=== PATIENT | male | born 1960 | race Two or more races ===

== ENCOUNTER → 2021-09-21 15:41 | Outpatient (BNVA) | payer OTHER, SELFPAY | PROVIDERS: PCP Internal Medicine Geriatric Medicine; Visit Provider Nurse Practitioner Family | DX: G20 Parkinson's disease (principal); R27.0 Ataxia, unspecified; R20.2 Paresthesia of skin; M54.2 Cervicalgia | CPT/HCPCS: 99212 ==

== ENCOUNTER 2021-10-22 07:23 | Outpatient (REF) | payer OTHER, SELFPAY ==
--- NOTE | ~2021-10-22 | MR_ITS ---
MR CERVICAL SPINE WITHOUT CONTRAST CLINICAL INFORMATION: Paresthesia of the skin. COMPARISON: None available. TECHNIQUE: MRI of the cervical spine was obtained using routine sequences without contrast. FINDINGS: Mild retrosubluxation of C3 on C4. Vertebral body heights are maintained. Multilevel endplate osteophytes. Craniocervical junction is normal. Disc volumes are preserved. Modic type I endplate signal changes at C4-C5. Bone marrow edema within the right C4-C5 facets, most likely degenerative/inflammatory. No acute fractures. Cervical arterial flow voids are maintained. No significant extraspinal soft tissue findings. C2-C3: Shallow central disc protrusion mildly narrows the central canal. No foraminal stenosis. C3-C4: Retrosubluxation and a shallow central disc protrusion results in severe central canal stenosis and compression of the cord. Significant intramedullary signal changes within the cord at this level. Advanced uncovertebral joint hypertrophy and hypertrophic facet arthropathy result in severe bilateral foraminal stenosis. C4-C5: A broad-based disc protrusion and ligamentum flavum thickening result in severe central canal stenosis and compression of the cord. Significant intramedullary signal changes within the cord at this level. Advanced uncovertebral joint hypertrophy and hypertrophic facet arthropathy result in severe bilateral foraminal stenosis. C5-C6: A disc protrusion and ligamentum flavum thickening result in severe central canal stenosis and compression of the cord. Intramedullary T2 signal changes within the cord at this level. Advanced uncovertebral joint hypertrophy and hypertrophic facet arthropathy result in severe bilateral foraminal stenosis. C6-C7: Shallow left paracentral disc protrusion mildly narrows the central canal. Advanced uncovertebral joint hypertrophy and hypertrophic facet arthropathy result in severe bilateral foraminal stenosis. C7-T1: Disc contour is normal. No central canal stenosis and no foraminal stenosis. MR/MR cervical spine wo con IMPRESSION: - Disc herniations and ligamentum flavum thickening result in severe central canal stenosis and significant compression of the cervical spinal cord at the C3-C4, C4-C5, and C5-C6 levels. 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 Neurosurgical consultation advised. - Advanced spondylitic changes also result in severe bilateral foraminal stenosis at C3-C4, C4-C5, C5-C6, and C6-C7. The patient was instructed to go to the emergency department immediately following this examination and the referring clinician has been paged with these results at 8:09 AM on 12/22/2021.
== END 2021-10-22 07:24 | disposition home or self-care (01) ==
LOC: HO.MRI 07:23
PROVIDERS: Visit Provider Nurse Practitioner Family
DX: R20.2 Paresthesia of skin (principal); G20 Parkinson's disease; R27.0 Ataxia, unspecified; M54.2 Cervicalgia
CPT/HCPCS: 72141

== ENCOUNTER 2021-10-22 08:17 | Emergency (ER) | payer OTHER, SELFPAY ==
[2021-10-22 08:21] VITALS: BP 145/78; PULSE 84; RESP 16; TEMP 36.9; O2SAT 98; BMI 25.7
--- NOTE | 2021-10-22 08:38 | ED.GENADULT ---
HPI - General Adult General Chief complaint: Recheck/Abnormal Lab/Rx Stated complaint: Pain Time Seen by Provider: 10/22/21 08:21 Source: patient and family Mode of arrival: ambulatory History of Present Illness HPI narrative: Is a 61-year-old male who typically gets his care at [facility] and has a history of Parkinson's, diabetes and states that he has been having increasing frequent falls as well as what has been determined an ?ataxic gait? and patient states that he has become progressively more numb in both his lower and upper extremities to the point that if he is not specifically looking at a cup or silverware then he will drop it. Patient states that his symptoms have been progressing for the past 6 months and he is been currently worked up for this at [facility]. He was sent here this morning for an MRI of the cervical spine and according to the MRI read he was sent up here because there is severe central canal stenosis and significant compression cervical spinal cord at C3 through C6. Related Data Home Medications Medication Instructions Recorded Confirmed carbidopa 25 mg-levodopa 100 mg 1 tab PO BID 05/28/21 09/21/21 tablet carbidopa ER 48.75 mg-levodopa 195 2 cap PO QID 05/28/21 09/21/21 mg capsule,extended release (Rytary) celecoxib 100 mg capsule 100 mg PO BID 05/28/21 09/21/21 clonazepam 0.5 mg tablet (Klonopin) 0.5 mg PO BID 05/28/21 09/21/21 dulaglutide 1.5 mg/0.5 mL 1.5 mg subcut QWEEK 05/28/21 09/21/21 subcutaneous pen injector (Trulicity) fenofibrate micronized 134 mg 134 mg PO DAILY 05/28/21 09/21/21 capsule pimavanserin 34 mg capsule 34 mg PO DAILY 05/28/21 09/21/21 (Nuplazid) pravastatin 20 mg tablet 20 mg PO DAILY 05/28/21 09/21/21 quetiapine 25 mg tablet 25 mg PO BEDTIME 05/28/21 09/21/21 ropinirole 0.25 mg tablet 0.25 mg PO BID 05/28/21 09/21/21 sertraline 100 mg tablet 100 mg PO DAILY 05/28/21 sertraline 25 mg tablet 25 mg PO DAILY 05/28/21 09/21/21 trazodone 100 mg tablet 100 mg PO DAILY 05/28/21 09/21/21 zolpidem 10 mg tablet (Ambien) 10 mg PO BEDTIME PRN 05/28/21 09/21/21 Previous Rx's Medication Instructions Recorded amitriptyline 25 mg tablet 50 mg PO BEDTIME 30 days #60 tabs 09/21/21 magnesium oxide 400 mg (241.3 mg 400 mg PO BEDTIME 30 days #30 tabs 09/28/21 magnesium) tablet Allergies Allergy/AdvReac Type Severity Reaction Status Date / Time No Known Allergies Allergy Verified 09/21/21 15:45 Review of Systems Review of Systems: Pertinent positives and negatives as stated in HPI 10 point review of systems is otherwise negative. PMFSH Past Medical History Source: nursing notes reviewed Family History Family History Mother Hyperlipidemia Cancer Thyroid disease High cholesterol Social History Social History Patient Tobacco Use Status: Never used Tobacco Advance Directives: No Advance Directives Information Provided: Yes Physical Exam ED Vital Signs: Vital Signs - 24 hr 10/22/21 08:21 10/22/21 09:41 Temperature 98.4 F Pulse Rate 84 76 Respiratory Rate 16 16 Blood Pressure 145/78 H 142/82 H Pulse Oximetry 98 96 Oxygen Delivery Method Room Air Room Air BMI result Body Mass Index 25.7 VITAL SIGNS: Reviewed. GENERAL: Well developed, well nourished, in no acute distress. HEAD: Normocephalic/atraumatic EYES: PERRLA, EOMI EARS: Ext canals without abnormality OROPHARYNX: no oral lesions noted, posterior pharynx clear LUNGS: Normal breath sounds. No adventitious sounds or accessory muscle use. SpO2<98> CARDIOVASCULAR: Regular rate and rhythm without noted murmurs ABDOMEN: Soft, non-tender, non-distended with bowel sounds. MUSCULOSKELETAL: No tenderness, deformities, or effusions noted on gross inspection. EXTREMITIES: No cyanosis, clubbing or edema. SKIN: Inspection of the skin reveals no rashes NEUROLOGIC: Alert and oriented x 4. Strength grossly intact x 4, but significant sensation decreased on gross inspection of all 4 extremities, heel to jorgensen is within normal limits, no truncal ataxia noted, no pronator drift, no facial asymmetry. Course Course Course Narrative: 61-year-old male with history and clinical presentation concerning for possible neurologic etiology either myelopathy or possible ALS. The noted numbness within all 4 extremities is profound but patient is otherwise hemodynamically stable. Review of all investigations is otherwise negative, to include inflammatory markers. In the disc as well as records obtained from [facility] are being provided to [facility]. Patient understands the gravity of the situation is agreeable to his transfer. Reevaluation(s) Reevaluation #1: [facility] is closed for stable transfers and as this has been an ongoing decline in sensation. [facility] has already stated that they do not currently have neurosurgery coverage. Will attempt to transfer to [facility]. Time: 09:59 Reevaluation #2: [facility] declined transfer due to capacity, we will reach out to [facility]. Time: 10:06 Reevaluation #3: [facility] is accepting transfer to the ED under Dr. Carmona. Time: 10:35 Medical Decision Making Lab Data Result diagrams: 10/22/21 09:05 10/22/21 09:05 Labs: Lab Results 10/22/21 10/22/21 10/22/21 Range/Units 09:05 09:05 09:05 WBC 7.4 (4.8-10.8) X10*3/uL RBC 4.86 (4.60-5.80) X10*6/uL Hgb 14.2 (14.0-18.0) g/dl Hct 43.5 (42.0-52.0) % MCV 89.5 (80.0-98.0) fL MCH 29.2 (27.0-33.0) pg MCHC 32.6 (31.0-36.0) g/dl RDW 13.7 (11.0-16.0) % Plt Count 145 L (160-400) X10*3/uL MPV 10.8 (9.4-12.4) fL Immature Gran % (Auto) 0.5 H (0.0-0.4) % Neut % (Auto) 64.4 (45-73) % Lymph % (Auto) 22.5 (20-40) % [place] % (Auto) 7.0 (2-11) % Eos % (Auto) 5.3 H (0-4) % Baso % (Auto) 0.3 (0-2) % Lymph # (Auto) 1.7 (1.2-4.9) X10*3/uL [place] # (Auto) 0.5 (0.1-1.2) X10*3/uL Eos # (Auto) 0.4 (0.0-0.4) X10*3/uL Baso # (Auto) 0.0 (0.0-0.2) X10*3/uL Abs Immat Gran (auto) 0.04 H (0.00-0.03) X10*3/uL Absolute Neuts (auto) 4.8 (2.0-8.3) x10*3/uL Absolute Nucleated RBC 0.000 (0.0-0.012) X10*3/uL Nucleated RBC % (auto) 0.0 (0.0-0.2) /100WBC ESR 6 (0-15) MM/HR PT 12.5 (9.9-13.0) SEC INR 1.1 (0.9-1.1) Sodium (135-145) mmol/L Potassium (3.3-5.1) mmol/L Chloride (96-108) mmol/L Carbon Dioxide (22-29) mmol/L Anion Gap (12-20) BUN (9-16) mg/dL Creatinine (0.5-1.4) mg/dL Estim Creat Clear Calc Estimated GFR Random Glucose (60-115) mg/dL Calcium (8.4-10.2) mg/dL Total Bilirubin (0.0-1.0) mg/dL AST (5-37) U/L ALT (0-40) U/L Alkaline Phosphatase (39-117) U/L C-Reactive Protein (< or = 0.50) mg/dL Total Protein (6.5-8.0) g/dL Albumin (3.5-5.0) g/dL COVID-19 (DEAN) (Negative) COVID-19 Clin Com 10/22/21 10/22/21 Range/Units 09:05 09:31 WBC (4.8-10.8) X10*3/uL RBC (4.60-5.80) X10*6/uL Hgb (14.0-18.0) g/dl Hct (42.0-52.0) % MCV (80.0-98.0) fL MCH (27.0-33.0) pg MCHC (31.0-36.0) g/dl RDW (11.0-16.0) % Plt Count (160-400) X10*3/uL MPV (9.4-12.4) fL Immature Gran % (Auto) (0.0-0.4) % Neut % (Auto) (45-73) % Lymph % (Auto) (20-40) % [place] % (Auto) (2-11) % Eos % (Auto) (0-4) % Baso % (Auto) (0-2) % Lymph # (Auto) (1.2-4.9) X10*3/uL [place] # (Auto) (0.1-1.2) X10*3/uL Eos # (Auto) (0.0-0.4) X10*3/uL Baso # (Auto) (0.0-0.2) X10*3/uL Abs Immat Gran (auto) (0.00-0.03) X10*3/uL Absolute Neuts (auto) (2.0-8.3) x10*3/uL Absolute Nucleated RBC (0.0-0.012) X10*3/uL Nucleated RBC % (auto) (0.0-0.2) /100WBC ESR (0-15) MM/HR PT (9.9-13.0) SEC INR (0.9-1.1) Sodium 141 (135-145) mmol/L Potassium 3.8 (3.3-5.1) mmol/L Chloride 105 (96-108) mmol/L Carbon Dioxide 29 (22-29) mmol/L Anion Gap 11 L (12-20) BUN 20 H (9-16) mg/dL Creatinine 0.86 (0.5-1.4) mg/dL Estim Creat Clear Calc 79.4 Estimated GFR > 60 Random Glucose 113 (60-115) mg/dL Calcium 9.4 (8.4-10.2) mg/dL Total Bilirubin 0.5 (0.0-1.0) mg/dL AST 17 (5-37) U/L ALT 16 (0-40) U/L Alkaline Phosphatase 72 (39-117) U/L C-Reactive Protein 0.19 (< or = 0.50) mg/dL Total Protein 7.5 (6.5-8.0) g/dL Albumin 4.5 (3.5-5.0) g/dL COVID-19 (DEAN) Negative (Negative) COVID-19 Clin Com See Note Discharge Plan Discharge Clinical Impression: Ataxia, Diabetes, Parkinson's disease [facility] Details: COmpressive Myelopathy for neurosurg Consult Prescriptions: No Action magnesium oxide 400 mg (241.3 mg magnesium) tablet 400 mg PO BEDTIME 30 Days Qty: 30 6RF amitriptyline 25 mg tablet 50 mg PO BEDTIME 30 Days Qty: 60 1RF celecoxib 100 mg capsule 100 mg PO BID sertraline 100 mg tablet 100 mg PO DAILY trazodone 100 mg tablet 100 mg PO DAILY Trulicity 1.5 mg/0.5 mL pen injector 1.5 mg subcut QWEEK carbidopa-levodopa 25-100 mg tablet 1 tab PO BID quetiapine 25 mg tablet 25 mg PO BEDTIME ropinirole 0.25 mg tablet 0.25 mg PO BID Rytary 48.75-195 mg capsule, extended release 2 cap PO QID Nuplazid 34 mg capsule 34 mg PO DAILY sertraline 25 mg tablet 25 mg PO DAILY pravastatin 20 mg tablet 20 mg PO DAILY zolpidem [Ambien] 10 mg tablet 10 mg PO BEDTIME PRN clonazepam [Klonopin] 0.5 mg tablet 0.5 mg PO BID fenofibrate micronized 134 mg capsule 134 mg PO DAILY
[2021-10-22 09:11] LABS: MANUAL DIFF FLAG NO
[2021-10-22 09:16] LABS: Basophils Percent Auto 0.3 % (0-2); Eosinophils Absolute Auto 0.4 X10*3/uL (0.0-0.4); Eosinophils Percent Auto 5.3 % (0-4); Hematocrit 43.5 % (42.0-52.0); Hemoglobin 14.2 g/dl (14.0-18.0); Imm Gran Abs Auto 0.04 X10*3/uL (0.00-0.03); Imm Gran Pct Auto 0.5 % (0.0-0.4); Lymphocytes Absolute Auto 1.7 X10*3/uL (1.2-4.9); Lymphocytes Percent Auto 22.5 % (20-40); Mean Corpuscular HGB Conc 32.6 g/dl (31.0-36.0); Mean Corpuscular Hemoglobin 29.2 pg (27.0-33.0); Mean Corpuscular Volume 89.5 fL (80.0-98.0); Mean Platelet Volume 10.8 fL (9.4-12.4); Monocytes Absolute Auto 0.5 X10*3/uL (0.1-1.2); Neutrophils Absolute Auto 4.8 x10*3/uL (2.0-8.3); Neutrophils Percent Auto 64.4 % (45-73); Platelet Count 145 X10*3/uL (160-400); Red Blood Count 4.86 X10*6/uL (4.60-5.80); Red Cell Distribution Width 13.7 % (11.0-16.0); White Blood Count 7.4 X10*3/uL (4.8-10.8)
[2021-10-22 09:25] LABS: INTERNATIONAL NORM RATIO 1.1 (0.9-1.1); Prothrombin Time 12.5 SEC (9.9-13.0)
[2021-10-22 09:31] LABS: Alanine Aminotransferase 16 U/L (0-40); Albumin Level 4.5 g/dL (3.5-5.0); Alkaline Phosphatase 72 U/L (39-117); Anion Gap 11 (12-20); Aspartate Amino Transferase 17 U/L (5-37); Bilirubin Total 0.5 mg/dL (0.0-1.0); Blood Urea Nitrogen 20 mg/dL (9-16); C Reactive Protein 0.19 mg/dL (< or = 0.50); Calcium 9.4 mg/dL (8.4-10.2); Carbon Dioxide 29 mmol/L (22-29); Chloride 105 mmol/L (96-108); Creatinine Clr Calc Pharmacy 79.4; Estimated Glomerular Filt Rate > 60; Glucose Random 113 mg/dL (60-115); Potassium 3.8 mmol/L (3.3-5.1); Sodium 141 mmol/L (135-145); Total Protein 7.5 g/dL (6.5-8.0)
[2021-10-22 09:41] VITALS: BP 142/82; PULSE 76; RESP 16; O2SAT 96
[2021-10-22 09:50] LABS: IDNOW Serial# 16C4AD1C
[2021-10-22 09:51] LABS: Erythrocyte Sedimentation Rate 6 MM/HR (0-15)
[2021-10-22 09:51] LABS: COVID-19 Test Negative (Negative)
--- NOTE | 2021-10-22 09:51 | PC.NURSE ---
@ 0921 DR JIMENEZ REQUESTS CALL OUT TO [facility] FOR THIS PT DINAH ANSWERS, TAKES PT INFO AND ASKS TO SPEAK WITH DR BARBARA JIMENEZ TAKES OVER CALL RIGHT AWAY. @ 0932 CALL RECEIVED FROM [facility] [place] LINE ASKING TO SPEAK WITH DR BARBARA JIMENEZ TAKES OVER CALL RIGHT AWAY DR JIMENEZ THEN TELLS THIS US THAT [facility] DOES NOT HAVE A NEUROSURGEON 21 DEALER AND WE WILL NEED TO CALL [facility] [place] LINE
--- NOTE | 2021-10-22 10:56 | PC.NURSE ---
@ 1003AM DR JIMENEZ STATES THIS PT NOT ACCEPTED @ [facility] FOR TX, D/T HIGH CAPACITY THEY HAVE LIMITED SERVICES THEY CAN ACCEPT FOR TX REQUESTS CALL OUT TO [facility] CALLED FOR POSSIBLE TX, [place] ANSWERS AND ASKS TO SPEAK WITH DR BARBARA JIMENEZ TAKES OVER CALL RIGHT AWAY NOT ACCEPTING THIS TRANSFER PER DR JIMENEZ @ 1018AM DR JIMENEZ REQUESTS CALL OUT TO [facility] TX LINE EVE ANSWERS AND ASKS TO SPEAK WITH DR BARBARA JIMENEZ TAKES OVER CALL RIGHT AWAY @ 1038AM DEIDRE FROM [facility] CONTACTED FOR BLS TRANSFER TO [facility] ER @ DR JIMENEZ REQUEST
--- NOTE | 2021-10-22 11:11 | PC.NURSE ---
CARE ASSUMED BY ALEX RILEY PT REMAINS AWAKE, ALERT AND ORIENTED. NO ACUTE DISTRESS NOTED. FAMILY AT BEDSIDE. NO CHANGE IN NEURO STATUS SINCE ARRIVAL. REPORT CALLED TO EMERGENCY DEPARTMENT [phone] DONNA RILEY
[2021-10-22 11:57] VITALS: BP 152/77; PULSE 71; RESP 16; O2SAT 96
--- NOTE | 2021-10-22 12:18 | PC.NURSE ---
PT REPORTING TO PROVIDER THAT HE DOES NOT WISH TO BE TRANSFERRED. RISKS OF TRANSPORT REFUSAL DISCUSSED WITH PATIENT BY DR JIMENEZ. [facility] ED NURSING NOTIFIED THAT PATIENT WOULD NOT BE TRANSFERRED.
--- NOTE | 2021-10-22 12:23 | PC.NURSE ---
Pt signed refusal of treatment. Verbalized understanding of risks.
== END 2021-10-22 12:42 | disposition left against medical advice (07) ==
PROVIDERS: Emergency Provider Student in an Organized Health Care Education/Training Program; PCP Internal Medicine Geriatric Medicine
DX: M48.02 Spinal stenosis, cervical region (principal); G99.2 Myelopathy in diseases classified elsewhere; R26.0 Ataxic gait; E11.9 Type 2 diabetes mellitus without complications; G20 Parkinson's disease; R53.1 Weakness; Z20.822 Contact with and (suspected) exposure to COVID-19
CPT/HCPCS: 36415; 80053; 85025; 85610; 85652; 86140; 87635; 99284; 99285

== ENCOUNTER → 2022-10-11 14:48 | Outpatient (BNVA) | payer OTHER, SELFPAY | PROVIDERS: PCP Internal Medicine Geriatric Medicine; Visit Provider Nurse Practitioner Family | DX: E11.69 Type 2 diabetes mellitus with other specified complication (principal); N52.1 Erectile dysfunction due to diseases classified elsewhere | CPT/HCPCS: 99202 ==

== ENCOUNTER 2023-01-11 12:22 | Outpatient (REF) | payer OTHER, SELFPAY ==
[2023-01-11 15:30] LABS: PSA,Total (Free>4and<10) 0.87 ng/mL (0.00-4.00)
== END 2023-01-11 12:23 | disposition home or self-care (01) ==
LOC: HO.LAB 12:22
PROVIDERS: PCP Internal Medicine Geriatric Medicine; Visit Provider Nurse Practitioner Family
DX: Z12.5 Encounter for screening for malignant neoplasm of prostate (principal); E11.69 Type 2 diabetes mellitus with other specified complication; N52.1 Erectile dysfunction due to diseases classified elsewhere
CPT/HCPCS: 36415; 84153

== ENCOUNTER 2023-01-12 08:17 | Outpatient (AMB) | payer OTHER, SELFPAY ==
--- NOTE | 2023-01-12 08:32 | MHC.OFFVIS ---
Intake Intake Visit Reasons: 3m follow up Intake Note: Patient is present for follow up visit erectile dysfunction/labs (PSA 0.87) Urology Medications: tadalafil (needs refills) Blood Thinner: none Manager Beauty Required: No Accompanied by: Self / Same As Patient Allergies No Known Allergies Allergy (Verified 01/12/23 09:01) Medication List - Last Reconciled 01/12/23 by KENAN Noriega aspirin 81 mg PO DAILY clonazepam 1 mg PO DAILY PRN dulaglutide (Trulicity) 1.5 mg subcut QWEEK food supplemt, lactose-reduced 237 oz orally daily; VANILLA 30 days magnesium oxide 400 mg PO BEDTIME 30 days pravastatin 20 mg PO DAILY tadalafil (Cialis) 5 mg PO DAILY 90 days tadalafil (Cialis) 20 mg PO DAILY PRN zolpidem (Ambien) 10 mg PO BEDTIME PRN HPI HPI Comments History of Present Illness Details Valentín is a pleasant 62-year-old male patient of Dr. Malcolm. He presents to the office today for a follow up. Of note, patient was seen approximately 3 months as a new patient for erectile dysfunction at which time a PSA was ordered and the patient was started in low dose cialis as well as PRN on demand dosing. In discussion with the patient today he reports significant improvement in erectile dysfunction on 5 mg of Cialis daily as well as PRN dosing as prescribed. Recent PSA results reviewed with the patient today 12/29--0.9. He otherwise denies any urinary issues or concerns. He denies urinary urgency, urinary frequency, incontinence, nocturia, hematuria, dysuria, foul smelling urine, changes to urinary stream, flank pain, fever, and or chills. He is happy with his current voiding parameters. In office urinalysis results reviewed with the patient today. Stressed at length importance of healthy eating habits, exercise/brisk walking, and adequate sleep to assist with symptoms of ED as well as for overall health and well-being. Patient otherwise offers no issues or concerns at this time. [facility] Medical History Diabetes Family History Mother Hyperlipidemia Cancer Thyroid disease High cholesterol Social History Patient Tobacco Use Status: Never used Tobacco Review of Systems Const Reports no additional complaints Eyes Reports no additional complaints ENT Reports no additional complaints Card Reports no additional complaints Resp Reports no additional complaints GI Reports no additional complaints Reports as per HPI Musc Reports as per HPI Neuro Reports as per HPI Psych Reports no additional complaints Endo Reports as per HPI Physical Exam Const General: cooperative, healthy appearing, comfortable, no acute distress, well developed, alert and awake Orientation/consciousness: patient oriented x3 Limitations: no limitations HEENT Head: Yes normal to inspection, Yes normocephalic and Yes atraumatic Ears: hearing grossly normal bilaterally Eyes General: appearance normal, both eyes and all related structures Neck Neck: Yes normal visual inspection and Yes trachea midline Chest Chest palpation & inspection: normal inspection of the chest Resp Effort & Inspection: normal respiratory effort and able to speak in complete sentences Cardio Rate: regular rate GI Inspection: Yes normal to inspection General: Yes no CVA tenderness Back/Spine/Pelvis Back: no CVA tenderness Skin General skin exam: no rashes or lesions noted Neuro General: patient oriented x3 Extrem General: Yes normal to inspection Psych Appearance: grossly normal and well kempt Mental Status: mental status grossly normal Speech and movement: Normal speech and movement present and Clear speech present Affect: normal affect Attitude: cooperative Thought process: Normal thought process present Thought content: Normal thought content present Insight: Good insight present (Psych) Judgement: Good judgement present (Psych) Results AMB Urinalysis, Automated UA Leukoctes 0 Rakesh/uL Last Edit by [employer] on 01/12/23 08:44 UA Nitrite Last Edit by Gretchen Avery on 01/12/23 08:44 UA Urobilinogen 0.2 mg/dL Last Edit by Revolightsdoris Avery on 01/12/23 08:44 UA Protein 0 mg/dL Last Edit by Revolights[employer]is Avery on 01/12/23 08:44 UA pH 6.0 Last Edit by [employer] Avery on 01/12/23 08:44 UA Blood 10 Wil/uL Last Edit by [employer] Avery on 01/12/23 08:44 UA Specific [place] 1.025 Last Edit by Revolightsdoris Avery on 01/12/23 08:44 UA Ketone Negative Last Edit by Gretchen Avery on 01/12/23 08:44 UA Bilirubin 0 mg/dL Last Edit by Gretchen Avery on 01/12/23 08:44 UA Glucose 0 mg/dL Last Edit by Gretchen Avery on 01/12/23 08:44 Results Reviewed Results Reviewed: Laboratory Last Values Urine pH (Auto) 6.0 01/12/23 08:34 Specific [place] (Auto) 1.025 01/12/23 08:34 Urine Protein (Auto) 0 mg/dL 01/12/23 08:34 Glucose (UA)(Auto) 0 mg/dL 01/12/23 08:34 Urine Ketones (Auto) Negative 01/12/23 08:34 Urine Blood (Auto) 10 Wil/uL 01/12/23 08:34 Urine Bilirubin (Auto) 0 mg/dL 01/12/23 08:34 Urine Urobilinogen (Auto) 0.2 mg/dL 01/12/23 08:34 Leukocyte Esterase (Auto) 0 Rakesh/uL 01/12/23 08:34 Assessment & Plan Assessment & Plan (1) Erectile dysfunction associated with type 2 diabetes mellitus: Code(s): E11.69 - Type 2 diabetes mellitus with other specified complication; N52.1 - Erectile dysfunction due to diseases classified elsewhere Plan In office urinalysis results reviewed with the patient today; as noted above. Continue 5 mg of Cialis daily; refill provided Refill provided on p.r.n. Cialis Patient otherwise denies any urinary issues or concerns at this time. Recent PSA results reviewed with the patient today; as noted above. Patient denies any bothersome urinary issues or concerns at this time. He reports be happy with current voiding parameters. PSA in 1 year. Follow-up in 1 year with imaging to be completed prior; or sooner with any issues, concerns, and or questions. Orders: Orders Prostate Specific Antigen 364 Days N40.1 - Benign prostatic hyperplasia with lower urinary tract symptoms Urine Cytology Today E11.69 - Type 2 diabetes mellitus with other specified complication, N52.1 - Erectile dysfunction due to diseases classified elsewhere AMB Urinalysis Automated Today Z13.9 - Encounter for screening, unspecified Medications: Changed From tadalafil (Cialis) 5 mg PO DAILY 90 days 90 tabs 0RF To tadalafil (Cialis) [id number] [facility] [id number] Member [id number] 5 mg PO DAILY 90 days 90 tabs 4RF Refilled tadalafil (Cialis) administer approximately 30-60 min before sexual activity; do not use more than 1 dose per 24hrs BIN N Group [facility] [id number] 20 mg PO DAILY PRN 20 tabs 3RF sexual activity Coding Level of Care Code Est Pt Level 3 (19202) Diagnoses Erectile dysfunction associated with type 2 diabetes mellitus E11.69; N52.1
== END 2023-01-12 08:57 | disposition home or self-care (01) ==
PROVIDERS: PCP Internal Medicine Geriatric Medicine; Visit Provider Nurse Practitioner Family
DX: E11.69 Type 2 diabetes mellitus with other specified complication (principal); N52.1 Erectile dysfunction due to diseases classified elsewhere; Z13.9 Encounter for screening, unspecified
CPT/HCPCS: 99213

== ENCOUNTER 2023-01-12 08:17 | Outpatient (REF) | payer OTHER, SELFPAY ==
[2023-01-12 17:03] LABS: Urine Cytology See Pathology rpt
== END 2023-01-12 08:18 | disposition home or self-care (01) ==
LOC: HO.LNP 08:17
PROVIDERS: PCP Internal Medicine Geriatric Medicine; Visit Provider Nurse Practitioner Family
DX: E11.69 Type 2 diabetes mellitus with other specified complication (principal); N52.1 Erectile dysfunction due to diseases classified elsewhere
CPT/HCPCS: 81003; 88112; 99212

== ENCOUNTER 2023-03-14 06:50 | Day surgery (SDC) | payer OTHER, SELFPAY ==
[2023-03-11 07:48] VITALS: BMI 26.1
--- NOTE | 2023-03-11 09:58 | P.CONAN_ITS ---
HPI - Anesthesia Eval Consult details Narrative: 62yo M for Colonoscopy Anesthesia Pre-Procedure Meds Is the patient on any of the following meds?: Dulaglutide (Trulicity) If Yes to any meds - educate patient: Pt education - increased risk of aspiration and Pt education - possibility of cancelled proc at provider's discretion PMFSH Active Problems Active Problems: All Active Problems (Updated 03/11/23 @ 07:42 by Tamar Potts RN) Erectile dysfunction associated with type 2 diabetes mellitus (Acute) Cervical disc herniation (Acute) Cervicalgia (Acute) Paresthesias (Acute) Parkinson's disease (Acute) Ataxia (Acute) Diabetes (Acute) Past Medical History Medical History Anxiety Diabetes Family History Family History Mother Hyperlipidemia Cancer Thyroid disease High cholesterol Surgical History Surgical History H/O colonoscopy Social History Social History Patient Tobacco Use Status: Current everyday Tobacco user Cigarettes Per Day: 1 Substance Use Frequency: Occasionally Have you been hit, kicked, punched, or otherwise hurt by someone within the past year? If so, by whom?: No Are you DNR?: No Advance Directives: No Advance Directives Information Provided: Yes Recently lost weight without trying: No Eating poorly because of decreased appetite: No Nutrition Risks: No Nutritional Risk Poor oral hygiene: No Meds Allergies Allergy/AdvReac Type Severity Reaction Status Date / Time No Known Allergies Allergy Verified 01/12/23 09:01 Home Medications Medication Instructions Recorded Confirmed Last Taken Type dulaglutide 1.5 mg/0.5 mL 1.5 mg subcut QWEEK 05/28/21 09/21/21 Unknown History subcutaneous pen injector (Trulicity) pravastatin 20 mg tablet 20 mg PO DAILY 05/28/21 09/21/21 Unknown History zolpidem 10 mg tablet (Ambien) 12.5 mg PO BEDTIME PRN Insomnia 05/28/21 03/11/23 Unknown History clonazepam 1 mg tablet 1 mg PO DAILY PRN Anxiety 10/11/22 03/11/23 Unknown His tory aspirin 81 mg tablet,delayed 81 mg PO DAILY 01/12/23 03/11/23 Unknown History release carbidopa 25 mg-levodopa 100 mg 2 tab PO 5XD 03/11/23 03/11/23 Unknown History tablet duloxetine 60 mg capsule,delayed 60 mg PO BID 03/11/23 03/11/23 Unknown History release gabapentin 600 mg tablet 600 mg PO TID 03/11/23 Unknown History Exam Exam Date and Time: March 11, 2023 0958 Height,Weight and Vital Signs: Height 5 ft 5 in Weight 71.214 kg Assessment and Plan Assessment Anesthesia Assessment: Chart Reviewed
--- NOTE | 2023-03-14 07:51 | HO.ANESPROP2 ---
[facility] Active Problems Active Problems: All Active Problems (Updated 03/11/23 @ 07:42 by Tamar Potts RN) Erectile dysfunction associated with type 2 diabetes mellitus (Acute) Cervical disc herniation (Acute) Cervicalgia (Acute) Paresthesias (Acute) Parkinson's disease (Acute) Ataxia (Acute) Diabetes (Acute) Past Medical History Medical History Anxiety Diabetes Functional capacity: independent ambulation Family History Family History Mother Hyperlipidemia Cancer Thyroid disease High cholesterol Family history of problems with anesthesia: No Surgical History Surgical History H/O colonoscopy History of Problems with Anesthesia: No Social History Social History Patient Tobacco Use Status: Never used Tobacco Advance Directives: No Advance Directives Information Provided: Yes Meds Allergies Allergy/AdvReac Type Severity Reaction Status Date / Time No Known Allergies Allergy Verified 01/12/23 09:01 Home Medications Medication Instructions Recorded Confirmed Last Taken Type dulaglutide 1.5 mg/0.5 mL 1.5 mg subcut QWEEK 05/28/21 09/21/21 Unknown History subcutaneous pen injector (Trulicity) pravastatin 20 mg tablet 20 mg PO DAILY 05/28/21 09/21/21 Unknown History zolpidem 10 mg tablet (Ambien) 12.5 mg PO BEDTIME PRN Insomnia 05/28/21 03/11/23 Unknown History clonazepam 1 mg tablet 1 mg PO DAILY PRN Anxiety 10/11/22 03/11/23 Unknown History aspirin 81 mg tablet,delayed 81 mg PO DAILY 01/12/23 03/11/23 Unknown History release carbidopa 25 mg-levodopa 100 mg 2 tab PO 5XD 03/11/23 03/11/23 Unknown History tablet duloxetine 60 mg capsule,delayed 60 mg PO BID 03/11/23 03/11/23 Unknown History release gabapentin 600 mg tablet 600 mg PO TID 03/11/23 Unknown History Exam Exam Date and Time: March 14, 2023 075 Height,Weight and Vital Signs: Height 5 ft 5 in Weight 71.214 kg Airway Mallampati Class: II TM Dist: >3cm Neck ROM: Full Heart: RRR Lungs: CTA Assessment and Plan Assessment Anesthesia Assessment: Anesthesia Plan Discussed Final Anesthetic Review Family History of Problems with Anesthesia: No History of Problems with Anesthesia: No NPO: Yes ASA Class: II Final Preanesthetic Review: Meds/Allgs Chart Reviewed, Consent Obtained/Reviewed and Anes Risks/Benef Reviewed Patient Risk: Low Anesthetic Plan Anesthetic Plan: MAC: Disposition: Standard PACU
[2023-03-14 08:07] LABS: Glucose, Whole Blood 117 mg/dL (60-115)
[2023-03-14 08:16] VITALS: BP 124/62; PULSE 67; RESP 18; TEMP 36.6; O2SAT 95
[2023-03-14] MEDS: Lactated Ringers 1,000 ML 100 ML IVCONT (08:39)
--- NOTE | 2023-03-14 09:59 | PM.OP ---
Brief Operative Note Date of Service: 03/14/23 Pre-op diagnosis: Screening Post-op diagnosis: other (Colon polyps) Procedure: Colonoscopy to the cecum with hot snare polypectomy x 2 Surgeon: Bean Smith MD Anesthesia: MAC Was an [employer] used for this Procedure?: No Estimated blood loss (mL): 0 Pathology: other (A. Cecal polyps x 2) Condition: stable Disposition: PACU
[2023-03-14 10:00] VITALS: BP 104/66; PULSE 78; RESP 16; TEMP 36.3; O2SAT 98
[2023-03-14 10:15] VITALS: BP 100/76; PULSE 76; RESP 18; TEMP 36.1; O2SAT 99
--- NOTE | 2023-03-14 10:39 | HO.POSTANES ---
Post Anesthesia Evaluation Post Anesthesia Evaluation Date of Service: 03/14/23 Vital Signs: Vital Signs Temp Pulse Resp BP Pulse Ox O2 Del Method 03/14/23 10:15 97.0 F 76 18 100/76 99 Room Air 03/14/23 10:00 97.3 F 78 16 104/66 98 Room Air 03/14/23 08:16 97.9 F 67 18 124/62 95 Room Air Anesthesia: Monitored Mental Status: Awake Pain Control: Satisfactory Nausea/Vomiting: None Hydration: Adequate Anesthesia-Related Issues: No Anes. Related Issues
--- NOTE | 2023-03-18 10:25 | OP_ITS ---
DATE OF SERVICE: 03/14/2023 SURGEON: Bean Smith MD INDICATIONS: The patient presents for evaluation of colorectal cancer screening. Full consent has been obtained from him for this, including risks of bleeding and perforation. PREOPERATIVE DIAGNOSIS: Colorectal cancer screening. POSTOPERATIVE DIAGNOSIS: Colorectal cancer screening, colon polyps, diverticulosis, internal hemorrhoids. PROCEDURE PERFORMED: Colonoscopy to the cecum with hot snare polypectomy x2. ESTIMATED BLOOD LOSS: COMPLICATIONS: ANESTHESIA: Monitored anesthesia care. ASSISTANTS: SPECIMENS: DESCRIPTION OF PROCEDURE: The patient was placed in the left lateral decubitus position. The digital rectal exam revealed no abnormalities. The Olympus video pediatric colonoscope was entered into the rectum and advanced to the cecum with the assistance of abdominal wall pressure. Once in the cecum, I did identify cecal pouch. The appendiceal orifice was visualized and appeared normal. The ileocecal valve appeared normal. In the cecum were 2 flat, but raised approximately 5 or 6 mm polyps, which were removed by hot snare polypectomy and recovered by suction. The polypectomy site appeared clean, without any sign of residual polyp nor bleeding. The scope was then slowly withdrawn assessing all mucosal surfaces carefully. For the most part, preparation was good throughout the colon, although did require some irrigation and suctioning. I did not visualize any other polyps, colitis, nor angiodysplasia. There was a mild amount of sigmoid diverticulosis. In the rectum, scope was retroflexed visualizing internal hemorrhoids, but no other pathology. The rectal mucosa appeared normal. The scope was straightened and withdrawn from the patient. He tolerated the procedure well and was returned to recovery area in stable condition. IMPRESSION: 1. Colon polyps. 2. Diverticulosis. 3. Internal hemorrhoids. PLAN: The results of the pathology will be checked. He was advised not to use any aspirin or NSAIDs for 1 week. I would recommend a repeat colonoscopy in 5 years. He will see me otherwise on a p.r.n. basis. MD KEL Templeton/DEREJE / [phone]
== END 2023-03-14 10:37 | disposition home or self-care (01) ==
PROVIDERS: PCP Internal Medicine Geriatric Medicine; Visit Provider Internal Medicine
PROC: 0DJD8ZZ Inspection of Lower Intestinal Tract, Via Natural or Artificial Opening Endoscopic (ICD-10-PCS; CPT 45378; principal; 2023-03-14 08:40)
DX: Z12.11 Encounter for screening for malignant neoplasm of colon (principal); Z80.0 Family history of malignant neoplasm of digestive organs; D12.0 Benign neoplasm of cecum; K57.30 Diverticulosis of large intestine without perforation or abscess without bleeding; K64.8 Other hemorrhoids; G20.A1 Parkinson's disease without dyskinesia, without mention of fluctuations; F41.9 Anxiety disorder, unspecified; N52.1 Erectile dysfunction due to diseases classified elsewhere; E11.9 Type 2 diabetes mellitus without complications; Z79.85 Long-term (current) use of injectable non-insulin antidiabetic drugs; Z79.82 Long term (current) use of aspirin; Z79.899 Other long term (current) drug therapy
CPT/HCPCS: 45385; 82947; 88305; J2371

== ENCOUNTER 2023-04-08 09:44 | Outpatient (AMB) | payer OTHER, SELFPAY ==
--- NOTE | 2023-04-08 10:04 | A.OFFVIS_ITS ---
Intake Vital Signs 04/08/23 10:06 Height 5 ft 5 in Weight 159 lb 8 oz BMI 26.5 BP 130/70 Blood Pressure Location Lt brachial Pulse 66 Pulse Source Pulse Oximeter Pulse Oximetry (%) 98 Intake Visit Reasons: follow up/ Confirmed Intake Note: Pt presents today for Parkinsons fup Allergies No Known Allergies Allergy (Verified 04/08/23 10:14) Medication List - Last Reconciled 04/08/23 by ANDREW García aspirin 81 mg PO DAILY carbidopa-levodopa 25-100 mg 2 tabs PO 5XD clonazepam 1 mg PO DAILY PRN dulaglutide (Trulicity) 1.5 mg subcut QWEEK duloxetine 60 mg PO BID food supplemt, lactose-reduced 237 oz orally daily; VANILLA 30 days gabapentin 600 mg PO TID magnesium oxide 400 mg PO BEDTIME 30 days pravastatin 20 mg PO DAILY ropinirole 0.25 mg PO BID 30 days tadalafil (Cialis) 5 mg PO DAILY 90 days tadalafil (Cialis) 20 mg PO DAILY PRN tramadol 50 mg PO Q4H PRN 7 days MDD 3 tabs zolpidem (Ambien) 12.5 mg PO BEDTIME PRN HPI HPI Comments History of Present Illness Details 62-yr-old male presents for f/u visit- l ast visit approx 1.5 yrs ago. At the last visit, pt was advised to undergo c-spine MRI, which showed severe cervical cord compression. Pt was referred to Dr Miller, and he underwent cervical repair. He states he is doing much better, less tremor, walking straighter- no longer ataxic. He can have neck pain- pain in the bone, squeezing pain. He is hoping I can help him manage this better. His states his has lost sensation in both of his hands since the procedure- can make it diffiuclt to do some ADLs. Pt's current PD medication regimen: CD-LD 25-100mg 2 tabs 5 x's day, Reqip 0.25mg 1 tab bid. Feels a bit more nausous w/ his meds. His family helps him take his pills. ADL's: Needs assist w/ ADLs, but needs help with buttons, zippers- again as he cannot feel in his hands. Swallowing: Sometimes can choke if he eats/drinks too quickly- does not happen if takes his time Drooling: Prone to drooling Orthostatic lightheadedness: Denies GI/: some urinary incontinence. Freezing: occasionally one side does not work Stiffness: some stiffness Tremor: he states he is not shaking as much since the surgery Falls: Recent fall- states his RLE did not move Hallucinations: can have hallucinations Memory: memory is better, but may still lose things Sleep: not sleeping well even w/ ambien prescribed by psychiatry- states he needs his quetiapine back. Mood: states he is talking too much- cannot stop himself- even people are just walking away from him. Exercise: His son has started bringing him to [employer]. 10/2021, MR/MR cervical spine wo con IMPRESSION: - Disc herniations and ligamentum flavum thickening result in severe central canal stenosis and significant compression of the cervical spinal cord at the C3-C4, C4-C5, and C5-C6 levels. 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 Neurosurgical consultation advised. - Advanced spondylitic changes also resu lt in severe bilateral foraminal stenosis at C3-C4, C4-C5, C5-C6, and C6-C7. PFSH Medical History Anxiety Diabetes Surgical History H/O colonoscopy Family History Mother Hyperlipidemia Cancer Thyroid disease High cholesterol Social History Patient Tobacco Use Status: Current everyday Tobacco user Cigarettes Per Day: 1 Review of Systems Const All systems reviewed & are unremarkable except as noted in HPI and below Physical Exam Vital Signs: Last Vital Signs Pulse 66 04/08/23 10:06 BP 130/70 04/08/23 10:06 Pulse Ox 98 04/08/23 10:06 BMI result Body Mass Index 26.5 Const General: cooperative and no acute distress Resp Effort & Inspection: normal respiratory effort and able to speak in complete sentences Neuro Other: Genral: A&O x's 3 Expression: Intact Voice: Ok Tremor: Mild potural tremor Tone: BUE tone Dyskinesia: None FFM: Intact Foot taps: Intact Gait: Good stride, slightly narrow base, no ataxia, steady gait. Psych: Pleasant affect Motor exam (neuro): 5/5 motor strength present throughout Deep tendon reflexes (DTR's): Right triceps reflex intensity grade: 2+, Left triceps reflex intensity grade: 2+, Rt Biceps (C5, C6): 2+, Left biceps reflex intensity grade: 2+, Right brachioradialis reflex intensity grade: 2+, Left brachioradialis reflex intensity grade: 2+, Right patellar reflex intensity grade: 2+ and Left patellar reflex intensity grade: 2+ Assessment & Plan Assessment & Plan (1) Parkinson's disease: Code(s): G20 - Parkinson's disease (2) Cervicalgia: Code(s): M54.2 - Cervicalgia (3) Cervical disc herniation: Code(s): M50.20 - Other cervical disc displacement, unspecified cervical region (4) Tremor: Code(s): R25.1 - Tremor, unspecified (5) Hypoesthesia of skin: Code(s): R20.1 - Hypoesthesia of skin Plan For PD: As many of pt's PD s/s have improved s/p c-spine repair, I would like to revisist his PD dx- thus pt advised to undergo DaTscan to assess for dopaminergic metabolism dysfunction. Wean off of Ropinirole- in hopes this alleviates the excessive talking behavior. Continue Sinemet 25-100mg 2 tabs po 5 x's per day. Consider resuming Quetiapine- for sleep, compulsive bahaviors. For chronic neck pain s/p c-spine repair: I will send a short supply of Tramadol. Continue Gabapentin 600mg tid for now. Will request pain management consult- to eval for adjunctive tx modalities. Previous trials- Amitriptyline- unclear why pt stopped- ? d/t lapse in pt's f/u here. follow-up in 3-4 months or sooner prn. Orders: Orders DaTscan 04/08/23 G20 - Parkinson's disease, K11.7 - Disturbances of salivary secretion, R25.1 - Tremor, unspecified, W19.XXXA - Unspecified fall, initial encounter Referrals Pain Management Referral G20 - Parkinson's disease, M50.20 - Other cervical disc displacement, unspecified cervical region, M54.2 - Cervicalgia Medications: New tramadol 50 mg PO Q4H 7 days PRN 21 tabs 0RF pain MDD 3 tabs Coding Level of Care Code Est Pt Level 4 (90191) Diagnoses Parkinson's disease G20 Cervicalgia M54.2 Cervical disc herniation M50.20 Tremor R25.1 Hypoesthesia of skin R20.1
[2023-04-08 10:06] VITALS: BP 130/70; PULSE 66; O2SAT 98; BMI 26.5
== END 2023-04-08 10:52 | disposition home or self-care (01) ==
PROVIDERS: PCP Internal Medicine Geriatric Medicine; Visit Provider Nurse Practitioner Family
DX: G20.A1 Parkinson's disease without dyskinesia, without mention of fluctuations (principal); M50.20 Other cervical disc displacement, unspecified cervical region; R20.1 Hypoesthesia of skin
CPT/HCPCS: 99214

== ENCOUNTER → 2023-04-08 09:44 | Outpatient (BNVA) | payer OTHER, SELFPAY | PROVIDERS: PCP Internal Medicine Geriatric Medicine; Visit Provider Nurse Practitioner Family | DX: G20.A1 Parkinson's disease without dyskinesia, without mention of fluctuations (principal); M50.20 Other cervical disc displacement, unspecified cervical region; R20.1 Hypoesthesia of skin | CPT/HCPCS: 99212 ==

== ENCOUNTER → 2023-07-22 09:16 | Outpatient (BNVA) | payer OTHER, SELFPAY | PROVIDERS: PCP Internal Medicine Geriatric Medicine; Visit Provider Nurse Practitioner Family | DX: G20.A1 Parkinson's disease without dyskinesia, without mention of fluctuations (principal); M54.2 Cervicalgia; R20.1 Hypoesthesia of skin; Z79.899 Other long term (current) drug therapy | CPT/HCPCS: 99212 ==

== ENCOUNTER 2023-07-22 09:20 | Outpatient (AMB) | payer OTHER, SELFPAY ==
--- NOTE | 2023-07-22 09:29 | MHC.OFFVIS ---
Intake Vital Signs 07/22/23 09:30 Height 5 ft 5 in Weight 261 lb BMI 43.4 BP 130/72 Blood Pressure Location Rt brachial Position Sitting Pulse 77 Pulse Source Pulse Oximeter Pulse Oximetry (%) 97 Oxygen Delivery Method Room Air Intake Visit Reasons: 3M follow up-Corina to conf Intake Note: Patient presents for 3 month follow up. everything good no issues or concerns Allergies No Known Allergies Allergy (Verified 07/22/23 09:32) Medication List - Last Reconciled 07/24/23 by ANDREW García aspirin 81 mg PO DAILY bupropion HCl (Wellbutrin XL) 300 mg PO QAM carbidopa-levodopa 25-100 mg 2 tabs PO 5XD 30 days clonazepam 1 mg PO DAILY dulaglutide (Trulicity) 1.5 mg subcut QWEEK duloxetine 60 mg PO BID food supplemt, lactose-reduced 237 oz orally daily; VANILLA 30 days gabapentin 600 mg PO TID magnesium oxide 400 mg PO BEDTIME 30 days pravastatin 20 mg PO DAILY quetiapine 50 mg PO BEDTIME rivastigmine (Exelon Patch) 9.5 mg transdermal DAILY tadalafil (Cialis) 5 mg PO DAILY 90 days tadalafil (Cialis) 20 mg PO DAILY PRN tramadol 50 mg PO Q4H PRN 14 days MDD 3 tabs zolpidem (Ambien) 12.5 mg PO BEDTIME PRN HPI HPI Comments History of Present Illness Details 63-yr-old male presents for f/u visit. He just had an excision/drng of infected/ingrown right 1st toenail- pt states he did not realize that it was that bad as he could not feel it. Pt continues to have neck pain and loss of richard hand sensation s/p surgical repair of severe cervical cord compression by Dr Miller. Describes his neck pain- pain in the bone, squeezing pain. Describes sensation loss in both of his hands since the procedure- can make it difficult to do some ADLs. - pain in the bone, squeezing pain. The Tramadol helps but not for a long time- using sparingly. He did not hear from pain management. Pt's current PD medication regimen: CD-LD 25-100mg 2 tabs 5 x's day. He did stop the Requip 0.25mg 1 tab bid- however it did not stop the tendency to talk too much . Nausea is a bit better- his gives him something that helps. His family helps him manage his medications. ADL's: Needs assist w/ ADLs, but needs help with buttons, zippers- again as he cannot feel in his hands. Swallowing: No choking on solids- does not happen if takes his time. Can choke on fluids- even when he drinks slow. But he thinks he forgets to swallow. Drooling: Prone to drooling Orthostatic lightheadedness: some days, but standing up slowly helps. GI/: rare urinary incontinence. Freezing: occasionally one side does not work Stiffness: some stiffness, his feet feel heavy in the morning- taking a few steps lossens them up. Tremor: he states he is not shaking as much since the surgery Falls: Has had 2 falls- he thinks this was d/t the recent right 1st toe infection. Hallucinations: can have hallucinations- not reduced since stopping requip. Memory: memory is good, but may forget where he put things. Sleep: Can be sleepy, but difficulty sleeping- though ambien and quetiapine 25 or 50mg helps some- prescribed by psychiatry. Mood: states he is still talking a lot. Exercise: His son has started bringing him to [employer]- once in a while. 10/2021, MR/MR cervical spine wo con IMPRESSION: - Disc herniations and ligamentum flavum thickening result in severecentral canal stenosis and significant compression of the cervical spinal cord at the C3-C4, C4-C5, and C5-C6 levels. 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 Neurosurgical consultation advised. - Advanced spondylitic changes also result in severe bilateralforaminal stenosis at C3-C4, C4-C5, C5-C6, and C6-C7. [facility] Medical History (Updated 07/24/23 @ 22:27 by ANDREW García) Parkinson's disease Anxiety Diabetes Surgical History H/O colonoscopy Family History Mother Hyperlipidemia Cancer Thyroid disease High cholesterol Social History Patient Tobacco Use Status: Current everyday Tobacco user Cigarettes Per Day: 1 Review of Systems Const All systems reviewed & are unremarkable except as noted in HPI and below Physical Exam Vital Signs: Last Vital Signs Pulse 77 07/22/23 09:30 BP 130/72 07/22/23 09:30 Pulse Ox 97 07/22/23 09:30 Oxygen Delivery Method Room Air 07/22/23 09:30 BMI result Body Mass Index 43.4 Const General: cooperative and no acute distress Resp Effort & Inspection: normal respiratory effort and able to speak in complete sentences Neuro Other: General: A&O x's 3 Expression: Intact Voice: Ok Tremor: Mild postural tremor Tone: BUE tone Dyskinesia: None BUE MONIQUE: slow, less fluidity on left FFM: Mildly decreased on left Foot taps: Mildly decreased on left Gait: Good stride, slightly narrow base, no ataxia, steady gait- when he places his hands in his coat. When arms at his side, no arm swing, steps shorter with lower floor clearance. Psych: Pleasant affect Assessment & Plan Assessment & Plan (1) Parkinson's disease without dyskinesia: Code(s): G20.A1 - Parkinson's disease without dyskinesia, without mention of fluctuations (2) Cervicalgia: Code(s): M54.2 - Cervicalgia (3) Hypoesthesia of skin: Code(s): R20.1 - Hypoesthesia of skin Plan For PD: As many of pt's PD s/s have improved s/p c-spine repair, pt advised to undergo DaTscan to assess for dopaminergic metabolism dysfunction. Stop Ropinirole- although stopping it did not alleviate his excessive talking behavior. Continue Sinemet 25-100mg 2 tabs po 5 x's per day. Continue Quetiapine 50 mg qhs- ordered by psychiatry.. ? For chronic neck pain s/p c-spine repair: Continue prn Tramadol 50mg- sparingly. Continue Gabapentin 600mg tid for now. Will again request pain management consult- to eval for adjunctive tx modalities. Previous trials- Amitriptyline- unclear why pt stopped- ? d/t lapse in pt's f/u here. For hypothesia in setting of DM: Pt advised to do daily skin/foot checks and wear well fitting shoes. ? follow-up in 4 months or sooner prn. Medications: Changed From carbidopa-levodopa 25-100 mg 2 tabs PO 5XD To carbidopa-levodopa 25-100 mg 2 tabs PO 5XD 30 days 300 tabs 6RF Discontinued ropinirole Discontinued Reason: Doctor's Order 0.25 mg PO BID 30 days 60 tabs 3RF Coding Level of Care Code Est Pt Level 4 (32812) Diagnoses Parkinson's disease without dyskinesia G20.A1 Cervicalgia M54.2 Hypoesthesia of skin R20.1
[2023-07-22 09:30] VITALS: BP 130/72; PULSE 77; O2SAT 97; BMI 43.4
== END 2023-07-22 10:37 | disposition home or self-care (01) ==
PROVIDERS: PCP Internal Medicine Geriatric Medicine; Visit Provider Nurse Practitioner Family
DX: G20.A1 Parkinson's disease without dyskinesia, without mention of fluctuations (principal); M54.2 Cervicalgia; R20.1 Hypoesthesia of skin
CPT/HCPCS: 99214

== ENCOUNTER 2023-07-28 09:04 | Outpatient (AMB) | payer OTHER, SELFPAY ==
[2023-07-28 09:19] VITALS: BP 135/58; PULSE 76; RESP 16; O2SAT 97; BMI 27.0
--- NOTE | 2023-07-28 09:19 | MHC.OFFVIS ---
Intake Vital Signs 07/28/23 09:19 Height 5 ft 5 in Weight 162 lb 8 oz BMI 27.0 BP 135/58 L Blood Pressure Location Lt brachial Position Sitting Respiration 16 Pulse 76 Pulse Source Pulse Oximeter Pulse Oximetry (%) 97 Oxygen Delivery Method Room Air Intake Visit Reasons: CERVICALGIA Allergies No Known Allergies Allergy (Verified 07/28/23 09:19) HPI HPI Comments History of Present Illness Details Valentín is a very pleasant 63-year-old male who presents to the office today for evaluation management of his chronic back pain. Today patient is complaining of pain from the thoracic and lumbar spine. He reports this pain started about 14 years ago when he was living in [place]. 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 In [place] he attempted physical therapy, chiropractor, acupuncture and injections. He was also on a chronic opioid program in [place]. All this was occurred over 10 years ago. He reports being diagnosed approximately 10 years ago with Parkinson's and states that since then his pain has worsened. Two years ago he underwent laminectomy of the cervical spine, he reports neuropathy bilaterally in the upper extremities since the surgery with decreased sensation of the hands. He reports his pain today is 8/10, constant and worse in the mornings. Pain is midline thoracic and lumbar vertebrae. Tender to palpation and worse with movement. Denies shooting pains down either leg. He ambulates with a cane at baseline due to his Parkinson's. Patient is currently taking duloxetine, gabapentin and tramadol which he reports short-term relief overall does not find that this is helping his pain. He completed physical therapy a couple months ago, he was doing 2 times weekly in home and reports this did not help. Has continued to try to do home exercises that they gave to him but reports it is too painful. He denies any recent imaging of his back. He has not tried any muscle relaxers. Patient denies red flag symptoms including new loss of bowel, bladder or saddle anesthesia In terms of muscle damage condition is described as aching, hot, burning, squeezing, shocking. Pain is negatively impacting patient's enjoyment of life, general activity, mood, recreational activities, sleep and walking [facility] Medical History (Updated 07/28/23 @ 12:43 by Cora Solano, RECORDINGS LIBRARIAN, SENIOR MEDICAL DIRECTOR) Parkinson's disease Anxiety Diabetes Surgical History H/O colonoscopy Family History Mother Hyperlipidemia Cancer Thyroid disease High cholesterol Social History Patient Tobacco Use Status: Current everyday Tobacco user Cigarettes Per Day: 1 Review of Systems Const All systems reviewed & are unremarkable except as noted in HPI and below Physical Exam Vital Signs: Last Vital Signs Pulse 76 07/28/23 09:19 Resp 16 07/28/23 09:19 BP 135/58 L 07/28/23 09:19 Pulse Ox 97 07/28/23 09:19 Oxygen Delivery Method Room Air 07/28/23 09:19 BMI result Body Mass Index 27.0 General: awake, alert, oriented. Answers questions appropriately. Fully engaged in examination. Skin: warm, dry, intact HEENT: Normocephalic. Hearing intact. Cardiac: External chest normal in appearance. Respiratory: No cough, audible wheezing or stridor. Abdomen: without gross distension. MS: No obvious swelling or deformities. Able to transition from sit to stand unassisted. Tenderness to thoracic/lumbar paraspinal muscles and midline vertebrae Bilateral lower extremity strength 4/5 DTR intact, negative clonus SLR negative bilaterally Nontender over PSIS Decreased lumbar range of motion, pain with flexion and extension Facet loading positive bilaterally Neurological: Oriented to person, place, time and situation. Thought process intact. Ambulates with the use of a cane otherwise. Steady gait. Psychiatric: Appropriate mood and affect. Good judgment and insight. Assessment & Plan Assessment & Plan (1) Cervicalgia: Code(s): M54.2 - Cervicalgia (2) Lumbar spondylosis: Code(s): M47.816 - Spondylosis without myelopathy or radiculopathy, lumbar region (3) Thoracic spondylosis: Code(s): M47.814 - Spondylosis without myelopathy or radiculopathy, thoracic region (4) Post laminectomy syndrome: Code(s): M96.1 - Postlaminectomy syndrome, not elsewhere classified (5) Myofascial low back pain: Code(s): M54.50 - Low back pain, unspecified Plan Andry is a very pleasant 63-year-old male who presented to the office today for evaluation management of his chronic back pain. X-rays cervical, lumbar, thoracic ordered for further evaluation Patient has exhausted conservative therapy including PT, NSAIDs, gabapentin and prescription opioid medications. He has attempted home exercise program after completing physical therapy but reports that it is too painful. Discussed in depth patient's diagnosis and options for treatment including diagnostic interventional testing, steroid injections, peripheral nerve stimulation with Sprint, RFA and more permanent neuromodulation. We will try baclofen 5 mg p.o. 3 times daily for spasticity Patient requesting ?strong medication? as this is what he was taking in [place] at pain management. Patient advised our chronic opioid program is currently not accepting new patients. Explained that we can offer interventional management. Given his diagnosis of Parkinson's he would not be a candidate for spinal cord stimulation to treat his post-laminectomy syndrome. Though per his last Neurology note they are awaiting completion of testing to confirm diagnosis of Parkinson's. Patient was advised to get this completed as soon as possible. All questions and concerns have been answered and patient agrees with the plan. Follow up in 3 weeks, sooner if needed. Orders: Orders XR lumbar spine 4V min Today M47.816 - Spondylosis without myelopathy or radiculopathy, lumbar region XR cervical spine w flex/ext Today M54.2 - Cervicalgia XR thoracic spine 3V Today M47.814 - Spondylosis without myelopathy or radiculopathy, thoracic region Medications: New baclofen 5 mg PO TID 30 days 90 tabs 0RF Coding Level of Care Code New Pt Level 4 (77106) Diagnoses Cervicalgia M54.2 Lumbar spondylosis M47.816 Thoracic spondylosis M47.814 Post laminectomy syndrome M96.1 Myofascial low back pain M54.50
== END 2023-07-28 09:37 | disposition home or self-care (01) ==
PROVIDERS: PCP Internal Medicine Geriatric Medicine; Referring Provider Nurse Practitioner Family; Visit Provider Registered Nurse Emergency
DX: M54.2 Cervicalgia (principal); M47.816 Spondylosis without myelopathy or radiculopathy, lumbar region; M47.814 Spondylosis without myelopathy or radiculopathy, thoracic region; M96.1 Postlaminectomy syndrome, not elsewhere classified; M54.50 Low back pain, unspecified
CPT/HCPCS: 99204

== ENCOUNTER → 2023-07-28 09:04 | Outpatient (BNVA) | payer OTHER, SELFPAY | PROVIDERS: PCP Internal Medicine Geriatric Medicine; Referring Provider Nurse Practitioner Family; Visit Provider Registered Nurse Emergency | DX: M54.2 Cervicalgia (principal); M47.816 Spondylosis without myelopathy or radiculopathy, lumbar region; M47.814 Spondylosis without myelopathy or radiculopathy, thoracic region; M96.1 Postlaminectomy syndrome, not elsewhere classified; G20.A1 Parkinson's disease without dyskinesia, without mention of fluctuations | CPT/HCPCS: 99202 ==

== ENCOUNTER 2024-01-10 09:39 | Outpatient (REF) | payer OTHER, SELFPAY ==
[2024-01-10 11:11] LABS: Prostate Specific Antigen 0.54 ng/mL (<0.05-4.0)
== END 2024-01-10 09:40 | disposition home or self-care (01) ==
LOC: HO.LAB 09:39
PROVIDERS: PCP Internal Medicine Geriatric Medicine; Visit Provider Nurse Practitioner Family
DX: N40.1 Benign prostatic hyperplasia with lower urinary tract symptoms (principal); Z12.5 Encounter for screening for malignant neoplasm of prostate
CPT/HCPCS: 36415; 84153

== ENCOUNTER 2024-01-13 08:27 | Outpatient (AMB) | payer OTHER, SELFPAY ==
--- NOTE | 2024-01-13 08:32 | MHC.OFFVIS ---
Intake Visit Reasons: 1y/PSA Intake Note: Patient is present for follow up visit erectile dysfunction/labs PSA: 0.54 Urology Medications: tadalafil Blood Thinner: none Wine Pasteurizer Required: No Accompanied by: Self / Same As Patient Allergies No Known Allergies Allergy (Verified 01/13/24 10:09) Medication List - Last Reconciled 01/13/24 by PETRONA NoriegaP-BC aspirin 81 mg PO DAILY baclofen 5 mg PO TID 30 days bupropion HCl XL (Wellbutrin XL) 300 mg PO QAM carbidopa-levodopa 25-100 mg 2 tabs PO 5XD 30 days clonazepam 1 mg PO DAILY dulaglutide (Trulicity) 1.5 mg subcut QWEEK duloxetine 60 mg PO BID food supplemt, lactose-reduced 237 oz orally daily; VANILLA 30 days gabapentin 600 mg PO TID magnesium oxide 400 mg PO BEDTIME 30 days pravastatin 20 mg PO DAILY quetiapine 50 mg PO BEDTIME rivastigmine (Exelon Patch) 9.5 mg transdermal DAILY tadalafil (Cialis) 5 mg PO DAILY 90 days tadalafil (Cialis) 20 mg PO DAILY PRN tramadol 50 mg PO Q4H PRN 14 days MDD 3 tabs zolpidem (Ambien) 12.5 mg PO BEDTIME PRN HPI Comments Details: Valentín is a pleasant 63-year-old male patient of Dr. Malcolm. He has a past medical history of Parkinson's, anxiety, and diabetes. He presents to the office today for a follow up of his erectile dysfunction. In discussion with the patient today reports to be doing and feeling well. He reports since his last office visit here he has had no bothersome urinary issues or concerns. He reports noting increase in libido with daily tadalafil. He discusses at length feeling how helpful this has been. Recent PSA results reviewed with the patient today. PSAs are as follows PSA: 12/29 0.9, 12/30 0.5 He otherwise denies any urinary issues or concerns. He denies urinary urgency, urinary frequency, incontinence, nocturia, hematuria, dysuria, foul smelling urine, changes to urinary stream, flank pain, fever, and or chills. He is happy with his current voiding parameters. In office urinalysis results reviewed with the patient today. Stressed at length importance of healthy eating habits, exercise/brisk walking, and adequate sleep to assist with symptoms of ED as well as for overall health and well-being. Patient otherwise offers no issues or concerns at this time. [facility] Medical History Parkinson's disease Anxiety Diabetes Surgical History H/O colonoscopy Family History Mother Hyperlipidemia Cancer Thyroid disease High cholesterol Social History Patient Tobacco Use Status: Current everyday Tobacco user Cigarettes Per Day: 1 Review of Systems Const Reports no additional complaints Eyes Reports no additional complaints ENT Reports no additional complaints Card Reports no additional complaints Resp Reports no additional complaints GI Reports no additional complaints Reports as per HPI Musc Reports as per HPI Neuro Reports as per HPI Psych Reports no additional complaints Endo Reports as per HPI Physical Exam Const General: cooperative, healthy appearing, comfortable, no acute distress, well developed, alert and awake Orientation/consciousness: patient oriented x3 Limitations: no limitations HEENT Head: Yes normal to inspection, Yes normocephalic and Yes atraumatic Ears: hearing grossly normal bilaterally Eyes General: appearance normal, both eyes and all related structures Neck Neck: Yes normal visual inspection and Yes trachea midline Chest Chest palpation & inspection: normal inspection of the chest Resp Effort & Inspection: normal respiratory effort and able to speak in complete sentences Cardio Rate: regular rate GI Inspection: Yes normal to inspection General: Yes no CVA tenderness Back/Spine/Pelvis Back: no CVA tenderness Skin General skin exam: no rashes or lesions noted Neuro General: patient oriented x3 Extrem General: Yes normal to inspection Psych Appearance: grossly normal and well kempt Mental Status: mental status grossly normal Speech and movement: Normal speech and movement present and Clear speech present Affect: normal affect Attitude: cooperative Thought process: Normal thought process present Thought content: Normal thought content present Insight: Good insight present (Psych) Judgement: Good judgement present (Psych) Results AMB Urinalysis, Automated UA Leukoctes 0 Rakesh/uL Last Edit by Gretchen Avery on 01/13/24 08:44 UA Nitrite Last Edit by Gretchen Avery on 01/13/24 08:44 UA Urobilinogen 0.2 mg/dL Last Edit by Gretchen Avery on 01/13/24 08:44 UA Protein 15 mg/dL Last Edit by Gretchen Avery on 01/13/24 08:44 UA pH 6.0 Last Edit by Gretchen Avery on 01/13/24 08:44 UA Blood 0 Wil/uL Last Edit by Gretchen Avery on 01/13/24 08:44 UA Specific Ferdinand 1.015 Last Edit by Gretchen Avery on 01/13/24 08:44 UA Ketone Last Edit by Gretchen Avery on 01/13/24 08:44 UA Bilirubin 0 mg/dL Last Edit by Gretchen Avery on 01/13/24 08:44 UA Glucose 0 mg/dL Last Edit by Gretchen Avery on 01/13/24 08:44 Results Reviewed Results Reviewed: Laboratory Last Values Urine pH (Auto) 6.0 01/13/24 08:37 Specific Ferdinand (Auto) 1.015 01/13/24 08:37 Urine Protein (Auto) 15 mg/dL 01/13/24 08:37 Glucose (UA)(Auto) 0 mg/dL 01/13/24 08:37 Urine Blood (Auto) 0 Wil/uL 01/13/24 08:37 Urine Bilirubin (Auto) 0 mg/dL 01/13/24 08:37 Urine Urobilinogen (Auto) 0.2 mg/dL 01/13/24 08:37 Leukocyte Esterase (Auto) 0 Rakesh/uL 01/13/24 08:37 Assessment & Plan Assessment & Plan (1) Erectile dysfunction associated with type 2 diabetes mellitus: Code(s): E11.69 - Type 2 diabetes mellitus with other specified complication; N52.1 - Erectile dysfunction due to diseases classified elsewhere Category: Medical Plan In office urinalysis results reviewed with the patient today; as noted above. Continue 5 mg of Cialis daily; refill provided Refill provided on p.r.n. Cialis Patient otherwise denies any urinary issues or concerns at this time. Recent PSA results reviewed with the patient today; as noted above. Patient denies any bothersome urinary issues or concerns at this time. He reports be happy with current voiding parameters. PSA in 1 year. Follow-up in 1 year with imaging to be completed prior; or sooner with any issues, concerns, and or questions. Orders: Orders Prostate Specific Antigen 1 Year N40.0 - Benign prostatic hyperplasia without lower urinary tract symptoms AMB Urinalysis Automated Today Z13.9 - Encounter for screening, unspecified Medications: Refilled tadalafil (Cialis) [id number] [facility] [id number] Member [id number] 5 mg PO DAILY 90 days 90 tabs 4RF tadalafil (Cialis) administer approximately 30-60 min before sexual activity; do not use more than 1 dose per 24hrs [facility] Group [facility] [address] [id number] 20 mg PO DAILY PRN 20 tabs 3RF sexual activity Patient Instructions: The patient had an opportunity to ask questions regarding the treatment plan. All questions were answered. Physical exam, labs, and imaging were discussed and reviewed in detail. As well as risks, benefits, and discussion of treatment choices. No major barriers to understanding were identified. The patient expressed understanding and agreement with the above treatment plan. The patient was made aware they should contact our office by phone for worsening of their current condition, the appearance of new symptoms, or with any questions or concerns. Compliance is encouraged with any medications and follow up testing that is ordered. It is a privilege to be allowed the opportunity to participate in? your urological care.? Again, if you have any questions or concerns If you have any questions or concerns please do not hesitate to contact me. The office is [phone]. This note is constructed using voice recognition software. While every effort has been made to ensure accuracy envelope cutter errors may have been included. Yours sincerely, KENAN Noriega Coding Level of Care Code Est Pt Level 3 (21851) Complex EM visit Add On G2211 Diagnoses Erectile dysfunction associated with type 2 diabetes mellitus E11.69; N52.1
== END 2024-01-13 09:08 | disposition home or self-care (01) ==
PROVIDERS: PCP Internal Medicine Geriatric Medicine; Visit Provider Nurse Practitioner Family
DX: E11.69 Type 2 diabetes mellitus with other specified complication (principal); N52.1 Erectile dysfunction due to diseases classified elsewhere; Z13.9 Encounter for screening, unspecified
CPT/HCPCS: 99213; G2211

== ENCOUNTER → 2024-01-13 08:27 | Outpatient (BNVA) | payer OTHER, SELFPAY | PROVIDERS: PCP Internal Medicine Geriatric Medicine; Visit Provider Nurse Practitioner Family | DX: E11.69 Type 2 diabetes mellitus with other specified complication (principal); N52.1 Erectile dysfunction due to diseases classified elsewhere; N40.0 Benign prostatic hyperplasia without lower urinary tract symptoms | CPT/HCPCS: 81003; 99212 ==

== ENCOUNTER 2024-02-14 09:42 | Outpatient (REF) | payer OTHER, SELFPAY ==
[2024-02-14 11:36] LABS: MANUAL DIFF FLAG NO
[2024-02-14 11:47] LABS: Basophils Percent Auto 0.2 % (0-2); Eosinophils Absolute Auto 0.3 X10*3/uL (0.0-0.4); Eosinophils Percent Auto 4.8 % (0-4); Hematocrit 42.4 % (42.0-52.0); Hemoglobin 13.9 g/dl (14.0-18.0); Imm Gran Abs Auto 0.03 X10*3/uL (0.00-0.03); Imm Gran Pct Auto 0.5 % (0.0-0.4); Lymphocytes Absolute Auto 1.2 X10*3/uL (1.2-4.9); Lymphocytes Percent Auto 21.3 % (20-40); Mean Corpuscular HGB Conc 32.8 g/dl (31.0-36.0); Mean Corpuscular Volume 94.6 fL (80.0-98.0); Mean Platelet Volume 11.6 fL (9.4-12.4); Monocytes Absolute Auto 0.6 X10*3/uL (0.1-1.2); Neutrophils Absolute Auto 3.6 x10*3/uL (2.0-8.3); Neutrophils Percent Auto 62.2 % (45-73); Platelet Count 118 X10*3/uL (160-400); Red Blood Count 4.48 X10*6/uL (4.60-5.80); Red Cell Distribution Width 13.4 % (11.0-16.0); White Blood Count 5.8 X10*3/uL (4.8-10.8)
[2024-02-14 12:16] LABS: Creatinine Urine 35.56 mg/dL; Microalbum/Creatinine Ratio Ur 16.8 ug/mg cr (<30)
[2024-02-14 12:16] LABS: Alanine Aminotransferase 14 U/L (0-40); Albumin Level 4.5 g/dL (3.5-5.0); Alkaline Phosphatase 64 U/L (39-117); Anion Gap 11 (12-20); Aspartate Amino Transferase 17 U/L (5-37); Bilirubin Total 0.3 mg/dL (0.0-1.0); Blood Urea Nitrogen 12 mg/dL (9-16); Calcium 9.2 mg/dL (8.4-10.2); Carbon Dioxide 30 mmol/L (22-29); Chloride 105 mmol/L (96-108); Cholesterol 93 mg/dL (<200); Estimated Glomerular Filt Rate > 60; Glucose Random 124 mg/dL (60-115); HDL Cholesterol 28 mg/dL (>40); LDL Cholesterol Calculated 41 mg/dL (<100); Potassium 3.7 mmol/L (3.3-5.1); Sodium 142 mmol/L (135-145); Total Protein 7.6 g/dL (6.5-8.0); Triglycerides 122 mg/dL (<150)
== END 2024-02-14 09:43 | disposition home or self-care (01) ==
LOC: HO.HHCL 09:42
PROVIDERS: Visit Provider Internal Medicine Geriatric Medicine
DX: E11.40 Type 2 diabetes mellitus with diabetic neuropathy, unspecified (principal); M54.2 Cervicalgia; G89.29 Other chronic pain; Z98.890 Other specified postprocedural states
CPT/HCPCS: 36415; 80053; 80061; 82043; 82570; 85025

== ENCOUNTER 2024-03-01 08:44 | Outpatient (REF) | payer OTHER, SELFPAY ==
[2024-03-01 11:06] LABS: MANUAL DIFF FLAG NO
[2024-03-01 11:12] LABS: Basophils Percent Auto 0.3 % (0-2); Eosinophils Absolute Auto 0.3 X10*3/uL (0.0-0.4); Eosinophils Percent Auto 4.5 % (0-4); Hematocrit 37.5 % (42.0-52.0); Hemoglobin 12.4 g/dl (14.0-18.0); Imm Gran Abs Auto 0.03 X10*3/uL (0.00-0.03); Imm Gran Pct Auto 0.5 % (0.0-0.4); Lymphocytes Absolute Auto 1.7 X10*3/uL (1.2-4.9); Lymphocytes Percent Auto 26.6 % (20-40); Mean Corpuscular HGB Conc 33.1 g/dl (31.0-36.0); Mean Corpuscular Hemoglobin 31.1 pg (27.0-33.0); Mean Platelet Volume 11.9 fL (9.4-12.4); Monocytes Absolute Auto 0.7 X10*3/uL (0.1-1.2); Neutrophils Absolute Auto 3.8 x10*3/uL (2.0-8.3); Neutrophils Percent Auto 58.1 % (45-73); Platelet Count 143 X10*3/uL (160-400); Red Blood Count 3.99 X10*6/uL (4.60-5.80); Red Cell Distribution Width 13.4 % (11.0-16.0); White Blood Count 6.5 X10*3/uL (4.8-10.8)
== END 2024-03-01 08:45 | disposition home or self-care (01) ==
LOC: HO.HHCL 08:44
PROVIDERS: Visit Provider Internal Medicine Geriatric Medicine
DX: D69.6 Thrombocytopenia, unspecified (principal)
CPT/HCPCS: 36415; 85025

== ENCOUNTER → 2024-04-02 08:12 | Outpatient (BNV) | payer OTHER, SELFPAY | PROVIDERS: PCP Internal Medicine Geriatric Medicine; Referring Provider Internal Medicine Geriatric Medicine; Visit Provider Internal Medicine | DX: D69.6 Thrombocytopenia, unspecified (principal) | CPT/HCPCS: 99204; G2211 ==

== ENCOUNTER 2024-04-11 12:37 | Outpatient (AMB) | payer OTHER, SELFPAY ==
--- NOTE | 2024-04-11 13:06 | A.OFFVIS_ITS ---
Vital Signs 04/11/24 13:07 Height 5 ft 5 in Weight 156 lb BMI 26.0 BP 120/62 Blood Pressure Location Lt brachial Position Sitting Pulse 64 Pulse Source Pulse Oximeter Pulse Oximetry (%) 96 Oxygen Delivery Method Room Air Intake Visit Reasons: Follow up Stripper Apprentice Required: No Accompanied by: Self / Same As Patient Allergies No Known Allergies Allergy (Verified 04/11/24 13:08) Medication List - Last Reconciled 04/11/24 by ANDREW García aspirin 81 mg PO DAILY baclofen 5 mg PO TID 30 days bupropion HCl XL (Wellbutrin XL) 300 mg PO QAM carbidopa-levodopa 25-100 mg 2 tabs PO 5XD 30 days clonazepam 1 mg PO DAILY dulaglutide (Trulicity) 1.5 mg subcut QWEEK duloxetine 60 mg PO BID food supplemt, lactose-reduced 237 oz orally daily; VANILLA 30 days gabapentin 600 mg PO TID magnesium oxide 400 mg PO BEDTIME 30 days pravastatin 20 mg PO DAILY quetiapine 50 mg PO BEDTIME rivastigmine (Exelon Patch) 9.5 mg transdermal DAILY tadalafil (Cialis) 5 mg PO DAILY 90 days tadalafil (Cialis) 20 mg PO DAILY PRN tramadol 50 mg PO Q4H PRN 14 days MDD 3 tabs zolpidem (Ambien) 12.5 mg PO BEDTIME PRN HPI Comments Details: 63-yr-old male presents for f/u visit of Parkinson's. Pt had a recent heme/onc consult for chronic thrombocytopenia and mild anemia, of which the anemia has self-resolved and the thrombocytopenia has improved. He has f/u to discuss lab work-up in 2 months. Last colonoscopy was about 1 yr ago- per pt was WNL and 2 polyps were removed. His 64-yr-old brother recently from an abdominal cancer- was dx'd w/ abd mass 3 months after dx'ing the abd mass. His mother had colon cancer. He does note that he does not eat much. He does feel cold all the time. He continues to have tingling in his hands. Pt continues to have squeezing neck pain and loss of richard hand sensation s/p surgical repair of severe cervical cord compression by Dr Miller. The Tramadol helps but not for a long time- using sparingly. Pt's current PD medication regimen: CD-LD 25-100mg 2 tabs 5 x's day. He did stop the Requip 0.25mg 1 tab bid- however it did not stop the tendency to talk too much . Nausea is a bit better- his gives him something that helps. His family helps him manage his medications. ADL's: Needs assist w/ ADLs, but needs help with buttons, zippers- again as he cannot feel in his hands. Swallowing: No choking on solids- does not happen because he eats slwoly, but this does limit how much he can eat. Can choke on fluids- even when he drinks slow. But he thinks he forgets to swallow. Drooling: Prone to drooling Orthostatic lightheadedness: some days, but standing up slowly helps. May use Tylenol for this. GI/: rare urinary incontinence. Freezing: occasionally one side does not work Stiffness: some stiffness, his feet feel heavy/stiffness/cramps in the morning- taking a few steps loosens them up. Tremor: he does notice the tremor again Falls: Has had 2-3 falls- sometimes just looses his balance or he is stuck. Hallucinations: can have hallucinations, sees a mosquito or a person passing by- not reduced since stopping requip. Memory: memory is good, but may forget where he put things and has more difficulty recalling later on like he used to be able to. Sleep: Sleeps one day better than the other, never more than 4 hrs- though ambien and quetiapine 25 or 50mg helps some- prescribed by psychiatry. Mood: Feels less interested in watching TV or doing his usual activities. He notes he feels lonely. He is liviing w/ his estranged , and states that they have not gotten along for many yrs after he disclosed some things he had done when he much younger prior to meeting his . He states this has also affected his relationship with his children. He hopes to move out but they own their home and he is not sure if he can afford to move out. He denies thoughts of self- harm. He is open to seeinga therapist but only if it someone who is not likely to know him/his family. Exercise: His son is encouraging him to walk back and forth in his home. Efrem etimes may be in bed 8-10 hrs straight, feels that he does not have the physical or emotional strength to get out of bed. [facility] Medical History Parkinson's disease Anxiety Diabetes Surgical History H/O colonoscopy Family History Mother Hyperlipidemia Cancer Thyroid disease High cholesterol Social History Household Members: Spouse Patient Tobacco Use Status: Current everyday Tobacco user service: No Current occupational status: retired Physical Exam Vital Signs: Last Vital Signs Pulse 64 04/11/24 13:07 BP 120/62 04/11/24 13:07 Pulse Ox 96 04/11/24 13:07 Oxygen Delivery Method Room Air 04/11/24 13:07 BMI result Body Mass Index 26.0 Const General: cooperative and no acute distress Resp Effort & Inspection: normal respiratory effort and able to speak in complete sentences Neuro Other: General: A&O x's 3 Expression: Intact Voice: Ok Tremor: Mild postural tremor Tone: BUE tone Dyskinesia: None FFM: Mildly decreased on left Foot taps: Mildly decreased on left Gait: No arm swing, steps shorter with lower floor clearance, steady gait Psych: Pleasant affect w/ intermittent sadness/anxiety. Assessment & Plan Assessment & Plan (1) Parkinson's disease without dyskinesia: Code(s): G20.A1 - Parkinson's disease without dyskinesia, without mention of fluctuations Category: Medical (2) Cervicalgia: Code(s): M54.2 - Cervicalgia Category: Medical (3) Hypoesthesia of skin: Code(s): R20.1 - Hypoesthesia of skin Category: Medical Plan For PD: Reviewed DaTscan- negative. Pt has stopped Ropinirole- would not resume d/t episodes of excessive talking behavior and h/o compulsive behaviors. Continue Sinemet 25-100mg 2 tabs po 5 x's per day. Continue Quetiapine, Bupropion, Cloazepam per psychiatry. F/u w/ psychiatry, Yan Magaña DESIGN VERIFICATION ENGINEER- per pt psychotherapy is not offered at [facility]. Start psychotherapy- pt requests therapist who is not known to himse lf/family/amish. ? For chronic neck pain s/p c-spine repair: Continue prn Tramadol 50mg- sparingly. Continue Gabapentin 600mg tid for now. F/u w/ pain management as planned. Previous trials- Amitriptyline- unclear why pt stopped- ? d/t lapse in pt's f/u here. Pt to follow-up in 6 months or sooner prn. Orders: Referrals Psychology Referral F32.A - Depression, unspecified, G20.A1 - Parkinson's disease without dyskinesia, without mention of fluctuations Coding Level of Care Code Est Pt Level 4 (20695) Complex EM visit Add On G2211 Diagnoses Parkinson's disease without dyskinesia G20.A1 Cervicalgia M54.2 Hypoesthesia of skin R20.1
[2024-04-11 13:07] VITALS: BP 120/62; PULSE 64; O2SAT 96; BMI 26.0
--- OUTSIDE RECORDS SUMMARY | 2024-04-17 18:47 | XMS_ITS | Patient Health Record ---
Author Organization [facility] Address [address] [place] [id number] Care Team Providers Care Cell Assembly Pinner Name Role Phone Name Lew CAMPBELL Primary Care Provider Bean Restrepo Unavailable [phone] ALLERGIES No Known Allergies REASON FOR REFERRAL No Information MEDICATIONS Medication SIG (Take, Route, Frequency, Duration) Notes Start Date End Date Status Aspirin Adult Low Strength 81 MG 1 tablet Orally Once a day for 30 day(s) Active rOPINIRole HCl 0.25 MG Oral for 90 Active MiraLax (colon prep) 17 GM/SCOOP 1 238Gm bottle mixed with Gatorade or Crystal Light Orally begin at 5:00 p.m. the day before the procedure for 1 day 12/16/2022 Active Dulcolax (colon prep) 5 MG take at 3:00 p.m and 7:00p.m. Orally two tablets twice a day for one day for 1 day 12/16/2022 Active Zolpidem Tartrate ER 12.5 MG Oral for 30 Active Gabapentin 600 MG Oral for 30 Active Carbidopa-Levodopa 25-100 MG TAKE 2 TABLETS BY MOUTH FIVE TIMES DAILY Oral for 30 Active clonazePAM 1 MG TAKE 1 TABLET BY CUBA TH EVERY DAY NEEDED Oral for 30 Active DULoxetine HCl 60 MG TAKE 1 CAPSULE BY M OUTH TWICE DAILY Oral for 30 Active SOCIAL HISTORY Tobacco Use: Social History Observation Description Date Details (start date - stop date) Never Smoker NA - NA Sex Assigned At : Social History Observation Description Sex Assigned At Unknown Tobacco Use/Smoking Question Answer Notes Patient is a nonsmoker Alcohol Screen Question Answer Notes Did you have a drink containing alcohol in the p ast year? No Points 0 Interpretation Negative PROBLEMS Problem Type ICD Code Onset Dates Problem Status W/U Status Risk SNOMED Code Notes Problem Colon cancer screening (Z12.11) Active confirmed 969647298 Problem Long-term use of aspirin therapy (Z79.82) Active confirmed 922056850 Problem Diverticulosis of large intestine without perforation or abscess without bleeding (K57.30) Active confirmed Diverticul ar disease of colon (622019219) PLAN OF TREATMENT Pending Test Test Name Order Date Pathology 03/14/2023 Future Test Test Name Order Date COLONOSCOPY 12/16/2022 Insurance Providers Payer Name Payer Address Payer Phone Subscriber Number Group Number Insured Name Patient Relationship to Insured Coverage Start Date Coverage End Date [facility] [address] Attn Claims KAYE [place] [id number] KASEY REGALADO Self - patient is the insured MEDICAL (GENERAL) HISTORY Medical History History ICD Code Denies [place],DM,CVA,Lung disease,renal dise ase Parkinson's disease.....marleny calderóngardenia reports that he is now told that he does not have that as of the 12/2022 OV Mary Reports a negative colonoscopy at [facility] at approx. age 51 Surgical History Surgery Date(Month/Year)
--- OUTSIDE RECORDS SUMMARY | 2024-04-17 18:47 | XMS_ITS ---
Author Organization [facility] Address [address] [place] [phone] Care Team Providers Care Private Client Advisor Name Role Phone Name Lew CAMPBELL Primary Care Provider Bean Restrepo [phone] ALLERGIES No Known Allergies REASON FOR VISIT Patient presents today for a COLON SCREENING MEDICATIONS Medication SIG (Take, Route, Frequency, Duration) Notes Start Date End Date Status Zolpidem Tartrate ER 12.5 MG Oral for 30 Active Gabapentin 600 MG Oral for 30 Active Carbidopa-Levodopa 25-100 MG TAKE 2 TABLETS BY MOUTH FIVE TIMES DAILY Oral for 30 Active clonazePAM 1 MG TAKE 1 TABLET BY CUBA TH EVERY DAY NEEDED Oral for 30 Active DULoxetine HCl 60 MG TAKE 1 CAPSULE BY M OUTH TWICE DAILY Oral for 30 Active Aspirin Adult Low Strength 81 MG 1 tablet Orally Once a day for 30 day(s) Active rOPINIRole HCl 0.25 MG Oral for 90 Active SOCIAL HISTORY Tobacco Use: Social History [...] Problem Colon cancer screening (Z12.11) Active confirmed 866210763 Problem Long-term use of aspirin therapy (Z79.82) Active confirmed 351268729 VITAL SIGNS BMI 26.12 kg/m2 12/16/2022 Blood pressure systolic 000 mm Hg 12/17/19 23 Blood pressure diastolic 00 mm Hg 023 Height 65 in 12/16/2022 Temperature 98.0 degrees Fahrenheit 12/17/19 23 Weight 157 lbs 12/16/2022 Encounters Encounter Location Date Provider Diagnosis [facility] [address] [place] [address] 12/16/2022 Bean Smith Colon cancer screening Z12.11 and Long-term use of aspirin therapy Z79.82 ASSESSMENTS Encounter Date Diagnosis Assessment Notes Treatment Notes Treatment Clinical Notes 12/16/2022 Colon cancer screening (ICD-10 - Z12.11) Do not take any aspirin for one week before the colonoscopy 12/16/2022 Long-term use of aspirin therapy (ICD-10 - Z79.82) PLAN OF TREATMENT Treatment Notes Assessment Notes Colon cancer screening Do not take any a spirin for one week before the colonoscopy Future Test Test Name Order Date COLONOSCOPY 12/16/2022 Next Appt Details Follow Up: prn, Reason: Progress Notes * Examination Category Sub-Category Detail Notes General Examination GENERAL APPEARANCE: pleasant , well nourished, well developed, in no acute distress HEAD: EYES: sclera non-icteric EARS: NOSE: THROAT: NECK/THYROID: no cervical lymphade nopathy, neck supple HEART: S1, S2 normal CHEST: LUNGS: clear to auscultatio n bilaterally ABDOMEN: normal bowel sounds, no guarding or rigidity, no guarding or rigidity, no masses palpable, soft, nontender, nondistended NEUROLOGIC: alert and oriented SKIN: nonjaundiced, no spi lindsay angiomata EXTREMITIES: no edema PERIPHERAL PULSES: BACK: BREASTS: MUSCULOSKELETAL: MALE GENITOURINARY: LYMPH NODES: RECTAL EXAM: FEMALE GENITOURINARY: ORAL CAVITY: mucosa moist
--- OUTSIDE RECORDS SUMMARY | 2024-04-17 18:47 | XMS_ITS | Data Portability ---
Author Organization [facility] Address [address] [place] [phone] Care Team Providers Care Drafter Tool Design Name Role Phone [facility] Referring Provider [phone] [facility] Referring Provider Assessment Encounter Date Assessment Date Assessment LastModified by Organization Details LastModified Time 09/07/2021 09/07/2021 I have reviewed and agree with the assessment and plan as documented by the wine cellar stock clerk. I provided real-time medical direction for this encounter and was immediately available to provide additional phone-based assistance as needed. Patient unable to ambulate due to weakness and BROWN in context of parkinson's. Transferred to ED via EMS. pallfather Not available 09/07/2021 21:23:18 Plan of Treatment Reminders Order Date Submit Date Provider Last Modified By Organization Details Last Modified Time Details Appointments None record ed. Lab None record ed. Referral None record ed. Procedures None record ed. Surgeries None record ed. Imaging None record ed. Medication Orders None record ed. Patient TargetsNo targets recorded. Patient InstructionsNo instructions recorded. Reason for Referral None Reported. Medical Equipment None Reported. Medications Name Sig Start Date Stop Date Status Note LastModified by Organization Details LastModified Time quetiapine 25 mg tablet TAKE 1 TABLET BY MOUTH AT BEDTIME active Not Available Not Available No t Available gabapentin 600 mg tablet TAKE 1 TABLET BY MOUTH THREE TIMES DAILY active Not Available Not Available Not Available tizanidine 2 mg tablet TAKE 1 TABLET BY MOUTH EVERY 8 HOURS NEEDED. NOT TO EXCEED 3 DOSES IN 24 HOURS active Not Available Not Available No t Available sulfamethoxa zole 400 mg-trimethop rim 80 mg tablet TAKE 1 TABLET BY MOUTH TWICE DAILY active Not Available Not Available No t Available sertraline 100 mg tablet TAKE 2 TABLETS BY MOUTH EVERY MORNING active Not Available Not Available No t Available clonazepam 1 mg tablet TAKE 1 TABLET BY MOUTH TWICE DAILY NEEDED active Not Available Not Available No t Available acetaminophe n 300 mg-codeine 30 mg tablet TAKE 1 TABLET BY MOUTH EVERY 6 HRS NEEDED FOR PAIN. active Not Available Not Available No t Available aspirin 81 mg tablet,delay ed release TAKE 1 TABLET BY MOUTH EVERY DAY active Not Available Not Available No t Available triamcinolon e acetonide 0.1 % topical cream APPLY THIN LAYER TOPICALLY TO THE AFFECTED AREA EVERY DAY active Not Available Not Available No t Available ketorolac 30 mg/mL (1 mL) injection solution INJECT 1 ML (30MG) INTRAMUSCUL GILBERTO ONCE active Not Available Not Available No t Available amoxicillin 500 mg tablet TAKE 1 TABLET BY MOUTH FOUR TIMES DAILY UNTIL ALL TAKEN active Not Available Not Available No t Available oxycodone-ac etaminophen 5 mg-325 mg tablet active Not Available Not Available Not Available hydromorphon e 2 mg tablet TAKE 1 TABLET BY MOUTH EVERY 4 TO 6 HOURS NEEDED FOR PAIN active Not Available Not Available No t Available amitriptylin e 25 mg tablet TAKE 2 TABLETS BY MOUTH AT BEDTIME active Not Available Not Available No t Available magnesium oxide 400 mg (241.3 mg magnesium) tablet TAKE 1 TABLET BY MOUTH AT BEDTIME active Not Available Not Available No t Available methocarbamo l 750 mg tablet TAKE 1 TABLET BY MOUTH EVERY 6 HOURS NEEDED FOR MUSCLE SPASM active Not Available Not Available No t Available trazodone 100 mg tablet TAKE 1 TABLET BY MOUTH AT BEDTIME active Not Available Not Available No t Available ropinirole 0.25 mg tablet TAKE 1 TABLET BY MOUTH TWICE DAILY active Not Available Not Available No t Available baclofen 10 mg tablet TAKE 1 TABLET BY MOUTH TWICE DAILY active Not Available Not Available No t Available mirtazapine 30 mg tablet TAKE 1 TABLET BY MOUTH AT BEDTIME active Not Available Not Available No t Available pravastatin 20 mg tablet active Not Available Not Available Not Available mirtazapine 15 mg tablet TAKE 1 TABLET BY MOUTH AT BEDTIME active Not Available Not Available No t Available ibuprofen 600 mg tablet TAKE 1 TABLET BY MOUTH EVERY 6 HOURS NEEDED FOR MODERATE PAIN ON A SCALE OF 4-6 active Not Available Not Available No t Available zolpidem 10 mg tablet TAKE 1 TABLET BY MOUTH AT BEDTIME NEEDED active Not Available Not Available No t Available celecoxib 100 mg capsule TAKE 1 CAPSULE BY MOUTH EVERY DAY active Not Available Not Available No t Available carbidopa 25 mg-levodopa 100 mg tablet TAKE 2 TABLETS BY MOUTH FIVE TIMES DAILY DIRECTED active Not Available Not Available Not Available oxycodone 5 mg tablet TAKE 1 TO 2 TABLETS BY MOUTH EVERY 6 TO 8 HOURS NEEDED FOR SEVERE PAIN active Not Available Not Available Not Available duloxetine 60 mg capsule,giovanni yed release TAKE 1 CAPSULE BY MOUTH EVERY MORNING active Not Available Not Available No t Available ramelteon 8 mg tablet TAKE 1 TABLET BY MOUTH AT BEDTIME active Not Available Not Available No t Available cholecalcife rol (vitamin D3) 25 mcg (1,000 unit) tablet TAKE 1 TABLET BY MOUTH EVERY DAY active Not Available Not Available No t Available rivastigmine 9.5 mg/24 hour transdermal patch APPLY 1 PATCH TOPICALLY TO THE SKIN EVERY MORNING active Not Available Not Available No t Available rivastigmine 4.6 mg/24 hour transdermal patch APPLY 1 PATCH TOPICALLY TO THE SKIN EVERY MORNING active Not Available Not Available No t Available Trulicity 1.5 mg/0.5 mL subcutaneous pen injector active Not Available Not Available Not Available Rexulti 2 mg tablet TAKE 1 TABLET BY MOUTH EVERY NIGHT AT BEDTIME active Not Available Not Available No t Available Vitals Date Recorded Heart rate Oxygen saturation Oxygen saturation in Arterial blood by Pulse oximetry Respiratory rate Systolic blood pressure Diastolic blood pressure Provider Name and Address Organization Details Last Updated DateTime 2 86 /min 99 % 99 % 20 /min 156 mm[Hg] 85 mm[Hg] Not Available [facility] - production 2 21:21:21 Social History None recorded. Functional Status None recorded. Mental Status None recorded. Family History Nothing Reported. Medical History No medical history recorded. Past Encounters Encounter ID Performer Location Encounter Start Date Encounter Closed Date Diagnosis/Indication Diagnosis SNOMED-CT Code Diagnosis ICD10 Code [id number] Gallo Mccall MD [facility] [address] [place] [phone] 09/07/2021 21:21:18 01/08/2022 15:04:21 Unable to walk [id number] R26.2 Health Concerns Section Related Observation LastModified by Organization Detai ls LastModified Time None Recorded Concern Status LastModified by Organization Details LastModified Time None Recorded Advance Directives Directive None Recorded Payers Encounter Date Sequence Insurance Name Policy Number Policy Gutierrez Covered Member ID Gutierrez Member ID Guarantor Name 09/07/2021 1 [facility] - DOS PRIOR TO 2022 - DUAL ELIGIBLE (MEDICARE REPLACEMENT/ADV ANTAGE - HMO) Valentín Bernardo [id number] Valentín Bernardo Notes Date Note Type Note Provider Name and Address Organization Details Recorded Time 09/07/2021 text/html HPI: Patient called with initial complaints of numbness of fingertips bilateral hands. Then reports that he has had increasing shortness of breath over the last two weeks. No cough or noted congestion no peripheral edema. Shortness of breath limiting activities. Also reports noted falls over the last month. Has diagnosis of Parkinson's and reports he is med compliant. unable to report blood Sugars at time of call. .................. .................. .................. .................. .................. .................. .................. ............... 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 Denies Chills HEENT: Denies visual changes Resp: no cough, Wheeze, Hemoptysis, SOB or BROWN Cardio: Denies Chest pain or palpitations GI: Denies N/V/D or current loss of appetite Genitourinary: Appropriate frequency without pain or odor Musculoskeletal: Pt denies pain or swelling Neuro: Alert to baseline Psych: Denies anxiety or depression Skin: Denies rashes or wounds Endocrine: No new unexpected weight loss/gain Focused Physical Assessment Findings Pt reports numbness/tingles/c old sensation in both hands x3 days getting worse Pt also unable to walk more than 2 steps. FAST-ED Score 0 General: Well developed and well nourished in no acute distress HEENT: Unremarkable Neck: Unremarkable Lungs: Clear to auscultation without egophony Heart: Regular rate and rhythm Abdomen: Soft, Non-distended and non-tender Extremities: No Cyanosis, rash, lesions or edema Neuro: At baseline Psych: Good Affect/Mood/ Attention Skin Intact without rash Contacted Dr. Mccall. Pt transported to [facility] via [facility] due to new onset of neuro issues. .................. .................. .................. .................. .................. .................. .................. ............... Disposition: Fulfilled Gallo Mccall MD [address] [place] [address],[address], [place], [phone], [facility] - [facility]ANE[facility] 09/07/2021 21:23:51
--- OUTSIDE RECORDS SUMMARY | 2024-04-17 18:47 | XMS_ITS ---
Author Organization [facility] Address [address] [facility] [address] [place] [phone] Care Team Providers Care Receptionist/Telephone Operator Name Role Phone Name Lew CAMPBELL Primary Care Provider Bean Restrepo [phone] REASON FOR VISIT bowel prep MEDICATIONS Medication SIG (Take, Route, Frequency, Duration) Notes Start Date End Date Status MiraLax (colon prep) 17 GM/SCOOP 1 238Gm bottle mixed with Gatorade or Crystal Light Orally begin at 5:00 p.m. the day before the procedure for 1 day 12/16/2022 Active Dulcolax (colon prep) 5 MG take at 3:00 p.m and 7:00p.m. Orally two tablets twice a day for one day for 1 day 12/16/2022 Active Encounters Encounter Location Date Provider Diagnosis [facility] [address] [phone] 12/16/2022 Bean Smith PLAN OF TREATMENT Medication Medication Name Sig Start Date Stop Date Notes MiraLax (colon prep) 17 GM/SCOOP 1 238Gm bottle mixed with Gatorade or Crystal Light Orally begin at 5:00 p.m. the day before the procedure for 1 day 12/16/2022 Dulcolax (colon prep) 5 MG take at 3:00 p.m and 7:00p.m. Orally two tablets twice a day for one day for 1 day 12/16/2022
--- OUTSIDE RECORDS SUMMARY | 2024-04-17 18:47 | XMS_ITS ---
Author Organization [facility] Address [address] [place] [address] Care Team Providers Care Historical Society Director Name Role Phone Name Lew CAMPBELL Primary Care Provider Bean Restrepo Unavailable [phone] REASON FOR VISIT screening PROBLEMS Problem Type ICD Code Onset Dates Problem Status W/U Status Risk SNOMED Code Notes Problem Diverticulosis of large intestine without perforation or abscess without bleeding (K57.30) Active confirmed Diverticul ar disease of colon ([id number]) Encounters Encounter Location Date Provider Diagnosis [facility] Outpatient [address] [place] [id number] 03/14/2023 Bean Smith Encounter for scre ening colonoscopy Z12.11 ; Colon polyps K63.5 ; Diverticulosis of large intestine without perforation or abscess without bleeding K57.30 and Other hemorrhoids K64.8 ASSESSMENTS Encounter Date Diagnosis Assessment Notes Treatment Notes Treatment Clinical Notes 03/14/2023 Encounter for screening colonoscopy (ICD-10 - Z12.11) 03/14/2023 Colon polyps (ICD-10 - K63.5) 03/14/2023 Diverticulosis of large intestine without perforation or abscess without bleeding (ICD-10 - K57.30) 03/14/2023 Other hemorrhoids (ICD-10 - K64.8) PLAN OF TREATMENT No Information
== END 2024-04-11 14:50 | disposition home or self-care (01) ==
PROVIDERS: PCP Internal Medicine Geriatric Medicine; Visit Provider Nurse Practitioner Family
DX: G20.A1 Parkinson's disease without dyskinesia, without mention of fluctuations (principal); M54.2 Cervicalgia; R20.1 Hypoesthesia of skin
CPT/HCPCS: 99214; G2211

== ENCOUNTER → 2024-04-11 12:37 | Outpatient (BNVA) | payer OTHER, SELFPAY | PROVIDERS: PCP Internal Medicine Geriatric Medicine; Visit Provider Nurse Practitioner Family | DX: G20.A1 Parkinson's disease without dyskinesia, without mention of fluctuations (principal); M54.2 Cervicalgia; R20.1 Hypoesthesia of skin | CPT/HCPCS: 99212 ==

== ENCOUNTER 2024-07-31 14:19 | Outpatient (AMB) | payer OTHER, SELFPAY ==
[2024-07-31 14:40] VITALS: BP 130/60; PULSE 64; O2SAT 98; BMI 26.3
--- NOTE | 2024-07-31 14:40 | A.OFFVIS_ITS ---
Vital Signs 07/31/24 14:40 Height 5 ft 5 in Weight 158 lb BMI 26.3 BP 130/60 Blood Pressure Location Rt brachial Position Sitting Pulse 64 Pulse Source Pulse Oximeter Pulse Oximetry (%) 98 Oxygen Delivery Method Room Air Intake Visit Reasons: 3-6 mo follow up Intake Note: Patient presents follow up Parkinson's Area Safety Manager Required: No Allergies No Known Allergies Allergy (Verified 07/31/24 14:41) Medication List - Last Reconciled 07/31/24 by ANDREW García aspirin 81 mg PO DAILY baclofen 5 mg PO TID 30 days bupropion HCl XL (Wellbutrin XL) 300 mg PO QAM carbidopa-levodopa 25-100 mg 2 tabs PO 5XD 30 days clonazepam 1 mg PO DAILY dulaglutide (Trulicity) 1.5 mg subcut QWEEK duloxetine 60 mg PO BID food supplemt, lactose-reduced 237 oz orally daily; VANILLA 30 days gabapentin 600 mg PO TID magnesium oxide 400 mg PO BEDTIME 30 days pravastatin 20 mg PO DAILY quetiapine 50 mg PO BEDTIME rivastigmine (Exelon Patch) 9.5 mg transdermal DAILY tadalafil (Cialis) 5 mg PO DAILY 90 days tadalafil (Cialis) 20 mg PO DAILY PRN tramadol 50 mg PO Q4H PRN 14 days MDD 3 tabs zolpidem (Ambien) 12.5 mg PO BEDTIME PRN HPI Comments Details: Foowh-nlgni-bm-old male presents for f/u visit of Parkinson's. Patient is accompanied by his son. Pt's current PD medication regimen: Patient reports he has stopped carbidopa levodopa. In previously stopped the ropinirole He reports he is having bad headaches in bilateral temporal hard sharp pain, a/w eye pain, photophobia, phonophobia, cognitive difficulties. Uses Tylenol prn- which does not help. He states the headache started a few months ago, would come and go, but over time, it has become constant. Denies preceding infection or accident/injury. He states his BP has been running higher- yesterday SBP was 155. Pt continues to have squeezing neck pain and loss of richard hand sensation s/p surgical repair of severe cervical cord compression by Dr Miller. The Tramadol helps but not for a long time- using sparingly. ADL's: Needs assist w/ ADLs, but needs help with buttons, zippers- again as he cannot feel in his hands. Swallowing: No choking on solids- does not happen because he eats slowly, but this does limit how much he can eat. Can choke on fluids- even when he drinks slow. Now has difficulty w/ swallowing pills as well. Drooling: Prone to drooling Orthostatic lightheadedness: some days, but standing up slowly helps. May use Tylenol for this. GI/: rare urinary incontinence. Freezing: occasionally one side does not work Stiffness: some stiffness, his feet feel heavy/stiffness/cramps in the morning- taking a few steps loosens them up. Tremor: sometimes in his hands or legs or head Falls: Has had 2 falls- both times, he got up, fell, and came to on the ground - felt cold and sweaty. He did not check his blood sugars at that the time. Hallucinations: can have hallucinations, sees a mosquito or a person passing by- not reduced since stopping requip. Memory: memory is good, but may forget where he put things and has more difficulty recalling later on like he used to be able to. Sleep: Sleeps one day better than the other, ambien (per psychiatry) and quetiapine 50mg helps some. Mood: stable. Exercise: Trying to walk more. Family is trying to encourage him to stay out of bed- as he can be prone to stay in bed. [facility] Medical History Parkinson's disease Anxiety Diabetes Surgical History H/O colonoscopy Family History Mother Hyperlipidemia Cancer Thyroid disease High cholesterol Social History Household Members: Spouse Patient Tobacco Use Status: Current everyday Tobacco user service: No Current occupational status: retired Physical Exam Vital Signs: Last Vital Signs Pulse 64 07/31/24 14:40 BP 130/60 07/31/24 14:40 Pulse Ox 98 07/31/24 14:40 Oxygen Delivery Method Room Air 07/31/24 14:40 BMI result Body Mass Index 26.3 Const General: cooperative and no acute distress Resp Effort & Inspection: normal respiratory effort and able to speak in complete sentences Neuro Other: General: A&O x's 3 Expression: Intact Voice: Ok Tremor: Mild postural tremor Tone: BUE tone Dyskinesia: None FFM: Mildly decreased on left Foot taps: Mildly decreased on left Gait: No arm swing, steps shorter with lower floor clearance, steady gait Psych: Pleasant affect w/ intermittent sadness/anxiety. Assessment & Plan Assessment & Plan (1) New onset headache: Code(s): R51.9 - Headache, unspecified Category: Medical (2) Eye pain: Code(s): H57.10 - Ocular pain, unspecified eye Category: Medical (3) Photophobia: Code(s): H53.149 - Visual discomfort, unspecified Category: Medical (4) Parkinson's disease without dyskinesia: Code(s): G20.A1 - Parkinson's disease without dyskinesia, without mention of fluctuations Category: Medical (5) Cervicalgia: Code(s): M54.2 - Cervicalgia Category: Medical (6) Migraine without aura: Code(s): G43.009 - Migraine without aura, not intractable, without status migrainosus Category: Medical Plan For worsening headache: Check labs for common etiologies Brain MRI with and without contrast. For acute migraine type headache: Trial Rimegepant ODT (Nurtec ODT) 75mg, 1 tab at onset of headache.. Max of 1 tabs (75mg) per 24 hours. May adjunct with OTC Tylenol 650mg q 4 hours, Ibuprof en 600mg q 6 hours, or Naproxen 440mg q 12 hrs prn. Do not take w/ Butalbital (Fioricet or Fiorinal). Potential adverse effects, include but are not limited to fatigue, nausea, dry mouth, constipation. Acute migraine treatment contraindications: All triptans and DHE due to uncontrolled hypertension. Migraine prevention treatment: Start riboflavin 400 mg daily in the morning Start magnesium oxide 400 mg daily at bedtime Continue Gabapentin 600 mg t.i.d. For PD: Previous DaTscan- negative. Pt has stopped Ropinirole and Sinemet 25-100mg. We will monitor Continue Quetiapine, Bupropion, Cloazepam per psychiatry. F/u w/ psychiatry, [place] DIRECTOR OF CAREER SERVICES- per pt psychotherapy is not offered at [facility]. Start psychotherapy- pt requests therapist who is not known to himself/family/rastafarian. ? For chronic neck pain s/p c-spine repair: Continue prn Tramadol 50mg- sparingly. Continue Gabapentin 600mg tid for now. F/u w/ pain management as planned. Previous trials- Amitriptyline- unclear why pt stopped- ? d/t lapse in pt's f/u here. Pt to follow-up in 6 months or sooner prn. Orders: Orders Methylmalonic Acid 07/31/24 R51.9 - Headache, unspecified, H57.10 - Ocular pain, unspecified eye, H53.149 - Visual discomfort, unspecified Lyme IgG/IgM w/reflex to WB 07/31/24 R51. - Headache, unspecified, H57.10 - Ocular pain, unspecified eye, H53.149 - Visual discomfort, unspecified Erythrocyte Sedimentation Rate 07/31/24 R51.9 - Headache, unspecified, H57.10 - Ocular pain, unspecified eye, H53.149 - Visual discomfort, unspecified HIV Ab/Ag 07/31/24 R51.9 - Headache, unspecified, H57.10 - Ocular pain, unspecified eye, H53.149 - Visual discomfort, unspecified Vitamin D 25-OH (D2 and D3) 07/31/24 R51.9 - Headache, unspecified, H57.10 - Ocular pain, unspecified eye, H53.149 - Visual discomfort, unspecified MR head/brain wo/w con 07/31/24 R51.9 - Headache, unspecified, H57.10 - Ocular pain, unspecified eye, H53.149 - Visual discomfort, unspecified Homocysteine 07/31/24 R51.9 - Headache, unspecified, H57.10 - Ocular pain, unspecified eye, H53.149 - Visual discomfort, unspecified Complete Blood Count Auto Diff 07/31/24 R51.9 - Headache, unspecified, H57.10 - Ocular pain, unspecified eye, H53.149 - Visual discomfort, unspecified Comprehensive Met. Panel 07/31/24 R51.9 - Headache, unspecified, H57.10 - Ocular pain, unspecified eye, H53.149 - Visual discomfort, unspecified TSH reflex Free T4 07/31/24 R51.9 - Headache, unspecified, H57.10 - Ocular pain, unspecified eye, H53.149 - Visual discomfort, unspecified EVELYN Reflex Titer and Pattern 07/31/24 R51.9 - Headache, unspecified, H57.10 - Ocular pain, unspecified eye, H53.149 - Visual discomfort, unspecified Rheumatoid Factor 07/31/24 R51.9 - Headache, unspecified, H57.10 - Ocular pain, unspecified eye, H53.149 - Visual discomfort, unspecified CRP High Sensitivity 07/31/24 R51.9 - Headache, unspecified, H57.10 - Ocular pain, unspecified eye, H53.149 - Visual discomfort, unspecified Medications: New rimegepant (Nurtec ODT) 75 mg PO ONCE PRN 16 tabs 3RF migraine headache 30 days MDD 1 tab riboflavin (vitamin B2) 400 mg PO DAILY 30 tabs 6RF 30 days Changed From quetiapine 50 mg PO BEDTIME To quetiapine 50 mg PO BEDTIME 30 tabs 6RF 30 days Refilled magnesium oxide 400 mg PO BEDTIME 30 tabs 6RF 30 days Discontinued carbidopa-levodopa 25-100 mg Discontinued Reason: Doctor's Order 2 tabs PO 5XD 30 days 300 tabs 6RF Coding Level of Care Code Est Pt Level 4 (24454) Diagnoses New onset headache R51.9 Eye pain H57.10 Photophobia H53.149 Parkinson's disease without dyskinesia G20.A1 Cervicalgia M54.2 Migraine without aura G43.009
== END 2024-07-31 15:29 | disposition home or self-care (01) ==
LOC: HO.HSMS 14:20
PROVIDERS: PCP Internal Medicine Geriatric Medicine; Visit Provider Nurse Practitioner Family
DX: R51.9 Headache, unspecified (principal); H57.10 Ocular pain, unspecified eye; H53.149 Visual discomfort, unspecified; G20.A1 Parkinson's disease without dyskinesia, without mention of fluctuations; M54.2 Cervicalgia; G43.009 Migraine without aura, not intractable, without status migrainosus
CPT/HCPCS: 99214

== ENCOUNTER 2024-07-31 14:19 | Outpatient (REF) | payer OTHER, SELFPAY | END 2024-07-31 14:20 | disposition home or self-care (01) | LOC: HO.HKASLDS 14:19 | PROVIDERS: PCP Internal Medicine Geriatric Medicine; Visit Provider Nurse Practitioner Family | DX: G20.A1 Parkinson's disease without dyskinesia, without mention of fluctuations (principal); G43.009 Migraine without aura, not intractable, without status migrainosus; H57.10 Ocular pain, unspecified eye; H53.149 Visual discomfort, unspecified; M54.2 Cervicalgia | CPT/HCPCS: 99212 ==

== ENCOUNTER 2024-08-09 09:14 | Outpatient (REF) | payer OTHER, SELFPAY ==
--- OUTSIDE RECORDS SUMMARY | 2024-08-09 09:34 | XMS_ITS | Encounter Summary ---
Author Organization [employer] [facility] Address [address] [place] [address] 7t [place] [address] Care Team Providers Care Charge Gang Weigher Name Role Phone Name, Lew CAMPBELL Primary Care Provider [phone] Reason for Visit * Reason Comments Med Refill Encounter Details Date Type Department Care Team (Late st Contact Info) Description 09/19/2022 Refill [facility]INE [address] [place] [address] [phone] NameLew MD [address] [place] [address] [phone] History of myocardial infarction Social History Tobacco Use Types Packs/Day Years Used Date Smoking Tobacco: Never Smokeless Tobacco: Never Alcohol Use Standard Drinks/Week Comments Never 0 (1 standard drink = 0.6 oz pur e alcohol) Depression Answer Date Recorded Patient Health Questionnaire-9 Score 18 04/19/2022 Depression Answer Date Recorded Patient Health Questionnaire-2 Score 6 04/19/2022 Sex and Gender Information Value Date Recorded Sex Assigned at Male 03/08/2022 10:29 AM EDT Legal Sex Male 10:29 AM EDT Gender Identity Male 03/08/2022 10:29 AM EDT Sexual Orientation Straight 03/08/2022 10 :29 AM EDT documented as of this encounter Plan of Treatment Upcoming Encounters Date Type Department Care Team (Late st Contact Info) Description 10/04/2024 9:00 AM EDT Office Visit [facility] [address] [place] [address] Lew Malcolm MD [address] [place] [address] [phone] documented as of this encounter Visit Diagnoses Diagnosis History of myocardial infarction documented in this encounter Additional Health Concerns Assessment Noted Time PHQ-9 Depression Total Score: 18 022 10:02 AM EST documented as of this encounter Care Teams Charge Gang Weigher Relationship Specialty Start Date End Date Name, MD Lew [address] [place] [address] PCP - General Family Medicine 07/14/15 documented as of this encounter
--- OUTSIDE RECORDS SUMMARY | 2024-08-09 09:34 | XMS_ITS | Encounter Summary ---
Author Organization [facility] Address [address] [place] [address] Care Team Providers Care Dope Dry House Operator Name Role Phone Name, Lew CAMPBELL Primary Care Provider Unavailabl e Community, Pcp Primary Care Provider Unavailabl e Name, Lew CAMPBELL Primary Care Provider Unavailabl e Name, Lew CAMPBELL Primary Care Provider Unavailabl e Jocelyn Miller MD Unavailable [phone] Name, Lew CAMPBELL Primary Care Provider Unavailabl e Anibal Veliz PA-C Unavailable [phone] Jelly aBin PA-C Unavailable [phone] Reason for Visit * Reason Onset Date Comments Orders Call 07/03/2013 [facility] are Encounter Details Date Type Department Care Team Description 07/03/2013 Telephone Adult Medicine [address] [address] NameLew MD Orders Call ([facility]) Social History Tobacco Use Types Packs/Day Years Used Date Smoking Tobacco: Former Smokeless Tobacco: Never Comments:quit 2001 Alcohol Use Standard Drinks/Week Comments No 0 (1 standard drink = 0.6 oz pur e alcohol) Sex Assigned at Date Recorded Not on file Job Start Date Occupation Industry Not on file Not on file Not on file documented as of this encounter Miscellaneous Notes * Telephone Encounter - Sarika Leo - 07/03/2013 4:23 PM EST Please sign orders for penitentiary and home health aide. Fax back to [phone]. documented in this encounter Plan of Treatment Not on file documented as of this encounter Visit Diagnoses Not on filedocumented in this encounter Care Teams Dope Dry House Operator Relationship Specialty Start Date End Date Name, MD Lew PCP - General 04/10/09 06/10/15 Li, Pcp PCP - General Internal Medicine 06/11/15 09/16/15 Lew Malcolm MD PCP - General Internal Medicine 09/17/15 09/28/18 Lew Malcolm MD PCP - General Internal Medicine 09/29/18 10/26/21 Lew Malcolm MD PCP - General Internal Medicine 10/27/21 Jocelyn Miller MD [address] [address] Neurosurgery 10/27/21 Anibal Veliz PA-C [address] [address] Specialist Neurosurgery 11/19/21 Jelly Bain PA-C [address] [address] Specialist Neurosurgery 11/19/21 documented as of this encounter
--- OUTSIDE RECORDS SUMMARY | 2024-08-09 09:34 | XMS_ITS | Encounter Summary ---
Author Organization [facility] Address [address] [place] [address] Care Team Providers Care Helicopter Utility Aircrewman Name Role Phone Name, Lew CAMPBELL Primary Care Provider Unavailabl e Community, Pcp Primary Care Provider Unavailabl e Name, Lew CAMPBELL Primary Care Provider Unavailabl e Name, Lew CAMPBELL Primary Care Provider Unavailabl e Jocelyn Miller MD Unavailable [phone] Name, Lew CAMPBELL Primary Care Provider Unavailabl e Anibal VelizC Unavailable [phone] Jlely Bain PA-C Unavailable [phone] Encounter Details Date Type Department Care Team Description 01/27/2015 Cod Clerk Report Medical Records [address] [place] [address] Marcelina Wilhelm MD Social History Tobacco Use Types Packs/Day Years Used Date Smoking Tobacco: Former Smokeless Tobacco: Never Comments:quit 2001 Alcohol Use Standard Drinks/Week Comments No 0 (1 standard drink = 0.6 oz pur e alcohol) Sex Assigned at Date Recorded Not on file Job Start Date Occupation Industry Not on file Not on file Not on file documented as of this encounter Plan of Treatment Not on file documented as of this encounter Visit Diagnoses Not on filedocumented in this encounter Care Teams Helicopter Utility Aircrewman Relationship Specialty Start Date End Date Lew Malcolm MD PCP - General 04/10/09 06/10/15 Community, Pcp PCP - General Internal Medicine 06/11/15 09/16/15 Lew Malcolm MD PCP - General Internal Medicine 09/17/15 09/28/18 Lew Malcolm MD PCP - General Internal Medicine 09/29/18 10/26/21 Lew Malcolm MD PCP - General Internal Medicine 10/27/21 Jocelyn Miller MD [address] [phone] Neurosurgery 10/27/21 Anibal Veliz PA-C [address] [address] Specialist Neurosurgery 11/19/21 Jelly Bain PA-C [address] [address] Specialist Neurosurgery 11/19/21 documented as of this encounter
--- OUTSIDE RECORDS SUMMARY | 2024-08-09 09:34 | XMS_ITS | Encounter Summary ---
Author Organization [facility] Address [address] [place] [address] Care Team Providers Care Senior Graduate Advisor Name Role Phone Name, Lew CAMPBELL Primary Care Provider Unavailabl e Mindi Lamas MD Primary Care Provider [phone] [facility], Pcp Primary Care Provider Unavailabl e Name, Lew CAMPBELL Primary Care Provider Unavailabl e Name, Lew CAMPBELL Primary Care Provider Unavailabl e Jocelyn Miller MD Unavailable [phone] Name, Lew CAMPBELL Primary Care Provider Unavailabl e Anibal Veliz PA-C Unavailable [phone] Jelly Bain-C Unavailable [phone] Encounter Details Date Type Department Care Team Description 02/04/2004 Telephone Adult Medicine [address] [phone] Mindi Lamsa MD [address] [place] [address] [phone] Social History Tobacco Use Types Packs/Day Years Used Date Smoking Tobacco: Never Assessed Sex Assigned at Date Recorded Not on file Job Start Date Occupation Industry Not on file Not on file Not on file documented as of this encounter Miscellaneous Notes * Telephone Encounter - 02/04/2004 1:43 PM EDTCALL RECEIVED. Contact: documented in this encounter Plan of Treatment Not on file documented as of this encounter Visit Diagnoses Not on filedocumented in this encounter Care Teams Senior Graduate Advisor Relationship Specialty Start Date End Date Name, MD Lew PCP - General 04/10/09 06/10/15 Mindi Lamas MD [address] [place] [address] PCP - General 03/08/1999 04/09/09 [facility], Pcp [address] [place] [address] PCP - General Internal Medicine 06/11/15 09/16/15 Lew Malcolm MD [address] [place] [address] PCP - General Internal Medicine 09/17/15 09/28/18 Lew Malcolm MD [address] [place] [address] PCP - General Internal Medicine 09/29/18 10/26/21 Lew Malcolm MD [address] [place] [address] PCP - General Internal Medicine 10/27/21 Jocelyn Miller MD [address] [address] Neurosurgery 10/27/21 Anibla Veliz PA-C [address] [address] Specialist Neurosurgery 11/19/21 Jelly Bain PA-C [address] [address] Specialist Neurosurgery 11/19/21 documented as of this encounter
--- OUTSIDE RECORDS SUMMARY | 2024-08-09 09:34 | XMS_ITS | Encounter Summary ---
Author Organization [facility] Address [address] [place] [address] Care Team Providers Care Radiological Technician Name Role Phone Name, Lew CAMPBELL Primary Care Provider Unavailabl e Community, Pcp Primary Care Provider Unavailabl e Name, Lew CAMPBELL Primary Care Provider Unavailabl e Name, Lew CAMPBELL Primary Care Provider Unavailabl e Jocelyn Miller MD Unavailable [phone] Name, Lew CAMPBELL Primary Care Provider Unavailabl e Anibal Veliz PA-C Unavailable [phone] Jelly Bain PA-C Unavailable [phone] Encounter Details Date Type Department Care Team Description 06/13/2014 [employer] Gathering Camera Person Report Medical Records [address] [place] [address] Marcelina Wilhelm MD Social History Tobacco Use [...] on filedocumented in this encounter Care Teams Radiological Technician Relationship Specialty Start Date End Date Lew Malcolm MD PCP - General 04/10/09 06/10/15 Community, Pcp PCP - General Internal Medicine 06/11/15 09/16/15 Lew Malcolm MD PCP - General Internal Medicine 09/17/15 09/28/18 Lew Malcolm MD PCP - General Internal Medicine 09/29/18 10/26/21 Lew Malcolm MD PCP - General Internal Medicine 10/27/21 Jocelyn Miller MD [address] [phone] Neurosurgery 10/27/21 Anibal Veliz PA-C [address] [address] Specialist Neurosurgery 11/19/21 Jelly Bain PA-C [address] [address] Specialist Neurosurgery 11/19/21 documented as of this encounter
--- OUTSIDE RECORDS SUMMARY | 2024-08-09 09:34 | XMS_ITS | Encounter Summary ---
Author Organization [facility] Address [address] [place] [address] Care Team Providers Care Auto Service Mechanic Name Role Phone Name, Lew CAMPBELL Primary Care Provider Unavailabl e Community, Pcp Primary Care Provider Unavailabl e Name, Lew CAMPBELL Primary Care Provider Unavailabl e Name, Lew CAMPBELL Primary Care Provider Unavailabl e Jocelyn Miller MD Unavailable [phone] Name, Lew CAMPBELL Primary Care Provider Unavailabl e Anibal Veliz PA-C Unavailable [phone] Jelly Bain PA-C Unavailable [phone] Reason for Visit * Reason Onset Date Comments Faxed Order 09/19/2013 [facility] are Encounter Details Date Type Department Care Team Description 09/19/2013 Telephone Adult Medicine [address] [address] Name, MD Lew Faxed Order ([facility]) Social History Tobacco Use Types Packs/Day Years [...] encounter Miscellaneous Notes * Telephone Encounter - Dania Malone - 09/27/2013 11:19 AM EDT Review and sign fax back to [phone] * Telephone Encounter - Radha Opal - 09/19/2013 1:11 PM EDT [facility] faxed plan of care to be reviewd and signed by Dr Name. Wynn fax back to [phone] ATTN: Delia Murry documented in this encounter Plan of Treatment Not on file documented as of this encounter Visit Diagnoses Not on filedocumented in this encounter Care Teams Auto Service Mechanic Relationship Specialty Start Date End Date Name, MD Lew PCP - General 04/10/09 06/10/15 Community, Pcp PCP - General Internal Medicine 06/11/15 09/16/15 NameLew MD PCP - General Internal Medicine 09/17/15 09/28/18 NameLew MD PCP - General Internal Medicine 09/29/18 10/26/21 Name, MD Lew PCP - General Internal Medicine 10/27/21 Jocelyn Miller MD [address] [address] Neurosurgery 10/27/21 Anibal Veliz PA-C [address] [address] Specialist Neurosurgery 11/19/21 Jelly Bain PA-C [address] [address] Specialist Neurosurgery 11/19/21 documented as of this encounter
--- OUTSIDE RECORDS SUMMARY | 2024-08-09 09:34 | XMS_ITS | Encounter Summary ---
Author Organization [facility] Address [address] [place] [address] Care Team Providers Care Vp Corporate Development Name Role Phone Jocelyn Miller MD Unavailable [phone] Name, Lew CAMPBELL Primary Care Provider UnavailAnibal Palmer PA-C Unavailable [phone] Jelly Bain PA-C Unavailable [phone] Encounter Details Date Type Department Care Team Description 04/11/2023 [facility] Medical [facility] Neurosurgery [place] 175 [facility] [address] [place] [phone] Jocelyn Miller MD [address] [phone] Social History Tobacco Use Types Packs/Day Years [...] on filedocumented in this encounter Care Teams Vp Corporate Development Relationship Specialty Start Date End Date Name, MD Lew [address] [address] PCP - General Internal Medicine 10/27/21 Jocelyn Milelr MD [address] [phone] Neurosurgery 10/27/21 Anibal Veliz PA-C 175 [facility] [address] [place] [address] [phone] Specialist Neurosurgery 11/19/21 Jelly Bain PA-C 175 [facility] [address] [place] [address] Specialist Neurosurgery 11/19/21 documented as of this encounter
--- OUTSIDE RECORDS SUMMARY | 2024-08-09 09:34 | XMS_ITS | Encounter Summary ---
Author Organization [facility] Address [address] [place] [address] Care Team Providers Care Media Strategist Name Role Phone Jocelyn Miller MD Unavailable [phone] Name, Lew CAMPBELL Primary Care Provider UnavailAnibal Palmer PA-C Unavailable [phone] Jelly Bain PA-C Unavailable [phone] Encounter Details Date Type Department Care Team Description 10/29/2021 Release of Information Medical Records [address] [place] [address] Abstract, Provider Social History Tobacco Use Types Packs/Day Years [...] on filedocumented in this encounter Care Teams Media Strategist Relationship Specialty Start Date End Date Gold, MD Lew [address] [address] PCP - General Internal Medicine 10/27/21 Jocelyn Miller MD [address] [phone] Neurosurgery 10/27/21 Anibal Veliz PA-C [address] [address] Specialist Neurosurgery 11/19/21 Jelly Bain PA-C [address] [address] Specialist Neurosurgery 11/19/21 documented as of this encounter
--- OUTSIDE RECORDS SUMMARY | 2024-08-09 09:34 | XMS_ITS | Encounter Summary ---
Author Organization [employer] [facility] Address [address] [place] [address] 7t [place] [address] Care Team Providers Care Service Observer Chief Name Role Phone Name, Lew CAMPBELL Primary Care Provider [phone] Reason for Visit * Reason Comments Med Refill Encounter Details Date Type Department Care Team (Late st Contact Info) Description 01/05/2023 Refill [facility] MEDICINE [address] [place] [address] [phone] NameLew MD [address] [place] [address] [phone] Social History Tobacco Use Types Packs/Day Years [...] Description 10/04/2024 9:00 AM EDT Office Visit [facility] MEDICINE [address] [place] [address] [phone] Lew Malcolm MD [address] [place] [address] [phone] documented as of this encounter Visit Diagnoses Not on filedocumented in this encounter Additional Health Concerns Assessment Noted Time PHQ-9 Depression Total Score: 18 022 10:02 AM EST documented as of this encounter Care Teams Service Observer Chief Relationship Specialty Start Date End Date Name, MD Lew [address] [place] [address] PCP - General Family Medicine 07/14/15 documented as of this encounter
--- OUTSIDE RECORDS SUMMARY | 2024-08-09 09:34 | XMS_ITS | Encounter Summary ---
Author Organization [facility] [employer] Address [address] [place] [address] 7 [place] [address] Care Team Providers Care Sample Color Maker Name Role Phone Name, Lew CAMPBELL Primary Care Provider [phone] Encounter Details Date Type Department Care Team (Late st Contact Info) Description 10/08/2022 [facility] [address] [place], [place] [phone] NameLew MD [address] [place] [address] [phone] Social History Tobacco Use Types Packs/Day Years [...] Description 10/04/2024 9:00 AM EDT Office Visit [facility] MEDICINE [address] [place] [address] [phone] NameLew MD [address] [place], [place] [phone] documented as of this encounter Visit Diagnoses Not on filedocumented in this encounter Additional Health Concerns Assessment Noted Time PHQ-9 Depression Total Score: 18 022 10:02 AM EST documented as of this encounter Care Teams Sample Color Maker Relationship Specialty Start Date End Date Name, MD Lew [address] [place] [address] PCP - General Family Medicine 07/14/15 documented as of this encounter
--- OUTSIDE RECORDS SUMMARY | 2024-08-09 09:34 | XMS_ITS | Encounter Summary ---
Author Organization [facility] Address [address] [place] [address] Care Team Providers Care Consumer Loan Specialist Name Role Phone Name, Lew CAMPBELL Primary Care Provider Unavailabl e Community, Pcp Primary Care Provider Unavailabl e Name, Lew CAMPBELL Primary Care Provider Unavailabl e Name, Lew CAMPBELL Primary Care Provider Unavailabl e Jocelyn Miller MD Unavailable [phone] Name, Lew CAMPBELL Primary Care Provider Unavailabl e Anibal Veliz PA-C Unavailable [phone] Jelly Bain PA-C Unavailable [phone] Reason for Visit * Reason Onset Date Comments Testicle Pain 06/13/2013 Encounter Details Date Type Department Care Team Description 06/13/2013 Telephone Adult [address] [address] Name, MD Lew Testicle Pain Social History Tobacco Use Types Packs/Day Years [...] encounter Miscellaneous Notes * Telephone Encounter - Jeannie Ramirez R.N. - 06/13/2013 11:37 AM EST Pt has had pain in his testicle for 3 days, he is not concerned with this, he states a bigger problem is his very bad headache which he has had for 5 days Pt has a severe headache, he also has blurred vision and numbness in his right arm, this is gettingworse, he wants to be seen right now for this Pt also C/O testicle pain , denies any abd pain, has had really bad diarrhea no swelling in testicle and denies any dysuria or discharge, Pt advised to go to the ed, states he went one week ago and they told him to see his doctor. Explained to pt that with headache, numbness and blurred vision he needs to be seen in the ed now, he willconsider this * Telephone Encounter - Arianna Noel - 06/13/2013 10:42 AM EST Symptoms patient is presenting: TESTICLE PAIN How long has patient had these symptoms?: X3 DAYS PCP: Lew Name Pay[place] Plan[place] Product Type: MEDICARE [id number] documented in this encounter Plan of Treatment Not on file documented as of this encounter Visit Diagnoses Not on filedocumented in this encounter Care Teams Consumer Loan Specialist Relationship Specialty Start Date End Date Name, MD Lew PCP - General 04/10/09 06/10/15 Replaced By [facility] PCP - General Internal Medicine 06/11/15 09/16/15 Lew Malcolm MD PCP - General Internal Medicine 09/17/15 09/28/18 Lew Malcolm MD PCP - General Internal Medicine 09/29/18 10/26/21 Lew Malcolm MD PCP - General Internal Medicine 10/27/21 Jocelyn Miller MD [address] [address] Neurosurgery 10/27/21 Anibal Veliz PA-C [address] [address] Specialist Neurosurgery 11/19/21 Jelly Bain PA-C [address] [address] Specialist Neurosurgery 11/19/21 documented as of this encounter
--- OUTSIDE RECORDS SUMMARY | 2024-08-09 09:34 | XMS_ITS | Encounter Summary ---
Author Organization [facility] Address [address] [place] [address] Care Team Providers Care A Operator Name Role Phone Name, Lew CAMPBELL Primary Care Provider Unavailabl e Community, Pcp Primary Care Provider Unavailabl e Name, Lew CAMPBELL Primary Care Provider Unavailabl e Name, Lew CAMPBELL Primary Care Provider Unavailabl e Jocelyn Miller MD Unavailable [phone] Name, Lew CAMPBELL Primary Care Provider Unavailabl e Anibal Veliz PA-C Unavailable [phone] Jelly Bain PA-C Unavailable [phone] Reason for Visit * Reason Onset Date Comments Faxed Order 07/19/2014 Encounter Details Date Type Department Care Team Description 07/19/2014 [facility] [address] [address] NameLew MD Faxed Order Social History Tobacco Use Types Packs/Day Years [...] encounter Miscellaneous Notes * Telephone Encounter - Nestor Kingston - 07/19/2014 12:11 PM EDT Plan of care for dr cummins to sign and date documented in this encounter Plan of Treatment Not on file documented as of this encounter Visit Diagnoses Not on filedocumented in this encounter Care Teams A Operator Relationship Specialty Start Date End Date Name, MD Lew PCP - General 04/10/09 06/10/15 [facility], Pcp PCP - General Internal Medicine 06/11/15 09/16/15 Lew Cummins MD PCP - General Internal Medicine 09/17/15 09/28/18 Gold, MD Lew PCP - General Internal Medicine 09/29/18 10/26/21 Gold, MD Lew PCP - General Internal Medicine 10/27/21 Jocelyn Miller MD [address] [address] Neurosurgery 10/27/21 Anibal Veliz PA-C [address] [address] Specialist Neurosurgery 11/19/21 Jelly Bain PA-C [address] [address] Specialist Neurosurgery 11/19/21 documented as of this encounter
--- OUTSIDE RECORDS SUMMARY | 2024-08-09 09:34 | XMS_ITS | Encounter Summary ---
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 Pipe Plant Supervisor Report Medical Records [address] [place] [address] Abstract, Provider Social History Tobacco Use Types [...] on filedocumented in this encounter Care Teams Mine Engineering Superintendent Relationship Specialty Start Date End Date Lew Malcolm MD PCP - General Internal Medicine 09/17/15 09/28/18 Lew Malcolm MD PCP - General Internal Medicine 09/29/18 10/26/21 Lew Malcolm MD PCP - General Internal Medicine 10/27/21 Jocelyn Miller MD 175 [facility] [address] [place] [address] Neurosurgery 10/27/21 Anibal Veliz PA-C 175 [facility] [address] [place] [address] Specialist Neurosurgery 11/19/21 Jelly Bain PA-C [address] [address] Specialist Neurosurgery 11/19/21 documented as of this encounter
--- OUTSIDE RECORDS SUMMARY | 2024-08-09 09:34 | XMS_ITS | Encounter Summary ---
Author Organization [facility] Address [address] [place] [address] Care Team Providers Care Monument Installer Name Role Phone Name, Lew CAMPBELL Primary Care Provider Unavailabl e Community, Pcp Primary Care Provider Unavailabl e Name, Lew CAMPBELL Primary Care Provider Unavailabl e Name, Lew CAMPBELL Primary Care Provider Unavailabl e Jocelyn Miller MD Unavailable [phone] Name, Lew CAMPBELL Primary Care Provider Unavailabl e Anibal Veliz PA-C Unavailable [phone] Jelly Bain PA-C Unavailable [phone] Reason for Visit * Reason Onset Date Comments Faxed Order 08/23/2014 Encounter Details Date Type Department Care Team Description 08/23/2014 [place] [facility] [address] [address] Name, MD Lew Faxed Order Social History Tobacco Use Types [...] encounter Miscellaneous Notes * Telephone Encounter - Marta Alejandro - 08/23/2014 4:59 PM EDT Faxed orders from [facility] documented in this encounter Plan of Treatment Not on file documented as of this encounter Visit Diagnoses Not on filedocumented in this encounter Care Teams Monument Installer Relationship Specialty Start Date End Date Name, MD Lew PCP - General 04/10/09 06/10/15 [facility], Pcp PCP - General Internal Medicine 06/11/15 09/16/15 Gold, MD Lew PCP - General Internal Medicine 09/17/15 09/28/18 Name, MD Lew PCP - General Internal Medicine 09/29/18 10/26/21 Name, MD Lew PCP - General Internal Medicine 10/27/21 Jocelyn Miller MD [address] [address] Neurosurgery 10/27/21 Anibal Veliz PA-C [address] [address] Specialist Neurosurgery 11/19/21 Jelly Bain PA-C [address] [address] Specialist Neurosurgery 11/19/21 documented as of this encounter
--- OUTSIDE RECORDS SUMMARY | 2024-08-09 09:34 | XMS_ITS | Encounter Summary ---
Author Organization [facility] Address [address] [place] [address] Care Team Providers Care Interpreter Translator Name Role Phone Name, Lew CAMPBELL Primary Care Provider Unavailabl e Community, Pcp Primary Care Provider Unavailabl e Name, Lew CAMPBELL Primary Care Provider Unavailabl e Name, Lew CAMPBELL Primary Care Provider Unavailabl e Jocelyn Miller MD Unavailable [phone] Name, Lew CAMPBELL Primary Care Provider Unavailabl e Anibal Veliz PA-C Unavailable [phone] Jelly Bain PA-C Unavailable [phone] Encounter Details Date Type Department Care Team Description 07/12/2014 Tactical Debriefer Report Medical Records [address] [place] [id number] [place], [place] [address] [facility] Social History Tobacco Use Types Packs/Day Years [...] on filedocumented in this encounter Care Teams Interpreter Translator Relationship Specialty Start Date End Date Lew Malcolm MD PCP - General 04/10/09 06/10/15 Community, Pcp PCP - General Internal Medicine 06/11/15 09/16/15 Lew Malcolm MD PCP - General Internal Medicine 09/17/15 09/28/18 Lew Malcolm MD PCP - General Internal Medicine 09/29/18 10/26/21 Lew Malcolm MD PCP - General Internal Medicine 10/27/21 Jocelyn Miller MD [address] [address] Neurosurgery 10/27/21 Anibal Veliz PA-C [address] [address] Specialist Neurosurgery 11/19/21 Jelly Bain PA-C [address] [address] Specialist Neurosurgery 11/19/21 documented as of this encounter
--- OUTSIDE RECORDS SUMMARY | 2024-08-09 09:34 | XMS_ITS | Clinical Summary ---
Author Organization [facility] Address [address] [place] [address] Care Team Providers Care Sheriffs Name Role Phone Name, Lew CAMPBELL Primary Care Provider [phone] Surgical History Surgery Date Site/Laterality Comments CHOLECYSTECTOMY 2002 PROCEDURE: LAPAROSCOPY, CHOLECYSTECTOMY; COMMENT: Sukumar ESOPHAGOGASTRODUODENOSCOPY 2002 PROCEDURE: UT EGD TRANSORAL BIOPSY SINGLE/MULTIPLE; COMMENT: duodenal ulcers; CLOtest negative, no H. 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 Miller Family History Medical History Relation Name Comments Blindness Brother 1 Heart attack Brother 1 1st OR at age 4 2 Diabetes Brother 2 with foot amput ation Other: alcoholic Father Cataracts Mother Blindness Other Glaucoma Neg Hx Macular degeneration Neg Hx Strabismus Neg Hx Relation Name Status Comments Brother 1 Brother 2 Brother 3 Alive DM and severe P VD Father not known Mother Alive diverticulitis Other Social History Tobacco Use Types Packs/Day Years Used Date Smoking Tobacco: Former Smokeless Tobacco: Never Alcohol Use Standard Drinks/Week Comments No 0 (1 standard drink = 0.6 oz pur e alcohol) Sex and Gender Information Value Date Recorded Sex Assigned at Not on file Legal Sex Male 5:36 AM EST Gender Identity Not on file Sexual Orientation Not on file Obstetrics History Last Filed Vital Signs Vital Sign Reading Time Taken Comments Blood Pressure - - Pulse - - Temperature - - Respiratory Rate - - Oxygen Saturation - - Inhaled Oxygen Concentration - - Weight 73.9 kg (163 lb) 11/20/2021 1:03 PM EDT Height 165.1 cm (5' 5 ) 11/20/2021 1:03 PM EDT Body Mass Index 27.12 11/20/2021 1:03 PM EDT Plan of Treatment Health Maintenance Due Date Last Done Comments Diabetes: Annual GFR (Glomerular Filtration Rate) 1961 Diabetes: Annual Foot Exam 1971 Diabetes: Annual Retina Eye Exam 1971 Hepatitis A Vaccines (1 of 2 - Risk 2-dose series) 1980 Pneumococcal Vaccine: 50+ Years (2 of 2 - PCV) 2011 07/17/2008 DTaP,Tdap,and Td Vaccines (2 - Td or Tdap) 06/17/2018 06/17/2008 Zoster Vaccines (2 of 2) 07/07/2018 05/12/2018 Hepatitis B Vaccines (1 of 3 - Risk 3-dose series) 2021 RSV Immunization Adult Patients (1 - Risk 60-74 years 1-dose series) 2021 Cholesterol Screening (Lipid Panel) 04/18/2022 Colorectal Cancer Screening: Colonoscopy 04/18/2022 Depression Screening 04/18/2022 Diabetes: Annual Urine Albumin-Creatinine Ratio (uACR) 04/18/2022 Diabetes: Blood Sugar Control Test (HGBA1C) 04/18/2022 HIV Screening 04/18/2022 Hepatitis C Screening 04/18/2022 Social Influencers of Health Screening 04/18/2022 COVID-19 Vaccine ( season) 2024 05/28/2021, 08/13/2020, 07/16/2020 Influenza Vaccine (#1) 2024 2, 02/26/2020, 01/31/2019, Additional history exists Pneumococcal Vaccine: Pediatrics (0 to 5 Years) and At-Risk Patients (6 to 64 Years) Aged Out 07/17/2008 No longer eligible based on patient's age to complete this topic HIB Vaccines Aged Out No longer eligi ble based on patient's age to complete this topic HPV Vaccines Aged Out No longer eligi ble based on patient's age to complete this topic IPV Vaccines Aged Out No longer eligi ble based on patient's age to complete this topic MMR Vaccines Aged Out No longer eligi ble based on patient's age to complete this topic Meningococcal ACWY Vaccine Aged Out N o longer eligible based on patient's age to complete this topic Meningococcal B Vacine Aged Out No lo nger eligible based on patient's age to complete this topic RSV Immunization Patients Under 20 months Aged Out No longer eligible based on patient's age to complete this topic Varicella Vaccines Aged Out No longer eligible based on patient's age to complete this topic Advance Directives Documents on File Type Date Recorded Patient Swatch Clerk Expl anation Health Care Decision (hx) 09/14/2021 AD SARGENT DIRECTIVE Health Care Decision (hx) 09/14/2021 AD SARGENT DIRECTIVE Health Care Decision (hx) 09/14/2021 AD SARGENT DIRECTIVE Care Teams Sheriffs Relationship Specialty Start Date End Date Name, MD Lew [address], [place] PCP - General Internal Medicine 04/10/09
--- OUTSIDE RECORDS SUMMARY | 2024-08-09 09:34 | XMS_ITS | Encounter Summary ---
Author Organization [facility] Address [address] [place] [address] Care Team Providers Care Research Leader Name Role Phone Name, Lew CAMPBELL Primary Care Provider Unavailabl e Mindi Lamas MD Primary Care Provider [phone] [facility], Pcp Primary Care Provider Unavailabl e Name, Lew CAMPBELL Primary Care Provider Unavailabl e Name, Lew CAMPBELL Primary Care Provider Unavailabl e Jocelyn Miller MD Unavailable [phone] Name, Lew CAMPBELL Primary Care Provider Unavailabl e Anibal Veliz PA-C Unavailable [phone] Jelly Bain PA-C Unavailable [phone] Reason for Visit * Reason Comments [facility]ed [facility] [place] [facility] A ldara 5% Cream Encounter Details Date Type Department Care Team Description 08/14/2003 Telephone Adult [address] [id number] Mindi Lamas MD [address] [place] [address] [id number] F[facility]ed [facility]ill [facility] [place] [facility] Aldara 5% Cream) Social History Tobacco Use Types Packs/Day Years Used Date Smoking Tobacco: Never Assessed Sex Assigned at Date Recorded Not on file Job Start Date Occupation Industry Not on file Not on file Not on file documented as of this encounter Miscellaneous Notes * Telephone Encounter - 08/14/2003 8:59 AM EDTCALL RECEIVED. Contact: Documenting Fax rec'd- [facility] [place] Aldara 5% Cream documented in this encounter Plan of Treatment Not on file documented as of this encounter Visit Diagnoses Not on filedocumented in this encounter Care Teams Research Leader Relationship Specialty Start Date End Date Lew Malcolm MD PCP - General 04/10/09 06/10/15 Mindi Lamas MD [address] [place] [address] PCP - General 03/08/1999 04/09/09 [facility], Pcp [address] [place] [address] PCP - General Internal Medicine 06/11/15 09/16/15 Lew Malcolm MD [address] [place] [address] PCP - General Internal Medicine 09/17/15 09/28/18 Lew Malcolm MD [address] [place] [address] PCP - General Internal Medicine 09/29/18 10/26/21 Lew Malcolm MD [address] [place] [address] PCP - General Internal Medicine 10/27/21 Jocelyn Miller MD [address] [address] Neurosurgery 10/27/21 Anibal Veliz PA-C [address] [address] Specialist Neurosurgery 11/19/21 Jelly Bain PA-C [address] [address] Specialist Neurosurgery 11/19/21 documented as of this encounter
--- OUTSIDE RECORDS SUMMARY | 2024-08-09 09:34 | XMS_ITS | Encounter Summary ---
Author Organization [facility] Address [address] [place] [address] Care Team Providers Care Hopper Feeder Name Role Phone Name, Lew CAMPBELL Primary Care Provider Unavailabl e Community, Pcp Primary Care Provider Unavailabl e Name, Lew CAMPBELL Primary Care Provider Unavailabl e Name, Lew CAMPBELL Primary Care Provider Unavailabl e Jocelyn Mliler MD Unavailable [phone] Name, Lew CAMPBELL Primary Care Provider Unavailabl e Anibal Veliz PA-C Unavailable [phone] Jelly Bain PA-C Unavailable [phone] Reason for Visit * Reason Onset Date Comments Faxed Order 08/01/2014 [facility] Encounter Details Date Type Department Care Team Description 08/01/2014 Telephone Adult Medicine [address] [address] Name, MD Lew Faxed Order ([facility] ) Social History Tobacco Use Types Packs/Day Years [...] encounter Miscellaneous Notes * Telephone Encounter - Kelly Lala - 08/01/2014 4:54 PM EDT Received a discharge summary for this patient from [facility] , please sign and date and fax to [phone] documented in this encounter Plan of Treatment Not on file documented as of this encounter Visit Diagnoses Not on filedocumented in this encounter Care Teams Hopper Feeder Relationship Specialty Start Date End Date Name, MD Lew PCP - General 04/10/09 06/10/15 Community, Pcp PCP - General Internal Medicine 06/11/15 09/16/15 Name, MD Lew PCP - General Internal Medicine 09/17/15 09/28/18 Name, MD Lew PCP - General Internal Medicine 09/29/18 10/26/21 Name, MD Lew PCP - General Internal Medicine 10/27/21 Jocelyn Miller MD [address] [address] Neurosurgery 10/27/21 Anibal Veliz PA-C [address] [address] Specialist Neurosurgery 11/19/21 Jelly Bain PA-C [address] [address] Specialist Neurosurgery 11/19/21 documented as of this encounter
--- OUTSIDE RECORDS SUMMARY | 2024-08-09 09:34 | XMS_ITS | Encounter Summary ---
Author Organization [facility] Address [address] [place] [address] Care Team Providers Care Parcel Wrapper Name Role Phone Name, Lew CAMPBELL Primary Care Provider Unavailabl e Community, Pcp Primary Care Provider Unavailabl e Name, Lew CAMPBELL Primary Care Provider Unavailabl e Name, Lew CAMPBELL Primary Care Provider Unavailabl e Jocelyn Miller MD Unavailable [phone] Name, Lew CAMPBELL Primary Care Provider Unavailabl e Anibal Veliz PA-C Unavailable [phone] Jelly Bain PA-C Unavailable [phone] Encounter Details Date Type Department Care Team Description 05/26/2011 Box Maker Wood Report Medical Records [address] [place] [address] Kaveh Caldwell MD Social History Tobacco Use Types Packs/Day Years Used Date Smoking Tobacco: Former Comments:quit 2001 Alcohol Use Standard Drinks/Week Comments [...] on filedocumented in this encounter Care Teams Parcel Wrapper Relationship Specialty Start Date End Date Lew Malcolm MD PCP - General 04/10/09 06/10/15 Community, Pcp PCP - General Internal Medicine 06/11/15 09/16/15 Lew Malcolm MD PCP - General Internal Medicine 09/17/15 09/28/18 Lew Malcolm MD PCP - General Internal Medicine 09/29/18 10/26/21 Lew Malcolm MD PCP - General Internal Medicine 10/27/21 Jocelyn Miller MD [address] [address] Neurosurgery 10/27/21 Anibal Veliz PA-C [address] [address] Specialist Neurosurgery 11/19/21 Jelly Bain PA-C [address] [address] Specialist Neurosurgery 11/19/21 documented as of this encounter
--- OUTSIDE RECORDS SUMMARY | 2024-08-09 09:34 | XMS_ITS | Encounter Summary ---
Author Organization [facility] Address [address] [place] [address] Care Team Providers Care Tandem Mill Sticker Name Role Phone Name, Lew CAMPBELL Primary Care Provider Unavailabl e Community, Pcp Primary Care Provider Unavailabl e Name, Lew CAMPBELL Primary Care Provider Unavailabl e Name, Lew CAMPBELL Primary Care Provider Unavailabl e Jocelyn Miller MD Unavailable [phone] Name, Lew CAMPBELL Primary Care Provider Unavailabl e Anibal Veliz PA-C Unavailable [phone] Jelly Bain PA-C Unavailable [phone] Reason for Visit * Reason Onset Date Comments DME Request 05/31/2011 Encounter Details Date Type Department Care Team Description 05/31/2011 Telephone Adult [address] [address] Name, MD Lew DME Request Social History Tobacco Use Types Packs/Day Years Used Date Smoking Tobacco: Former Comments:quit 2001 Alcohol Use Standard Drinks/Week Comments No 0 (1 standard drink = 0.6 oz pur e alcohol) Sex Assigned at Date Recorded Not on file Job Start Date Occupation Industry Not on file Not on file Not on file documented as of this encounter Miscellaneous Notes * Telephone Encounter - Rosemary Graves - 06/16/2011 12:01 PM EST Michelle is calling from [employer] billing office and would like to know the status of the DME request submitted on 05/31/2011. She also states if the patient comes in for a medication refill can be denied, because the form has not been returned. Please fax dme request to [phone]. Thank You * Telephone Encounter - Marta Mccloud - 06/08/2011 9:31 AM EST DUPLICATE form sent for name to fill out dme. Please see pod. * Telephone Encounter - Lexi Perry M.A. - 05/31/2011 2:46 PM EST Form on dr kvng desk * Telephone Encounter - Kelsea Gonzalez - 05/31/2011 11:09 AM EST Diabetic Order form recvd and placed in [facility] documented in this encounter Plan of Treatment Not on file documented as of this encounter Visit Diagnoses Not on filedocumented in this encounter Care Teams Tandem Mill Sticker Relationship Specialty Start Date End Date Gold, MD Lew PCP - General 04/10/09 06/10/15 [facility], Pcp PCP - General Internal Medicine 06/11/15 09/16/15 Lew Malcolm MD PCP - General Internal Medicine 09/17/15 09/28/18 Lew Malcolm MD PCP - General Internal Medicine 09/29/18 10/26/21 Lew Malcolm MD PCP - General Internal Medicine 10/27/21 Jocelyn Miller MD [address] [address] Neurosurgery 10/27/21 Anibal Veliz PA-C [address] [address] Specialist Neurosurgery 11/19/21 Jelly Bain PA-C [address] [address] Specialist Neurosurgery 11/19/21 documented as of this encounter
--- OUTSIDE RECORDS SUMMARY | 2024-08-09 09:34 | XMS_ITS | Encounter Summary ---
Author Organization [facility] Address [address] [place] [address] Care Team Providers Care Full Decator Operator Name Role Phone Name, Lew CAMPBELL Primary Care Provider Unavailabl e Community, Pcp Primary Care Provider Unavailabl e Name, Lew CAMPBELL Primary Care Provider Unavailabl e Name, Lew CAMPBELL Primary Care Provider Unavailabl e Jocelyn Miller MD Unavailable [phone] Name, Lew CAMPBELL Primary Care Provider Unavailabl e Anibal Veliz PA-C Unavailable [phone] Jelly Bain PA-C Unavailable [phone] Encounter Details Date Type Department Care Team Description 09/17/2013 Telephone Eye Services-[address] [address] Stevie Murillo, DB Social History Tobacco Use Types Packs/Day Years [...] encounter Miscellaneous Notes * Telephone Encounter - Stevie Murillo OD - 09/17/2013 12:06 PM EDT Please call Dr. Munoz and make sure the pt went the appt on 09/19/13 and document documented in this encounter Plan of Treatment Not on file documented as of this encounter Visit Diagnoses Not on filedocumented in this encounter Care Teams Full Decator Operator Relationship Specialty Start Date End Date Name, MD Lew PCP - General 04/10/09 06/10/15 [facility], Pcp PCP - General Internal Medicine 06/11/15 09/16/15 Lew Malcolm MD PCP - General Internal Medicine 09/17/15 09/28/18 Gold, MD Lew PCP - General Internal Medicine 09/29/18 10/26/21 Name, MD Lew PCP - General Internal Medicine 10/27/21 Jocelyn Miller MD [address] [address] Neurosurgery 10/27/21 Anibal Veliz PA-C [address] [address] Specialist Neurosurgery 11/19/21 Jelly Bain PA-C [address] [address] Specialist Neurosurgery 11/19/21 documented as of this encounter
--- OUTSIDE RECORDS SUMMARY | 2024-08-09 09:34 | XMS_ITS | Encounter Summary ---
Author Organization [facility] Address [address] [place] [address] Care Team Providers Care Leather Cleaner Name Role Phone Name, Lew CAMPBELL Primary Care Provider Unavailabl e Community, Pcp Primary Care Provider Unavailabl e Name, Lew CAMPBELL Primary Care Provider Unavailabl e Name, Lew CAMPBELL Primary Care Provider Unavailabl e Jocelyn Miller MD Unavailable [phone] Name, Lew CAMPBELL Primary Care Provider Unavailabl e Anibal Veliz PA-C Unavailable [phone] Jelly Bain PA-C Unavailable [phone] Encounter Details Date Type Department Care Team Description 12/21/2011 Business Doc Medical Records [address] [place] [address] Abstract, Provider Social History Tobacco Use Types [...] on filedocumented in this encounter Care Teams Leather Cleaner Relationship Specialty Start Date End Date Lew Malcolm MD PCP - General 04/10/09 06/10/15 [facility], Pcp PCP - General Internal Medicine 06/11/15 09/16/15 Lew Malcolm MD PCP - General Internal Medicine 09/17/15 09/28/18 Lew Malcolm MD PCP - General Internal Medicine 09/29/18 10/26/21 Lew Malcolm MD PCP - General Internal Medicine 10/27/21 Jocelyn Miller MD [address] [id number] Neurosurgery 10/27/21 Anibal Veliz PA-C [address] [address] Specialist Neurosurgery 11/19/21 Jelly Bain PA-C [address] [phone] Specialist Neurosurgery 11/19/21 documented as of this encounter
--- OUTSIDE RECORDS SUMMARY | 2024-08-09 09:34 | XMS_ITS | Encounter Summary ---
[facility] Organization [facility] Address [address] [place] [address] Care Team Providers Care Storage Garage Attendant Name Role Phone Name, Lew CAMPBELL Primary Care Provider Unavailabl e Community, Pcp Primary Care Provider Unavailabl e Name, Lew CAMPBELL Primary Care Provider Unavailabl e Name, Lew CAMPBELL Primary Care Provider Unavailabl e Jocelyn Miller MD Unavailable [phone] Name, Lew CAMPBELL Primary Care Provider Unavailabl e Anibal Veliz PA-C Unavailable [phone] Jelly Bain PA-C Unavailable [phone] Encounter Details Date Type Department Care Team Description 05/01/2014 Home Health Certification Medical Records [address] [place] [id number] [place] [address], [facility] Social History Tobacco Use Types Packs/Day Years [...] on filedocumented in this encounter Care Teams Storage Garage Attendant Relationship Specialty Start Date End Date Lew Malcolm MD PCP - General 04/10/09 06/10/15 Community, Pcp PCP - General Internal Medicine 06/11/15 09/16/15 Lew Malcolm MD PCP - General Internal Medicine 09/17/15 09/28/18 Lew Malcolm MD PCP - General Internal Medicine 09/29/18 10/26/21 Lew Malcolm MD PCP - General Internal Medicine 10/27/21 Jocelyn Miller MD [address] [id number] Neurosurgery 10/27/21 Anibal Veliz PA-C [address] [phone] Specialist Neurosurgery 11/19/21 Jelly Bain PA-C [address] [address] Specialist Neurosurgery 11/19/21 documented as of this encounter
--- OUTSIDE RECORDS SUMMARY | 2024-08-09 09:34 | XMS_ITS | Encounter Summary ---
Author Organization [facility] Address [address] [place] [address] Care Team Providers Care Operations Label Clerk Name Role Phone Name, Lew CAMPBELL Primary Care Provider Unavailabl e Community, Pcp Primary Care Provider Unavailabl e Name, Lew CAMPBELL Primary Care Provider Unavailabl e Name, Lew CAMPBELL Primary Care Provider Unavailabl e Jocelyn Miller MD Unavailable [phone] Name, Lew CAMPBELL Primary Care Provider Unavailabl e Anibal Veliz PA-C Unavailable [phone] Jelly Bain PA-C Unavailable [phone] Encounter Details Date Type Department Care Team Description 09/15/2011 Telephone Adult Medicine [address] [address] Name, MD Lew Social History Tobacco Use Types Packs/Day Years [...] encounter Miscellaneous Notes * Telephone Encounter - Sabina Decker M.A. - 09/15/2011 4:51 PM EDT Spoke to patient to informed him Dr Malcolm referred him to have a cpap titration sleep study. Patientinformed me they already called him to schedule the appt. documented in this encounter Plan of Treatment Not on file documented as of this encounter Visit Diagnoses Not on filedocumented in this encounter Care Teams Operations Label Clerk Relationship Specialty Start Date End Date Name, MD Lew PCP - General 04/10/09 06/10/15 [facility], Pcp PCP - General Internal Medicine 06/11/15 09/16/15 Gold, MD Lew PCP - General Internal Medicine 09/17/15 09/28/18 Gold, MD Lew PCP - General Internal Medicine 09/29/18 10/26/21 Name, MD Lew PCP - General Internal Medicine 10/27/21 Jocelyn Miller MD [address] [address] Neurosurgery 10/27/21 Anibal Veliz PA-C [address] [address] Specialist Neurosurgery 11/19/21 Jelly Bain PA-C [address] [address] Specialist Neurosurgery 11/19/21 documented as of this encounter
--- OUTSIDE RECORDS SUMMARY | 2024-08-09 09:34 | XMS_ITS | Encounter Summary ---
Author Organization [facility] Address [address] [place] [address] Care Team Providers Care Pulverizer Feeder Name Role Phone Name, Lew CAMPBELL Primary Care Provider Unavailabl e Community, Pcp Primary Care Provider Unavailabl e Name, Lew CAMPBELL Primary Care Provider Unavailabl e Name, Lew CAMPBELL Primary Care Provider Unavailabl e Jocelyn Miller MD Unavailable [phone] Name, Lew CAMPBELL Primary Care Provider Unavailabl e Anibal Veliz PA-C Unavailable [phone] Jelly Bain PA-C Unavailable [phone] Encounter Details Date Type Department Care Team Description 08/31/2012 Release of Information Medical Records [address] [place] [id number] Abstract, Provider Social History Tobacco Use Types [...] on filedocumented in this encounter Care Teams Pulverizer Feeder Relationship Specialty Start Date End Date Lew Malcolm MD PCP - General 04/10/09 06/10/15 Community, Pcp PCP - General Internal Medicine 06/11/15 09/16/15 Lew Malcolm MD PCP - General Internal Medicine 09/17/15 09/28/18 Lew Malcolm MD PCP - General Internal Medicine 09/29/18 10/26/21 Lew Malcolm MD PCP - General Internal Medicine 10/27/21 Jocelyn Miller MD [address] [id number] Neurosurgery 10/27/21 Anibal Veliz PA-C [address] [address] Specialist Neurosurgery 11/19/21 Jelly Bain PA-C [address] [address] Specialist Neurosurgery 11/19/21 documented as of this encounter
--- OUTSIDE RECORDS SUMMARY | 2024-08-09 09:34 | XMS_ITS | Encounter Summary ---
Author Organization [facility] Address [address] [facility] 7t [place] [address] Care Team Providers Care Rental Representative Name Role Phone Name, Lew CAMPBELL Primary Care Provider [phone] Encounter Details Date Type Department Care Team (Latest Contact Info) Description 03/26/2019 Abstract [facility] CONVERSIONS Dental, Provider, DDS Social History Tobacco Use Types Packs/Day Years Used Date Smoking Tobacco: Never Assessed Sex and Gender Information Value Date Recorded Sex Assigned at Male 03/08/2022 10:29 AM EDT Legal Sex Male 10:29 AM EDT Gender Identity Male 03/08/2022 10:29 AM EDT Sexual Orientation Straight 03/08/2022 10 :29 AM EDT documented as of this encounter Plan of Treatment Upcoming Encounters Date Type Department Care Team (Late st Contact Info) Description 10/04/2024 9:00 AM EDT Office Visit [facility] MEDICINE [address] [place] [address] NameLew MD [address] [place] [address] documented as of this encounter Visit Diagnoses Not on filedocumented in this encounter Care Teams Rental Representative Relationship Specialty Start Date End Date Name, MD Lew [address] [place] [address] PCP - General Family Medicine 07/14/15 documented as of this encounter
--- OUTSIDE RECORDS SUMMARY | 2024-08-09 09:34 | XMS_ITS | Encounter Summary ---
Author Organization [facility] Address [address] [place] [address] Care Team Providers Care Professional Housing Consultant Name Role Phone Name, Lew CAMPBELL Primary Care Provider Unavailabl e Community, Pcp Primary Care Provider Unavailabl e Name, Lew CAMPBELL Primary Care Provider Unavailabl e Name, Lew CAMPBELL Primary Care Provider Unavailabl e Jocelyn Miller MD Unavailable [phone] Name, Lew CAMPBELL Primary Care Provider Unavailabl e Anibal Veliz PA-C Unavailable [phone] Jelly Bain PA-C Unavailable [phone] Encounter Details Date Type Department Care Team Description 03/26/2014 Business Doc Medical Records [address] [place] [address] Abstract, Provider Social History Tobacco Use Types [...] on filedocumented in this encounter Care Teams Professional Housing Consultant Relationship Specialty Start Date End Date Lew Malcolm MD PCP - General 04/10/09 06/10/15 Community, Pcp PCP - General Internal Medicine 06/11/15 09/16/15 Lew Malcolm MD PCP - General Internal Medicine 09/17/15 09/28/18 Lew Malcolm MD PCP - General Internal Medicine 09/29/18 10/26/21 Lew Malcolm MD PCP - General Internal Medicine 10/27/21 Jocelyn Miller MD [address] [id number] Neurosurgery 10/27/21 Anibal Veliz PA-C [address] [address] Specialist Neurosurgery 11/19/21 Jelly Bain PA-C [address] [id number] Specialist Neurosurgery 11/19/21 documented as of this encounter
--- OUTSIDE RECORDS SUMMARY | 2024-08-09 09:34 | XMS_ITS | Encounter Summary ---
Author Organization [facility] Address [address] [place] [address] Care Team Providers Care Compound Coating Machine Offbearer Name Role Phone Name, Lew CAMPBELL Primary Care Provider Unavailabl e Community, Pcp Primary Care Provider Unavailabl e Name, Lew CAMPBELL Primary Care Provider Unavailabl e Name, Lew CAMPBELL Primary Care Provider Unavailabl e Jocelyn Miller MD Unavailable [phone] Name, Lew CAMPBELL Primary Care Provider Unavailabl e Anibal Veliz PABettyC Unavailable [phone] Jelly Bain PA-C Unavailable [phone] Reason for Visit * Reason Onset Date Comments Faxed Order 03/05/2014 [employer], MD [place] Encounter Details Date Type Department Care Team Description 03/05/2014 Telephone Adult Medicine [address] [address] Name, MD Lew Faxed Order ([facility]) Social History Tobacco Use Types Packs/Day Years [...] encounter Miscellaneous Notes * Telephone Encounter - Pia Soni - 03/05/2014 11:33 AM EDT Face to Face for signature documented in this encounter Plan of Treatment Not on file documented as of this encounter Visit Diagnoses Not on filedocumented in this encounter Care Teams Compound Coating Machine Offbearer Relationship Specialty Start Date End Date Name, MD Lew PCP - General 04/10/09 06/10/15 [facility], Pcp PCP - General Internal Medicine 06/11/15 09/16/15 Lew Malcolm MD PCP - General Internal Medicine 09/17/15 09/28/18 Lew Malcolm MD PCP - General Internal Medicine 09/29/18 10/26/21 Gold, MD Lew PCP - General Internal Medicine 10/27/21 Jocelyn Miller MD [address] [address] Neurosurgery 10/27/21 Anibal Veliz PA-C [address] [address] Specialist Neurosurgery 11/19/21 Jelly Bain PA-C [address] [place] [address] [address] Specialist Neurosurgery 11/19/21 documented as of this encounter
--- OUTSIDE RECORDS SUMMARY | 2024-08-09 09:34 | XMS_ITS | Encounter Summary ---
Author Organization [facility] Address [address] [place] [address] Care Team Providers Care Sciences Dean Name Role Phone Name, Lew CAMPBELL Primary Care Provider Unavailabl e Community, Pcp Primary Care Provider Unavailabl e Name, Lew CAMPBELL Primary Care Provider Unavailabl e Name, Lew CAMPBELL Primary Care Provider Unavailabl e Jocelyn Miller MD Unavailable [phone] Name, Lew CAMPBELL Primary Care Provider Unavailabl e Anibal Veliz PA-C Unavailable [phone] Jelly Bain PA-C Unavailable [phone] Encounter Details Date Type Department Care Team Description 12/10/2013 Home Health Certification Medical Records [address] [place] [id number] [place] [address], [facility] Social History Tobacco Use Types Packs/Day [...] on filedocumented in this encounter Care Teams Sciences Dean Relationship Specialty Start Date End Date Lew Malcolm MD PCP - General 04/10/09 06/10/15 Community, Pcp PCP - General Internal Medicine 06/11/15 09/16/15 Lew Malcolm MD PCP - General Internal Medicine 09/17/15 09/28/18 Lew Malcolm MD PCP - General Internal Medicine 09/29/18 10/26/21 Lew Malcolm MD PCP - General Internal Medicine 10/27/21 Jocelyn Miller MD [address] [id number] Neurosurgery 10/27/21 Anibal Veliz PA-C [address] [id number] Specialist Neurosurgery 11/19/21 Jelly Bain PA-C [address] [address] Specialist Neurosurgery 11/19/21 documented as of this encounter
--- OUTSIDE RECORDS SUMMARY | 2024-08-09 09:34 | XMS_ITS | Encounter Summary ---
Author Organization [facility] Address [address] [place] [address] Care Team Providers Care Department Operations Manager Name Role Phone Name, Lew CAMPBELL Primary Care Provider Unavailabl e Community, Pcp Primary Care Provider Unavailabl e Name, Lew CAMPBELL Primary Care Provider Unavailabl e Name, Lew CAMPBELL Primary Care Provider Unavailabl e Jocelyn Miller MD Unavailable [phone] Name, Lew CAMPBELL Primary Care Provider Unavailabl e Anibal VelizC Unavailable [phone] Jelly Bain PA-C Unavailable [phone] Reason for Visit * Reason Onset Date Comments Faxed Order 11/19/2013 Encounter Details Date Type Department Care Team Description 11/19/2013 [place] [facility] [address] [address] Name, MD Lew Faxed Order Social History [...] * Telephone Encounter - Dania Malone - 11/26/2013 3:53 PM EDT Sing and fax [phone] * Telephone Encounter - Lexi Perry M.A. - 11/26/2013 1:50 PM EDT Not a pod message Wouldn't know where original orders are * Telephone Encounter - Sarika Leo - 11/26/2013 1:48 PM EDT Mila from [facility] is looking for the order and needs this to be fax [facility], . She will be faxing a new order. * Telephone Encounter - Dania Malone - 11/19/2013 2:39 PM EDT Sign face to face * Telephone Encounter - Dania Malone - 11/19/2013 2:30 PM EDT Please review and sign- [phone] documented in this encounter Plan of Treatment Not on file documented as of this encounter Visit Diagnoses Not on filedocumented in this encounter Care Teams Department Operations Manager Relationship Specialty Start Date End Date Name, MD Lew PCP - General 04/10/09 06/10/15 [facility], Pcp PCP - General Internal Medicine 06/11/15 09/16/15 Lew Malcolm MD PCP - General Internal Medicine 09/17/15 09/28/18 Lew Malcolm MD PCP - General Internal Medicine 09/29/18 10/26/21 NameLew MD PCP - General Internal Medicine 10/27/21 Jocelyn Miller MD 175 [facility] [address] [place] [address] Neurosurgery 10/27/21 Anibal Veliz PA-C 175 [facility] [address] [place] [address] Specialist Neurosurgery 11/19/21 Jelly Bain PA-C [address] [place] [address] Specialist Neurosurgery 11/19/21 documented as of this encounter
--- OUTSIDE RECORDS SUMMARY | 2024-08-09 09:34 | XMS_ITS | Encounter Summary ---
Author Organization [facility] Address [address] [place] [address] Care Team Providers Care Product Craftsman Name Role Phone Name, Lew CAMPBELL Primary Care Provider Unavailabl e Community, Pcp Primary Care Provider Unavailabl e Name, Lew CAMPBELL Primary Care Provider Unavailabl e Name, Lew CAMPBELL Primary Care Provider Unavailabl e Jocelyn Miller MD Unavailable [phone] Name, Lew CAMPBELL Primary Care Provider Unavailabl e Anibal Veliz PA-C Unavailable [phone] Jelly Bain PA-C Unavailable [phone] Encounter Details Date Type Department Care Team Description 03/28/2014 Hedge Trimmer Report Medical Records [address] [place] [address] Marcelina Wilhelm MD Social History Tobacco Use [...] on filedocumented in this encounter Care Teams Product Craftsman Relationship Specialty Start Date End Date Lew Malcolm MD PCP - General 04/10/09 06/10/15 Community, Pcp PCP - General Internal Medicine 06/11/15 09/16/15 Lew Malcolm MD PCP - General Internal Medicine 09/17/15 09/28/18 Lew Malcolm MD PCP - General Internal Medicine 09/29/18 10/26/21 Lew Malcolm MD PCP - General Internal Medicine 10/27/21 Jocelyn Miller MD [address] [id number] Neurosurgery 10/27/21 Anibal Veliz PA-C [address] [address] Specialist Neurosurgery 11/19/21 Jelly aBin PA-C [address] [address] Specialist Neurosurgery 11/19/21 documented as of this encounter
--- OUTSIDE RECORDS SUMMARY | 2024-08-09 09:35 | XMS_ITS | Patient Health Record ---
Author Organization [facility] Address [address] [place] [address] Care Team Providers Care Executive Administrative Asst Name Role Phone Name Lew CAMPBELL Primary Care Provider Bean Restrepo Unavailable [phone] Allergies No Known Allergies Reason For Referral No Information Medications Medication SIG (Take, Route, Frequency, Duration) Notes [...] OUTH TWICE DAILY Oral for 30 Active Social History Tobacco Use: Social History Observation Description Date Details (start date - stop date) Never Smoker NA - NA Tobacco Use/Smoking Question Answer Notes Patient is a nonsmoker Alcohol Screen Question Answer Notes Did you have a drink containing alcohol in the p ast year? No Points 0 Interpretation Negative Section Notes: Nonsmoker; no sig alcohol Problems Problem Type SNOMED Code ICD Code Onset Dates Problem Status W/U Status Risk Notes Problem 314606658 Colon cancer screening (Z12.11) Active confirmed Problem Diverticular disease of colon (600913302) Diverticulosis of large intestine without perforation or abscess without bleeding (K57.30) Active confirmed Problem 660934815 Long-term use of aspirin therapy (Z79.82) Active confirmed Plan Of Treatment Pending Test Test Name Order Date Pathology 03/14/2023 Future Test Test Name Order Date COLONOSCOPY 12/16/2022 Insurance Providers Payer Name Payer Address Payer Phone Subscriber Number Group Number Insured Name Patient Relationship to Insured Coverage Start Date Coverage End Date [facility] [address] Attn Claims KAYE [place] [id number] KASEY REGALADO Self - patient is the insured Medical (General) History Medical History History ICD Code Denies [place],DM,CVA,Lung disease,renal dise ase Parkinson's disease.....marleny hidalgo reports that he is now told that he does not have that as of the 12/2022 OV Mary Reports a negative colonoscopy at [facility] at approx. age 51 Surgical History Surgery Date(Month/Year)
--- OUTSIDE RECORDS SUMMARY | 2024-08-09 09:35 | XMS_ITS | Encounter Summary ---
Author Organization [employer] Address [address] [facility] 7t [place] [address] Care Team Providers Care Hemodialysis Technician Name Role Phone Name, Lew CAMPBELL Primary Care Provider [phone] Reason for Visit * Reason Onset Date Comments Appointment Request 08/06/2024 Encounter Details Date Type Department Care Team ([facility] st Contact Info) Description 08/06/2024 Telephone [facility] MEDICINE [address] [place], [place] [id number] Name, MD Lew [address] [place] [address] Appointment Request Social History Tobacco Use Types Packs/Day Years Used Date Smoking Tobacco: Never Smokeless Tobacco: Never Alcohol Use Standard Drinks/Week Comments Never 0 (1 standard drink = 0.6 oz pur e alcohol) Depression Answer Date Recorded Patient Health Questionnaire-9 Score 3 08/19/2023 Patient Health Questionnaire-9 Score 3 08/19/2023 Last PHQ-9: Questionnaire Data Not on file 0 08/19/2023 Housing Stability Answer Date Recorded What is your housing situation today? I have judit barton 08/19/[address] you li ve. Do you have problems with any of the following? None of the above 08/19/2023 Food Insecurity Answer Date Recorded Within the past 12 months, y ou worried that your food would run out before you got money to buy more: Never True 08/19/2023 Within the past 12 months,th e food you bought just didn't last and you didn't have enough money to get more: Never True 04/2024 Transportation Answer Date Recorded In the past 12 months, has l ack of transportation kept you from medical appts, meetings, work or from getting things needed for daily living? No 08/19/2023 Utilities Answer Date Recorded In the past 12 months, has t he electric, gas, oil or water company threatened to shut off services in your home? No 08/19/2023 Depression Answer Date Recorded Patient Health Questionnaire-2 Score 3 08/19/2023 Sex and Gender Information Value Date Recorded Sex Assigned at Male 03/08/2022 10:29 AM EDT Legal Sex Male 10:29 AM EDT Gender Identity Male 03/08/2022 10:29 AM EDT Sexual Orientation Straight 03/08/2022 10 :29 AM EDT documented as of this encounter Miscellaneous Notes * Telephone Encounter - Coleman Garcia - 08/06/2024 1:57 PM EDT Tc from pt returning call regarding getting a new appt. Contact pt at [phone] * Telephone Encounter - Jaleesa Murry - 08/06/2024 12:58 PM EDT Called pt could not lvm , I was trying to call to let them know they have a appt for 08/20/24 but wehave to cancel the appt due to Luna being out , we can rs there appt if pt wants they can call us back. documented in this encounter Plan of Treatment Upcoming Encounters Date Type Department Care Team (Late st Contact Info) Description 10/04/2024 9:00 AM EDT Office Visit [facility] MEDICINE [address] [place] [address] Name, MD Lew [address] [place] [address] documented as of this encounter Visit Diagnoses Not on filedocumented in this encounter Additional Health Concerns Assessment Noted Time PHQ-9 Depression Total Score: 3 08/19/19 24 10:02 AM EDT documented as of this encounter Care Teams Hemodialysis Technician Relationship Specialty Start Date End Date Name, MD Lew [address] [place] [address] PCP - General Family Medicine 07/14/15 documented as of this encounter
--- OUTSIDE RECORDS SUMMARY | 2024-08-09 09:35 | XMS_ITS | Clinical Summary ---
Author Organization [employer] Address [address] [facility] [address] [place] [address] Care Team Providers Care Bead Wire Insulator Name Role Phone Name, Lew CAMPBELL Primary Care Provider [phone] Allergies No known active allergies Medications Brexpiprazole (Rexulti) 2 MG tablet take 1 tablet by oral route daily at bedtime Active celecoxib (CeleBREX) 100 MG capsule Take 1 capsule by mouth at bed time. Active clonazePAM (KlonoPIN) 1 MG tablet Take 1 tablet by mouth in the morning and 1 tablet in the evening. Active magnesium oxide (Mag-Ox) 400 MG tablet Take 1 tablet by mouth at bedtime. Active mirtazapine (Remeron) 30 MG tablet Take 1 tablet by mouth at bed time. Active QUEtiapine (SEROquel) 25 MG tablet take 1 tablet by oral route daily at bedtime Active ramelteon (Rozerem) 8 MG tablet Take 1 tablet by mouth at bed time. Active rivastigmine (Exelon) 9.5 MG/24HR Place 1 patch on the skin at bed time. Active amitriptyline (Elavil) 25 MG tabletIndicat ions:Type 2 diabetes, controlled, with neuropathy (CMS/HCC) TAKE 1 TABLET BY MOUTH EVERYDAY AT BEDTIME 90 tablet 1 05/28/19 23 Active zolpidem (Ambien) 10 MG tabletIndicat ions:Depressi ve disorder Take 1 tablet (10 mg) by mouth if needed at bedtime for sleep. 30 tablet 05/31/19 23 Active DULoxetine (Cymbalta) [address] capsuleIndica tions:Depress bebe disorder TAKE 1 CAPSULE BY MOUTH IN THE MORNING. DO NOT CRUSH OR CHEW. 90 capsule 1 06/29/19 23 Active carbidopa-lev odopa (Sinemet) 25-100 MG tabletIndicat ions:Parkinso n's disease (CMS/HCC) TAKE 2 TABLETS BY MOUTH EVERY 4 (FOUR) HOURS. 1080 tablet 1 08/06/19 23 Active sildenafil (Viagra) 50 MG tablet Take 1 tablet (50 mg) by mouth if needed each day for erectile dysfunction. 10 tablet 09/01/19 23 Active naloxone (Narcan) 4 mg/0.1 mL nasal sprayIndicati ons:Chronic neck pain with history of cervical spinal surgery Administer 1 spray (4 mg) into affected nostril(s) if needed for opioid reversal. May repeat every 2-3 minutes if needed, alternating nostrils, until medical assistance becomes available. 2 each 3 01/24/20 24 025 Active pravastatin (Pravachol) 20 MG tabletIndicat ions:Type 2 diabetes, controlled, with neuropathy (CMS/HCC) TAKE 1 TABLET BY MOUTH EVERY DAY AT BEDTIME 90 tablet 1 02/09/20 24 Active gabapentin (Neurontin) 600 MG tablet TAKE 1 TABLET BY MOUTH THREE TIMES DAILY 90 tablet 3 03/08/20 24 Active cholecalcifer ol (Vitamin D3) 25 MCG (1000 UT) tablet TAKE 1 TABLET BY MOUTH EVERY DAY 90 tablet 1 03/08/20 24 Active aspirin (Aspirin Low Dose) 81 MG EC tabletIndicat ions:History of myocardial infarction TAKE 1 TABLET BY MOUTH EVERY DAY 90 tablet 1 03/08/20 24 Active Trulicity 1.5 MG/0.5ML solution auto-injector Indications:T ype 2 diabetes, controlled, with neuropathy (CMS/HCC) ADMINISTER 1.5 MG UNDER THE SKIN 1 TIME EVERY WEEK 2 mL 2 05/10/19 25 Active mometasone (Elocon) 0.1 % ointmentIndic ations:Atopic dermatitis in adult Apply topically Once per day. 45 g 2 07/28/19 25 026 Active traMADol (Ultram) 50 MG tabletIndicat ions:Chronic neck pain with history of cervical spinal surgery TAKE 1 TABLET BY MOUTH IF NEEDED EVERY MORNING, AT NOON AND AT BEDTIME FOR SEVERE PAIN 84 tablet 08/09/19 25 Active mometasone (Elocon) 0.1 % ointment Apply topically Once per day. 45 g 2 02/13/20 24 025 Discontinued(Re order (will not trigger notification to Pharmacy)) traMADol (Ultram) 50 MG tabletIndicat ions:Chronic neck pain with history of cervical spinal surgery Take 1 tablet (50 mg) by mouth if needed in the morning, at noon, and at bedtime for severe pain for up to 28 days. 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 He feels he sees some improvement in his walking, has not seen much change in his hand function, minimal improvement. The patient states he still has postop incisional pain in the posterior neck. He has been taking Dilaudid 2 mg twice daily, does not feel its helping. He states he has been on Dilaudid in the past and his body no longer responds to it . He would like to try oxycodone instead. He denies any wound drainage, fever, sweats chills, poor appetite, bowel bladder issues. Mr. Bernardo is doing well postop, I explained it may take another week or 2 to see continued improvements with his incisional pain. I did give him a small prescription for oxycodone #15 tabs to try instead of Dilaudid. He states he is aware not to take both medications. He has a follow-up appointment with Dr. Miller in 6 weeks. All postop questions answered. He will call with any concerns or questions prior to that time. His son will continue to monitor his incision, if there is any increasing redness, increasing pain, wound drainage, fevers they will call the office. Disorder of autonomic nervous system 07/21/2018 Urinary incontinence 05/31/2017 History of myocardial infarction 09/17/2016 Hypotension 07/05/2016 Recurrent major depression in partial remission 02/23/2016 Type 2 diabetes mellitus without complication Diabetes mellitus type 2, uncontrolled 5 Parkinsonism 05/24/2014 Anxiety 05/24/2014 Type 2 diabetes mellitus, co ntrolled, with ophthalmic manifestations 07/19/2013 Overview (01/03/2023): NS on eye exam 09/12/12. Abnormal brain MRI 04/30/2013 Overview (01/03/2023): White matter disease, MS versus microvascular ischemia Erectile dysfunction 09/18/2012 DM (diabetes mellitus) with peripheral vascular complication 09/18/2012 Duodenal ulcer disease 02/03/2012 Overview (01/03/2023): EGD 2002, no h. Pylori. 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 [place] [address] Lew Malcolm MD Chronic neck pain with history of cervical spinal surgery 08/06/2024 Telephone [facility] [address] Lew Malcolm MD Appointment Request 07/27/2024 10:00 AM EDT Office Visit [facility] [address] Jody Griffin MD Atopic dermatitis in adult (Primary Dx) 07/27/2024 Travel 07/26/2024 Travel 07/04/2024 9:45 AM EST Office Visit [facility] [address] Lwe Malcolm MD Type 2 diabetes, controlled, with neuropathy (CMS/HCC) (Primary Dx); Chronic neck pain with history of cervical spinal surgery 06/27/2024 Travel 05/30/2024 Telephone [facility] [address] Lew Malcolm MD Durable Medical Equipment 05/23/2024 9:30 AM EST Clinical Support [facility] [address] Luna Frey, rollout manager neck pain with history of cervical spinal surgery (Primary Dx) 05/23/[address] [facility] [place] [address] Luna Frey, rollout manager neck pain with history of cervical spinal surgery 05/23/2024 Travel 05/23/2024 Telephone [facility] [address] Luna Frey, RN Recommend [employer] Tier 2 from Last 3 Months Immunizations Name Administration Dates Next Due Influenza injectable quadriv alent IIV4 with preservative 02/15/2018,02/17/2017,02/23/2016 Influenza injectable quadriv alent preservative free 04/20/2023,03/10/2022,05/28/2021,02/25,01/31/2019 Influenza, IIV3, injectable 05/28/2021,1 ,01/31/2019,02/15,02/17/2017,02/23/2016,04/15/2015 ,02/06/2014,02/01/2012,04/27/2011,01/2009 Influenza, Unspecified 02/06/2014,02/01/2012, Influenza, seasonal, injecta ble, preservative free 02/13/2024 Influenza, trivalent, adjuvanted 04/15/2015,01/2009 Moderna Covid-19 Vaccine 12+ 05/28/2021,08/14/19 21,07/16/2020 Moderna Covid-19 Vaccine 6+ Bivalent 07/14/2022 Novel aicboayhd-[id number], preservative-free 06/20/2009 PPD Test 02/05/2004 Pneumococcal Conjugate PCV 20 01/03/2023 Pneumococcal Polysaccharide PPSV23 07/17/2008 TD (adult), 2 Lf tetanus tox oid, preservative free, adsorbed 03/10/2022 Tdap 06/17/2008 Zoster, Recombinant 05/12/2018 Social History Tobacco Use Types Packs/Day Years Used Date Smoking Tobacco: Never Smokeless Tobacco: Never Tobacco Cessation:Counseling Given: Not Answered Alcohol Use Standard Drinks/Week Comments Never 0 [...] Orientation Straight 03/08/2022 10 :29 AM EDT Last Filed Vital Signs Vital Sign Reading Time Taken Comments Blood Pressure 136/67 07/27/2024 9:49 AM EDT Pulse 78 07/27/2024 9:49 AM EDT Temperature 37.1 ??C (98.7 ??F) 07/27/2024 9:49 AM ED T Respiratory Rate 16 07/27/2024 9:49 AM EDT Oxygen Saturation 98% 07/04/2024 9:55 AM EST Inhaled Oxygen Concentration - - Weight 73.4 kg (161 lb 14.4 oz) 07/27/2024 9:49 AM EDT Height 165.1 cm (5' 5 ) 07/27/2024 9:49 AM EDT Body Mass Index 26.94 07/27/2024 9:49 AM EDT Plan of Treatment Upcoming Encounters Date Type Department Care Team (Late st Contact Info) Description 10/04/2024 9:00 AM EDT Office Visit [facility] [address] [place] [address] Name, MD Lew [address] [place] [address] Health Maintenance Due Date Last Done Comments CT Colonography 1960 FIT DNA/Cologuard 1960 FIT 1960 FOBT 1960 Sigmoidoscopy 1960 Hepatitis C Screening 1979 Hepatitis A Vaccines (1 of 2 - Risk 2-dose series) 1980 Zoster Vaccines (2 of 2) 07/07/2018 05/12/2018 Hepatitis B Vaccines (1 of 3 - Risk 3-dose series) 2021 RSV Patients and Patients Aged 60 years or older (1 - Risk 60-74 years 1-dose series) 2021 COVID-19 Vaccine ( season) 2024 07/14/2022, 05/28/2021, 08/13/2020, Additional history exists Depression Screening 08/18/2024 08/19/2023, 08/19/19 Diabetes: Foot Exam 08/18/2024 08/19/2023, 08/19/2023, 08/19/2023, Additional history exists SDOH Screening 08/18/2024 08/19/2023 Eye Exam 11/02/2024 11/02/2022 Alcohol/Substance Use Screening 11/08/2024 11/09/2023 Diabetes: Hemoglobin A1C 01/01/2025 025, 02/13/2024, 08/19/2023, Additional history exists Diabetes: Urine Protein Screening 02/13/2025 02/14/2024, 07/14/2022 Lipid Panel 02/13/2025 02/14/2024, 03/0 12/2022, 02/26/2020 Tobacco Screening 07/04/2025 07/04/2024 Colonoscopy 03/28/2028 03/28/2023, 02/03/2012 Colorectal Cancer Screening 03/28/2028 DTaP/Tdap/Td Vaccines (3 - Td or Tdap) 03/10/2032 03/10/2022, 06/17/2008 HIV Screening Completed 10/21/2020 Pneumococcal Vaccine: 50+ Years Completed 01/03/2023, 07/17/2008 Influenza Vaccine Completed 02/13/2024, , 03/10/2022, Additional history exists HIB Vaccines Aged Out No longer eligi ble based on patient's age to complete this topic HPV Vaccines Aged Out No longer eligi ble based on patient's age to complete this topic IPV Vaccines Aged Out No longer eligi ble based on patient's age to complete this topic Meningococcal Vaccine Aged Out No jace génesis eligible based on patient's age to complete this topic RSV under 20 months Aged Out No longe r eligible based on patient's age to complete this topic Rotavirus Vaccines Aged Out No longer eligible based on patient's age to complete this topic Procedures Procedure Name Priority Date/Time Associated Diagnosis Comments POCT GLYCATED HEMOGLOBIN, TOTAL Routine 07/04/2024 9:59 AM EST Type 2 diabetes, controlled, with neuropathy (CMS/HCC) POCT GLUCOSE Routine 07/04/2024 9:56 AM EST Type 2 diabetes, controlled, with neuropathy (CMS/HCC) POCT ZEHRA-14 URINE DRUG SCREEN Routine 05/23/2024 9:21 AM EST Chronic neck pain with history of cervical spinal surgery ALBUMIN, RANDOM URINE W/CREATININE Routine 02/14/2024 9:45 AM EDT Type 2 diabetes, controlled, with neuropathy (CMS/HCC) Chronic neck pain History of cervical spinal surgery LIPID PANEL, STANDARD Routine 02/14/2024 9:43 AM EDT Type 2 diabetes, controlled, with neuropathy (CMS/HCC) Chronic neck pain History of cervical spinal surgery HM COLONOSCOPY Routine 03/28/2023 HIV 1/2 ANTIGEN/ANTIBODY, FOURTH GENERATION W/RFL Routine 10/21/2020 9:30 AM EDT from Last 3 Months or Most Recently Relevant to Health Maintenance Results * (ABNORMAL) POCT HGB A1C (07/04/2024 9:59 AM EST) Hemoglobin A1C 6.1(A) 4.0 - 6.0 % QC Media Lot # [id number] Lot# Expiration Date [id number] Blood 07/04/2024 9:59 AM EST us Lew Malcolm MD POINT OF CARE TEST ENTER/EDIT OR DERABLES Final Result * POCT Glucose (07/04/2024 9:56 AM EST) Glucose Blood, POC 128 60 - 200 mg/dL QC Media Lot # [id number] Lot# Expiration Date Blood Capillary blood specimen / Unknown 07/04/2024 9:56 AM EST us Lew Malcolm MD POINT OF CARE TEST ENTER/EDIT OR DERABLES Final Result * POCT ZEHRA-14 Urine Drug Screen (05/23/2024 9:21 AM EST) THC Positive Urine Urine specimen obtained by clean catch procedure / Unknown 05/23/2024 9:21 AM EST Luna Tran RN - 05/23/2024 9:21 AM EST UTOX cup Lot#[id number] Exp. 01/31/26 Internal Pass Control us Lew Malcolm MD POINT OF CARE TEST ENTER/EDIT OR DERABLES Final Result * Albumin, Random Urine W/Creatinine (02/14/2024 9:45 AM EDT) Creatinine, Urine 35.56 mg/dL [facility] Microalbumin Urine 6.0 mg/L [facility] Microalbum Creatinine Ratio Ur 16.8 <30 ug/mg cr [facility] Comment:Albumin/Creatinine R atio Reference Ranges: Normal: < 30 ug/mg creatinine Microalbuminuria: 30 - 300 ug/mg creatinineClinical Albuminuria: > 300 ug/mg creatinine Urine (Urine, Random) 02/14/2024 9:45 AM EDT 02/14/2024 11:23 AM EDT us Lew Malcolm MD LAB URINE ORDERABLES Final Resul t [facility] [address] [place] [address] [phone] * (ABNORMAL) Lipid Panel, Standard (02/14/2024 9:43 AM EDT) Triglycerides 122 <150 mg/dL [facility] Comment:Desirable Triglyceri de: less than 150 mg/dLBorderline High Triglyceride 150-199 mg/dLHigh Triglyceride: 200-499 mg/dLVery High Triglyceride: greater than or equal to 5OO mg/dL Cholesterol 93 <200 mg/dL [facility] Comment:Desirable Cholestero l: less than 200 mg/dLBorderline High Cholesterol: 200-239 mg/dLHigh Cholesterol: greater than 239 mg/dL LDL Cholesterol Calculated 41 <100 mg/dL [facility] Comment:Desirable LDL: less than 100 mg/dLNear Optimal/Above Optimal LDL: 110- 129 mg/dLBorderline High LDL: 130-159 mg/dLHigh LDL: 160-189 mg/dLVery High LDL: greater than or equal to 190 mg/dL HDL Cholesterol 28(L) >40 mg/dL [facility] Comment:Desirable HDL: great er than 40 mg/dL Note: This HDL assay may give artificially low results in patients with liver disease. Blood Venous blood specimen / Unknown 02/14/2024 9:43 AM EDT 02/14/2024 11:26 AM EDT us Lew Malcolm MD LAB BLOOD ORDERABLES Final Resul t Performing Organization Address [facility] Co de Phone Number [facility] [address] [place] [address] [phone] * Hm Colonoscopy (03/28/2023) Colonoscopy Normal Normal Comment:repeat in 5 years Result Maykel Malcolm MD HEALTH MAINTENANCE Final Result * HIV 1/2 ANTIGEN/ANTIBODY,FOURTH GENERATION W/RFL (10/21/2020 9:30 AM EDT) HIV-1/2 ANTIGEN AND ANTIBODIES, 4TH GENERATION W/ REFLEX NON-REACT BEBE NON-REACT BEBE [facility] Comment: HIV-1 antigen and HIV-1/HIV-2 antibodies were not detected. There is no laboratory evidence of HIV infection. ?? PLEASE NOTE: This information has been disclosed to you from records whose confidentiality may be protected by state law. ??If your state requires such protection, then the state law prohibits you from making any further disclosure of the information without the specific written consent of the person to whom it pertains, or as otherwise permitted by law. A general authorization for the release of medical or other information is NOT sufficient for this purpose. ? For additional information please refer to http://education.InnoCentive/faq/REO640 (This link is being provided for informational/ educational purposes only.) ? The performance of this assay has not been clinically validated in patients less than 2 years old. ?? 10/21/2020 9:30 AM EDT us Lew Malcolm MD LAB BLOOD ORDERABLES Final Resul t [facility] [address] from Last 3 Months or Most Recently Relevant to Health Maintenance Insurance [facility] Care Teams Bead Wire Insulator Relationship Specialty Start Date End Date Name, MD Lew [address] [place] [address] PCP - General Family Medicine 07/14/15
--- OUTSIDE RECORDS SUMMARY | 2024-08-09 09:35 | XMS_ITS ---
Author Organization [facility] Address [address] [place] [id number] Care Team Providers Care Bus Cleaner Name Role Phone Name Lew CAMPBELL Primary Care Provider Bean Restrepo [phone] REASON FOR VISIT screening Problems Problem Type SNOMED Code ICD Code Onset Dates Problem Status W/U Status Risk Notes Problem Diverticular disease of colon (159871701) Diverticulosis of large intestine without perforation or abscess without bleeding (K57.30) Active confirmed Encounters Encounter Location Date Provider Diagnosis [facility] [address] [place] [phone] 03/14/2023 Bean Smith Encounter for scre ening colonoscopy Z12.11 ; Colon polyps K63.5 ; Diverticulosis of large intestine without perforation or abscess without bleeding K57.30 and Other hemorrhoids K64.8 Assessments Encounter Date Diagnosis (ICD Code) Assessment Notes Treatment Notes Treatment Clinical Notes Section Notes 03/14/2023 Encounter for screening colonoscopy (ICD-10 - Z12.11) 03/14/2023 Colon polyps (ICD-10 - K63.5) 03/14/2023 Diverticulosis of large intestine without perforation or abscess without bleeding (ICD-10 - K57.30) 03/14/2023 Other hemorrhoids (ICD-10 - K64.8) Plan Of Treatment No Information Progress Notes * LALA REGALADOODOB:1960 (64 yo M)Acc No.[id number]:03/14/2023 COLON WITH MAC Patient:?KASEY REGALADO Provider:?Bean Smith MD :1960???Age:62 Y???Sex:Male Michael e:03/14/2023 Address:[address] [place] [address] Pcp:Lew Malcolm MD Subjective: * Chief Complaints: * ???1. Screening. * Medical History:? Objective: * Vitals:? Assessment: * Assessment: 1.?Encounter for screening c olonoscopy - Z12.11 (Primary)???2.?Colon polyps - K63.5???3.?Diverticulosis of large intestine without perforation or abscess without bleeding - K57.30???4.?Other hemorrhoids - K64.8??? Plan: * Treatment: * Procedure Codes:?49157 LESIO N REMOVAL COLONOSCOPY, Modifiers: 33 * * The named appointment provid er may or may not be the originator of this progress note, and it is not deemed complete until electronically signed by the appointment provider. Sign off status: Pending * Provider:?Bean Smith MD Date:? 023 Generated for Kandis celeste/Devan/eTransmitting on:?08/09/2024 09:34 AM EDT
--- OUTSIDE RECORDS SUMMARY | 2024-08-09 09:35 | XMS_ITS | Data Portability ---
Author Organization [facility] Address [address] [place] [id number] Care Team Providers Care Agricultural Consultant Name Role Phone [facility] Referring Provider [phone] [facility] Referring Provider Assessment Encounter Date Assessment Date Assessment LastModified by Organization Details LastModified Time 09/07/2021 09/07/2021 I have reviewed and agree with the assessment and plan as documented by the application systems architect. I provided real-time medical direction for this [...] Diagnosis/Indication Diagnosis SNOMED-CT Code Diagnosis ICD10 Code Diagnosis Note 1319 Gallo Mccall MD Main - [facility]ED [address] [place] [phone] 09/07/2021 21:21:18 01/08/2022 15:04:21 Unable to walk [id number] R26.2 Health Concerns Section Related Observation LastModified by Organization Detai ls LastModified Time None Recorded Concern Status LastModified by Organization Details LastModified Time None Recorded Advance Directives Directive None Recorded Payers Encounter Date Sequence Insurance Name Policy Number Policy Gutierrez Covered Member ID Gutierrez Member ID Guarantor Name 09/07/2021 1 [facility] - DOS PRIOR TO 2022 - DUAL ELIGIBLE (MEDICARE REPLACEMENT/ADV ANTAGE - HMO) Valentín Bernardo [id number] Valentín Bernardo Notes Date Note Type Note [...] .................. .................. .................. .................. .................. .................. ............... Malariologist Note: Chief Complaint diff ambulating Pertinent positive [...] rash Contacted Dr. Mccall. Pt transported to [facility] via [facility] due to new onset of neuro issues. .................. .................. .................. .................. .................. .................. .................. ............... Disposition: Fulfilled Gallo Mccall MD [address] [place] [address],[address], [place], [phone], PRICE LEPE 09/07/2021 21:23:51
--- OUTSIDE RECORDS SUMMARY | 2024-08-09 09:35 | XMS_ITS | Encounter Summary ---
Author Organization [employer] Address [address] [facility] [address] [place] [address] Care Team Providers Care Professor Of Rhetoric Name Role Phone Name, Lew CAMPBELL Primary Care Provider [phone] Reason for Visit * Reason Comments Med Refill Encounter Details Date Type Department Care Team ([facility] st Contact Info) Description 08/07/2024 Refill [facility] [address] [place] [address] Name, MD Lew [address] [place], [place] [phone] Chronic neck pain with history of cervical spinal surgery Social History Tobacco Use Types Packs/Day Years [...] encounter Miscellaneous Notes * Telephone Encounter - Lupe Grajeda RN - 08/08/2024 9:24 AM EDT Med refill request received for Tramadol 50 mg. Per review of [facility] 08/08/24, pt last filled a 28 day supply on 07/05/24. Refill pended to PCP for review. documented in this encounter Plan of Treatment Upcoming Encounters Date Type Department Care Team (Late st Contact Info) Description 10/04/2024 9:00 AM EDT Office Visit [facility] [address] [place] [phone] Name, MD Lew [address] [place] [address] documented as of this encounter Visit Diagnoses Diagnosis Chronic neck pain with history of cervical spinal surgery documented in this encounter Additional Health Concerns Assessment Noted Time PHQ-9 Depression Total Score: 3 08/19/19 24 10:02 AM EDT documented as of this encounter Care Teams Professor Of Rhetoric Relationship Specialty Start Date End Date NameLew MD [address] [place] [phone] PCP - General Family Medicine 07/14/15 documented as of this encounter
--- OUTSIDE RECORDS SUMMARY | 2024-08-09 09:35 | XMS_ITS | Encounter Summary ---
Author Organization [employer] Address [address] [facility] 7[address] [place] [address] Care Team Providers Care Performance Test Engineer Name Role Phone Name, Lew CAMPBELL Primary Care Provider [phone] Reason for Visit * Reason Onset Date Comments call back needed 03/01/2024 Encounter Details Date Type Department Care Team ([facility] st Contact Info) Description 03/01/2024 Telephone [facility] MEDICINE [address] [place] [address] Name, MD Lew [address] [place] [address] call back needed Social History Tobacco Use Types Packs/Day Years [...] encounter Miscellaneous Notes * Telephone Encounter - Mau Macedo - 03/01/2024 3:03 PM EDT TC from pt requesting a call back from a manager assessment regarding an incident that happen regarding HIPAA . documented in this encounter Plan of Treatment Upcoming Encounters Date Type Department Care Team (Late st Contact Info) Description 10/04/2024 9:00 AM EDT Office Visit [facility] MEDICINE [address] [place] [address] Name, MD Lew [address] [place] [address] documented as of this encounter Visit Diagnoses Not on filedocumented in this encounter Additional Health Concerns Assessment Noted Time PHQ-9 Depression Total Score: 3 08/19/19 24 10:02 AM EDT documented as of this encounter Care Teams Performance Test Engineer Relationship Specialty Start Date End Date Name, MD Lew [address] [place] [address] PCP - General Family Medicine 07/14/15 documented as of this encounter
[2024-08-09 09:48] LABS: MANUAL DIFF FLAG NO
[2024-08-09 10:54] LABS: Basophils Percent Auto 0.2 % (0-2); Eosinophils Absolute Auto 0.2 X10*3/uL (0.0-0.4); Eosinophils Percent Auto 3.8 % (0-4); Hematocrit 38.6 % (42.0-52.0); Hemoglobin 13.1 g/dl (14.0-18.0); Imm Gran Abs Auto 0.01 X10*3/uL (0.00-0.03); Imm Gran Pct Auto 0.2 % (0.0-0.4); Lymphocytes Absolute Auto 1.8 X10*3/uL (1.2-4.9); Mean Corpuscular HGB Conc 33.9 g/dl (31.0-36.0); Mean Corpuscular Hemoglobin 31.2 pg (27.0-33.0); Mean Corpuscular Volume 91.9 fL (80.0-98.0); Mean Platelet Volume 10.6 fL (9.4-12.4); Monocytes Absolute Auto 0.5 X10*3/uL (0.1-1.2); Monocytes Percent Auto 9.2 % (2-11); Neutrophils Absolute Auto 2.8 x10*3/uL (2.0-8.3); Neutrophils Percent Auto 52.6 % (45-73); Platelet Count 167 X10*3/uL (160-400); White Blood Count 5.3 X10*3/uL (4.8-10.8)
[2024-08-09 11:26] LABS: Rheumatoid Factor < 13.0 IU/mL (<15.0)
[2024-08-09 11:39] LABS: Erythrocyte Sedimentation Rate 14 MM/HR (0-15)
[2024-08-09 11:47] LABS: Alanine Aminotransferase 21 U/L (0-40); Albumin Level 4.6 g/dL (3.5-5.0); Alkaline Phosphatase 81 U/L (39-117); Anion Gap 11 (12-20); Aspartate Amino Transferase 23 U/L (5-37); Bilirubin Total 0.3 mg/dL (0.0-1.0); Blood Urea Nitrogen 12 mg/dL (9-16); Calcium 9.5 mg/dL (8.4-10.2); Carbon Dioxide 29 mmol/L (22-29); Chloride 104 mmol/L (96-108); Estimated Glomerular Filt Rate > 60; Glucose Random 92 mg/dL (60-115); Potassium 4.2 mmol/L (3.3-5.1); Sodium 140 mmol/L (135-145); Total Protein 7.8 g/dL (6.5-8.0)
[2024-08-09 11:48] LABS: HIV AB/AG Nonreactive (Nonreactive); HIV Num 1 0.06 S/CO (0.00-0.99)
[2024-08-09 11:51] LABS: TSH reflex Free T4 0.68 uIU/mL (0.32-4.0)
[2024-08-10 20:08] LABS: CRP High Sensitivity 1.7 mg/L
[2024-08-10 20:58] LABS: Homocysteine 14.8 umol/L (<11.4)
[2024-08-10 22:04] LABS: Lyme Abs Screen <0.90 index
[2024-08-13 10:09] LABS: Methylmalonic Acid 328 nmol/L (69-390)
[2024-08-14 15:18] LABS: Vitamin D 25-OH, D2 <4 ng/mL; Vitamin D 25-OH, D3 23 ng/mL; Vitamin D 25-OH, Total 23 ng/mL (30-100)
[2024-08-15 10:38] LABS: Anti Nuclear Antibody Screen NEGATIVE (NEGATIVE)
== END 2024-08-09 09:15 | disposition home or self-care (01) ==
LOC: HO.LAB 09:14
PROVIDERS: PCP Internal Medicine Geriatric Medicine; Visit Provider Nurse Practitioner Family
DX: R51.9 Headache, unspecified (principal); H57.10 Ocular pain, unspecified eye; H53.149 Visual discomfort, unspecified
CPT/HCPCS: 36415; 80053; 82306; 83090; 83921; 84443; 85025; 85652; 86038; 86141; 86431; 86617; 86618; 87389

== ENCOUNTER → 2024-08-17 09:08 | Outpatient (BNV) | payer OTHER, SELFPAY | PROVIDERS: PCP Internal Medicine Geriatric Medicine; Visit Provider Radiology Diagnostic Radiology | DX: R90.82 White matter disease, unspecified (principal) | CPT/HCPCS: 70553 ==

== ENCOUNTER 2024-08-17 09:28 | Outpatient (REF) | payer OTHER, SELFPAY ==
--- NOTE | ~2024-08-17 | MR_ITS ---
CLINICAL HISTORY: R51.9 - Headache, unspecified MR Brain with and without gadolinium Comparison: None Findings: There is no evidence of restricted diffusion. No intra-axial mass or hemorrhage. Nonspecific periventricular and subcortical white matter hyperintensities on T2 weighted sequences are noted. No midline shift. No hydrocephalus. Vascular flow voids are intact. The orbits are normal. The sinuses and mastoid air cells are clear. No focal bone lesion. IMPRESSION: No acute abnormalities. Nonspecific periventricular and subcortical pole white matter hyperintensities most consistent with microvascular ischemic changes. This document has been electronically signed by: Camden Hahn MD on 08/17/2024 11:18:11
--- OUTSIDE RECORDS SUMMARY | 2024-08-17 09:53 | XMS_ITS | Clinical Summary ---
Author Organization [employer] Address [address] [facility] [address] [place] [address] Care Team Providers Care Collection Support Specialist Name Role Phone Name, Lew CAMPBELL Primary Care Provider [phone] Allergies No known active allergies Medications Brexpiprazole [...] Congestive heart failure 01/03/2023 Encounter for current senior care use of antiplate let drug 01/03/2023 Type [...] Encounters Date Type Department Care Team Description 08/09/2024 Orders Only GENERIC EXTERNAL DATA DEPARTMENT Provider, Generic External Data 08/07/2024 Refill [facility] [place] [address] Lew Malcolm MD Chronic neck pain with history of cervical spinal surgery 08/06/2024 [address]phone [place] [address] Lew Malcolm MD Appointment Request 07/27/2024 10:00 AM EDT Office Visit [facility] [address] Jody Griffin MD Atopic dermatitis in adult (Primary Dx) 07/27/2024 Travel 07/26/2024 Travel 07/04/2024 9:45 AM EST Office Visit [facility] [address] Lew Malcolm MD Type 2 diabetes, controlled, with neuropathy (CMS/HCC) (Primary Dx); Chronic neck pain with history of cervical spinal surgery 06/27/2024 Travel 05/30/2024 Telephone [facility] [address] Lew Malcolm MD Durable Medical Equipment 05/23/2024 9:30 AM EST Clinical Support [facility] [address] Luna Frey, service or work dispatcher chief neck pain with history of cervical spinal surgery (Primary Dx) 05/23/2024 Refill [facility] [place] [address] Luna Frey, service or work dispatcher chief neck pain with history of cervical spinal surgery 05/23/2024 Travel 05/23/2024 Telephone [facility] [address] Luna Frey, RN Recommend [employer] ENGINEER Tier 2 from Last 3 Months Immunizations Name Administration Dates Next Due Influenza injectable quadriv alent IIV4 with preservative 02/15/2018,02/17/2017,02/23/2016 Influenza injectable quadriv alent preservative free 04/20/2023,03/10/2022,05/28/2021,02/25,01/31/2019 Influenza, IIV3, injectable 05/28/2021,1 ,01/31/2019,02/15,02/17/2017,02/23/2016,04/15/2015 ,02/06/2014,02/01/2012,04/27/2011,01/2009 Influenza, Unspecified 02/06/2014,02/01/2012, Influenza, seasonal, injecta ble, preservative free 02/13/2024 Influenza, trivalent, adjuvanted 04/15/2015,01/2009 Moderna Covid-19 Vaccine 12+ 05/28/2021,08/14/19 21,07/16/2020 Moderna Covid-19 Vaccine 6+ Bivalent 07/14/2022 Novel [id number], preservative-free 06/20/2009 PPD Test 02/05/2004 Pneumococcal Conjugate [...] Description 10/04/2024 9:00 AM EDT Office Visit [facility] MEDICINE [address] [place] [phone] Name, MD Lew [address] [place] [address] Health Maintenance Due Date Last Done Comments [...] - Td or Tdap) 03/10/2032 03/10/2022, 06/17/2008 Pneumococcal Vaccine: 50+ Years Completed 01/03/2023, 07/17/2008 Influenza Vaccine Completed 02/13/2024, , 03/10/2022, Additional history exists HIV Screening Completed 08/09/2024, 10/21/2020 HIB Vaccines Aged Out No longer eligi [...] Procedure Name Priority Date/Time Associated Diagnosis Comments EVELYN SCREEN, IFA, W/REFL TITER AND PATTERN Routine 08/09/2024 9:44 AM EDT VITAMIN D 25-OH (D2 AND D3) Routine 08/09/2024 9:44 AM EDT METHYLMALONIC ACID Routine 08/09/2024 9: 44 AM EDT LYME DISEASE AB W/REFL TO BLOT (IGG, IGM) Routine 08/09/2024 9:44 AM EDT HOMOCYSTEINE Routine 08/09/2024 9:44 AM EDT CRP, HIGH SENSITIVITY Routine 08/09/2024 9:44 AM EDT TSH W/REFLEX TO FT4 Routine 08/09/2024 9 :44 AM EDT HIV 1/2 ANTIGEN/ANTIBODY, FOURTH GENERATION W/RFL Routine 08/09/2024 9:44 AM EDT COMPREHENSIVE METABOLIC PANEL Routine 08/09/2024 9:44 AM EDT SED RATE BY MODIFIED WESTERGREN Routine 08/09/2024 9:44 AM EDT RHEUMATOID FACTOR Routine 08/09/2024 9:4 4 AM EDT CBC WITH AUTO DIFFERENTIAL Routine 08/09/2024 9:44 AM EDT POCT GLYCATED HEMOGLOBIN, TOTAL Routine 07/04/2024 9:59 [...] cervical spinal surgery HM COLONOSCOPY Routine 03/28/2023 from Last 3 Months or Most Recently Relevant to Health Maintenance Results * (ABNORMAL) VITAMIN D 25-OH (D2 AND D3) (08/09/2024 9:44 AM EDT) Vitamin D, 25-OH, D2 <4 ng/mL [facility] Comment:This test was develo ped and its analytical performancecharacteristics have been determined by [employer] [place], [place]. It hasnot been cleared or approved by the U.S. Food and DrugAdministration. This assay has been validated pursuantto the CLIA regulations and is used for clinicalpurposes.THIS TEST WAS PERFORMED AT:[facility] [place] [id number] LOPEZ MD,PHD Vitamin D, 25-OH, D3 23 ng/mL [facility] Comment:This test was develo ped and its analytical performancecharacteristics have been determined by [employer] [place], [place]. It hasnot been cleared or approved by the U.S. Food and DrugAdministration. This assay has been validated pursuantto the CLIA regulations and is used for clinicalpurposes. Vitamin D, 25-OH, Total 23(A) 30 - 100 ng/mL [facility] Comment:Vitamin D, 25-Hydrox y reports concentrations of twocommon forms, 25-OHD2 and 25-OHD3. 25-OHD3 indicatesboth endogenous production and supplementation.25-OHD2 is an indicator of exogenous sources such asdiet or supplementation. Therapy is based onmeasurement of Total 25-OHD, with levels <20 ng/mLindicative of Vitamin D deficiency, while levelsbetween 20 ng/mL and 30 ng/mL suggest insufficiency.Optimal levels are > or = 30 ng/mL.For additional information, please refer tohttp://education.Ligandal/faq/HOE292(This link is being provided for informational/educational purposes only.) 08/09/2024 9:44 AM EDT 08/09/2024 9:45 AM EDT us Generic External Data Provider LAB BLOOD ORDERAB LES Final Result [facility] [address] [place] [phone] * CRP, HIGH SENSITIVITY (08/09/2024 9:44 AM EDT) CRP, High Sensitivity 1.7 mg/L [facility] Comment: Reference RangeOptimal <1.0Melanie MCNEILL et al. Endocr Pract.2017;23(Suppl 2):1- 87.For ages >17 Years:hs-CRP mg/L ??Risk According to AHA/CDC Guidelines<1.0 ? Lower relative cardiovascular risk.1.0-3.0 ?Average relative cardiovascular risk.3.1-10.0 ? Higher relative cardiovascular risk. ? Consider retesting in 1 to 2 weeks to ? exclude a benign transient elevation ? in the baseline CRP value secondary ? to infection or inflammation.>10.0 ?Persistent elevation, upon retesting, ? may be associated with infection and ? inflammation.Candice TA, Cayetano GA, Kj RW, et al. Markersof inflammation and cardiovascular disease:application to clinical and public health practice:A statement for healthcare professionals from the[facility] for Disease Control and Prevention and theAmerican Heart Association. Circulation 2003; 107(3):499-511.THIS TEST WAS PERFORMED AT:[facility] [address] ?? [phone] ANDERSON MD 08/09/2024 9:44 AM EDT 08/09/2024 9:45 AM EDT Generic External Data Provider LAB BLOOD ORDERAB LES Final Result Performing Organization Address [facility] Co de Phone Number [facility] [address] [place] [phone] * TSH with Reflex to Free T4 (08/09/2024 9:44 AM EDT) TSH reflex Free T4 0.68 0.32 - 4.0 uIU/mL [facility] 08/09/2024 9:44 AM EDT 08/09/2024 9:45 AM EDT Generic External Data Provider LAB BLOOD ORDERAB LES Final Result Performing Organization Address [facility] de Phone Number [facility] [address] [place] [phone] * Lyme Disease Ab with Reflex to Blot (IgG, IgM) (08/09/2024 9:44 AM EDT) Lyme Antibody Screen <0.90 index [facility] Comment:Index Interpretation ----- < 0.90 Negative 0.90-1.09 Equivocal > 1.09 PositiveAs recommended by the Food and Drug Administration(FDA), all samples with positive or equivocalresults in a Borrelia burgdorferi antibody screenwill be tested using a blot method. Positive orequivocal screening test results should not beinterpreted as truly positive until verified as suchusing a supplemental assay (e.g., B. burgdorferi blot).The screening test and/or blot for B. burgdorferiantibodies may be falsely negative in early stagesof Lyme disease, including the period when erythemamigrans is apparent.THIS TEST WAS PERFORMED AT:[facility] [place] [phone] ANDERSON MD Lyme Blot TNP [facility] 08/09/2024 9:44 AM EDT 08/09/2024 9:45 AM EDT us Generic External Data Provider LAB BLOOD ORDERAB LES Final Result [facility] [address] [place] [phone] * (ABNORMAL) CBC auto differential (08/09/2024 9:44 AM EDT) [facility] White Blood Count 5.3 4.8 - 10.8 X10*3/uL [facility] Red Blood Count 4.20(L) 4.60 - 5.80 X10*6/uL [facility] Hemoglobin 13.1(L) 14.0 - 18.0 g/dl [facility] Hematocrit 38.6(L) 42.0 - 52.0 % [facility] Mean Corpuscular Volume 91.9 80.0 - 98.0 fL [facility] Mean Corpuscular Hemoglobin 31.2 27.0 - 33.0 pg [facility] Mean Corpuscular HGB Conc 33.9 31.0 - 36.0 g/dl [facility] Red Cell Distribution Width 13.0 11.0 - 16.0 % [facility] Platelet Count 167 160 - 400 X10*3/uL [facility] Mean Platelet Volume 10.6 9.4 - 12.4 fL [facility] Neutrophils Percent Auto 52.6 45 - 73 % [facility] Imm Gran Pct Auto 0.2 0.0 - 0.4 % [facility] Lymphocytes Percent Auto 34.0 20 - 40 % [facility] Monocytes Percent Auto 9.2 2 - 11 % [facility] Eosinophils Percent Auto 3.8 0 - 4 % [facility] Basophils Percent Auto 0.2 0 - 2 % [facility] NRBC Pct Auto 0.0 0.0 - 0.2 /100WBC [facility] Neutrophils Absolute Auto 2.8 2.0 - 8.3 x10*3/uL [facility] Imm Gran Abs Auto 0.01 0.00 - 0.03 X10*3/uL [facility] Lymphocytes Absolute Auto 1.8 1.2 - 4.9 X10*3/uL [facility] Monocytes Absolute Auto 0.5 0.1 - 1.2 X10*3/uL [facility] Eosinophils Absolute Auto 0.2 0.0 - 0.4 X10*3/uL [facility] Basophils Absolute Auto 0.0 0.0 - 0.2 X10*3/uL [facility] NRBC Abs Auto 0.000 0.0 - 0.012 X10*3/uL [facility] 08/09/2024 9:44 AM EDT 08/09/2024 9:45 AM EDT us Generic External Data Provider LAB BLOOD ORDERAB LES Final Result [facility] [address] [place] [phone] * Methylmalonic Acid (08/09/2024 9:44 AM EDT) Methylmalonic Acid 328 69 - 390 nmol/L [facility] Comment: Serum methylmalonic acid (MMA) levels are used todiagnose and monitor several rare inborn errors ofmetabolism, including methylmalonic aciduria. Theenzymatic conversion of MMA to succinic acid requiresvitamin B12 (adenosyl-cobalamin) as a cofactor. SerumMMA levels are also used for assessing functionalvitamin B12 deficiency. Vitamin B12 is essential forfetal neurodevelopment, particularly early inpregnancy. Undiagnosed maternal vitamin B12 deficiencymay be associated with adverse / outcomes,such as neural tube defects and intrauterine growthrestriction.[facility] utilized Multi-Modal Decomposition(MMD) analysis to establish first and second trimester-specific MMA reference intervals in , as givenbelow:MMA, First trimester (<13 wks gestation): 58-167 nmol/LMMA, Second trimester (13-23 wks gestation):63-241 nmol/LThis test was developed and its analytical performancecharacteristics have been determined by [employer]. It has not been cleared or approved by theFDA. This assay has been validated pursuant to the CLIAregulations and is used for clinical purposes.THIS TEST WAS PERFORMED AT:[facility] [place], [place] ??[phone] LOPEZ MD,PHD 08/09/2024 9:44 AM EDT 08/09/2024 9:45 AM EDT us Generic External Data Provider LAB BLOOD ORDERAB LES Final Result [facility] [address] [place] [phone] * HIV-1/2 Antigen and Antibodies, Fourth Generation, with Reflexes (08/09/2024 9:44 AM EDT) Pathologist [facility] HIV AB/AG Nonreactive Nonreactive [facility] Comment:HIV-1 p24 Ag and/or HIV-1/HIV-2 Ab not detected.A test result that is nonreactive does not exclude thepossibility of exposure to or infection with HIV-1 and/orHIV-2. Nonreactive results in this assay for individualswith prior exposure to HIV-1 and/or HIV-2 may be due toantigen and antibody levels that are below the limit ofdetection of this assay.The [employer] HIV Ag/Ab Combo assay result andsupplemental assay results should be interpreted inconjunction with the patient's clinical presentation,history and other laboratory results. If the results areinconsistent with clinical evidence, additional testing issuggested to confirm the result. 08/09/2024 9:44 AM EDT 08/09/2024 9:45 AM EDT Generic External Data Provider LAB BLOOD ORDERAB LES Final Result Performing Organization Address [facility] Co de Phone Number [facility] [address] [place] [phone] * Sed Rate by Modified Brysonergren (08/09/2024 9:44 AM EDT) Pathologist [facility] Erythrocyte Sedimentation Rate 14 0 - 15 MM/HR [facility] Comment:Patients with polycy themia and many hemoglobin abnormalitiesmay have depressed sed rates whereas patients with anemiamay have elevated sed rates. 08/09/2024 9:44 AM EDT 08/09/2024 9:45 AM EDT us Generic External Data Provider LAB BLOOD ORDERAB LES Final Result Performing Organization Address City/[facility]/ZIP Co de Phone Number [facility] [address] [place] [phone] * Rheumatoid Factor (08/09/2024 9:44 AM EDT) Pathologist [facility] Rheumatoid Factor <13.0 <15.0 IU/mL [facility] 08/09/2024 9:44 AM EDT 08/09/2024 9:45 AM EDT Generic External Data Provider LAB BLOOD ORDERAB LES Final Result Performing Organization Address City/[facility]/ZIP Co de Phone Number [facility] [address] [place] [phone] * EVELYN Screen,IFA, with Reflex to Titer and Pattern (08/09/2024 9:44 AM EDT) [facility] Anti Nuclear Antibody Screen NEGATIVE NEGATIVE [facility] Comment:EVELYN IFA is a first l ine screen for detecting thepresence of up to approximately 150 autoantibodies invarious autoimmune diseases. A negative EEVLYN IFA resultsuggests an EVELYN-associated autoimmune disease is notpresent at this time, but is not definitive. If thereis high clinical suspicion for Sjogren's syndrome,testing for anti-SS-A/Ro antibody should be considered.Anti-Arlet-1 antibody should be considered for clinicallysuspected inflammatory myopathies.AC-0: NegativeInternational Consensus on EVELYN Patterns(https://doi.org/10.1515/gpzg-8705-4313)For additional information, please refer tohttp://education.Ligandal/faq/QVQ424(This link is being provided for informational/educational purposes only.)THIS TEST WAS PERFORMED AT:[address] [place] [id number] ANDERSON MD EVELYN [facility]iter [facility] EV[facility]N Pattern [facility] EVELYN TITER 2 (REF LAB) [facility] EVELYN Pattern 2 [facility] EVELYN TITER 3 [facility] EVELYN PATTERN 3 [facility] 08/09/2024 9:44 AM EDT 08/09/2024 9:45 AM EDT us Generic External Data Provider LAB BLOOD ORDERAB LES Final Result Performing Organization Address [facility]/ZIP Co de Phone Number [facility] [address] [place] [phone] * (ABNORMAL) Homocysteine (08/09/2024 9:44 AM EDT) Pathologist [facility] Homocysteine 14.8(A) <11.4 umol/L [facility] Comment:Homocysteine is incr eased by functional deficiency offolate or vitamin B12. Testing for methylmalonic aciddifferentiates between these deficiencies. Other causesof increased homocysteine include renal failure, folateantagonists such as methotrexate and phenytoin, andexposure to nitrous oxide.Urvashi Farfan, et al., De[employer] Tele[employer] Nurse Educator Med. 1999;131(5):331-9.THIS TEST WAS PERFORMED AT:[address] [place] [phone] ANDERSON MD 08/09/2024 9:44 AM EDT 08/09/2024 9:45 AM EDT us Generic External Data Provider LAB BLOOD ORDERAB LES Final Result [facility] [address] [place] [phone] * (ABNORMAL) Comprehensive Metabolic Panel (08/09/2024 9:44 AM EDT) Sodium 140 135 - 145 mmol/L [facility] Potassium 4.2 3.3 - 5.1 mmol/L [facility] Chloride 104 96 - 108 mmol/L [facility] Carbon Dioxide 29 22 - 29 mmol/L [facility] Anion Gap 11(L) 12 - 20 [facility] Urea Nitrogen (BUN) 12 9 - 16 mg/dL [facility] Creatinine, Serum 0.73 0.5 - 1.4 mg/dL [facility] Estimated Glomerular Filt Rate >60 [facility] Comment:Chronic Kidney Disea se: Estimated GFR < 60 mL/min/1.71n5Fcsgbt Kidney Disease: Estimated GFR < 15 mL/min/1.73m2 Glucose 92 60 - 115 mg/dL [facility] Calcium 9.5 8.4 - 10.2 mg/dL [facility] Bilirubin, Total 0.3 0.0 - 1.0 mg/dL [facility] Aspartate Amino Transferase 23 5 - 37 U/L [facility] Alanine Aminotransferase 21 0 - 40 U/L [facility] Total Protein 7.8 6.5 - 8.0 g/dL [facility] Albumin Level 4.6 3.5 - 5.0 g/dL [facility] Alkaline Phosphatase 81 39 - 117 U/L [facility] 08/09/2024 9:44 AM EDT 08/09/2024 9:45 AM EDT Generic External Data Provider LAB BLOOD ORDERAB LES Final Result [facility] [address] [place] [phone] * (ABNORMAL) POCT HGB A1C (07/04/2024 9:59 AM EST) Hemoglobin A1C 6.1(A) 4.0 - 6.0 % QC Media Lot # [id number] Lot# Expiration Date 71,[id number] Blood 07/04/2024 9:59 AM EST Lew Malcolm MD POINT OF CARE TEST ENTER/EDIT OR DERABLES Final Result * POCT Glucose (07/04/2024 9:56 AM EST) Glucose Blood, POC 128 60 - 200 mg/dL QC Media Lot # [id number] Lot# Expiration Date 53,025 Blood Capillary blood specimen / Unknown 07/04/2024 9:56 AM EST us Lew Malcolm MD POINT OF CARE TEST ENTER/EDIT OR DERABLES Final Result * POCT [id number] Urine Drug Screen (05/23/2024 9:21 AM EST) THC Positive Urine Urine specimen obtained by clean catch procedure / Unknown 05/23/2024 9:21 AM EST Narrative Luna Frey RN - 05/23/2024 9:21 AM EST UTOX cup Lot#[id number] Exp. 01/31/26 Internal Pass Control us Lew Malcolm MD POINT OF CARE TEST ENTER/EDIT OR DERABLES Final Result * Albumin, Random Urine W/Creatinine (02/14/2024 9:45 AM EDT) Creatinine, Urine 35.56 mg/dL [facility] Microalbumin Urine 6.0 mg/L [facility] Microalbum Creatinine Ratio Ur 16.8 <30 ug/mg cr [facility] Comment:Albumin/Creatinine R atio Reference Ranges: Normal: < 30 ug/mg creatinine Microalbuminuria: 30 - 300 ug/mg creatinineClinical Albuminuria: > 300 ug/mg creatinine Urine (Urine, Random) 02/14/2024 9:45 AM EDT 02/14/2024 11:23 AM EDT us Lew Malcolm MD LAB URINE ORDERABLES Final Resul t [facility] [address] [place] [phone] * (ABNORMAL) Lipid Panel, Standard (02/14/2024 9:43 AM EDT) Triglycerides 122 <150 mg/dL [facility] Comment:Desirable Triglyceri de: less than 150 mg/dLBorderline High Triglyceride 150-199 mg/dLHigh Triglyceride: 200-499 mg/dLVery High Triglyceride: greater than or equal to 5OO mg/dL Cholesterol 93 <200 mg/dL [facility] Comment:Desirable Cholestero l: less than 200 mg/dLBorderline High Cholesterol: 200-239 mg/dLHigh Cholesterol: greater than 239 mg/dL LDL Cholesterol Calculated 41 <100 mg/dL [facility] Comment:Desirable LDL: less than 100 mg/dLNear Optimal/Above Optimal LDL: 110- 129 mg/dLBorderline High LDL: 130-159 mg/dLHigh LDL: 160-189 mg/dLVery High LDL: greater than or equal to 190 mg/dL HDL Cholesterol 28(L) >40 mg/dL [facility] Comment:Desirable HDL: great er than 40 mg/dL Note: This HDL assay may give artificially low results in patients with liver disease. Blood Venous blood specimen / Unknown 02/14/2024 9:43 AM EDT 02/14/2024 11:26 AM EDT Lew Malcolm MD LAB BLOOD ORDERABLES Final Resul t [facility] [address] [place] [phone] * Colonoscopy (03/28/2023) Colonoscopy Normal Normal Comment:repeat in 5 years Lew Malcolm MD HEALTH MAINTENANCE Final Result from Last 3 Months or Most Recently Relevant to Health Maintenance Insurance [facility] Care Teams Collection Support Specialist Relationship Specialty Start Date End Date Name, MD Lew [address] [place] [phone] PCP - General Family Medicine 07/14/15
--- OUTSIDE RECORDS SUMMARY | 2024-08-17 09:53 | XMS_ITS | Patient Health Record ---
Author Organization [facility] Address [address] [place] [address] Care Team Providers Care Review Appraiser Name Role Phone Name Lew CAMPBELL Primary Care Provider Bean Restrepo Unavailable [phone] Allergies No Known Allergies Reason For Referral [...] Problem Status W/U Status Risk Notes Problem [id number] Colon cancer screening (Z12.11) Active confirmed Problem Diverticular disease of colon (205895813) Diverticulosis of large intestine without perforation or abscess without bleeding (K57.30) Active confirmed Problem [id number] Long-term use of aspirin therapy (Z79.82) Active confirmed Plan Of Treatment Pending Test Test Name Order Date Pathology 03/14/2023 Future Test Test Name Order Date COLONOSCOPY 12/16/2022 Insurance Providers Payer Name Payer Address Payer Phone Subscriber Number Group Number Insured Name Patient Relationship to Insured Coverage Start Date Coverage End Date [facility] [address] Attn Claims KAYE Barton [id number] KASEY REGALADO Self - patient is the insured Medical (General) History Medical History History ICD Code Denies [place],DM,CVA,Lung disease,renal dise ase Parkinson's disease.....marleny hidalgo reports that he is now told that he does not have that as of the 12/2022 OV Mary Reports a negative colonoscopy at [facility] at approx. age 51 Surgical History Surgery Date(Month/Year)
--- OUTSIDE RECORDS SUMMARY | 2024-08-17 09:53 | XMS_ITS | Encounter Summary ---
Author Organization [employer] Address [address] [facility] 7t [place] [address] Care Team Providers Care Vest Front Presser Name Role Phone Name, Lew CAMPBELL Primary Care Provider [phone] Reason for Visit * Reason Onset Date Comments call back needed 03/01/2024 Encounter Details Date Type Department Care Team ([facility] st Contact Info) Description 03/01/2024 Telephone [facility] [address] [place] [address] Name, MD Lew [address] [place] [address] call back needed Social History Tobacco Use [...] pt requesting a call back from a railroad emergency services manager regarding an incident that happen regarding HIPAA . documented in this encounter Plan of Treatment Upcoming Encounters Date Type Department Care Team (Late st Contact Info) Description 10/04/2024 9:00 AM EDT Office Visit [facility] [address] [place] [address] Name, MD Lew [address] [place] [address] documented as of this encounter Visit Diagnoses Not on filedocumented in this encounter Additional Health Concerns Assessment Noted Time PHQ-9 Depression Total Score: 3 08/19/19 24 10:02 AM EDT documented as of this encounter Care Teams Vest Front Presser Relationship Specialty Start Date End Date Name, MD Lew [address] [place] [address] PCP - General Family Medicine 07/14/15 documented as of this encounter
--- OUTSIDE RECORDS SUMMARY | 2024-08-17 09:53 | XMS_ITS | Encounter Summary ---
Author Organization [email or web address] [facility] Address [address] [place] [address] 7t [place] [address] Care Team Providers Care X Ray Control Equipment Repairer Name Role Phone Name, Lew CAMPBELL Primary Care Provider [phone] Reason for Visit * Reason Comments Med Refill Encounter Details Date Type Department Care Team (Late Contact Info) Description 01/05/2023 Refill [facility] [address] [place] [address] [phone] NameLew MD [address] [place] [address] [phone] Social History Tobacco Use Types Packs/Day Years [...] Description 10/04/2024 9:00 AM EDT Office Visit [facility] [address] [place] [address] [phone] Lew Malcolm MD [address] [place] [address] [phone] documented as of this encounter Visit Diagnoses Not on filedocumented in this encounter Additional Health Concerns Assessment Noted Time PHQ-9 Depression Total Score: 18 022 10:02 AM EST documented as of this encounter Care Teams X Ray Control Equipment Repairer Relationship Specialty Start Date End Date Name, MD Lew [address] [place] [address] PCP - General Family Medicine 07/14/15 documented as of this encounter
--- OUTSIDE RECORDS SUMMARY | 2024-08-17 09:53 | XMS_ITS ---
Author Organization [facility] Address [address] [place] [phone] Care Team Providers Care Blood Splatter Analyst Name Role Phone Name Lew CAMPBELL Primary Care Provider Bean Restrepo [phone] REASON FOR VISIT screening Problems Problem Type SNOMED Code ICD Code Onset Dates Problem Status W/U Status Risk Notes Problem Diverticular disease of colon (394405999) Diverticulosis of large intestine without perforation or abscess without bleeding (K57.30) Active confirmed Encounters Encounter Location Date Provider Diagnosis [facility] [address] [place] [phone] 03/14/2023 Bean Smith Encounter for scre ening [...] Notes * LALA REGALADOODOB:1960 (64 yo M)Acc No.[id number]:03/14/2023 COLON WITH MAC Patient:?KASEY REGALADO Provider:?Bean Smith MD :1960???Age:62 Y???Sex:Male Michael e:03/14/2023 Address:[address] [place] [address] Pcp:Lew Malcolm MD Subjective: * Chief Complaints: * ???1. Screening. * Medical History:? Objective: * Vitals:? Assessment: * Assessment: 1.?Encounter for screening c olonoscopy - Z12.11 (Primary)???2.?Colon polyps - K63.5???3.?Diverticulosis of large intestine without perforation or abscess without bleeding - K57.30???4.?Other hemorrhoids - K64.8??? Plan: * Treatment: * Procedure Codes:?32822 LESIO N REMOVAL COLONOSCOPY, Modifiers: 33 * * The named appointment provid er may or may not be the originator of this progress note, and it is not deemed complete until electronically signed by the appointment provider. Sign off status: Pending * Provider:?Bean Smith MD Date:? 023 Generated for Kandis celeste/Devan/eTransmitting on:?08/17/2024 09:53 AM EDT
--- OUTSIDE RECORDS SUMMARY | 2024-08-17 09:53 | XMS_ITS | Encounter Summary ---
Author Organization [facility] [employer] [facility] Address [address] [facility] 7t [place] [address] Care Team Providers Care Bucket Hooker Name Role Phone Name, Lew CAMPBELL Primary Care Provider [phone] Encounter Details Date Type Department Care Team (Latest Contact Info) Description 03/26/2019 Abstract [facility] CONVERSIONS Dental, Provider, DDS Social History Tobacco [...] Description 10/04/2024 9:00 AM EDT Office Visit [facility] [address] [place] [address] NameLew MD [address] [place] [address] documented as of this encounter Visit Diagnoses Not on filedocumented in this encounter Care Teams Bucket Hooker Relationship Specialty Start Date End Date Name, MD Lew [address] [place] [address] PCP - General Family Medicine 07/14/15 documented as of this encounter
--- OUTSIDE RECORDS SUMMARY | 2024-08-17 09:54 | XMS_ITS | Encounter Summary ---
Author Organization [facility] [employer] Address [address] [place] [address] [address] [place] [address] Care Team Providers Care Quill Collector Name Role Phone Name, Lew CAMPBELL Primary Care Provider [phone] Encounter Details Date Type Department Care Team (Late st Contact Info) Description [facility] [address] [place], [place] [phone] NameLew MD [address] [place] [address] [phone] Social History Tobacco Use Types Packs/Day Years [...] Description 10/04/2024 9:00 AM EDT Office Visit [facility] MED[facility] [address] [place] [address] [phone] NameLew MD [address] [place], [place] [phone] documented as of this encounter Visit Diagnoses Not on filedocumented in this encounter Additional Health Concerns Assessment Noted Time PHQ-9 Depression Total Score: 18 022 10:02 AM EST documented as of this encounter Care Teams Quill Collector Relationship Specialty Start Date End Date Name, MD Lew [address] [place] [address] PCP - General Family Medicine 07/14/15 documented as of this encounter
--- OUTSIDE RECORDS SUMMARY | 2024-08-17 09:54 | XMS_ITS | Clinical Summary ---
Author Organization [facility] Address [address] [place] [address] Care Team Providers Care Tailor Fitter Name Role Phone Name, Lew CAMPBELL Primary Care Provider [phone] Surgical History Surgery Date Site/Laterality Comments CHOLECYSTECTOMY 2002 PROCEDURE: LAPAROSCOPY, CHOLECYSTECTOMY; COMMENT: Sukumar ESOPHAGOGASTRODUODENOSCOPY 2002 PROCEDURE: AR EGD TRANSORAL BIOPSY SINGLE/MULTIPLE; COMMENT: duodenal ulcers; CLOtest negative, no H. pylori COLONOSCOPY 02/03/2012 PROCEDURE: AR COLONOSCOPY FLX DX W/COLLJ SPEC WHEN PFRMD; [...] Brother 1 Heart attack Brother 1 1st [place] at age 4 2 Diabetes Brother 2 [...] season) 2024 05/28/2021, 08/13/2020, 07/16/2020 Influenza Vaccine (Season Ended) 2025 05/28/2021, 02/26/2020, 01/31/2019, Additional history exists Pneumococcal Vaccine: [...] age to complete this topic Meningococcal B Vaccine Aged Out No l onger eligible based on patient's age to complete this topic RSV Immunization Patients Under 20 months Aged Out No longer eligible based on patient's age to complete this topic Varicella Vaccines Aged Out No longer eligible based on patient's age to complete this topic Advance Directives Documents on File Type Date Recorded Patient Reflector Driller And Deburrer Expl anation Health Care Decision (hx) 09/14/2021 AD SARGENT DIRECTIVE Health Care Decision (hx) 09/14/2021 AD SARGENT DIRECTIVE Health Care Decision (hx) 09/14/2021 AD SARGENT DIRECTIVE Care Teams Tailor Fitter Relationship Specialty Start Date End Date Name, MD Lew [address] [place], [place] PCP - General Internal Medicine 04/10/09
--- OUTSIDE RECORDS SUMMARY | 2024-08-17 09:54 | XMS_ITS | Encounter Summary ---
Author Organization [employer] [facility] Address [address] [place] [address] [address] [place] [address] Care Team Providers Care Ultimate Hoops Referee Name Role Phone Name, Lew CAMPBELL Primary Care Provider [phone] Reason for Visit * Reason Comments Med Refill Encounter Details Date Type Department Care Team (Late st Contact Info) Description 09/19/2022 Refill [facility] MEDICINE [address] [place] [address] [phone] NameLew MD [address] [place] [address] [phone] History of myocardial infarction Social History Tobacco [...] Description 10/04/2024 9:00 AM EDT Office Visit [facility] MEDICINE [address] [place] [address] [phone] Lew Malcolm MD [address] [place] [address] [phone] documented as of this encounter Visit Diagnoses Diagnosis History of myocardial infarction documented in this encounter Additional Health Concerns Assessment Noted Time PHQ-9 Depression Total Score: 18 022 10:02 AM EST documented as of this encounter Care Teams Ultimate Hoops Referee Relationship Specialty Start Date End Date Name, MD Lew [address] [place] [address] PCP - General Family Medicine 07/14/15 documented as of this encounter
--- OUTSIDE RECORDS SUMMARY | 2024-08-17 09:54 | XMS_ITS | Data Portability ---
Author Organization [employer] Address [address] [place] [phone] Care Team Providers Care Melting Furnace Skimmer Name Role Phone [facility] Referring Provider [phone] [facility] Referring Provider Assessment Encounter Date Assessment Date Assessment LastModified by Organization Details LastModified Time 09/07/2021 09/07/2021 I have reviewed and agree with the assessment and plan as documented by the search engine optimization strategist. I provided real-time medical direction for this [...] 1319 Gallo Mccall MD Main - [facility] [address] [place] [phone] 09/07/2021 21:21:18 01/08/2022 15:04:21 Unable to walk [id number] R26.2 Health Concerns Section Related Observation LastModified by Organization Detai ls LastModified Time None Recorded Concern Status LastModified by Organization Details LastModified Time None Recorded Advance Directives Directive None Recorded Payers Encounter Date Sequence Insurance Name Policy Number Policy Gutierrez Covered Member ID Gutierrez Member ID Guarantor Name 09/07/2021 1 [facility] - DOS PRIOR TO 2022 - DUAL ELIGIBLE (MEDICARE REPLACEMENT/ADV ANTAGE - HMO) Valentín Bernardo [id number] Valentín Bernardo Notes Date Note Type Note [...] .................. .................. .................. .................. .................. .................. ............... Rougher Machine Operator Note: Chief Complaint diff ambulating Pertinent positive [...] Attention Skin Intact without rash Contacted Dr. cMcall. Pt transported to [facility] via [facility] due to new onset of neuro issues. .................. .................. .................. .................. .................. .................. .................. ............... Disposition: Fulfilled Gallo Mccall MD [address] [place] [address],[address], [place], [phone], PRICE LEPE 09/07/2021 21:23:51
[2024-08-17] MEDS: gadobutroL 7.5 ML VIAL IVPUSH (10:27)
== END 2024-08-17 09:29 | disposition home or self-care (01) ==
LOC: HO.MRI 09:28
PROVIDERS: PCP Internal Medicine Geriatric Medicine; Visit Provider Nurse Practitioner Family
DX: R51.9 Headache, unspecified (principal); H57.10 Ocular pain, unspecified eye; H53.149 Visual discomfort, unspecified
CPT/HCPCS: 70553; A9585

== ENCOUNTER 2025-02-06 09:52 | Outpatient (AMB) | payer OTHER, SELFPAY ==
--- OUTSIDE RECORDS SUMMARY | 2025-02-01 08:15 | XMS_ITS | Encounter Summary ---
Author Organization [facility] Address [address] [place] [address] Care Team Providers Care Manufacturing Lab Technician Name Role Phone Name, Lew CAMPBELL Primary Care Provider [phone] Reason for Visit * Reason Comments Consult * Consultation (Routine) - Closed Specialty Diagnoses / Procedures Referred By Cirilo park Referred To Contact Podiatry / Orthopaedic Surgery Diagnoses Type 2 diabetes mellitus with diabetic neuropathy, unspecified ([facility] V24, [facility] V28) Name, MD Lew [address] [place] [address] Phone: tel: fax: iT Van DPM [address] [phone] Phone: tel: fax: Referral ID Status Reason Start Date Expiration Date V isits Requested Visits Authorized [id number] Closed Specialty Services Required 11/22/2024 11/22/2025 1 1 Encounter Details Date Type Department Care Team ([facility] Contact Info) Description 02/01/2025 8:15 AM EDT Consult Orthopedic Surgery - [place] [address] [phone] Ti Van DPM [address] [phone] Ingrowing nail (Primary Dx); Type 2 diabetes mellitus with diabetic neuropathy, unspecified ([facility] V24, [facility] V28); Diabetic mononeuropathy simplex ([facility] V24, [facility] V28) Social History Tobacco Use Types Packs/Day Years Used Date Smoking Tobacco: Former Smokeless Tobacco: Never Alcohol Use Standard Drinks/Week Comments No 0 (1 standard drink = 0.6 oz pur e alcohol) Sex and Gender Information Value Date Recorded Sex Assigned at Not on file Legal Sex Male 5:36 AM EST Gender Identity Not on file Sexual Orientation Not on file documented as of this encounter Ordered Prescriptions Prescription Sig Dispense Quantity Refills Last Filled Start Date End Date silver sulfADIAZINE (Silvadene) 1 % cream Apply topically 1 (one) time each day. 50 g 02/01/2025 cephalexin (KEFLEX) 500 mg capsule Take 1 capsule (500 mg total) by mouth 3 (three) times a day for 10 days. 30 each 02/01/2025 5 documented in this encounter Progress Notes * Ti Van DPM - 02/01/2025 8:15 AM EDT Leave bandage and clean dry intact out tomorrow take off and shower For warm water soaks for 10 to 15 minutes Apply ointment and change bandage daily Follow-up in 2 weeks * Ti Van DPM - 02/01/2025 8:15 AM EDT Last PCP visit:Referring MD: Name, MD Lew IDENTIFIER: Az is a 64 y.o. year old male who presents for consultation. CC: Foot pain HPI: Az is a 64 y.o. year old male presents complaining of recurring embedded toenail right great toe notes that he had the nail removed previously by outside motion study technician states that the pain still present the nail is grown back he has his pain chronic achy gets recurring infections of his right great toe inner border reports a type II diabetic nurse occasional numbness and tingling to his feet ROS: GENERAL: Pt denies nausea, fever, vomiting, chills, or shortness of breath. Pt in NAD. CARDIOLOGY: pt denies chest pain, palpitations LUNGS: pt denies shortness of breath MUSCULOSKELETAL: See HPI, otherwise no joint pain or swelling, back pain, or muscle pain. SKIN: see HPI, otherwise no lesions, rash or itching NEURO: No persistent headache, weakness or numbness The remainder of the review of systems is noncontributory PAST MEDICAL HISTORY: There is no problem list on file for this patient. SOCIAL HISTORY: Social History Tobacco Use Smoking status: Former Smokeless tobacco: Never Substance Use Topics Alcohol use: No ACTIVE MEDICATIONS: Outpatient Medications Marked as Taking for the 02/01/25 encounter (Consult) with Ti Van DPM Medication Sig Dispense Refill amitriptyline (ELAVIL) 25 mg tablet Take 1 tablet (25 mg total) by mouth at bedtime. aspirin 81 mg tablet Take 81 mg by mouth. brexpiprazole (Rexulti) 2 mg tablet take 1 tablet by oral route daily at bedtime buPROPion XL (WELLBUTRIN XL) 300 mg 24 hr tablet Take 1 tablet (300 mg total) by mouth 1 (one) timeeach day in the morning. celecoxib (CeleBREX) 100 mg capsule Take 1 capsule (100 mg total) by mouth daily. cholecalciferol (VITAMIN D-3) 25 mcg (1,000 unit) tablet Take 1 tablet (1,000 Units total) by mouth1 (one) time each day. clonazePAM (KlonoPIN) 0.5 mg tablet Take 0.5 tablets (0.25 mg total) by mouth. diclofenac (Voltaren Arthritis Pain) 1 % topical gel Apply once a day to the affected skin DULoxetine (CYMBALTA) [address] capsule Take 1 capsule (60 mg total) by mouth 1 (one) time each day in the morning. empagliflozin (JARDIANCE) 10 mg tablet Take 1 tablet (10 mg total) by mouth. gabapentin (NEURONTIN) 100 mg capsule Take 3 capsules (300 mg total) by mouth. glimepiride (AMARYL) 2 mg tablet Take 1 tablet (2 mg total) by mouth. HYDROmorphone (DILAUDID) 2 mg tablet 1-2 tabs po Q6h prn severe pain magnesium oxide (MAG-OX) 400 mg (241.3 elemental magnesium) tablet Take 1 tablet (400 mg total) by mouth. at bedtime. metFORMIN (GLUCOPHAGE) 500 mg tablet Take 1 tablet (500 mg total) by mouth. methocarbamoL (ROBAXIN) 750 mg tablet Take 2 tablets (1,500 mg total) by mouth. mirtazapine (REMERON) 30 mg tablet Take 1 tablet (30 mg total) by mouth daily. pravastatin (PRAVACHOL) 20 mg tablet Take 1 tablet (20 mg total) by mouth. QUEtiapine (SEROquel) 25 mg tablet take 1 tablet by oral route daily at bedtime ramelteon (ROZEREM) 8 mg tablet Take 1 tablet (8 mg total) by mouth daily. riboflavin (VITAMIN B2) 400 mg tablet Take 1 tablet (400 mg total) by mouth 1 (one) time each day. rivastigmine (EXELON) 4.6 mg/24 hour APPLY 1 PATCH TOPICALLY TO THE SKIN EVERY MORNING Trulicity 1.5 mg/0.5 mL pen injector injection 0.5 mL (1.5 mg total) 1 (one) time per week. ALLERGIES: No Known Allergies PHYSICAL EXAM: Visit Vitals Smoking Status Former PODIATRIC EXAMINATION: GENERAL: Patient appears well nourished, with NAD. VASCULAR: Dorsalis pedis pulses are 2/4 bilaterally and Posterior tibial pulses are 2/4 bilaterally. Capillary filling time within normal limits the digits. No pallor on elevation or rubor on dependency. No varicosities. Denies rest pain or claudication pain. NEUROLOGICAL: Sharp/dull sensation intact, protective sensation intact 10/10 with Ipswitch touch test bilaterally, vibratory sensation intact to the tibial tuberosity. ORTHOPEDIC: Good muscle strength 5/5 of all flexors and extensors. Dorsi flexion of ankle ,10 degrees, plantar flexion WNL. No muscle atrophy. DERMATOLOGICAL:.Embedded toenail right great toe medial border localized irritation of skin. BIOMECHANICS: Ankle ROM WNL, STJ ROM wnl, MTJ ROM wnl, 1st MPJ ROM wnl. IMAGING: IMPRESSION: 1. Ingrowing nail 2. Type 2 diabetes mellitus with diabetic neuropathy, unspecified (CMS/HCC V24, CMS/HCC V28) PLAN: Pt was seen and examined, history reviewed. Discussed with patient regarding proper glucose control, exercise, and diet. Explained to patient proper shoe gear, and importance of daily foot checks. I reviewed neuropathy and why it occurs in diabetics. I educated the patient on proper blood sugar control and the importance of an HgBA1c of less than 7.0%. I reviewed the signs and symptoms of neuropathy with the patient Keflex prescribed Silvadene prescribed Post procedure instructions given Minor surgical procedure of nail removal with matrixectomy was discussed and reviewed versus nail removal discussed with patient risks of nail procedure including scar tissue formation reoccurrence loss of more nail deformity cosmetic changes that are undesirable after lengthy discussion of risks patient states she like to pursue surgical procedure performed below Procedure 94651: Matrixectomy toenail medial border - T5 : informed consent was obtained from the patient. Partial avulsion with incision and drainage was performed on the toe. Sterile prep was performed. After the site was prepared with Ethyl Chloride spray, 3 ml of 1% Lidocaine was injected without difficulty. A curved hemostat and nail splitter was used to resect the border in a proximal to distal fashion. The nail was split down to the base of the eponychium and the nail was removed. The nail was noted to be pushing into the skin along the border, causing too much pressure against the skin. Phenol applications x 3 were applied followed by alcohol. DSD applied with topical antibiotic ointment. The patient was instructed on signs and symptoms of infection and what to look for, and was told to call and come in immediately should any problems and/or questions arise. Ti Van DPM documented in this encounter Plan of Treatment Upcoming Encounters Date Type Department Care Team ([facility] Contact Info) Description 02/19/2025 11:00 AM EDT Office Visit Orthopedic Surgery - [place] [address] [phone] Ti Van DPM [address] [phone] documented as of this encounter Visit Diagnoses Diagnosis Ingrowing nail- Primary Type 2 diabetes mellitus with diabetic neuropathy, unspecified (CMS/HCC V24, [facility] V28) Diabetic mononeuropathy simplex (CMS/HCC V24, CMS/HCC V28) Type II or unspecified type diabetes mellitus with neurological manifestations, not stated as uncontrolled documented in this encounter Historical Medications * This list may reflect changes made after this encounter. rivastigmine (EXELON) 4.6 mg/24 hour APPLY 1 PATCH TOPICALLY TO THE SKIN EVERY MORNING 10/02/2021 riboflavin (VITAMIN B2) 400 mg tablet Take 1 tablet (400 mg total) by mouth 1 (one) time each day. 12/26/2024 ramelteon (ROZEREM) 8 mg tablet Take 1 tablet (8 mg total) by mouth daily. QUEtiapine (SEROquel) 25 mg tablet take 1 tablet by oral route daily at bedtime 10/19/2017 pravastatin (PRAVACHOL) 20 mg tablet Take 1 tablet (20 mg total) by mouth. 12/14/2016 mirtazapine (REMERON) 30 mg tablet Take 1 tablet (30 mg total) by mouth daily. 11/06/2021 methocarbamoL (ROBAXIN) 750 mg tablet Take 2 tablets (1,500 mg total) by mouth. 04/03/2018 metFORMIN (GLUCOPHAGE) 500 mg tablet Take 1 tablet (500 mg total) by mouth. 04/15/2015 magnesium oxide (MAG-OX) 400 mg (241.3 elemental magnesium) tablet Take 1 tablet (400 mg total) by mouth. at bedtime. HYDROmorphone (DILAUDID) 2 mg tablet 1-2 tabs po Q6h prn severe pain 11/18/2021 glimepiride (AMARYL) 2 mg tablet Take 1 tablet (2 mg total) by mouth. 12/14/2016 gabapentin (NEURONTIN) 100 mg capsule Take 3 capsules (300 mg total) by mouth. 12/14/2016 empagliflozin (JARDIANCE) 10 mg tablet Take 1 tablet (10 mg total) by mouth. 04/03/2018 DULoxetine (CYMBALTA) [address] capsule Take 1 capsule (60 mg total) by mouth 1 (one) time each day in the morning. 10/25/2021 Trulicity 1.5 mg/0.5 mL pen injector injection 0.5 mL (1.5 mg total) 1 (one) time per week. diclofenac (Voltaren Arthritis Pain) 1 % topical gel Apply once a day to the affected skin 05/24/2014 clonazePAM (KlonoPIN) 0.5 mg tablet Take 0.5 tablets (0.25 mg total) by mouth. 07/14/2017 cholecalciferol (VITAMIN D-3) 25 mcg (1,000 unit) tablet Take 1 tablet (1,000 Units total) by mouth 1 (one) time each day. 01/18/2025 celecoxib (CeleBREX) 100 mg capsule Take 1 capsule (100 mg total) by mouth daily. buPROPion XL (WELLBUTRIN XL) 300 mg 24 hr tablet Take 1 tablet (300 mg total) by mouth 1 (one) time each day in the morning. 12/23/2024 brexpiprazole (Rexulti) 2 mg tablet take 1 tablet by oral route daily at bedtime aspirin 81 mg tablet Take 81 mg by mouth. 04/13/2017 amitriptyline (ELAVIL) 25 mg tablet Take 1 tablet (25 mg total) by mouth at bedtime. 07/14/2017 added in this encounter Orders Outpatient Referral Count Last Ordered Date Fir st Ordered Date AMB REFERRAL TO PODIATRY 1 02/01/2025 documented in this encounter Care Teams Manufacturing Lab Technician Relationship Specialty Start Date End Date Name, MD Lew [address] [place] [id number] PCP - General Internal Medicine 11/22/24 documented as of this encounter
--- NOTE | 2025-02-06 10:18 | A.OFFVIS_ITS ---
Vital Signs 02/06/25 10:19 Height 5 ft 5 in Weight 160 lb BMI 26.6 BP 120/70 Blood Pressure Location Lt brachial Position Sitting Pulse 58 Pulse Source Pulse Oximeter Pulse Oximetry (%) 99 Oxygen Delivery Method Room Air Intake Visit Reasons: Follow up Intake Note: Patient presents follow up Parkinson's Rn Prior Authorization Required: No Accompanied by: Self / Same As Patient Allergies No Known Allergies Allergy (Verified 07/31/24 14:41) Medication List - Last Reconciled 02/06/25 by ANDREW García aspirin 81 mg PO DAILY baclofen 5 - 10 mg (1 - 2 x 5 mg) PO BEDTIME 30 days bupropion HCl XL (Wellbutrin XL) 300 mg PO QAM cholecalciferol (vitamin D3) 1,250 mcg PO QWEEK 12 days clonazepam 1 mg PO DAILY dulaglutide (Trulicity) 1.5 mg subcut QWEEK duloxetine 60 mg PO BID food supplemt, lactose-reduced 237 oz orally daily; VANILLA 30 days gabapentin 600 mg PO TID magnesium oxide 400 mg PO BEDTIME 30 days pravastatin 20 mg PO DAILY quetiapine 50 mg PO BEDTIME 30 days riboflavin (vitamin B2) 400 mg PO DAILY 30 days rimegepant (Nurtec ODT) 75 mg PO ONCE PRN 30 days MDD 1 tab rivastigmine (Exelon Patch) 9.5 mg transdermal DAILY tadalafil (Cialis) 5 mg PO DAILY 90 days tadalafil (Cialis) 20 mg PO DAILY PRN tramadol 50 mg PO Q4H PRN 14 days MDD 3 tabs zolpidem (Ambien) 12.5 mg PO BEDTIME PRN HPI Comments Details: 64-yr-old male presents for f/u visit of Parkinson's. Pt's current PD medication regimen: He previously stopped carbidopa levodopa, ropinirole, and baclofen. He reports he has been having a different sharp headache that moves from the neck up the back of the head a/w eye pain at times, photophobia, phonophobia, cognitive difficulties. He states he feels that he cannot move his neck/head. Resting with his head supported helps some, but he cannot stay in this position for too long. This headache started after his c-spine repair, initialy was a squeezing neck pain and loss of richard hand sensation s/p surgical repair of severe cervical cord compression by Dr Miller. He states that the Tramadol q 8 hours does not always help. This headache does not respond to the Nurtec, like his bi- fronatl/temporal headache does. He states he is not having his other bifrontal/temporal headache as often, and gain it responds to as-needed Nurtec. Baseline characteristics: bilateral temporal hard sharp pain, a/w eye pain, photophobia, phonophobia, cognitive difficulties. Uses Tylenol prn- which does not help. ADL's: Needs assist w/ ADLs, but needs help with buttons, zippers- again as he cannot feel in his hands. Swallowing: Can choke on water or food at times, even if eating/drinking slowly. Drooling: Prone to drooling Orthostatic lightheadedness: occasional, but standing up slowly helps. May use Tylenol for this. GI/: rare urinary incontinence. Freezing: occasionally one side does not work Stiffness: some stiffness, his feet feel heavy/stiffness/cramps in the morning- taking a few steps loosens them up. Tremor: sometimes in his hands or legs or head- more so if anxious Falls: Has fallen out of bed twice- he is unsure what caused this. He had another fall where he tripped on something on the floor. Hallucinations: can have hallucinations, sees a mosquito or a person passing by- not reduced since previously stopping requip. Memory: memory is good, but may forget where he put things and has more difficulty recalling later on like he used to be able to. or may lose his train of thought. some difficultoies with name recall. He thinks he needs something to help him concentrate Sleep: Reports he is not sleeping as well- now no more than 3 hours a night. Compliant with ambien (per psychiatry) and quetiapine 50mg. Has tried adding benadryl 2 caps- but this has not helped his sleep. Mood: Notes increased stress related to his 's recent health issues. Exercise: Son plans to start bringing him to the gym on a regular basis, partly to give patient a break form helping with his . [facility] Medical History Parkinson's disease Anxiety Diabetes Surgical History H/O colonoscopy Family History Mother Hyperlipidemia Cancer Thyroid disease High cholesterol Social History Household Members: Spouse Patient Tobacco Use Status: Current everyday Tobacco user service: No Current occupational status: retired Physical Exam Vital Signs: Last Vital Signs Pulse 58 02/06/25 10:19 BP 120/70 02/06/25 10:19 Pulse Ox 99 02/06/25 10:19 Oxygen Delivery Method Room Air 02/06/25 10:19 BMI result Body Mass Index 26.6 Const General: cooperative and no acute distress Resp Effort & Inspection: normal respiratory effort and able to speak in complete sentences Neuro Other: General: A&O x's 3 Expression: Intact Voice: Ok Diffuse bilateral occipital tenderness Bilateral posterior cervical tightness and tenderness Cervical ROM: limited Tremor: Mild postural tremor Tone: BUE tone Dyskinesia: None FFM: Mildly decreased on left Foot taps: Mildly decreased on left Gait: No arm swing, steps shorter with lower floor clearance, steady gait Psych: Pleasant affect Assessment & Plan Assessment & Plan (1) Parkinson's disease without dyskinesia: Code(s): G20.A1 - Parkinson's disease without dyskinesia, without mention of fluctuations Category: Medical Qualifiers: Fluctuating manifestations: without fluctuating manifestations Qualified Code(s): G20.A1 - Parkinson's disease without dyskinesia, without mention of fluctuations (2) Cervicalgia: Code(s): M54.2 - Cervicalgia Category: Medical (3) Migraine without aura: Code(s): G43.009 - Migraine without aura, not intractable, without status migrainosus Category: Medical Qualifiers: Status migrainosus presence: without status migrainosus Intractability: not intractable Qualified Code(s): G43.009 - Migraine without aura, not intractable, without status migrainosus (4) Occipital headache: Code(s): R51.9 - Headache, unspecified Category: Medical Plan For occipital headache and cervicalgia: Retrial baclofen 5-10 mg daily at bedtime, and may take extra 5 mg per day as needed for neck tightness/muscle spasm. * Advised baclofen may help with sleep as well. XR C-spine with flexion and extension Home PT eval and treat, patient is homebound due to gait difficulties, cognitive difficulties, and requires assist of 1 to safely leave home. Check follow-up fasting labs Reviewed 08/17/2024, Brain MRI with and without contrast: No acute abnormalities. Nonspecific periventricular and subcortical pole white matter hyperintensities most consistent with microvascular ischemic changes. Continue prn Tramadol 50mg- sparingly-managed by pain management Continue Gabapentin 600mg tid F/u w/ pain management as planned. Previous trials- Amitriptyline- unclear why pt stopped- ? d/t lapse in pt's f/u here. For acute migraine type headache: * Continue Rimegepant ODT (Nurtec ODT) 75mg, 1 tab at onset of headache.. Max of 1 tabs (75mg) per 24 hours. May adjunct with OTC Tylenol 650mg q 4 hours, Ibuprofen 600mg q 6 hours, or Naproxen 440mg q 12 hrs prn. Do not take w/ Butalbital (Fioricet or Fiorinal). Potential adverse effects, include but are not limited to fatigue, nausea, dry mouth, constipation. Acute migraine treatment contraindications: All triptans and DHE due to uncontrolled hypertension. Migraine prevention treatment: * Continue riboflavin 400 mg daily in the morning * Continue magnesium oxide 400 mg daily at bedtime * Continue Gabapentin 600 mg t.i.d. For PD: Previous DaTscan- negative. Discussed that his cognitive symptoms are likely related to his exacerbation of sleep difficulties, which may be secondary to occipital headache, but also due to increased stress related to his 's change in health status. Continue Quetiapine, Bupropion, Cloazepam per psychiatry. F/u w/ psychiatry, Yan Magaña [employer]- per pt psychotherapy is not offered at [facility]. Start psychotherapy as advised- pt requests therapist who is not known to himself/family/jewish. We will continue to monitor Previous trials: Ropinirole likely cause impulsive behaviors. Carbidopa levodopa, was helpful, however patient is not interested in resuming it at this time. ? Will follow-up upon review of above and patient to follow-up in clinic in 6 months or sooner prn. Orders: Orders Complete Blood Count Auto Diff Today D64.9 - Anemia, unspecified, D69.6 - Thrombocytopenia, unspecified, E11.9 - Type 2 diabetes mellitus without complications, E55.9 - Vitamin D deficiency, unspecified Comprehensive [place]. Panel Fast Today D64.9 - Anemia, unspecified, D69.6 - Thrombocytopenia, unspecified, E11.9 - Type 2 diabetes mellitus without complications, E55.9 - Vitamin D deficiency, unspecified Ferritin Today D64.9 - Anemia, unspecified, D69.6 - Thrombocytopenia, unspecified, E11.9 - Type 2 diabetes mellitus without complications, E55.9 - Vitamin D deficiency, unspecified Magnesium Today D64.9 - Anemia, unspecified, D69.6 - Thrombocytopenia, unspecified, E11.9 - Type 2 diabetes mellitus without complications, E55.9 - Vitamin D deficiency, unspecified XR cervical spine w flex/ext Today M54.2 - Cervicalgia Homocysteine Today D64.9 - Anemia, unspecified, D69.6 - Thrombocytopenia, unspecified, E11.9 - Type 2 diabetes mellitus without complications, E55.9 - Vitamin D deficiency, unspecified Erythrocyte Sedimentation Rate Today D64.9 - Anemia, unspecified, D69.6 - Thrombocytopenia, unspecified, E11.9 - Type 2 diabetes mellitus without complications, E55.9 - Vitamin D deficiency, unspecified C Reactive Protein Today D64.9 - Anemia, unspecified, D69.6 - Thrombocytopenia, unspecified, E11.9 - Type 2 diabetes mellitus without complications, E55.9 - Vitamin D deficiency, unspecified Methylmalonic Acid Today D64.9 - Anemia, unspecified, D69.6 - Thrombocytopenia, unspecified, E11.9 - Type 2 diabetes mellitus without complications, E55.9 - Vitamin D deficiency, unspecified Vitamin B12 and Folate Today D64.9 - Anemia, unspecified, D69.6 - Thrombocytopenia, unspecified, E11.9 - Type 2 diabetes mellitus without complications, E55.9 - Vitamin D deficiency, unspecified Vitamin B1 Today D64.9 - Anemia, unspecified, D69.6 - Thrombocytopenia, unspecified, E11.9 - Type 2 diabetes mellitus without complications, E51.9 - Thiamine deficiency, unspecified, E55.9 - Vitamin D deficiency, unspecified Vitamin B6 Today D64.9 - Anemia, unspecified, D69.6 - Thrombocytopenia, unspecified, E11.9 - Type 2 diabetes mellitus without complications, E55.9 - Vi tamin D deficiency, unspecified Vitamin D 25-OH (D2 and D3) Today D64.9 - Anemia, unspecified, D69.6 - Thrombocytopenia, unspecified, E11.9 - Type 2 diabetes mellitus without complications, E55.9 - Vitamin D deficiency, unspecified IRON PROFILE Today D64.9 - Anemia, unspecified, D69.6 - Thrombocytopenia, unspecified, E11.9 - Type 2 diabetes mellitus without complications, E55.9 - Vitamin D deficiency, unspecified [facility]errals [facility] Referral G43.009 - Migraine without aura, not intractable, without status migrainosus, M54.2 - Cervicalgia, R51.9 - Headache, unspecified Medications: Changed From baclofen 5 mg PO TID 30 days 90 tabs 0RF To baclofen may take 1 extra tab per day prn muscle spasm 5 - 10 mg (1 - 2 x 5 mg) PO BEDTIME 90 tabs 2RF 30 days Refilled magnesium oxide 400 mg PO BEDTIME 30 tabs 11RF 30 days quetiapine 50 mg PO BEDTIME 30 tabs 6RF 30 days riboflavin (vitamin B2) 400 mg PO DAILY 30 tabs 11RF 30 days Coding Level of Care Code Est Pt Level 4 (36301) Diagnoses Parkinson's disease without dyskinesia or fluctuating manifestations G20.A1 Fluctuating manifestations: without fluctuating manifestations Cervicalgia M54.2 Migraine without aura and without status migrainosus, not intractable G43.009 Status migrainosus presence: without status migrainosus Intractability: not intractable Occipital headache R51.9
[2025-02-06 10:19] VITALS: BP 120/70; PULSE 58; O2SAT 99; BMI 26.6
--- OUTSIDE RECORDS SUMMARY | 2025-02-06 10:54 | XMS_ITS | Encounter Summary ---
Author Organization [employer] Address [address] [place] [address] [place] [address] Care Team Providers Care Day Porter Name Role Phone Name, Lew CAMPBELL Primary Care Provider [phone] Encounter Details Date Type Department Care Team (Late st Contact Info) Description [facility]08/2022 [facility] [employer] [address] [place], [place] [phone] Name, MD Lew [address] [place], [place] [phone] Social History Tobacco Use Types Packs/Day Years [...] Care Team (Late st Contact Info) Description 03/26/2025 9:00 AM EST Clinical Support [facility] MED[facility] [address] [place], [place] [phone] Luna Frey RN documented as of this encounter Visit Diagnoses Not on filedocumented in this encounter Additional Health Concerns Assessment Noted Time PHQ-9 Depression Total Score: 18 04/19/2 022 10:02 AM EST documented as of this encounter Care Teams Day Porter Relationship Specialty Start Date End Date Name, MD Lew [address] [place] [address] PCP - General Family Medicine 07/14/15 documented as of this encounter
--- OUTSIDE RECORDS SUMMARY | 2025-02-06 10:54 | XMS_ITS | Patient Health Record ---
Author Organization [facility] Address [address] [place] [phone] Care Team Providers Care Wool Fleece Grader Name Role Phone Name Lew CAMPBELL Primary Care Provider Bean Restrepo Unavailable [phone] Allergies No Known Allergies Reason For Referral [...] Problem Status W/U Status Risk Notes Problem 282838307 Colon cancer screening (Z12.11) Active confirmed Problem Diverticular disease of colon (229622258) Diverticulosis of large intestine without perforation or abscess without bleeding (K57.30) Active confirmed Problem 130548924 Long-term use of aspirin therapy (Z79.82) Active confirmed Plan Of Treatment Pending Test Test Name Order Date Pathology 03/14/2023 Future Test Test Name Order Date COLONOSCOPY 12/16/2022 Insurance Providers Payer Name Payer Address Payer Phone Subscriber Number Group Number Insured Name Patient Relationship to Insured Coverage Start Date Coverage End Date [facility] [address] Attn Claims KAYE Barton [id number] KASEY REGALADO Self - patient is the insured Medical (General) History Medical History History ICD Code Denies [place],DM,CVA,Lung disease,renal dise ase Parkinson's disease.....marleny hidalgo reports that he is now told that he does not have that as of the 12/2022 OV Mary Reports a negative colonoscopy at [facility] at approx. age 51 Surgical History Surgery Date(Month/Year)
--- OUTSIDE RECORDS SUMMARY | 2025-02-06 10:54 | XMS_ITS | Clinical Summary ---
Author Organization [employer] Address [address] [place] [address] Care Team Providers Care Office Equipment Technician Name Role Phone Name, Lew CAMPBELL Primary Care Provider [phone] Allergies No known active allergies Medications Brexpiprazole [...] bed time. Active amitriptyline (Elavil) 25 MG tabletIndicati ons:Type 2 diabetes, controlled, with neuropathy (HCC) TAKE 1 TABLET BY MOUTH EVERYDAY AT BEDTIME 90 tablet 1 05/28/19 23 Active zolpidem (Ambien) 10 MG tabletIndicati ons:Depressive disorder Take 1 tablet (10 mg) by mouth if needed at bedtime for sleep. 30 tablet 05/31/19 23 Active DULoxetine (Cymbalta) [address] capsuleIndicat ions:Depressiv e disorder TAKE 1 CAPSULE BY MOUTH IN THE MORNING. DO NOT CRUSH OR CHEW. 90 capsule 1 06/29/19 23 Active sildenafil (Viagra) 50 MG tablet Take 1 tablet (50 mg) by mouth if needed each day for erectile dysfunction. 10 tablet 09/01/19 23 Active mometasone (Elocon) 0.1 % ointmentIndica tions:Atopic dermatitis in adult Apply topically Once per day. 45 g 2 07/28/19 25 026 Active gabapentin (Neurontin) 600 MG tablet TAKE 1 TABLET BY MOUTH THREE TIMES DAILY 90 tablet 3 09/21/19 25 Active Aspirin Low Dose 81 MG EC tabletIndicati ons:History of myocardial infarction TAKE 1 TABLET BY MOUTH EVERY DAY 90 tablet 1 09/29/19 25 Active pravastatin (Pravachol) 20 MG tabletIndicati ons:Type 2 diabetes, controlled, with neuropathy (HCC) TAKE 1 TABLET BY MOUTH EVERY DAY AT BEDTIME 90 tablet 1 11/02/19 25 Active Dulaglutide (Trulicity) 1.5 MG/0.5ML solution auto-injectorI ndications:Typ e 2 diabetes, controlled, with neuropathy (HCC) Inject 1.5 mg under the skin 1 (one) time per week. 2 mL 2 11/22/19 25 Active traMADol (Ultram) 50 MG tabletIndicati ons:Chronic neck pain with history of cervical spinal surgery TAKE 1 TABLET BY MOUTH EVERY MORNING, NOON AND AT BEDTIME NEEDED FOR SEVERE PAIN 84 tablet 01/19/20 25 Active cholecalcifero l (Vitamin D3) 25 MCG (1000 UT) tablet TAKE 1 TABLET BY MOUTH EVERY DAY 90 tablet 1 01/19/20 25 Active naloxone (Narcan) 4 mg/0.1 mL nasal sprayIndicatio ns:Chronic neck pain with history of cervical spinal surgery Administer 1 spray (4 mg) into affected nostril(s) if needed for opioid reversal. May repeat every 2-3 minutes if needed, alternating nostrils, until medical assistance becomes available. 2 each 3 01/24/20 24 025 cholecalcifero l (Vitamin D3) 25 MCG (1000 UT) tablet TAKE 1 TABLET BY MOUTH EVERY DAY 90 tablet 1 09/21/19 25 025 Discontinued traMADol (Ultram) 50 MG tabletIndicati ons:Chronic neck pain with history of cervical spinal surgery TAKE 1 TABLET BY MOUTH EVERY MORNING, NOON AND BEDTIME NEEDED FOR SEVERE PAIN 84 tablet 08 025 Discontinued Active Problems Problem Noted Date Diagnosed Date Long-term current use of opiate analgesic 2024 Diverticular disease of colon 10/03/2024 Long-term use of aspirin therapy 10/03/2024 Encounter for current intermediate use of antiplate let drug 01/03/2023 Type 2 diabetes, controlled, with neuropathy 04/2022 Chronic neck pain with history of cervical spina l surgery 04/13/2022 Excessive sweating 04/13/2022 Spinal stenosis in cervical region 10/27/2021 Cervical cord compression with myelopathy ([facility]) 10/27/2021 Overview (01/03/2023): Last Assessment & Plan: Patient [...] incontinence 05/31/2017 History of myocardial infarction 09/17/2016 Recurrent major depression in partial remission 02/23/2016 Parkinsonism ([facility]/H[facility]) 05/24/2014 Anxiety 05/24/2014 Type 2 diabetes mellitus, [...] Overview (01/03/2023): ED/ Neuropathy Fatty liver 04/27/2011 Depression 06/20/2009 Overview (01/03/2023): Follow with Dr [place] Hypertriglyceridemia 06/20/2009 Resolved Problems Problem Noted Date Diagnosed Date Resolved Date Colon cancer screening 01/03/202311/21 Congestive heart failure 01/03/2023 Type 2 diabetes, diet controlled 04/13/2022 04/19/2022 Weight loss 04/13/2022 07/14/2022 Candidal balanitis 05/31/2017 3 Diabetic polyneuropathy 02/17/2017 082 12/2022 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 07/14/2022 Injury of kidney 09/17/2016 07/14/2022 Hypotension 07/05/2016 11/21/2024 Type 2 diabetes mellitus without complication 09/22/19 16 11/21/2024 Diabetes mellitus type 2 in obese 07/14/2015 04/19/2022 Diabetes mellitus type 2, uncontrolled 04/15/2015 11/21/2024 Neuropathy 01/17/2013 01/03/2023 Overview (01/03/2023): Bilat feet Obese 10/26/2010 11/21/2024 Other anterior pituitary disorders 07/01/2008 01/03/2023 Encounters Date Type Department Care Team Description 01/17/2025 Refill [facility] MED[facility]INE [address] [place] [address] Lew Malcolm MD Chronic neck pain with history of cervical spinal surgery 12/27/2024 9:30 AM EDT Clinical Support [facility] MEDICINE [address] [place] [phone] Luna Frey RN Long-term current use of opiate analgesic (Primary Dx) 12/27/[address] [address] Luna Frey, RN SUPERVISOR AREA Agreement renewed today; Forgot Tramadol 12/27/2024 Travel 12/11/2024 Refill [facility] [place] [address] Lew Malcolm MD Chronic neck pain with history of cervical spinal surgery 11/21/2024 11:30 AM EDT Office Visit [facility]INE [address] [place] [phone] Lew Malcolm MD Type 2 diabetes, controlled, with neuropathy ([facility]) (Primary Dx) 11/21/2024 Travel 11/20/2024 Telephone [facility] MED[facility]INE [address] [place] [phone] Lew Malcolm MD Chart Prep 11/08/[address] [address] Lew Malcolm MD Durable Medical Equipment from Last 3 Months Immunizations Immunization Administration Dates Next Due Influenza injectable quadriv alent IIV4 with preservative 02/15/2018,02/17/2017,02/23/2016 Influenza injectable quadriv alent preservative free 04/20/2023,03/10/2022,05/28/2021,02/25,01/31/2019 Influenza, IIV3, injectable 05/28/2021,1 ,01/31/2019,02/15,02/17/2017,02/23/2016,04/15/2015 ,02/06/2014,02/01/2012,04/27/2011,01/2009 Influenza, Unspecified 02/06/2014,02/01/2012, Influenza, seasonal, injecta ble, preservative free 02/13/2024 Influenza, trivalent, adjuvanted 04/15/2015,01/2009 Moderna Covid-19 Vaccine 12+ 05/28/2021,08/14/19 21,07/16/2020 Moderna Covid-19 Vaccine 6+ Bivalent 07/14/2022 Novel [id number], preservative-free 06/20/2009 PPD Test 02/05/2004 Pneumococcal Conjugate [...] your housing situation today? I have judit mick 11/21/[address] you li ve. Do you have problems with any of the following? None of the above 11/21/2024 Food Insecurity Answer Date Recorded Within the past 12 months, y ou worried that your food would run out before you got money to buy more: Never True 11/21/2024 Within the past 12 months,th e food you bought just didn't last and you didn't have enough money to get more: Never True Transportation Answer Date Recorded In the past 12 months, has l ack of transportation kept you from medical appts, meetings, work or from getting things needed for daily living? I am not sure 11/21/2024 Utilities Answer Date Recorded In the past 12 months, has t he electric, gas, oil or water company threatened to shut off services in your home? I am not sure 11/21/2024 Depression Answer Date Recorded Patient Health Questionnaire-2 Score 3 08/19/2023 Internet Access Answer Date Recorded Internet Access Q1 Yes 11/21/2024 Internet Access Q2 Not on file 11/21/2024 Sex and Gender Information Value Date Recorded Sex Assigned at Male 03/08/2022 10:29 AM EDT Legal Sex Male 10:29 AM EDT Gender Identity Male 03/08/2022 10:29 AM EDT Sexual Orientation Straight 03/08/2022 10 :29 AM EDT Last Filed Vital Signs Vital Sign Reading Time Taken Comments Blood Pressure 126/58 11/21/2024 11:44 AM EDT Pulse 63 11/21/2024 11:44 AM EDT Temperature 36.7 C (98.1 F) 11/21/2024 11:44 AM EDT Respiratory Rate 18 11/21/2024 11:44 AM EDT Oxygen Saturation 96% 11/21/2024 11:44 AM EDT Inhaled Oxygen Concentration - - Weight 70.4 kg (155 lb 3.2 oz) 11/21/2024 11:44 AM EDT Height 165.1 cm (5' 5 ) 11/21/2024 11:44 AM EDT Body Mass Index 25.83 11/21/2024 11:44 AM EDT Plan of Treatment Upcoming Encounters Date Type Department Care Team (Late st Contact Info) Description 03/26/2025 9:00 AM EST Clinical Support [address] [phone] Luna Frey, ROSEMARY Health Maintenance Due Date Last Done Comments [...] - Risk 60-74 years 1-dose series) 2021 Depression Screening 08/18/2024 08/19/2023, 08/19/19 Diabetes: Foot Exam 08/18/2024 08/19/2023, 08/19/2023, 08/19/2023, Additional history exists Eye Exam 11/02/2024 11/02/2022, 05/0 10/2012, 09/10/2011 COVID-19 Vaccine ( season) 2025 07/14/2022, 05/28/2021, 08/13/2020, Additional history exists Influenza Vaccine (#1) 2025 , 04/20/2023, 03/10/2022, Additional history exists Diabetes: Urine Protein Screening 02/13/2025 02/14/2024, 07/14/2022 Lipid Panel 02/13/2025 02/14/2024, 03/0 12/2022, 02/26/2020 Diabetes: Hemoglobin A1C 05/24/2025 025, 07/04/2024, 02/13/2024, Additional history exists Disability Screening 07/26/2025 07/26/2024 Alcohol/Substance Use Screening 11/21/2025 11/21/2024 SDOH Screening 11/21/2025 11/21/2024 Tobacco Screening 11/21/2025 11/21/2024 Colonoscopy 03/28/2028 03/28/2023, 02/03/2012 Colorectal Cancer Screening 03/28/2028 DTaP/Tdap/Td Vaccines (3 - Td or Tdap) 03/10/2032 03/10/2022, 06/17/2008 Pneumococcal Vaccine: 50+ Years Completed 01/03/2023, 07/17/2008 HIV Screening Completed 08/09/2024, 10/21/2020 HIB Vaccines [...] Name Priority Date/Time Associated Diagnosis Comments POCT ZEHRA-14 URINE DRUG SCREEN Routine 12/27/2024 9:46 AM EDT Long-term current use of opiate analgesic POCT GLYCATED HEMOGLOBIN, TOTAL Routine 11/21/2024 11:51 AM EDT Type 2 diabetes, controlled, with neuropathy (CMS/HCC) POCT GLUCOSE Routine 11/21/2024 11:51 AM EDT Type 2 diabetes, controlled, with neuropathy (CMS/HCC) HIV 1/2 ANTIGEN/ANTIBODY, FOURTH GENERATION W/RFL Routine 08/09/2024 9:44 AM EDT ALBUMIN, RANDOM URINE W/CREATININE Routine 02/14/2024 9:45 [...] Recently Relevant to Health Maintenance Results * POCT ZEHRA-14 Urine Drug Screen (12/27/2024 9:46 AM EDT) THC Positive Negative Cocaine Screen, Urine Negative Negative Opiate Screen, Urine Negative Negative Methamphetamine Screen Urine Negative Negative Amphetamine Screen, Urine Negative Negative Benzodiazepines Screen, Urine Negative Negative Barbiturate Screen, Urine Negative Negative Methadone Screen, Urine Negative Negative Buprenophine Screen, Urine Negative Negative TCA, Urine Negative Negative MDMA Urine Negative Negative ng/mL Oxycodone Screen, Urine Negative Negative Phencyclidine (PCP), Urine Negative Negative Propoxyphene, Urine Negative Negative Fentanyl, Urine Negative Negative Urine Urine specimen obtained by clean catch procedure / Unknown 12/27/2024 9:46 AM EDT Narrative Luna Frey RN - 12/27/2024 9:46 AM EDT UTOX cup Lot#[id number] Exp. 02/12/26 Internal Pass Control us Lew Malcolm MD POINT OF CARE TEST ENTER/EDIT OR DERABLES Final Result * POCT HGB A1C (11/21/2024 11:51 AM EDT) Pathologist [facility] Hemoglobin A1C 5.7 4.0 - 5.7 % QC Media Lot # [id number] Lot# Expiration Date Blood 11/21/2024 11:5 1 AM EDT us Lew Malcolm MD POINT OF CARE TEST ENTER/EDIT OR DERABLES Final Result * POCT Glucose (11/21/2024 11:51 AM EDT) Pathologist [facility] Glucose Blood, POC 130 60 - 200 mg/dL QC Media Lot # [id number] Lot# Expiration Date 025 Blood Capillary blood specimen / Unknown 11/21/2024 11:51 AM EDT Lew Malcolm MD POINT OF CARE TEST ENTER/EDIT OR DERABLES Final Result * HIV-1/2 Antigen and Antibodies, Fourth Generation, with Reflexes (08/09/2024 9:44 AM EDT) Pathologist [facility] HIV AB/AG Nonreactive Nonreactive [facility] Comment:HIV-1 p24 Ag and/or HIV-1/HIV-2 Ab not detected.A test result that is nonreactive does not exclude thepossibility of exposure to or infection with HIV-1 and/orHIV-2. Nonreactive results in this assay for individualswith prior exposure to HIV-1 and/or HIV-2 may be due toantigen and antibody levels that are below the limit ofdetection of this assay.The [employer]US[employer] Alinity HIV Ag/Ab Combo assay result andsupplemental assay results should be interpreted inconjunction with the patient's clinical presentation,history and other laboratory results. If the results areinconsistent with clinical evidence, additional testing issuggested to confirm the result. 08/09/2024 9:44 AM EDT 08/09/2024 9:45 AM EDT us Generic External Data Provider LAB BLOOD ORDERAB LES Final Result Performing Organization Address [facility] Co de Phone Number [facility] [address] [place] [phone] * Albumin, Random Urine W/Creatinine (02/14/2024 9:45 AM EDT) Creatinine, Urine 35.56 mg/dL [facility] Microalbumin Urine 6.0 mg/L [facility] Microalbum Creatinine Ratio Ur 16.8 <30 ug/mg cr [facility] Comment:Albumin/Creatinine R atio Reference Ranges: Normal: < 30 ug/mg creatinine Microalbuminuria: 30 - 300 ug/mg creatinineClinical Albuminuria: > 300 ug/mg creatinine Urine (Urine, Random) 02/14/2024 9:45 AM EDT 02/14/2024 11:23 AM EDT Lew Malcolm MD LAB URINE ORDERABLES Final Resul t Performing Organization Address [facility] Co de Phone Number [facility] [address] [place] [phone] * (ABNORMAL) Lipid Panel, Standard (02/14/2024 9:43 AM EDT) Triglycerides 122 <150 mg/dL [facility] Comment:Desirable Triglyceri de: less than 150 mg/dLBorderline High Triglyceride 150-199 mg/dLHigh Triglyceride: 200-499 mg/dLVery High Triglyceride: greater than or equal to 5OO mg/dL Cholesterol 93 <200 mg/dL [facility] Comment:Desirable Cholestero l: less than 200 mg/dLBorderline High Cholesterol: 200-239 mg/dLHigh Cholesterol: greater than 239 mg/dL LDL Cholesterol Calculated 41 <100 mg/dL [facility] Comment:Desirable LDL: less than 100 mg/dLNear Optimal/Above Optimal LDL: 110- 129 mg/dLBorderline High LDL: 130-159 mg/dLHigh LDL: 160-189 mg/dLVery High LDL: greater than or equal to 190 mg/dL HDL Cholesterol 28(L) >40 mg/dL [facility] Comment:Desirable HDL: great er than 40 mg/dL Note: This HDL assay may give artificially low results in patients with liver disease. Blood Venous blood specimen / Unknown 02/14/2024 9:43 AM EDT 02/14/2024 11:26 AM EDT us Lew Malcolm MD LAB BLOOD ORDERABLES Final Resul t [facility] [address] [place] [phone] * Colonoscopy (03/28/2023) Colonoscopy Normal Normal Comment:repeat in 5 years us Lew Malcolm MD HEALTH MAINTENANCE Final Result from Last 3 Months or Most Recently Relevant to Health Maintenance Insurance [facility] ONE CARE < 65 Care Teams Office Equipment Technician Relationship Specialty Start Date End Date Name, MD Lew [address] [place] [phone] PCP - General Family Medicine 07/14/15
--- OUTSIDE RECORDS SUMMARY | 2025-02-06 10:54 | XMS_ITS | Encounter Summary ---
Author Organization [facility] [employer] [facility] Address [address] [facility] [facility] [address] [place] [address] Care Team Providers Care Hot Metal Crane Operator Name Role Phone Name, Lew CAMPBELL Primary Care Provider [phone] Encounter Details Date Type Department Care Team (Latest Contact Info) Description 03/26/2019 Abstract [facility] CONVERSIONS Dental, Provider, DDS Social History Tobacco [...] Upcoming Encounters Date Type Department Care Team ( st Contact Info) Description 03/26/2025 9:00 AM EST Clinical Support [facility] MEDICINE [address] [place] [address] Luna Frey, RN documented as of this encounter Visit Diagnoses Not on filedocumented in this encounter Care Teams Hot Metal Crane Operator Relationship Specialty Start Date End Date Name, MD Lew [address] [place] [address] PCP - General Family Medicine 07/14/15 documented as of this encounter
--- OUTSIDE RECORDS SUMMARY | 2025-02-06 10:54 | XMS_ITS | Clinical Summary ---
Author Organization [facility] Address [address] [place] [address] Phone Care Team Providers Care Guest Relation Officer Name Role Phone Name, Lew CAMPBELL Primary Care Provider [phone] Allergies No known active allergies Medications amitriptyline (ELAVIL) 25 mg tablet Take 1 tablet (25 mg total) by mouth at bedtime. 8 Active aspirin 81 mg tablet Take 81 mg by mouth. 7 Active brexpiprazole (Rexulti) 2 mg tablet take 1 tablet by oral route daily at bedtime Active buPROPion XL (WELLBUTRIN XL) 300 mg 24 hr tablet Take 1 tablet (300 mg total) by mouth 1 (one) time each day in the morning. 5 Active celecoxib (CeleBREX) 100 mg capsule Take 1 capsule (100 mg total) by mouth daily. Active cholecalciferol (VITAMIN D-3) 25 mcg (1,000 unit) tablet Take 1 tablet (1,000 Units total) by mouth 1 (one) time each day. 5 Active clonazePAM (KlonoPIN) 0.5 mg tablet Take 0.5 tablets (0.25 mg total) by mouth. 8 Active diclofenac (Voltaren Arthritis Pain) 1 % topical gel Apply once a day to the affected skin 5 Active Trulicity 1.5 mg/0.5 mL pen injector injection 0.5 mL (1.5 mg total) 1 (one) time per week. Active DULoxetine (CYMBALTA) [address] capsule Take 1 capsule (60 mg total) by mouth 1 (one) time each day in the morning. 2 Active empagliflozin (JARDIANCE) 10 mg tablet Take 1 tablet (10 mg total) by mouth. 8 Active gabapentin (NEURONTIN) 100 mg capsule Take 3 capsules (300 mg total) by mouth. 7 Active glimepiride (AMARYL) 2 mg tablet Take 1 tablet (2 mg total) by mouth. 7 Active HYDROmorphone (DILAUDID) 2 mg tablet 1-2 tabs po Q6h prn severe pain 2 Active magnesium oxide (MAG-OX) 400 mg (241.3 elemental magnesium) tablet Take 1 tablet (400 mg total) by mouth. at bedtime. Active metFORMIN (GLUCOPHAGE) 500 mg tablet Take 1 tablet (500 mg total) by mouth. 5 Active methocarbamoL (ROBAXIN) 750 mg tablet Take 2 tablets (1,500 mg total) by mouth. 8 Active mirtazapine (REMERON) 30 mg tablet Take 1 tablet (30 mg total) by mouth daily. 2 Active pravastatin (PRAVACHOL) 20 mg tablet Take 1 tablet (20 mg total) by mouth. 7 Active QUEtiapine (SEROquel) 25 mg tablet take 1 tablet by oral route daily at bedtime 8 Active ramelteon (ROZEREM) 8 mg tablet Take 1 tablet (8 mg total) by mouth daily. Active riboflavin (VITAMIN B2) 400 mg tablet Take 1 tablet (400 mg total) by mouth 1 (one) time each day. 5 Active rivastigmine (EXELON) 4.6 mg/24 hour APPLY 1 PATCH TOPICALLY TO THE SKIN EVERY MORNING 2 Active cephalexin (KEFLEX) 500 mg capsule Take 1 capsule (500 mg total) by mouth 3 (three) times a day for 10 days. 30 each 5 02/12/20 25 Active silver sulfADIAZINE (Silvadene) 1 % cream Apply topically 1 (one) time each day. 50 g 5 02/02/20 26 Active Encounters Date Type Department Care Team Description 02/01/2025 8:15 AM EDT Consult Orthopedic Surgery - [address] [phone] Ti Van, DPM Ingrowing nail (Primary Dx); Type 2 diabetes mellitus with diabetic neuropathy, unspecified ([facility] V24, [facility] V28); Diabetic mononeuropathy simplex ([facility] V24, [facility] V28) from Last 3 Months Surgical History Surgery Date Site/Laterality Comments CHOLECYSTECTOMY 2002 PROCEDURE: LAPAROSCOPY, CHOLECYSTECTOMY; COMMENT: Sukumar ESOPHAGOGASTRODUODENOSCOPY 2002 PROCEDURE: ND EGD TRANSORAL BIOPSY SINGLE/MULTIPLE; COMMENT: duodenal ulcers; CLOtest negative, no H. pylori COLONOSCOPY 02/03/2012 PROCEDURE: ND COLONOSCOPY FLX DX W/COLLJ SPEC WHEN PFRMD; [...] Brother 1 Heart attack Brother 1 1st [place] at age 4 2 Diabetes Brother 2 [...] 11/20/2021 1:03 PM EDT Plan of Treatment Upcoming Encounters Date Type Department Care Team ([facility] st Contact Info) Description 02/19/2025 11:00 AM EDT Office Visit Orthopedic Surgery - [place] [address] [phone] Ti Van, DPVeronica [address] [address] Health Maintenance Due Date Last Done Comments Colorectal Cancer Screening: Colonoscopy 1961 Diabetes: Annual GFR (Glomerular Filtration Rate) 1961 Diabetes: Annual Foot Exam 1971 Diabetes: Annual Retina Eye Exam 1971 Hepatitis A Vaccines (1 of 2 - Risk 2-dose series) 1980 Zoster Vaccines (2 of 2) 07/07/2018 05/12/2018 Hepatitis B Vaccines (1 of 3 - Risk 3-dose series) 2021 RSV Immunization Adult Patients (1 - Risk 60-74 years 1-dose series) 2021 Diabetes: Annual Urine Albumin-Creatinine Ratio (uACR) 04/18/2022 Hepatitis C Screening 04/18/2022 Medicare Annual Wellness Visit 04/18/2022 Social Influencers of Health Screening 04/18/2022 Depression Screening 05/09/2024 COVID-19 Vaccine ( season) 2025 07/14/2022, 05/28/2021, 08/13/2020, Additional history exists Influenza Vaccine (#1) 2025 , 04/20/2023, 03/10/2022, Additional history exists Hypertension/CHF/CAD Annual BMP Blood Test 02/01/2025 Diabetes: Blood Sugar Control Test (HGBA1C) 05/24/2025 11/21/2024 Cholesterol Screening (Lipid Panel) 02/13/2029 02/14/2024 DTaP,Tdap,and Td Vaccines (3 - Td or Tdap) 03/10/2032 03/10/2022, 06/17/2008 Pneumococcal Vaccine: 50+ Years Completed 01/03/2023, 07/17/2008 HIV Screening Completed 08/09/2024 HIB Vaccines Aged Out No longer eligi [...] on patient's age to complete this topic Insurance [facility] MEDICARE Member Subscriber Plan / Payer (Ef fective 2018-Present) Name:VALENTÍN BERNARDO Relation to Subscriber:Self Name:Valentín Bernardo Payer ID:[id number] Group ID:[id number] Type:Not on file Address: [place] [address] [address] [id number] Advance Directives Documents on File Type Date Recorded Patient Director Of Operations Home Health Expl anation Health Care Decision (hx) 09/14/2021 AD SARGENT DIRECTIVE Health Care Decision (hx) 09/14/2021 AD SARGENT DIRECTIVE Health Care Decision (hx) 09/14/2021 AD SARGNET DIRECTIVE Care Teams Guest Relation Officer Relationship Specialty Start Date End Date Name, MD Lew [address] [place] [address] PCP - General Internal Medicine 11/22/24
--- OUTSIDE RECORDS SUMMARY | 2025-02-06 10:54 | XMS_ITS | Encounter Summary ---
Author Organization [employer] [facility] Address [address] [place] [address] [address] [place] [address] Care Team Providers Care Government Services Professional Name Role Phone Name, Lew CAMPBELL Primary Care Provider [phone] Reason for Visit * Reason Comments Med Refill Encounter Details Date Type Department Care Team (Late Contact Info) Description 01/05/2023 Refill [facility] [address] [place] [address] [phone] Name, MD Lew [address] [place] [address] [phone] Social History Tobacco Use Types Packs/Day Years [...] Description 03/26/2025 9:00 AM EST Clinical Support [facility] [address] [place] [address] [phone] Luna Frey RN documented as of this encounter Visit Diagnoses Not on filedocumented in this encounter Additional Health Concerns Assessment Noted Time PHQ-9 Depression Total Score: 18 04/19/2 022 10:02 AM EST documented as of this encounter Care Teams Government Services Professional Relationship Specialty Start Date End Date Name, MD Lew [address] [place] [address] PCP - General Family Medicine 07/14/15 documented as of this encounter
--- OUTSIDE RECORDS SUMMARY | 2025-02-06 10:54 | XMS_ITS | Encounter Summary ---
Author Organization [employer] [facility] Address [address] [place] [address] [address] [place] [address] Care Team Providers Care Card Grader Name Role Phone Name, Lew CAMPBELL Primary Care Provider [phone] Reason for Visit * Reason Comments Med Refill Encounter Details Date Type Department Care Team (Late st Contact Info) Description 09/19/2022 Refill [facility] [address] [place] [address] [phone] Name, MD Lew [address] [place] [address] [phone] History of myocardial infarction Social History Tobacco [...] Description 03/26/2025 9:00 AM EST Clinical Support [facility] [address] [place] [phone] Luna Frey RN documented as of this encounter Visit Diagnoses Diagnosis History of myocardial infarction documented in this encounter Additional Health Concerns Assessment Noted Time PHQ-9 Depression Total Score: 18 04/19/2 022 10:02 AM EST documented as of this encounter Care Teams Card Grader Relationship Specialty Start Date End Date Name, MD Lew [address] [place] [address] PCP - General Family Medicine 07/14/15 documented as of this encounter
== END 2025-02-06 11:25 | disposition home or self-care (01) ==
LOC: HO.HSMS 09:53
PROVIDERS: PCP Internal Medicine Geriatric Medicine; Visit Provider Nurse Practitioner Family
DX: G20.A1 Parkinson's disease without dyskinesia, without mention of fluctuations (principal); M54.2 Cervicalgia; G43.009 Migraine without aura, not intractable, without status migrainosus; R51.9 Headache, unspecified
CPT/HCPCS: 99214

== ENCOUNTER → 2025-02-06 09:52 | Outpatient (BNVA) | payer OTHER, SELFPAY | PROVIDERS: PCP Internal Medicine Geriatric Medicine; Visit Provider Nurse Practitioner Family | DX: G20.A1 Parkinson's disease without dyskinesia, without mention of fluctuations (principal); G43.009 Migraine without aura, not intractable, without status migrainosus; M54.2 Cervicalgia; R51.9 Headache, unspecified | CPT/HCPCS: 99212 ==

== ENCOUNTER 2025-03-11 07:42 | Outpatient (REF) | payer OTHER, SELFPAY ==
--- OUTSIDE RECORDS SUMMARY | 2025-03-11 07:46 | XMS_ITS | Clinical Summary ---
Author Organization [facility] Address [address] [place] [address] Phone Care Team Providers Care Land Law Examiner Name Role Phone Name, Lew CAMPBELL Primary Care Provider [phone] Allergies No known active allergies Medications amitriptyline [...] TO THE SKIN EVERY MORNING 2 Active silver sulfADIAZINE (Silvadene) 1 % cream Apply topically 1 (one) time each day. 50 g 5 02/02/20 26 Active cephalexin (KEFLEX) 500 mg capsule Take 1 capsule (500 mg total) by mouth 3 (three) times a day for 10 days. 30 each 5 02/12/20 25 Encounters Date Type Department Care Team Description 02/19/2025 3:00 PM EDT - 02/19/2025 9:[address] [facility] [address] [place] [phone] Julian Barone MD Head injury, initial encounter (Primary Dx); Chronic bilateral low back pain, unspecified whether sciatica present Discharge Disposition: Left Against Medical Advice 02/19/2025 11:00 AM EDT Office Visit Orthopedic Surgery [facility] [address] [phone] Ti Van, DPM Ingrowing nail (Primary Dx); Diabetic mononeuropathy simplex ([facility] V24, [facility] V28); Dermatophytosis of nail 02/01/2025 8:15 AM EDT Consult Orthopedic Surgery [facility] [address] [phone] Ti Van, DPM Ingrowing nail (Primary Dx); Type 2 diabetes mellitus with diabetic neuropathy, unspecified (CMS/HCC V24, CMS/HCC V28); Diabetic mononeuropathy simplex (CMS/HCC V24, CMS/HCC V28) from Last 3 Months Surgical History Surgery Date Site/Laterality Comments CHOLECYSTECTOMY 2002 PROCEDURE: LAPAROSCOPY, CHOLECYSTECTOMY; COMMENT: Sukumar ESOPHAGOGASTRODUODENOSCOPY 2002 PROCEDURE: SC EGD TRANSORAL BIOPSY SINGLE/MULTIPLE; COMMENT: duodenal ulcers; CLOtest negative, no H. pylori COLONOSCOPY 02/03/2012 PROCEDURE: SC COLONOSCOPY FLX DX W/COLLJ SPEC WHEN PFRMD; [...] Brother 1 Heart attack Brother 1 1st VA at age 4 2 Diabetes Brother 2 [...] Sign Reading Time Taken Comments Blood Pressure 140/65 02/19/2025 3:55 PM EDT Pulse 62 02/19/2025 3:55 PM EDT Temperature 37.1 C (98.8 F) 02/19/2025 3:55 PM EDT Respiratory Rate 16 02/19/2025 3:55 PM EDT Oxygen Saturation 99% 02/19/2025 3:55 PM EDT Inhaled Oxygen Concentration - - Weight 70.3 kg (155 lb) 02/19/2025 3:55 PM EDT Height 165.1 cm (5' 5 ) 02/19/2025 3:55 PM EDT Body Mass Index 25.79 02/19/2025 3:55 PM EDT Plan of Treatment Upcoming Encounters Date Type Department Care Team (Late st Contact Info) Description 05/22/2025 8:30 AM EST Office Visit Orthopedic Surgery - [address] [phone] Ti Van, DPM [address] [place] [phone] Health Maintenance Due Date Last Done Comments Colorectal Cancer Screening: Colonoscopy 1961 Diabetes: Annual Foot Exam 1971 Diabetes: Annual Retina Eye Exam 1971 Hepatitis A Vaccines (1 of 2 - Risk 2-dose series) 1980 RSV Immunization Adult Patients (1 - Risk 50-74 years 1-dose series) 2011 Zoster Vaccines (2 of 2) 07/07/2018 05/12/2018 Hepatitis B Vaccines (1 of 3 - Risk 3-dose series) 2021 Diabetes: Annual Urine Albumin-Creatinine Ratio (uACR) 04/18/2022 Hepatitis C Screening 04/18/2022 Medicare Annual Wellness Visit 04/18/2022 Social Influencers of Health Screening 04/18/2022 Depression Screening 05/09/2024 COVID-19 Vaccine ( season) 2025 07/14/2022, 05/28/2021, 08/13/2020, Additional history exists Influenza Vaccine (#1) 2025 , 04/20/2023, 03/10/2022, Additional history exists Diabetes: Blood Sugar Control Test (HGBA1C) 05/24/2025 11/21/2024 Diabetes: Annual GFR (Glomerular Filtration Rate) 02/19/2026 02/19/2025 Hypertension/CHF/CAD Annual BMP Blood Test 02/19/2026 02/19/2025 Cholesterol Screening (Lipid Panel) 02/13/2029 02/14/2024 DTaP,Tdap,and [...] Procedure Name Priority Date/Time Associated Diagnosis Comments CT LUMBAR SPINE WO CONTRAST STAT 02/19/2025 7:[address] CERVICAL SPINE WO CONTRAST STAT 02/19/2025 7:[address] HEAD WO CONTRAST STAT 02/19/2025 7 :25 PM EDT CBC WITH AUTO DIFFERENTIAL STAT 02/19/2025 4:32 PM EDT MAGNESIUM STAT 02/19/2025 4:32 PM EDT BASIC METABOLIC PANEL STAT 02/19/2025 4:32 PM EDT CBC AND DIFFERENTIAL STAT 02/19/2025 4:32 PM EDT from Last 3 Months Results * CT Lumbar Spine wo Contrast (02/19/2025 7:25 PM EDT) Anatomical Region Laterality Modality Spine, L-spine Computed Tomogra phy 02/19/2025 8:20 PM EDT Impressions 02/19/2025 8:20 PM EDT Impression: 1. No CT evidence to suggest discitis/osteomyelitis. If further evaluation is clinically warranted, consider MRI, including gadolinium enhancement. 2. Minimal diffuse degenerative disc disease. This document has been electronically signed by: Gustavo Lopez MD on 02/19/2025 20:20:23 Narrative 02/19/2025 8:20 PM EDT INDICATION: Discitis, suspected or evaluation of Exam: Unenhanced CT lumbar spine with multiplanar reformats. Comparison: None. Findings: Osseous structures: Lumbar vertebral body heights and alignment are well-maintained. No lumbar vertebral fractures or traumatic malalignment. There is very slight vertebral body spurring. No destructive osseous lesions. No osseous resorption or CT evidence of discitis/osteomyelitis. Soft tissues: Intervertebral disc heights are well-maintained. No abnormal epidural or paraspinal soft tissues appreciated. Visualized visceral structures reveal no acute abnormalities. Procedure Note Gustavo Lopez MD - 02/19/2025 INDICATION: Discitis, suspected or evaluation of Exam: Unenhanced CT lumbar spine with multiplanar reformats. Comparison: None. Findings: Osseous structures: Lumbar vertebral body heights and alignment are well-maintained. No lumbar vertebral fractures or traumaticmalalignment. There is very slight vertebral body spurring. No destructive osseous lesions. No osseous resorption or CT evidence of discitis/osteomyelitis. Soft tissues: Intervertebral disc heights are well-maintained. Noabnormal epidural or paraspinal soft tissues appreciated. Visualized visceral structures reveal no acute abnormalities. IMPRESSION: Impression: 1. No CT evidence to suggest discitis/osteomyelitis. If furtherevaluation is clinically warranted, consider MRI, including gadolinium enhancement. 2. Minimal diffuse degenerative disc disease. This document has been electronically signed by: Gustavo Lopez MD on 02/19/2025 20:20:23 [facility] Gavino Barone MD IMG CT PROCEDURES Final Re sult * CT Cervical Spine wo Contrast (02/19/2025 7:25 PM EDT) Anatomical Region Laterality Modality Spine, C-spine Computed Tomogra phy 02/19/2025 8:24 PM EDT Impressions 02/19/2025 8:24 PM EDT Impression: 1. No cervical vertebral fracture or traumatic malalignment. 2. No definable CT evidence of discitis/osteomyelitis. If further evaluation is clinically warranted, consider MRI, including gadolinium enhanced imaging. This document has been electronically signed by: Gustavo Lopez MD on 02/19/2025 20:24:11 Narrative 02/19/2025 8:24 PM EDT INDICATION: Discitis, suspected or evaluation of CT cervical spine without contrast Comparison: None Findings: Normal limited view of the intracranial contents. Soft tissues of the neck reveal no abnormal epidural or paraspinal soft tissue. No gross CT evidence of discitis/osteomyelitis. Lung apices are normal. Normal vertebral body alignment. No fractures or dislocations. There has been prior posterior decompression at C4 and C5 levels. Degenerative disc changes are present, more significant C5-7. No definable CT evidence of discitis/osteomyelitis. Procedure Note Gustavo Lopez MD - 02/19/2025 INDICATION: Discitis, suspected or evaluation of CT cervical spine without contrast Comparison: None Findings: Normal limited view of the intracranial contents. Soft tissues of theneck reveal no abnormal epidural or paraspinal soft tissue. No gross CT evidence of discitis/osteomyelitis. Lung apices are normal. Normal vertebral body alignment. No fractures or dislocations. There has been prior posterior decompression at C4 and C5 levels. Degenerativedisc changes are present, more significant C5-7. No definable CT evidence of discitis/osteomyelitis. IMPRESSION: Impression: 1. No cervical vertebral fracture or traumatic malalignment. 2. No definable CT evidence of discitis/osteomyelitis. If further evaluation is clinically warranted, consider MRI, including gadolinium enhanced imaging. This document has been electronically signed by: Gustavo Lopez MD on 02/19/2025 20:24:11 Julian Barone MD [facility] CT PROCEDURES Final Re sult * CT Head wo Contrast (02/19/2025 7:25 PM EDT) Anatomical Region Laterality Modality Head and Neck Computed Tomogra phy 02/19/2025 8:17 PM EDT Impressions 02/19/2025 8:17 PM EDT Impression: 1. No acute intracranial abnormalities. This document has been electronically signed by: Gustavo Lopez MD on 02/19/2025 20:17:19 Narrative 02/19/2025 8:17 PM EDT INDICATION: OTHER CT head without contrast Comparison: None Findings: No intracranial mass, midline shift, hydrocephalus, or acute hemorrhage. No CT evidence of acute ischemia. Visualized paranasal sinuses and mastoid air cells reveal minimal debris within right sphenoid sinus.. Orbits unremarkable. No skull fracture Procedure Note Gustavo Lopez MD - 02/19/2025 INDICATION: OTHER CT head without contrast Comparison: None Findings: No intracranial mass, midline shift, hydrocephalus, or acute hemorrhage. No CT evidence of acute ischemia. Visualized paranasal sinuses and mastoid air cells reveal minimal debris within right sphenoid sinus.. Orbits unremarkable. No skull fracture IMPRESSION: Impression: 1. No acute intracranial abnormalities. This document has been electronically signed by: Gustavo Lopez MD on 02/19/2025 20:17:19 us Julian Barone MD IMG CT PROCEDURES Final Re sult * (ABNORMAL) CBC auto differential (02/19/2025 4:32 PM EDT) [facility] WBC 8.5 4.8 - 10.8 K/mcL LAB HEMETOLOGY METHOD 02/19/2025 5:08 PM EDT [facility] RBC 4.50 4.50 - 5.50 M/mcL LAB HEMETOLOGY METHOD 02/19/2025 5:08 PM EDT [facility] Hemoglobin 13.8 13.5 - 17.5 g/dL LAB HEMETOLOGY METHOD 02/19/2025 5:[facility] Hematocrit 42.1 42.0 - 54.0 % LAB HEMETOLOGY METHOD 02/19/2025 5:08 [facility] MCV 93.3 79.0 - 98.0 FL LAB HEMETOLOGY METHOD 02/19/2025 5:08 PM EDT [facility] MCH 30.6 27.0 - 32.0 pcg LAB HEMETOLOGY METHOD 02/19/2025 5:08 [facility] MCHC 32.8 32.0 - 37.0 g/dL LAB HEMETOLOGY METHOD 02/19/2025 5:08 [facility] RDW 13.4 11.0 - 15.0 % LAB HEMETOLOGY METHOD 02/19/2025 5:08 PM EDT [facility] Platelets 156 130 - 400 K/mcL LAB HEMETOLOGY METHOD 02/19/2025 5:08 [facility] MPV 11.2(H) 7.0 - 11.0 FL LAB HEMETOLOGY METHOD 02/19/2025 5:08 [facility] NRBC 0.0 <1.0 % LAB HEMETOLOGY METHOD 02/19/2025 5:08 PM EDT [facility] NRBC Absolute 0.00 <0.10 K/mcL LAB HEMETOLOGY METHOD 02/19/2025 5:08 PM EDT [facility] Neutrophils Relative 70.5 % LAB HEMETOLOGY METHOD 02/19/2025 5:08 PM [facility] Lymphocytes Relative 18.8 % LAB HEMETOLOGY METHOD 02/19/2025 5:[facility] Monocytes Relative 7.9 % LAB HEMETOLOGY METHOD 02/19/2025 5:08 PM [facility] Eosinophils Relative 2.4 % LAB HEMETOLOGY METHOD 02/19/2025 5:08 PM [facility] Basophils Relative 0.2 % LAB HEMETOLOGY METHOD 02/19/2025 5:08 PM [facility] Immature Granulocytes Relative 0.2 % LAB HEMETOLOGY METHOD 02/19/2025 5:08 PM [facility] Neutrophils Absolute 5.97 1.50 - 7.00 K/mcL LAB HEMETOLOGY METHOD 02/19/2025 5:08 PM [facility] Lymphocytes Absolute 1.59 1.00 - 5.00 K/mcL LAB HEMETOLOGY METHOD 02/19/2025 5:08 PM [facility] Monocytes Absolute 0.67 0.20 - 1.00 K/mcL LAB HEMETOLOGY METHOD 02/19/2025 5:08 PM [facility] Eosinophils Absolute 0.20 0.00 - 0.50 K/mcL LAB HEMETOLOGY METHOD 02/19/2025 5:08 PM [facility] Basophils Absolute 0.02 0.00 - 0.20 K/mcL LAB HEMETOLOGY METHOD 02/19/2025 5:08 PM [facility] Immature Granulocytes Absolute 0.02 0.00 - 0.03 K/mcL LAB HEMETOLOGY METHOD 02/19/2025 5:08 PM EDT [facility] Blood Venous blood specimen / Unknown Venipuncture / Unknown 02/19/2025 4:32 PM EDT 02/19/2025 5:02 PM EDT us Morgan Lewis MD LAB BLOOD ORDERABLES Final Resul t Performing Organization Address City/[facility]/ZIP Co de Phone Number [facility] [address] [place] [address], [place] [phone] * Magnesium (02/19/2025 4:32 PM EDT) Magnesium 2.4 1.9 - 2.6 mg/dL LAB CHEMISTRY METHOD 02/19/2025 5:31 PM EDT [facility] Blood Venous blood specimen / Unknown Venipuncture / Unknown 02/19/2025 4:32 PM EDT 02/19/2025 5:02 PM EDT us Morgan Lewis MD LAB BLOOD ORDERABLES Final Resul t Performing Organization Address City/[facility]/ZIP Co de Phone Number [facility] [address] [place] [address], [place] [phone] * (ABNORMAL) Basic metabolic panel (02/19/2025 4:32 PM EDT) Sodium 142 133 - 145 mmol/L LAB CHEMISTRY METHOD 02/19/2025 5:31 PM EDT [facility] Potassium 4.4 3.5 - 5.5 mmol/L LAB CHEMISTRY METHOD 02/19/2025 5:31 PM EDT [facility] Chloride 108 96 - 110 mmol/L LAB CHEMISTRY METHOD 02/19/2025 5:31 PM EDT [facility] CO2 31 21 - 32 mmol/L LAB CHEMISTRY METHOD 02/19/2025 5:31 PM EDT [facility] Anion Gap 3 3 - 11 LAB CHEMISTRY METHOD 02/19/2025 5:31 PM EDT [facility] Glucose 102(H) 70 - 100 mg/dL LAB CHEMISTRY METHOD 02/19/2025 5:31 PM EDT [facility] BUN 12 5 - 25 mg/dL LAB CHEMISTRY METHOD 02/19/2025 5:31 PM EDT [facility] Creatinine 0.90 0.70 - 1.30 mg/dL LAB CHEMISTRY METHOD 02/19/2025 5:31 PM EDT [facility] eGFR 96 >=60 mL/min/1. 73m2 LAB CHEMISTRY METHOD 02/19/2025 5:31 PM EDT [facility] Comment:Calculation based on the Chronic Kidney Disease Epidemiology Collaboration (CKD-EPI) equation refit without adjustment for race. BUN/Creatinine Ratio 13.3 LAB CHEMISTRY METHOD 02/19/2025 5:31 PM EDT [facility] Calcium 9.6 8.5 - 10.5 mg/dL LAB CHEMISTRY METHOD 02/19/2025 5:31 PM EDT [facility] Blood Venous blood specimen / Unknown Venipuncture / Unknown 02/19/2025 4:32 PM EDT 02/19/2025 5:02 PM EDT us Morgan Lewis MD LAB BLOOD ORDERABLES Final Resul t [facility] [address] [place] [address], from Last 3 Months Insurance [employer] MED[employer] Member Subscriber Plan / Payer (Ef fective 2018-Present) Name:VALENTÍN BERNARDO Relation to Subscriber:Self Name:Valentín Bernardo Payer ID:[id number] Group ID:[id number] Type:Not on file Address: [address] [place] [id number] Advance Directives Documents on File Type Date Recorded Patient Technical Publications Manager Expl anation Health Care Decision (hx) 09/14/2021 AD SARGENT DIRECTIVE Health Care Decision (hx) 09/14/2021 AD SARGENT DIRECTIVE Health Care Decision (hx) 09/14/2021 AD SARGENT DIRECTIVE Care Teams Land Law Examiner Relationship Specialty Start Date End Date Name, MD Lew [address] [place] [id number] PCP - General Internal Medicine 11/22/24
--- OUTSIDE RECORDS SUMMARY | 2025-03-11 07:46 | XMS_ITS | Encounter Summary ---
Author Organization [employer] Address [address] [place] [address] [address] [place] [address] Care Team Providers Care Build And Release Manager Name Role Phone Name, Lew CAMPBELL Primary Care Provider [phone] Reason for Visit * Reason Comments Med Refill Encounter Details Date Type Department Care Team (Late st Contact Info) Description 01/05/2023 Refill [facility] [address] [place] [address] [phone] NameLew MD [address] [place] [address] [phone] Social History Tobacco Use Types Packs/Day Years [...] Team (Late st Contact Info) Description 03/26/2025 8:30 AM EST Clinical Support [address] [phone] Luna Frey RN 04/23/2025 11:30 AM EST Office Visit [address] [phone] Lew Malcolm MD [address] [place] [address] [phone] documented as of this encounter Visit Diagnoses Not on filedocumented in this encounter Additional Health Concerns Assessment Noted Time PHQ-9 Depression Total Score: 18 022 10:02 AM EST documented as of this encounter Care Teams Build And Release Manager Relationship Specialty Start Date End Date Name, MD Lew [address] [place] [address] PCP - General Family Medicine 07/14/15 documented as of this encounter
--- OUTSIDE RECORDS SUMMARY | 2025-03-11 07:46 | XMS_ITS | Encounter Summary ---
Author Organization [employer] Address [address] [place] [address] [address] [place] [address] Care Team Providers Care Roof Slater Name Role Phone Name, Lew CAMPBELL Primary Care Provider [phone] Encounter Details Date Type Department Care Team (Late st Contact Info) Description 10/08/2022 [facility] [employer] [address] [place] [address] [phone] Name, MD Lew [address] [place] [address] [phone] Social History Tobacco Use Types Packs/Day Years [...] Description 03/26/2025 8:30 AM EST Clinical Support [facility] [address] [place] [address] [phone] Luna Frey RN 04/23/2025 11:30 AM EST Office Visit [facility] [address] [place] [address] [phone] Name, MD Lew [address] [place] [address] [phone] documented as of this encounter Visit Diagnoses Not on filedocumented in this encounter Additional Health Concerns Assessment Noted Time PHQ-9 Depression Total Score: 18 022 10:02 AM EST documented as of this encounter Care Teams Roof Slater Relationship Specialty Start Date End Date Name, MD Lew [address] [place] [address] PCP - General Family Medicine 07/14/15 documented as of this encounter
--- OUTSIDE RECORDS SUMMARY | 2025-03-11 07:46 | XMS_ITS | Clinical Summary ---
Author Organization [employer] Address [address] [facility] 7t [place] [address] Care Team Providers Care Fruit Stuffer Name Role Phone Name, Lew CAMPBELL Primary Care Provider [phone] Allergies No known active allergies Medications Brexpiprazole [...] week. 2 mL 2 11/22/19 25 Active cholecalcifero l (Vitamin D3) 25 MCG (1000 UT) tablet TAKE 1 TABLET BY MOUTH EVERY DAY 90 tablet 1 01/19/20 25 Active traMADol (Ultram) 50 MG tabletIndicati ons:Chronic neck pain with history of cervical spinal surgery Take 1 tablet (50 mg) by mouth if needed in the morning, at noon, and at bedtime for severe pain. 84 tablet 02/21/20 25 Active traMADol (Ultram) 50 MG tabletIndicati ons:Chronic neck pain with history of cervical spinal surgery TAKE 1 TABLET BY MOUTH EVERY MORNING, NOON AND AT BEDTIME NEEDED FOR SEVERE PAIN 84 tablet 01/19/20 25 025 Discontinued Active Problems Problem Noted Date Diagnosed Date Long-term current use of opiate analgesic 2024 Diverticular disease of colon 10/03/2024 Long-term use of aspirin therapy 10/03/2024 Encounter for current medical terminologist use of antiplate let drug 01/03/2023 Type 2 diabetes, controlled, with neuropathy 04/2022 Chronic neck pain with history of cervical spina l surgery 04/13/2022 Excessive sweating 04/13/2022 Spinal stenosis in cervical region 10/27/2021 Cervical cord compression with myelopathy ([facility]/ [facility]) 10/27/2021 Overview (01/03/2023): Last Assessment & [...] major depression in partial remission 02/23/2016 Parkinsonism ([facility]) 05/24/2014 Anxiety 05/24/2014 Type 2 diabetes mellitus, [...] 04/13/2022 07/14/2022 Candidal balanitis 05/31/2017 Diabetic polyneuropathy 02/17/201712/08 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 07/14/2022 Injury of kidney 09/17/2016 07/14/2022 Hypotension 07/05/2016 11/21/2024 Type 2 diabetes mellitus without complication 09/22/19 16 11/21/2024 Diabetes mellitus type 2 in obese 07/14/2015 04/19/2022 Diabetes mellitus type 2, uncontrolled 04/15/2015 11/21/2024 Neuropathy 01/17/2013 01/03/2023 Overview (01/03/2023): Bilat feet Obese 10/26/2010 11/21/2024 Other anterior pituitary disorders 07/01/2008 01/03/2023 Encounters Date Type Department Care Team Description 02/25/2025 Telephone [facility] [place] [address] Lew Malcolm MD 02/20/2025 Refill [facility] [place] [address] Lew Malcolm MD Chronic neck pain with history of cervical spinal surgery 02/11/2025 Telephone [facility] [place] [address] Elma Carrera MA march recalls 01/17/2025 Refill [facility] [place] [address] Lew Malcolm MD Chronic neck pain with history of cervical spinal surgery 12/27/2024 9:30 AM EDT Clinical Support [facility] [place] [address] Luna Frey RN Long-term current use of opiate analgesic (Primary Dx) 12/27/2024 Telephone [place] [address] Luna Frey RN COILED TUBING OPERATOR Agreement renewed today; Forgot Tramadol 12/27/2024 Travel 12/11/2024 Refill [facility] [place] [address] Lew Malcolm MD Chronic neck pain with history of cervical spinal surgery from Last 3 Months Immunizations Immunization Administration Dates Next Due Influenza injectable quadriv alent IIV4 with preservative 02/15/2018,02/17/2017,02/23/2016 Influenza injectable quadriv alent preservative free 04/20/2023,03/10/2022,05/28/2021,02/25,01/31/2019 Influenza, IIV3, injectable 05/28/2021,1 ,01/31/2019,02/15,02/17/2017,02/23/2016,04/15/2015 ,02/06/2014,02/01/2012,04/27/2011,/01/2009 Influenza, Unspecified 02/06/2014,02/01/2012, Influenza, seasonal, injecta ble, preservative free 02/13/2024 Influenza, trivalent, adjuvanted 04/15/2015,02/0 01/2009 Moderna Covid-19 Vaccine 12+ 05/28/2021,08/14/19 21,07/16/2020 Moderna Covid-19 Vaccine 6+ Bivalent 07/14/2022 Novel [id number], preservative-free 06/20/2009 PPD Test 02/05/2004 Pneumococcal Conjugate [...] housing situation today? I have judit barton 11/21/[address] you li [...] Description 03/26/2025 8:30 AM EST Clinical Support [address] [address] Luna Frey, ROSEMARY 04/23/2025 11:30 AM EST Office Visit [address] [address] Name, MD Lew [address] [place] [address] Health Maintenance Due Date Last Done Comments [...] 02/13/2025 02/14/2024, 07/14/2022 Lipid Panel 02/13/2025 02/14/2024, 030 12/2022, 02/26/2020 Diabetes: Hemoglobin A1C 05/24/2025 025, [...] procedure / Unknown 12/27/2024 9:46 AM EDT Luna Tran RN - 12/27/2024 9:46 AM EDT UTO[employer] cup Lot#[id number] Exp. 02/12/26 Internal Pass Control us Lew Malcolm MD POINT OF CARE TEST ENTER/EDIT OR DERABLES Final Result * POCT HGB A1C (11/21/2024 11:51 AM EDT) Hemoglobin A1C 5.7 4.0 - 5.7 % QC Media Lot # [id number] Lot# Expiration Date Blood 11/21/2024 11:5 1 AM EDT Lew Malcolm MD POINT OF CARE TEST ENTER/EDIT OR DERABLES Final Result * HIV-1/2 Antigen and Antibodies, Fourth Generation, with Reflexes (08/09/2024 9:44 AM EDT) HIV AB/AG Nonreactive Nonreactive [facility] Comment:HIV-1 p24 Ag and/or HIV-1/HIV-2 Ab not detected.A test result that is nonreactive does not exclude thepossibility of exposure to or infection with HIV-1 and/orHIV-2. Nonreactive results in this assay for individualswith prior exposure to HIV-1 and/or HIV-2 may be due toantigen and antibody levels that are below the limit ofdetection of this assay.The [employer] HIV Ag/Ab Combo assay result andsupplemental assay results should be interpreted inconjunction with the patient's clinical presentation,history and other laboratory results. If the results areinconsistent with clinical evidence, additional testing issuggested to confirm the result. 08/09/2024 9:44 AM EDT 08/09/2024 9:45 AM EDT Generic External Data Provider LAB BLOOD ORDERAB LES Final Result [facility] [address] [place] [phone] * Albumin, Random Urine W/Creatinine (02/14/2024 9:45 AM EDT) Creatinine, Urine 35.56 mg/dL [facility] Microalbumin Urine 6.0 mg/L [facility] Microalbum Creatinine Ratio Ur 16.8 <30 ug/mg cr [facility] Comment:Albumin/Creatinine R atio Reference Ranges: Normal: < 30 ug/mg creatinine Microalbuminuria: 30 - 300 ug/mg creatinineClinical Albuminuria: > 300 ug/mg creatinine Urine (Urine, Random) 02/14/2024 9:45 AM EDT 02/14/2024 11:23 AM EDT us Lew Name MD LAB URINE ORDERABLES Final Resul t [facility] [address] [place] [phone] * (ABNORMAL) Lipid Panel, Standard (02/14/2024 9:43 AM EDT) Triglycerides 122 <150 mg/dL [facility] Comment:Desirable Triglyceri de: less than 150 mg/dLBorderline High Triglyceride 150-199 mg/dLHigh Triglyceride: 200-499 mg/dLVery High Triglyceride: greater than or equal to 5OO mg/dL Cholesterol 93 <200 mg/dL [facility] Comment:Desirable Cholestero l: less than 200 mg/dLBorderline High Cholesterol: 200-239 mg/dLHigh Cholesterol: greater than 239 mg/dL LDL Cholesterol Calculated 41 <100 mg/dL [facility] Comment:Desirable LDL: less than 100 mg/dLNear Optimal/Above Optimal LDL: 110- 129 mg/dLBorderline High LDL: 130-159 mg/dLHigh LDL: 160-189 mg/dLVery High LDL: greater than or equal to 190 mg/dL HDL Cholesterol 28(L) >40 mg/dL [facility] Comment:Desirable HDL: great er than 40 mg/dL Note: This HDL assay may give artificially low results in patients with liver disease. Blood Venous blood specimen / Unknown 02/14/2024 9:43 AM EDT 02/14/2024 11:26 AM EDT Lew Name LAB BLOOD ORDERABLES Final Resul t [facility] [address] [place] [phone] * Hm Colonoscopy (03/28/2023) Colonoscopy Normal Normal Comment:repeat in 5 years Lew Name HEALTH MAINTENANCE Final Result from Last 3 Months or Most Recently Relevant to Health Maintenance Insurance [facility] < [address] [place] [id number] Care Teams Fruit Stuffer Relationship Specialty Start Date End Date Name, MD Lew [address] [place] [address] PCP - General Family Medicine 07/14/15
--- OUTSIDE RECORDS SUMMARY | 2025-03-11 07:46 | XMS_ITS | Data Portability ---
Author Organization [employer] [facility], [facility] Address [address] [place] [address] Care Team Providers Care Public Health Aide Name Role Phone [facility] Referring Provider [phone] Unavailable Referring Provider Assessment Encounter Date Assessment Date Assessment LastModified by Organization Details LastModified Time 09/07/2021 09/07/2021 I have reviewed and agree with the assessment and plan as documented by the consulting psychiatrist. I provided real-time medical direction for this [...] blood by Pulse oximetry Respiratory rate Systolic And Diastolic Provider Name and Address Organization Details Last Updated DateTime 2 86 /min 99 % 99 % 20 /min 156/85 mm[Hg] Not Available [facility] - production 2 21:21:21 Social History None recorded. Functional Status None recorded. Mental Status None recorded. Family History Nothing Reported. Medical History No medical history recorded. Past Encounters Encounter ID Performer Location Encounter Start Date Encounter Closed Date Diagnosis/Indication Diagnosis SNOMED-CT Code Diagnosis ICD10 Code Diagnosis IMO Codes Diagnosis Note [id number] Gallo Mccall MD Main - [facility] [address] [place] [phone] 09/07/2021 21:21:18 01/08/2022 15:04:21 Unable to walk 512439581 R26.2 Health Concerns Section Related Observation LastModified by Organization Detai ls LastModified Time None Recorded Concern Status LastModified by Organization Details LastModified Time None Recorded Advance Directives Directive None Recorded Payers Insurance Date Sequence Insurance Name Policy Number Policy Gutierrez Covered Member ID Gutierrez Member ID Guarantor Name 08/01/2023 1 [facility] - DOS PRIOR TO 2022 - DUAL ELIGIBLE (MEDICARE REPLACEMENT/AD VANTAGE - HMO) Valentín Bernardo [id number] Valentín Az 08/01/2023 1 [facility] - DOS ON OR AFTER 2022 - DUAL ELIGIBLE - LONGTERM OPTIONS AND ONE CARE (MEDICARE REPLACEMENT/AD VANTAGE - HMO) Valentín Bernardo [id number] Valentín Bernardo Notes Date Note Type Note [...] .................. .................. .................. .................. .................. .................. ............... Injection Mold Tooling Technician Note: Chief Complaint diff ambulating Pertinent positive [...] rash Contacted Dr. Mccall. Pt transported to [facility] via [facility] due to new onset of neuro issues. .................. .................. .................. .................. .................. .................. .................. ............... Disposition: Fulfilled Gallo Mccall MD [address] [facility],[address], [place], [address], [employer] 09/07/2021 21:23:51
--- OUTSIDE RECORDS SUMMARY | 2025-03-11 07:46 | XMS_ITS | Patient Health Record ---
Author Organization [facility] Address [address] [place] [address] Care Team Providers Care Stock Parts Inspector Name Role Phone Name Lew CAMPBELL Primary Care Provider Bean Restrepo Unavailable [phone] Allergies No Known Allergies Reason For Referral No Information Medications Medication SIG (Take, Route, Frequency, Duration) Notes Start Date End Date Status Aspirin Adult Low Strength 81 MG 1 tablet Orally Once a day; Duration: 30 day(s) Active rOPINIRole HCl 0.25 MG Oral; Duration: 90 Active MiraLax (colon prep) 17 GM/SCOOP 1 238Gm bottle mixed with Gatorade or Crystal Light Orally begin at 5:00 p.m. the day before the procedure; Duration: 1 day 12/16/2022 Activ e Dulcolax (colon prep) 5 MG take at 3:00 p.m and 7:00p.m. Orally two tablets twice a day for one day; Duration: 1 day 12/16/2022 Active Zolpidem Tartrate ER 12.5 MG Oral; Duration: 30 Active Gabapentin 600 MG Oral; Duration: 30 Active Carbidopa-Levodopa 25-100 MG TAKE 2 TABLETS BY MOUTH FIVE TIMES DAILY Oral; Duration: 30 Active clonazePAM 1 MG TAKE 1 TABLET BY CUBA TH EVERY DAY NEEDED Oral; Duration: 30 Active DULoxetine HCl 60 MG TAKE 1 CAPSULE BY M OUTH TWICE DAILY Oral; Duration: 30 Active Social History Tobacco Use: Social [...] Problem Status W/U Status Risk Notes Problem Colon cancer screening (764213880) Colon cancer screening (Z12.11) Active confirmed Problem Diverticular disease of colon (426257686) Diverticulosis of large intestine without perforation or abscess without bleeding (K57.30) Active confirmed Problem Long-term current use of antiplatelet drug (465694951880104 ) Long-term use of aspirin therapy (Z79.82) Active confirmed Plan Of Treatment Pending Test Test Name Order Date Pathology 03/14/2023 Future Test Test Name Order Date COLONOSCOPY 12/16/2022 Insurance Providers Payer Name Payer Address Payer Phone Subscriber Number Group Number Insured Name Patient Relationship to Insured Coverage Start Date Coverage End Date [facility] [address] [place] [address] [id number] KASEY REGALADO Self - patient is the insured Medical (General) History Medical History History ICD Code Denies IA,DM,CVA,Lung disease,renal dise ase Parkinson's disease.....alth ough reports that he is now told that he does not have that as of the 12/2022 OV Anxiety Reports a negative colonoscopy at [facility] at approx. age 51 Surgical History Surgery Date(Month/Year)
--- OUTSIDE RECORDS SUMMARY | 2025-03-11 07:46 | XMS_ITS | Encounter Summary ---
Author Organization [employer] [facility] Address [address] [place] [address] 7 [place] [address] Care Team Providers Care Roof Fixer Name Role Phone Name, Lew CAMPBELL Primary Care Provider [phone] Encounter Details Date Type Department Care Team (Latest Contact Info) Description 03/26/2019 Abstract [facility] CONVERSIONS Dental, Provider, DDS Social History [...] Description 03/26/2025 8:30 AM EST Clinical Support [address] [address] Luna Frey RN 04/23/2025 11:30 AM EST Office Visit [facility] [address] [place] [address] Lew Malcolm MD [address] [place] [address] documented as of this encounter Visit Diagnoses Not on filedocumented in this encounter Care Teams Roof Fixer Relationship Specialty Start Date End Date Lew Malcolm MD [address] [place] [address] PCP - General Family Medicine 07/14/15 documented as of this encounter
--- OUTSIDE RECORDS SUMMARY | 2025-03-11 07:46 | XMS_ITS | Encounter Summary ---
Author Organization [employer] Address [address] [place] [address] 7 [place] [address] Care Team Providers Care Director Teen Post Name Role Phone Name, Lew CAMPBELL Primary Care Provider [phone] Reason for Visit * Reason Comments Med Refill Encounter Details Date Type Department Care Team (Late st Contact Info) Description 09/19/2022 Refill [facility] [address] [place] [address] [phone] NameLew MD [address] [place] [address] History of myocardial infarction Social History Tobacco [...] Description 03/26/2025 8:30 AM EST Clinical Support [address] [phone] Luna Frey RN 04/23/2025 11:30 AM EST Office Visit [address] [phone] NameLew MD [address] [place] [address] documented as of this encounter Visit Diagnoses Diagnosis History of myocardial infarction documented in this encounter Additional Health Concerns Assessment Noted Time PHQ-9 Depression Total Score: 18 022 10:02 AM EST documented as of this encounter Care Teams Director Teen Post Relationship Specialty Start Date End Date Name, MD Lew [address] [facility] [place] [address] PCP - General Family Medicine 07/14/15 documented as of this encounter
[2025-03-11 08:04] LABS: MANUAL DIFF FLAG NO
[2025-03-11 08:21] LABS: Hematocrit 40.6 % (42.0-52.0); Hemoglobin 13.2 g/dl (14.0-18.0); Imm Gran Abs Auto 0.05 X10*3/uL (0.00-0.03); Imm Gran Pct Auto 0.6 % (0.0-0.4); Lymphocytes Absolute Auto 1.6 X10*3/uL (1.2-4.9); Mean Corpuscular HGB Conc 32.5 g/dl (31.0-36.0); Mean Corpuscular Hemoglobin 30.8 pg (27.0-33.0); Mean Corpuscular Volume 94.6 fL (80.0-98.0); NRBC Abs Auto 0.000 X10*3/uL (0.0-0.012); NRBC Pct Auto 0.0 /100WBC (0.0-0.2); Platelet Count 166 X10*3/uL (160-400); Red Blood Count 4.29 X10*6/uL (4.60-5.80); White Blood Count 8.0 X10*3/uL (4.8-10.8)
[2025-03-11 08:58] LABS: Alanine Aminotransferase 20 U/L (0-40); Albumin Level 4.9 g/dL (3.5-5.0); Alkaline Phosphatase 76 U/L (39-117); Anion Gap 11 (12-20); Aspartate Amino Transferase 26 U/L (5-37); Blood Urea Nitrogen 11 mg/dL (9-16); Calcium 9.4 mg/dL (8.4-10.2); Carbon Dioxide 32 mmol/L (22-29); Chloride 102 mmol/L (96-108); Estimated Glomerular Filt Rate > 60; Iron 73 mcg/dL (45-160); Magnesium 2.1 mg/dL (1.6-2.6); Percent Iron Saturation 25 % (15-50); Potassium 4.1 mmol/L (3.3-5.1); Sodium 141 mmol/L (135-145); Total Iron Binding Capacity 287 mcg/dL (228-428); Total Protein 8.0 g/dL (6.5-8.0); Unsaturated Iron Binding 214 ug/dL
[2025-03-11 09:16] LABS: Ferritin 80 ng/mL (20-250)
[2025-03-11 09:23] LABS: Folate 12.5 ng/mL (> or = 4.0); Vitamin B12 692 pg/mL (200-900)
[2025-03-15 13:54] LABS: Vitamin D 25-OH, D2 <4 ng/mL; Vitamin D 25-OH, D3 29 ng/mL; Vitamin D 25-OH, Total 29 ng/mL (30-100)
== END 2025-03-11 07:43 | disposition home or self-care (01) ==
LOC: HO.LAB 07:42
PROVIDERS: Nurse Practitioner Family; PCP Internal Medicine Geriatric Medicine; Visit Provider Nurse Practitioner Family
DX: E11.9 Type 2 diabetes mellitus without complications (principal); D69.6 Thrombocytopenia, unspecified; E55.9 Vitamin D deficiency, unspecified; D64.9 Anemia, unspecified; E51.9 Thiamine deficiency, unspecified; Z13.6 Encounter for screening for cardiovascular disorders
CPT/HCPCS: 36415; 80053; 82306; 82607; 82728; 82746; 83090; 83540; 83735; 83921; 84207; 84425; 85025; 85652; 86140

== ENCOUNTER 2025-03-13 07:45 | Outpatient (REF) | payer OTHER, SELFPAY ==
--- OUTSIDE RECORDS SUMMARY | 2025-03-13 07:48 | XMS_ITS | Patient Health Record ---
Author Organization [facility] Address [address] [place] [address] Care Team Providers Care Shoder Filler Name Role Phone Name Lew CAMPBELL Primary Care Provider Bean Restrepo Unavailable [phone] Allergies No Known Allergies Reason For Referral [...] Status Risk Notes Problem Colon cancer screening (889315210) Colon cancer screening (Z12.11) Active confirmed Problem Diverticular disease of colon (061532179) Diverticulosis of large intestine without perforation or abscess without bleeding (K57.30) Active confirmed Problem Long-term current use of antiplatelet drug (876882631587735 ) Long-term use of aspirin therapy (Z79.82) Active confirmed Plan Of Treatment Pending Test Test Name Order Date Pathology 03/14/2023 Future Test Test Name Order Date COLONOSCOPY 12/16/2022 Insurance Providers Payer Name Payer Address Payer Phone Subscriber Number Group Number Insured Name Patient Relationship to Insured Coverage Start Date Coverage End Date [facility] [address] [place] [id number] KASEY REGALADO Self - patient is the insured Medical (General) History Medical History History ICD Code Denies SC,DM,CVA,Lung disease,renal dise ase Parkinson's disease.....alth ough reports that he is now told that he does not have that as of the 12/2022 OV Anxiety Reports a negative colonoscopy at [facility] at approx. age 51 Surgical History Surgery Date(Month/Year)
--- OUTSIDE RECORDS SUMMARY | 2025-03-13 07:48 | XMS_ITS | Data Portability ---
Author Organization [employer] [facility], [facility] Address [address] [place] [address] Care Team Providers Care Customer Success Associate Name Role Phone [facility] Referring Provider Unavailable Referring Provider [phone] Assessment Encounter Date Assessment Date Assessment LastModified by Organization Details LastModified Time 09/07/2021 09/07/2021 I have reviewed and agree with the assessment and plan as documented by the hand box coverer. I provided real-time medical direction for this [...] [id number] Gallo Mccall MD Main - [facility] [address] [place] [phone] 09/07/2021 21:21:18 01/08/2022 15:04:21 Unable to walk [id number] R26.2 Health Concerns Section Related Observation LastModified by Organization Detai ls LastModified Time None Recorded Concern Status LastModified by Organization Details LastModified Time None Recorded Advance Directives Directive None Recorded Payers Insurance Date Sequence Insurance Name Policy Number Policy Gutierrez Covered Member ID Gutierrez Member ID Guarantor Name 08/01/2023 1 [facility] - DOS PRIOR TO 2022 - DUAL ELIGIBLE (MEDICARE REPLACEMENT/AD VANTAGE - HMO) Valentín Bernardo [id number] Valentín Az 08/01/2023 1 [facility] - DOS ON OR AFTER 2022 - DUAL ELIGIBLE - [employer] OPTIONS AND ONE CARE (MEDICARE REPLACEMENT/AD VANTAGE - HMO) Valentín Bernardo [id number] Valentín Bernardo Notes Date Note Type Note [...] .................. .................. .................. .................. .................. .................. ............... Transition Specialist Note: Chief Complaint diff ambulating Pertinent positive [...] rash Contacted Dr. Mccall. Pt transported to [facility] via [facility] due to new onset of neuro issues. .................. .................. .................. .................. .................. .................. .................. ............... Disposition: Fulfilled Gallo Mccall MD [address] [facility],[address], [place], [address], [employer] 09/07/2021 21:23:51
--- OUTSIDE RECORDS SUMMARY | 2025-03-13 07:48 | XMS_ITS | Encounter Summary ---
Author Organization [employer] Address [address] [place] [address] 7 [place] [address] Care Team Providers Care Electronic Security Specialist Name Role Phone Name, Lew CAMPBELL Primary Care Provider [phone] Encounter Details Date Type Department Care Team (Late st Contact Info) Description 10/08/2022 [facility] [address] [place] [address] [phone] Name, MD Lew [address] [place] [address] [phone] Social History Tobacco Use Types Packs/Day Years [...] Description 03/26/2025 8:30 AM EST Clinical Support [facility] [address] [place] [address] [phone] Luna Frey RN 04/23/2025 11:30 AM EST Office Visit [facility] [address] [place] [address] [phone] Name, MD Lew [address] [place] [address] [phone] documented as of this encounter Visit Diagnoses Not on filedocumented in this encounter Additional Health Concerns Assessment Noted Time PHQ-9 Depression Total Score: 18 022 10:02 AM EST documented as of this encounter Care Teams Electronic Security Specialist Relationship Specialty Start Date End Date Name, MD Lew [address] [place] [address] PCP - General Family Medicine 07/14/15 documented as of this encounter
--- OUTSIDE RECORDS SUMMARY | 2025-03-13 07:48 | XMS_ITS | Encounter Summary ---
Author Organization [employer] [facility] Address [address] [place] [address] 7 [place] [address] Care Team Providers Care Underground Utility Locator Name Role Phone Name, Lew CAMPBELL Primary Care Provider Encounter Details Date Type Department Care Team (Latest Contact Info) Description 03/26/2019 Abstract [facility] CONVERSIONS Dental, Provider, DDS Social [...] Description 03/26/2025 8:30 AM EST Clinical Support [address] [address] Luna Frey RN 04/23/2025 11:30 AM EST Office Visit [facility] [address] [place] [address] Lew Malcolm MD [address] [place] [phone] documented as of this encounter Visit Diagnoses Not on filedocumented in this encounter Care Teams Underground Utility Locator Relationship Specialty Start Date End Date Lew Malcolm MD [address] [place] [address] PCP - General Family Medicine 07/14/15 documented as of this encounter
--- OUTSIDE RECORDS SUMMARY | 2025-03-13 07:48 | XMS_ITS | Clinical Summary ---
Author Organization [employer] Address [address] [facility] [address] [place] [address] Care Team Providers Care Griddle Attendant Name Role Phone Name, Lew CAMPBELL Primary Care Provider [phone] Allergies No known active allergies Medications Brexpiprazole [...] of aspirin therapy 10/03/2024 Encounter for current oysterman use of antiplate let drug 01/03/2023 Type 2 diabetes, controlled, with neuropathy 04/2022 Chronic neck pain with history of cervical spina l surgery 04/13/2022 Excessive sweating 04/13/2022 Spinal stenosis in cervical region 10/27/2021 Cervical cord compression with myelopathy ([facility]) 10/27/2021 Overview (01/03/2023): Last Assessment & [...] major depression in partial remission 02/23/2016 Parkinsonism ([facility]) 05/24/2014 Anxiety 05/24/2014 Type 2 diabetes mellitus, [...] Type Department Care Team Description 02/25/2025 Telephone [facility] [place] [address] Lew Malcolm MD 02/20/2025 Refill [facility] [place] [address] Lew Malcolm MD Chronic neck pain with history of cervical spinal surgery 02/11/2025 Telephone [facility] [place] [address] Elma Carrera MA march recalls 01/17/2025 Refill [facility] [place] [address] Lew Malcolm MD Chronic neck pain with history of cervical spinal surgery 12/27/2024 9:30 AM EDT Clinical Support [facility] [place] [address] Luna Frey RN Long-term current use of opiate analgesic (Primary Dx) 12/27/2024 Telephone [facility] [place] [address] Luna Frey RN GUIDANCE CONSULTANT Agreement renewed today; Forgot Tramadol 12/27/2024 Travel 12/11/2024 Refill [facility] [place] [address] Lew Malcolm MD Chronic neck pain with [...] Moderna Covid-19 Vaccine 6+ Bivalent 07/14/2022 Novel [id number], preservative-free 06/20/2009 PPD Test 02/05/2004 Pneumococcal Conjugate [...] Description 03/26/2025 8:30 AM EST Clinical Support [address] [address] Luna Frey, ROSEMARY 04/23/2025 11:30 AM EST Office Visit [address] [address] Name, MD Lew [address] [place] [address] Health Maintenance Due Date Last Done Comments [...] Procedure Name Priority Date/Time Associated Diagnosis Comments HOMOCYSTEINE Routine 03/11/2025 8:02 AM EST VITAMIN B12/FOLATE, SERUM PANEL Routine 03/11/2025 8:02 AM EST SED RATE BY MODIFIED WESTERGREN Routine 03/11/2025 8:02 AM EST CBC WITH AUTO DIFFERENTIAL Routine 03/11/2025 8:02 AM EST POCT ZEHRA-14 URINE DRUG SCREEN Routine 12/27/2024 [...] Recently Relevant to Health Maintenance Results * Vitamin B12 (Cobalamin) and Folate Panel, Serum (03/11/2025 8:02 AM EST) Vitamin B12 692 200 - 900 pg/mL [facility] Comment:NORMAL 200-900 PG/ML INDETERMINATE 160-199 PG/ML DEFICIENT < 160 PG/ML Folate 12.5 > or = 4.0 ng/mL [facility] Comment:Reference Values:> o r = 4.0 ng/mL< 4.0 ng/mL suggests folate deficiency Methotrexate, aminopterin and folinic acid(leucovorin) are chemotherapeutic agents whose molecularstructures are similar to folate; therefore, the Architectfolate assay cannot be used for patients using these drugs. 03/11/2025 8:02 AM EST 03/11/2025 8:02 AM EST us Generic External Data Provider LAB BLOOD ORDERAB LES Final Result [facility] [address] [place] [phone] * (ABNORMAL) CBC auto differential (03/11/2025 8:02 AM EST) White Blood Count 8.0 4.8 - 10.8 X10*3/uL [facility] Red Blood Count 4.29(L) 4.60 - 5.80 X10*6/uL [facility] Hemoglobin 13.2(L) 14.0 - 18.0 g/dl [facility] Hematocrit 40.6(L) 42.0 - 52.0 % [facility] Mean Corpuscular Volume 94.6 80.0 - 98.0 fL [facility] Mean Corpuscular Hemoglobin 30.8 27.0 - 33.0 pg [facility] Mean Corpuscular HGB Conc 32.5 31.0 - 36.0 g/dl [facility] Red Cell Distribution Width 13.2 11.0 - 16.0 % [facility] Platelet Count 166 160 - 400 X10*3/uL [facility] Mean Platelet Volume 10.9 9.4 - 12.4 fL [facility] Neutrophils Percent Auto 67.2 45 - 73 % [facility] Imm Gran Pct Auto 0.6(H) 0.0 - 0.4 % [facility] Lymphocytes Percent Auto 20.3 20 - 40 % [facility] Monocytes Percent Auto 8.3 2 - 11 % [facility] Eosinophils Percent Auto 3.1 0 - 4 % [facility] Basophils Percent Auto 0.5 0 - 2 % [facility] NRBC Pct Auto 0.0 0.0 - 0.2 /100WBC [facility] Neutrophils Absolute Auto 5.4 2.0 - 8.3 x10*3/uL [facility] Imm Gran Abs Auto 0.05(H) 0.00 - 0.03 X10*3/uL [facility] Lymphocytes Absolute Auto 1.6 1.2 - 4.9 X10*3/uL [facility] Monocytes Absolute Auto 0.7 0.1 - 1.2 X10*3/uL [facility] Eosinophils Absolute Auto 0.3 0.0 - 0.4 X10*3/uL [facility] Basophils Absolute Auto 0.0 0.0 - 0.2 X10*3/uL [facility] NRBC Abs Auto 0.000 0.0 - 0.012 X10*3/uL [facility] 03/11/2025 8:02 AM EST 03/11/2025 8:02 AM EST us Generic External Data Provider LAB BLOOD ORDERAB LES Final Result Performing Organization Address City/[facility]/ZIP Co de Phone Number [facility] [address] [place] [phone] * Sed Rate by Modified Brysonergren (03/11/2025 8:02 AM EST) Erythrocyte Sedimentation Rate 14 0 - 15 MM/HR [facility] Comment:Patients with polycy themia and many hemoglobin abnormalitiesmay have depressed sed rates whereas patients with anemiamay have elevated sed rates. 03/11/2025 8:02 AM EST 03/11/2025 8:02 AM EST us Generic External Data Provider LAB BLOOD ORDERAB LES Final Result [facility] [address] [place] [phone] * Homocysteine (03/11/2025 8:02 AM EST) Homocysteine 12.0 < or = 15.2 umol/L [facility] Comment:Homocysteine is incr eased by functional deficiency offolate or vitamin B12. Testing for methylmalonic aciddifferentiates between these deficiencies. Other causesof increased homocysteine include renal failure, folateantagonists such as methotrexate and phenytoin, andexposure to nitrous oxide.Urvashi Farfan, et al., Deysi Converter Supervisor Med. 1999;131(5):331-9.THIS TEST WAS PERFORMED AT:[employer] [place] [phone] ANDERSON MD 03/11/2025 8:02 AM EST 03/11/2025 8:02 AM EST Generic External Data Provider LAB BLOOD ORDERAB LES Final Result Performing Organization Address [facility] Co de Phone Number [facility] [address] [place] [phone] * POCT ZEHRA-14 Urine Drug Screen (12/27/2024 [...] - 12/27/2024 9:46 AM EDT UTOX cup Lot#[id number] Exp. 02/12/26 Internal Pass Control us Lew Name POINT OF CARE TEST ENTER/EDIT OR DERABLES Final Result * POCT HGB A1C (11/21/2024 11:51 AM EDT) Pathologist [facility] Hemoglobin A1C 5.7 4.0 - 5.7 % QC Media Lot # [id number] Lot# Expiration Date Blood 11/21/2024 11:5 1 AM EDT Lew Name POINT OF CARE TEST ENTER/EDIT OR DERABLES Final Result * HIV-1/2 Antigen and Antibodies, Fourth Generation, with Reflexes (08/09/2024 9:44 AM EDT) [facility] HIV AB/AG Nonreactive Nonreactive [facility] Comment:HIV-1 p24 Ag and/or HIV-1/HIV-2 Ab not detected.A test result that is nonreactive does not exclude thepossibility of exposure to or infection with HIV-1 and/orHIV-2. Nonreactive results in this assay for individualswith prior exposure to HIV-1 and/or HIV-2 may be due toantigen and antibody levels that are below the limit ofdetection of this assay.The [employer] HIV Ag/Ab Combo assay result andsupplemental assay results should be interpreted inconjunction with the patient's clinical presentation,history and other laboratory results. If the results areinconsistent with clinical evidence, additional testing issuggested to confirm the result. 08/09/2024 9:44 AM EDT 08/09/2024 9:45 AM EDT us Generic External Data Provider LAB BLOOD ORDERAB LES Final Result [facility] [address] [place] [phone] * Albumin, Random Urine W/Creatinine (02/14/2024 9:45 AM EDT) Pathologist [facility] Creatinine, Urine 35.56 mg/dL [facility] Microalbumin Urine 6.0 mg/L [facility] Microalbum Creatinine Ratio Ur 16.8 <30 ug/mg cr [facility] Comment:Albumin/Creatinine R atio Reference Ranges: Normal: < 30 ug/mg creatinine Microalbuminuria: 30 - 300 ug/mg creatinineClinical Albuminuria: > 300 ug/mg creatinine Urine (Urine, Random) 02/14/2024 9:45 AM EDT 02/14/2024 11:23 AM EDT us Lew Name MD LAB URINE ORDERABLES Final Resul t [facility] [address] [place] [phone] * (ABNORMAL) Lipid Panel, Standard (02/14/2024 9:43 AM EDT) Triglycerides 122 <150 mg/dL [facility] Comment:Desirable Triglyceri de: less than 150 mg/dLBorderline High Triglyceride 150-199 mg/dLHigh Triglyceride: 200-499 mg/dLVery High Triglyceride: greater than or equal to 5OO mg/dL Cholesterol 93 <200 mg/dL [facility] Comment:Desirable Cholestero l: less than 200 mg/dLBorderline High Cholesterol: 200-239 mg/dLHigh Cholesterol: greater than 239 mg/dL LDL Cholesterol Calculated 41 <100 mg/dL [facility] Comment:Desirable LDL: less than 100 mg/dLNear Optimal/Above Optimal LDL: 110- 129 mg/dLBorderline High LDL: 130-159 mg/dLHigh LDL: 160-189 mg/dLVery High LDL: greater than or equal to 190 mg/dL HDL Cholesterol 28(L) >40 mg/dL [facility] Comment:Desirable HDL: great er than 40 mg/dL Note: This HDL assay may give artificially low results in patients with liver disease. Blood Venous blood specimen / Unknown 02/14/2024 9:43 AM EDT 02/14/2024 11:26 AM EDT us Lew Name LAB BLOOD ORDERABLES Final Resul t [facility] [address] [place] [phone] [phone] * Hm Colonoscopy (03/28/2023) Colonoscopy Normal Normal Comment:repeat in 5 years Lew Name HEALTH MAINTENANCE Final Result from Last 3 Months or Most Recently Relevant to Health Maintenance Insurance [facility] < [address] [place] [id number] Care Teams Griddle Attendant Relationship Specialty Start Date End Date Name, MD Lew [address] [place] [phone] PCP - General Family Medicine 07/14/15
--- OUTSIDE RECORDS SUMMARY | 2025-03-13 07:48 | XMS_ITS | Encounter Summary ---
Author Organization [employer] Address [address] [place] [address] 7 [place] [address] Care Team Providers Care Sheet Rock Applicator Name Role Phone Name, Lew CAMPBELL Primary Care Provider [phone] Reason for Visit * Reason Comments Med Refill Encounter Details Date Type Department Care Team (Late st Contact Info) Description 09/19/2022 Refill [facility] [address] [place] [address] [phone] NameLew MD [address] [place] [phone] History of myocardial infarction Social History Tobacco [...] Description 03/26/2025 8:30 AM EST Clinical Support [address] [phone] Luna Frey RN 04/23/2025 11:30 AM EST Office Visit [address] [phone] NameLew MD [address] [place] [phone] documented as of this encounter Visit Diagnoses Diagnosis History of myocardial infarction documented in this encounter Additional Health Concerns Assessment Noted Time PHQ-9 Depression Total Score: 18 022 10:02 AM EST documented as of this encounter Care Teams Sheet Rock Applicator Relationship Specialty Start Date End Date Name, MD Lew [address] [facility] [place] [address] PCP - General Family Medicine 07/14/15 documented as of this encounter
--- OUTSIDE RECORDS SUMMARY | 2025-03-13 07:48 | XMS_ITS | Encounter Summary ---
Author Organization [employer] Address [address] [place] [address] 7 [place] [address] Care Team Providers Care Clock And Watch Hands Painter Name Role Phone Name, Lew CAMPBELL Primary Care Provider [phone] Reason for Visit * Reason Comments Med Refill Encounter Details Date Type Department Care Team (Late st Contact Info) Description 01/05/2023 Refill [facility] [address] [place] [address] [phone] NameLew MD [address] [place] [address] [phone] Social History Tobacco Use Types Packs/Day Years [...] Description 03/26/2025 8:30 AM EST Clinical Support [address] [phone] Luna Frey RN 04/23/2025 11:30 AM EST Office Visit [address] [phone] Lew Malcolm MD [address] [place] [address] [phone] documented as of this encounter Visit Diagnoses Not on filedocumented in this encounter Additional Health Concerns Assessment Noted Time PHQ-9 Depression Total Score: 18 022 10:02 AM EST documented as of this encounter Care Teams Clock And Watch Hands Painter Relationship Specialty Start Date End Date Name, MD Lew [address] [place] [address] PCP - General Family Medicine 07/14/15 documented as of this encounter
--- OUTSIDE RECORDS SUMMARY | 2025-03-13 07:48 | XMS_ITS | Clinical Summary ---
Author Organization [facility] Address [address] [place] [address] Phone Care Team Providers Care Lithographic General Worker Name Role Phone Name, Lew CAMPBELL Primary Care Provider [phone] Allergies No known active allergies Medications amitriptyline [...] EDT - 02/19/2025 9:47 PM EDT Emergency [facility] [address] [place] [phone] Julian Braone MD Head injury, initial encounter (Primary Dx); Chronic bilateral low back pain, unspecified whether sciatica present Discharge Disposition: Left Against Medical Advice 02/19/2025 11:00 AM EDT Office Visit Orthopedic Surgery [facility] [address] [phone] Ti Van, DPM Ingrowing nail (Primary Dx); Diabetic mononeuropathy simplex ([facility] V24, CMS/[facility] V28); Dermatophytosis of nail 02/01/2025 8:15 AM EDT Consult Orthopedic Surgery [facility] [address] [phone] Ti Van, DPM Ingrowing nail (Primary Dx); Type 2 diabetes mellitus with diabetic neuropathy, unspecified (CMS/HCC V24, CMS/HCC V28); Diabetic mononeuropathy simplex (CMS/HCC V24, CMS/HCC V28) from Last 3 Months Surgical History Surgery Date Site/Laterality Comments CHOLECYSTECTOMY 2002 PROCEDURE: LAPAROSCOPY, CHOLECYSTECTOMY; COMMENT: Sukumar ESOPHAGOGASTRODUODENOSCOPY 2002 PROCEDURE: [place] EGD TRANSORAL BIOPSY SINGLE/MULTIPLE; COMMENT: duodenal ulcers; CLOtest negative, no H. pylori COLONOSCOPY 02/03/2012 PROCEDURE: [place] COLONOSCOPY FLX DX W/COLLJ SPEC WHEN PFRMD; [...] Brother 1 Heart attack Brother 1 1st SC at age 4 2 Diabetes Brother 2 [...] AM EST Office Visit Orthopedic Surgery - [address] [phone] Ti Van, DPM [address] [place] [phone] Health Maintenance Due Date Last [...] by: Gustavo Lopez MD on 02/19/2025 20:20:23 [facility] Gavino Barone MD IMG CT PROCEDURES [...] MD on 02/19/2025 20:24:11 Julian Barone MD [facility] [place]ED[place] Final Re sult * CT [...] CBC auto differential (02/19/2025 4:32 PM EDT) [facility] WBC 8.5 4.8 - 10.8 K/mcL LAB HEMETOLOGY METHOD 02/19/2025 5:08 PM EDT [facility] RBC 4.50 4.50 - 5.50 M/mcL LAB HEMETOLOGY METHOD 02/19/2025 5:08 PM EDT [facility] Hemoglobin 13.8 13.5 - 17.5 g/dL LAB HEMETOLOGY METHOD [facility] Hematocrit 42.1 42.0 - 54.0 % LAB HEMETOLOGY METHOD 02/19/2025 5:[facility] MCV 93.3 79.0 - 98.0 FL LAB HEMETOLOGY METHOD 02/19/2025 5:08 PM EDT [facility] MCH 30.6 27.0 - 32.0 pcg LAB HEMETOLOGY METHOD 02/19/2025 5:[facility] MCHC 32.8 32.0 - 37.0 g/dL LAB HEMETOLOGY METHOD 02/19/2025 5:[facility] RDW 13.4 11.0 - 15.0 % LAB HEMETOLOGY METHOD 02/19/2025 5:08 PM EDT [facility] Platelets 156 130 - 400 K/mcL LAB HEMETOLOGY METHOD 02/19/2025 5[facility] MPV 11.2(H) 7.0 - 11.0 FL LAB HEMETOLOGY METHOD 02/19/2025 5:[facility] NRBC 0.0 <1.0 % LAB HEMETOLOGY METHOD 02/19/2025 5:08 PM EDT [facility] NRBC Absolute 0.00 <0.10 K/mcL LAB HEMETOLOGY METHOD 02/19/2025 5:08 PM EDT [facility] Neutrophils Relative 70.5 % LAB HEMETOLOGY METHOD 02/19/2025 5:08 PM [facility] Lymphocytes Relative 18.8 % LAB HEMETOLOGY METHOD 02/19/2025 5:[facility] Monocytes Relative 7.9 % LAB HEMETOLOGY METHOD 02/19/2025 5:08 PM [facility] Eosinophils Relative 2.4 % LAB HEMETOLOGY METHOD 02/19/2025 5:08 PM [facility] Basophils Relative 0.2 % LAB HEMETOLOGY METHOD 02/19/2025 5:08 PM [facility] Immature Granulocytes Relative 0.2 % LAB HEMETOLOGY METHOD 02/19/2025 5:08 PM [facility] Neutrophils Absolute 5.97 1.50 - 7.00 K/mcL LAB HEMETOLOGY METHOD 02/19/2025 5:08 PM [facility] Lymphocytes Absolute 1.59 1.00 - 5.00 K/mcL LAB HEMETOLOGY METHOD 02/19/2025 5:08 PM [facility] Monocytes Absolute 0.67 0.20 - 1.00 K/mcL LAB HEMETOLOGY METHOD 02/19/2025 5:08 PM [facility] Eosinophils Absolute 0.20 0.00 - 0.50 K/mcL LAB HEMETOLOGY METHOD 02/19/2025 5:08 PM [facility] Basophils Absolute 0.02 0.00 - 0.20 K/mcL LAB HEMETOLOGY METHOD 02/19/2025 5:08 PM [facility] Immature Granulocytes Absolute 0.02 0.00 - 0.03 K/mcL LAB HEMETOLOGY METHOD 02/19/2025 5:08 PM EDT [facility] Blood Venous blood specimen / Unknown Venipuncture / Unknown 02/19/2025 4:32 PM EDT 02/19/2025 5:02 PM EDT us Morgan Lewis MD LAB BLOOD ORDERABLES Final Resul t Performing Organization Address City/[facility]/ZIP Co de Phone Number [facility] [address] [place] [address], [place] [phone] * Magnesium (02/19/2025 4:32 PM EDT) Magnesium 2.4 1.9 - 2.6 mg/dL LAB CHEMISTRY METHOD 02/19/2025 5:31 PM EDT [facility] Blood Venous blood specimen / Unknown Venipuncture / Unknown 02/19/2025 4:32 PM EDT 02/19/2025 5:02 PM EDT us Morgan Lewis MD LAB BLOOD ORDERABLES Final Resul t Performing Organization Address City/[facility]/ZIP Co de Phone Number [facility] [address] [place] [address], [place] [phone] * (ABNORMAL) Basic metabolic panel (02/19/2025 4:32 PM EDT) Sodium 142 133 - 145 mmol/L LAB CHEMISTRY METHOD 02/19/2025 5:31 PM EDT [facility] Potassium 4.4 3.5 - 5.5 mmol/L LAB CHEMISTRY METHOD 02/19/2025 5:31 PM EDT [facility] Chloride 108 96 - 110 mmol/L LAB CHEMISTRY METHOD 02/19/2025 5:31 PM EDT [facility] CO2 31 21 - 32 mmol/L LAB CHEMISTRY METHOD 02/19/2025 5:31 PM EDT [facility] Anion Gap 3 3 - 11 LAB CHEMISTRY METHOD 02/19/2025 5:31 PM EDT [facility] Glucose 102(H) 70 - 100 mg/dL LAB CHEMISTRY METHOD 02/19/2025 5:31 PM EDT [facility] BUN 12 5 - 25 mg/dL LAB CHEMISTRY METHOD 02/19/2025 5:31 PM EDT [facility] Creatinine 0.90 0.70 - 1.30 mg/dL LAB CHEMISTRY METHOD 02/19/2025 5:31 PM EDT [facility] eGFR 96 >=60 mL/min/1. 73m2 LAB CHEMISTRY METHOD 02/19/2025 5:31 PM EDT [facility] Comment:Calculation based on the Chronic Kidney Disease Epidemiology Collaboration (CKD-EPI) equation refit without adjustment for race. BUN/Creatinine Ratio 13.3 LAB CHEMISTRY METHOD 02/19/2025 5:31 PM EDT [facility] Calcium 9.6 8.5 - 10.5 mg/dL LAB CHEMISTRY METHOD 02/19/2025 5:31 PM EDT [facility] Blood Venous blood specimen / Unknown Venipuncture / Unknown 02/19/2025 4:32 PM EDT 02/19/2025 5:02 PM EDT us Morgan Lewis MD LAB BLOOD ORDERABLES Final Resul t [facility] [address] [place] [address], from Last 3 Months Insurance [employer] Member Subscriber Plan / Payer (Ef fective 2018-Present) Name:VALENTÍN BERNARDO Relation to Subscriber:Self Name:Valentín Bernardo Payer ID:[id number] Group ID:[id number] Type:Not on file Address: [address] [place] [phone] Advance Directives Documents on File Type Date Recorded Patient Software Sales Executive Expl anation Health Care Decision (hx) 09/14/2021 AD SARGENT DIRECTIVE Health Care Decision (hx) 09/14/2021 AD SARGENT DIRECTIVE Health Care Decision (hx) 09/14/2021 AD SARGENT DIRECTIVE Care Teams Lithographic General Worker Relationship Specialty Start Date End Date Name, MD Lew [address] [place] [phone] PCP - General Internal Medicine 11/22/24
[2025-03-13 09:48] LABS: Prostate Specific Antigen 0.85 ng/mL (<0.05-4.0)
== END 2025-03-13 07:46 | disposition home or self-care (01) ==
LOC: HO.LAB 07:45
PROVIDERS: PCP Internal Medicine Geriatric Medicine; Visit Provider Nurse Practitioner Family
DX: Z12.5 Encounter for screening for malignant neoplasm of prostate (principal); N40.0 Benign prostatic hyperplasia without lower urinary tract symptoms
CPT/HCPCS: 36415; 84153

== ENCOUNTER 2025-03-19 10:46 | Outpatient (AMB) | payer OTHER, SELFPAY ==
--- NOTE | 2025-03-19 10:50 | MHC.OFFVIS ---
Intake Visit Reasons: 1y/PSA Intake Note: Patient is present for 1Y/PSA Urology Medication:TADALAFIL Antibiotic Allergy:NONE Blood Thinner:ASPIRIN Rn Staff Required: No Allergies No Known Allergies Allergy (Verified 03/19/25 11:44) Medication List - Last Reconciled 03/19/25 by ANDREW Noriega- aspirin 81 mg PO DAILY baclofen 5 - 10 mg (1 - 2 x 5 mg) PO BEDTIME 30 days bupropion HCl XL (Wellbutrin XL) 300 mg PO QAM cholecalciferol (vitamin D3) 1,250 mcg PO QWEEK 12 days clonazepam 1 mg PO DAILY dulaglutide (Trulicity) 1.5 mg subcut QWEEK duloxetine 60 mg PO BID food supplemt, lactose-reduced 237 oz orally daily; VANILLA 30 days gabapentin 600 mg PO TID magnesium oxide 400 mg PO BEDTIME 30 days pravastatin 20 mg PO DAILY quetiapine 50 mg PO BEDTIME 30 days riboflavin (vitamin B2) 400 mg PO DAILY 30 days rimegepant (Nurtec ODT) 75 mg PO ONCE PRN 30 days MDD 1 tab rivastigmine (Exelon Patch) 9.5 mg transdermal DAILY tadalafil (Cialis) 5 mg PO DAILY 90 days tadalafil (Cialis) 20 mg PO DAILY PRN tramadol 50 mg PO Q4H PRN 14 days MDD 3 tabs zolpidem (Ambien) 12.5 mg PO BEDTIME PRN HPI Comments Details: Valentín is a pleasant 64-year-old male patient of Dr. Malcolm. He has a past medical history of Parkinson's, anxiety, and diabetes. He presents to the office today for a follow up of his erectile dysfunction. In discussion with the patient today reports to be doing and feeling well. He reports since his last office visit here he has had no bothersome urinary issues or concerns. He reports noting increase in libido with daily tadalafil. He discusses at length feeling how helpful this has been. Recent PSA results reviewed with the patient today. PSAs are as follows PSA: 12/29 0.9, 12/30 0.5. 04/02 0.9 He otherwise denies any urinary issues or concerns. He denies urinary urgency, urinary frequency, incontinence, nocturia, hematuria, dysuria, foul smelling urine, changes to urinary stream, flank pain, fever, and or chills. He is happy with his current voiding parameters. In office urinalysis results reviewed with the patient today. Stressed at length importance of healthy eating habits, exercise/brisk walking, and adequate sleep to assist with symptoms of ED as well as for overall health and well-being. Patient otherwise offers no issues or concerns at this time. ON LICENSE OF [facility] Medical History Parkinson's disease Anxiety Diabetes Surgical History H/O colonoscopy Family History Mother Hyperlipidemia Cancer Thyroid disease High cholesterol Social History Household Members: Spouse Patient Tobacco Use Status: Current everyday Tobacco user service: No Current occupational status: retired Review of Systems Const Reports no additional complaints Eyes Reports no additional complaints ENT Reports no additional complaints Card Reports no additional complaints Resp Reports no additional complaints GI Reports no additional complaints Reports as per HPI Musc Reports as per HPI Neuro Reports as per HPI Psych Reports no additional complaints Endo Reports as per HPI Physical Exam Const General: cooperative, healthy appearing, comfortable, no acute distress, well developed, alert and awake Orientation/consciousness: patient oriented x3 Limitations: no limitations HEENT Head: Yes normal to inspection, Yes normocephalic and Yes atraumatic Ears: hearing grossly normal bilaterally Eyes General: appearance normal, both eyes and all related structures Neck Neck: Yes normal visual inspection and Yes trachea midline Chest Chest palpation & inspection: normal inspection of the chest Resp Effort & Inspection: normal respiratory effort and able to speak in complete sentences Cardio Rate: regular rate GI Inspection: Yes normal to inspection General: Yes no CVA tenderness Back/Spine/Pelvis Back: no CVA tenderness Skin General skin exam: no rashes or lesions noted Neuro General: patient oriented x3 Extrem General: Yes normal to inspection Psych Appearance: grossly normal and well kempt Mental Status: mental status grossly normal Speech and movement: Normal speech and movement present and Clear speech present Affect: normal affect Attitude: cooperative Thought process: Normal thought process present Thought content: Normal thought content present Insight: Good insight present (Psych) Judgement: Good judgement present (Psych) Results AMB Urinalysis, Automated UA Leukoctes 0 Rakesh/uL Last Edit by JING Weber on 03/19/25 10:59 UA Nitrite Negative Last Edit by Shelby Charles [facility] on 03/19/25 10:59 UA Urobilinogen 0.2 mg/dL Last Edit by Shelby Charles [facility] on 03/19/25 10:59 UA Protein 15 mg/dL Last Edit by Shelby Charles [facility] on 03/19/25 10:59 UA pH 6.0 Last Edit by Shelby Charles [facility] on 03/19/25 10:59 UA Blood 0 Wil/uL Last Edit by Shelby Charles [facility] on 03/19/25 10:59 UA Specific [place] 1.020 Last Edit by Shelby Charles [facility] on 03/19/25 10:59 UA Ketone Negative Last Edit by Shelby Charles [facility] on 03/19/25 10:59 UA Bilirubin 0 mg/dL Last Edit by Shelby Charles [facility] on 03/19/25 10:59 UA Glucose 0 mg/dL Last Edit by Shelby Charles [facility] on 03/19/25 10:59 Results Reviewed Results Reviewed: Laboratory Last Values Urine pH (Auto) 6.0 03/19/25 10:59 Specific [place] (Auto) 1.020 03/19/25 10:59 Urine Protein (Auto) 15 mg/dL 03/19/25 10:59 Glucose (UA)(Auto) 0 mg/dL 03/19/25 10:59 Urine Ketones (Auto) Negative 03/19/25 10:59 Urine Blood (Auto) 0 Wil/uL 03/19/25 10:59 Urine Nitrite (Auto) Negative 03/19/25 10:59 Urine Bilirubin (Auto) 0 mg/dL 03/19/25 10:59 Urine Urobilinogen (Auto) 0.2 mg/dL 03/19/25 10:59 Leukocyte Esterase (Auto) 0 Rakesh/uL 03/19/25 10:59 Assessment & Plan Assessment & Plan (1) Erectile dysfunction associated with type 2 diabetes mellitus: Code(s): E11.69 - Type 2 diabetes mellitus with other specified complication; N52.1 - Erectile dysfunction due to diseases classified elsewhere Category: Medical Plan In office urinalysis results reviewed with the patient today; as noted above. Continue 5 mg of Cialis daily; refill provided Refill provided on p.r.n. Cialis Patient otherwise denies any urinary issues or concerns at this time. Recent PSA results reviewed with the patient today; as noted above. Patient denies any bothersome urinary issues or concerns at this time. He reports be happy with current voiding parameters. Will obtain PSA, testosterone, and A1c in 1 year Follow-up in 1 year with labs and PVR to be completed prior; or sooner with any issues, concerns, and or questions. Orders: Orders AMB Urinalysis Automated Today Z13.9 - Encounter for screening, unspecified Prostate Specific Antigen 1 Year E11.69 - Type 2 diabetes mellitus with other specified complication, N52.1 - Erectile dysfunction due to diseases classified elsewhere Testosterone, Free/Total 1 Year E11.69 - Type 2 diabetes mellitus with other specified complication, N52.1 - Erectile dysfunction due to diseases classified elsewhere Hemoglobin A1c 1 Year E11.9 - Type 2 diabetes mellitus without complications Medications: Refilled tadalafil (Cialis) administer approximately 30-60 min before sexual activity; do not use more than 1 dose per 24hrs [facility] [id number] 20 mg PO DAILY PRN 20 tabs 3RF sexual activity tadalafil (Cialis) [id number] [facility] [id number] Member [id number] 5 mg PO DAILY 90 days 90 tabs 4RF tadalafil (Cialis) administer approximately 30-60 min before sexual activity; do not use more than 1 dose per 24hrs [facility]IN [facility] [id number] 20 mg PO DAILY PRN 20 tabs 3RF sexual activity tadalafil (Cialis) [id number] [facility] Member [id number] 5 mg PO DAILY 90 tabs 4RF 90 days Patient Instructions: The patient had an opportunity to ask questions regarding the treatment plan. All questions were answered. Physical exam, labs, and imaging were discussed and reviewed in detail. As well as risks, benefits, and discussion of treatment choices. No major barriers to understanding were identified. The patient expressed understanding and agreement with the above treatment plan. The patient was made aware they should contact our office by phone for worsening of their current condition, the appearance of new symptoms, or with any questions or concerns. Compliance is encouraged with any medications and follow up testing that is ordered. It is a privilege to be allowed the opportunity to participate in? your urological care.? Again, if you have any questions or concerns If you have any questions or concerns please do not hesitate to contact me. The office is [phone]. This note is constructed using voice recognition software. While every effort has been made to ensure accuracy free lance model errors may have been included. Yours sincerely, KENAN Noriega Coding Level of Care Code Est Pt Level 3 (30781) Complex EM visit Add On G2211 Diagnoses Erectile dysfunction associated with type 2 diabetes mellitus E11.69; N52.1
--- OUTSIDE RECORDS SUMMARY | 2025-03-19 12:31 | XMS_ITS | Clinical Summary ---
Author Organization 175 [facility] Address [address] [place] [address] Phone Care Team Providers Care Bull Rider Name Role Phone Name, Lew CAMPBELL Primary Care Provider [phone] Allergies No known active allergies Medications amitriptyline [...] EDT - 02/19/2025 9:47 PM EDT Emergency [facility] Emergency [address] [place] [address] Julian Barone MD Head injury, initial encounter (Primary Dx); Chronic bilateral low back pain, unspecified whether sciatica present Discharge Disposition: Left Against Medical Advice 02/19/2025 11:00 AM EDT Office Visit Orthopedic Surgery [facility] [address] [phone] Ti Van, DPM Ingrowing nail (Primary Dx); Diabetic mononeuropathy simplex ([facility] V24, [facility] V28); Dermatophytosis of nail 02/01/2025 8:15 AM EDT Consult Orthopedic Surgery [facility] [address] [phone] Ti Van, DPM Ingrowing nail (Primary Dx); Type 2 diabetes mellitus with diabetic neuropathy, unspecified ([facility] V24, [facility] V28); Diabetic mononeuropathy simplex ([facility] V24, [facility] V28) from Last 3 Months Surgical History Surgery Date Site/Laterality Comments CHOLECYSTECTOMY 2002 PROCEDURE: LAPAROSCOPY, CHOLECYSTECTOMY; COMMENT: Sukumar ESOPHAGOGASTRODUODENOSCOPY 2002 PROCEDURE: OH EGD TRANSORAL BIOPSY SINGLE/MULTIPLE; COMMENT: duodenal ulcers; CLOtest negative, no H. pylori COLONOSCOPY 02/03/2012 PROCEDURE: OH COLONOSCOPY FLX DX W/COLLJ SPEC WHEN PFRMD; [...] Brother 1 Heart attack Brother 1 1st [place] at age 4 2 Diabetes Brother 2 [...] AM EST Office Visit Orth[facility] [place] [address] [phone] Ti Van, DPM [address] [phone] Health Maintenance Due Date Last Done Comments [...] by: Gustavo Lopez MD on 02/19/2025 20:20:23 Julian Barone MD IMG CT PROCEDURES Final [...] This document has been electronically signed by: Gustvao Lopez MD on 02/19/2025 20:24:11 Julian Barone MD [facility] CT PROCEDURES Final Re sult * CT [...] on 02/19/2025 20:17:19 us Julian Barone MD [facility] CT PROCEDURES Final Re sult * (ABNORMAL) CBC auto differential (02/19/2025 4:32 PM EDT) WBC 8.5 4.8 - 10.8 K/mcL LAB [facility] RBC 4.50 4.50 - 5.50 M/mcL LAB HEMETOLOGY METHOD 02/19/2025 5:[facility] Hemoglobin 13.8 13.5 - 17.5 g/dL LAB HEMETOLOGY METHOD 02/19/2025 5:[facility] Hematocrit 42.1 42.0 - 54.0 % LAB HEMETOLOGY METHOD 02/19/2025 5:08 PM [facility] MCV 93.3 79.0 - 98.0 FL LAB HEMETOLOGY METHOD 02/19/2025 5:08 PM [facility] MCH 30.6 27.0 - 32.0 pcg LAB HEMETOLOGY METHOD 02/19/2025 5:08 PM [facility] MCHC 32.8 32.0 - 37.0 g/dL LAB HEMETOLOGY METHOD 02/19/2025 5:08 PM [facility] RDW 13.4 11.0 - 15.0 % LAB HEMETOLOGY METHOD 02/19/2025 5:08 PM [facility] Platelets 156 130 - 400 K/[facility] LAB HEMETOLOGY METHOD 02/19/2025 5:08 PM [facility] MPV 11.2(H) 7.0 - 11.0 FL LAB HEMETOLOGY METHOD 02/19/2025 5:[facility] NRBC 0.0 <1.0 % LAB HEMETOLOGY METHOD 02/19/2025 5:08 PM [facility] NRBC Absolute 0.00 <0.10 K/[facility] LAB HEMETOLOGY METHOD 02/19/2025 5:08 PM [facility] Neutrophils Relative 70.5 % LAB HEMETOLOGY METHOD 02/19/2025 5:08 PM [facility] Lymphocytes Relative 18.8 % LAB HEMETOLOGY METHOD 02/19/2025 5:08 PM [facility] Monocytes Relative 7.9 % LAB HEMETOLOGY METHOD 02/19/2025 5:08 PM [facility] Eosinophils Relative 2.4 % LAB HEMETOLOGY METHOD 02/19/2025 5:08 PM [facility] Basophils Relative 0.2 % LAB HEMETOLOGY METHOD 02/19/2025 5:08 PM [facility] Immature Granulocytes Relative 0.2 % LAB HEMETOLOGY METHOD 02/19/2025 5:08 PM [facility] Neutrophils Absolute 5.97 1.50 - 7.00 K/mcL LAB HEMETOLOGY METHOD 02/19/2025 5:08 PM [facility] Lymphocytes Absolute 1.59 1.00 - 5.00 K/mcL LAB HEMETOLOGY METHOD 02/19/2025 5:08 PM [facility] Monocytes Absolute 0.67 0.20 - 1.00 K/mcL LAB HEMETOLOGY METHOD 02/19/2025 5:08 PM [facility] Eosinophils Absolute 0.20 0.00 - 0.50 K/mcL LAB HEMETOLOGY METHOD 02/19/2025 5:08 PM [facility] Basophils Absolute 0.02 0.00 - 0.20 K/mcL LAB HEMETOLOGY METHOD 02/19/2025 5:08 PM [facility] Immature Granulocytes Absolute 0.02 0.00 - 0.03 K/mcL LAB HEMETOLOGY METHOD 02/19/2025 5:08 PM [facility] Blood Venous blood specimen / Unknown Venipuncture / Unknown 02/19/2025 4:32 PM EDT 02/19/2025 5:02 PM EDT us Morgan Lewis MD LAB BLOOD ORDERABLES Final Resul t [facility] [address] [place] [address], [place] [phone] * Magnesium (02/19/2025 4:32 PM EDT) [facility] Magnesium 2.4 1.9 - 2.6 mg/dL LAB CHEMISTRY METHOD 02/19/2025 5:31 PM EDT [facility] Blood Venous blood specimen / Unknown Venipuncture / Unknown 02/19/2025 4:32 PM EDT 02/19/2025 5:02 PM EDT us Morgan Lewis MD LAB BLOOD ORDERABLES Final Resul t Performing Organization Address City/[facility]/ZIP Co de Phone Number [facility] [address] [place] [address], [place] [phone] * (ABNORMAL) Basic metabolic panel (02/19/2025 4:32 PM EDT) [facility] Sodium 142 133 - 145 mmol/L LAB CHEMISTRY METHOD 02/19/2025 5:31 PM EDT [facility] Potassium 4.4 3.5 - 5.5 mmol/L LAB CHEMISTRY METHOD 02/19/2025 5:31 PM EDT [facility] Chloride 108 96 - 110 mmol/L LAB CHEMISTRY METHOD 02/19/2025 5:31 PM EDT [facility] CO2 31 21 - 32 mmol/L LAB CHEMISTRY METHOD 02/19/2025 5:31 PM EDT [facility] Anion Gap 3 3 - 11 LAB CHEMISTRY METHOD 02/19/2025 5:31 PM EDT [facility] Glucose 102(H) 70 - 100 mg/dL LAB CHEMISTRY METHOD 02/19/2025 5:31 PM EDT [facility] BUN 12 5 - 25 mg/dL LAB CHEMISTRY METHOD 02/19/2025 5:31 PM EDT [facility] Creatinine 0.90 0.70 - 1.30 mg/dL LAB CHEMISTRY METHOD 02/19/2025 5:31 PM EDT [facility] eGFR 96 >=60 mL/min/1. 73m2 LAB CHEMISTRY METHOD 02/19/2025 5:31 PM EDT [facility] Comment:Calculation based on the Chronic Kidney Disease Epidemiology Collaboration (CKD-EPI) equation refit without adjustment for race. BUN/Creatinine Ratio 13.3 LAB CHEMISTRY METHOD 02/19/2025 5:31 PM EDT [facility] Calcium 9.6 8.5 - 10.5 mg/dL LAB CHEMISTRY METHOD 02/19/2025 5:31 PM EDT [facility] Blood Venous blood specimen / Unknown Venipuncture / Unknown 02/19/2025 4:32 PM EDT 02/19/2025 5:02 PM EDT us Morgan Lewis MD LAB BLOOD ORDERABLES Final Resul t [facility] [address] [place] [address], [place] [phone] from Last 3 Months Insurance [facility] MEDICARE Member Subscriber Plan / Payer (Ef fective 2018-Present) Name:VALENTÍN BERNARDO Relation to Subscriber:Self Name:Valentín Bernardo Payer ID:[id number] Group ID:[id number] Type:Not on file Address: [address] [facility] [place] [id number] Advance Directives Documents on File Type Date Recorded Patient Energy Derivatives Trader Expl anation Health Care Decision (hx) 09/14/2021 AD SARGENT DIRECTIVE Health Care Decision (hx) 09/14/2021 AD SARGENT DIRECTIVE Health Care Decision (hx) 09/14/2021 AD SARGENT DIRECTIVE Care Teams Bull Rider Relationship Specialty Start Date End Date Name, MD Lew [address] [place] [address] PCP - General Internal Medicine 11/22/24
--- OUTSIDE RECORDS SUMMARY | 2025-03-19 12:31 | XMS_ITS | Encounter Summary ---
Author Organization [employer] Address [address] [place] [address] [address] [place] [address] Care Team Providers Care Ems Instructor Name Role Phone Name, Lew CAMPBELL Primary Care Provider [phone] Reason for Visit * Reason Comments Med Refill Encounter Details Date Type Department Care Team (Late st Contact Info) Description 01/05/2023 Refill [facility] [address] [place] [address] [phone] NameLew MD [address] [place] [address] [phone] Social History Tobacco Use Types Packs/Day Years [...] Description 03/26/2025 8:30 AM EST Clinical Support [address] [phone] Luna Frey RN 04/23/2025 11:30 AM EST Office Visit [address] [phone] Lew Malcolm MD [address] [place] [address] [phone] documented as of this encounter Visit Diagnoses Not on filedocumented in this encounter Additional Health Concerns Assessment Noted Time PHQ-9 Depression Total Score: 18 022 10:02 AM EST documented as of this encounter Care Teams Ems Instructor Relationship Specialty Start Date End Date Name, MD Lew [address] [place] [address] PCP - General Family Medicine 07/14/15 documented as of this encounter
--- OUTSIDE RECORDS SUMMARY | 2025-03-19 12:32 | XMS_ITS | Encounter Summary ---
Author Organization [facility] Address [address] [place] [address] Care Team Providers Care Making Department Preparer Name Role Phone Name, Lew CAMPBELL Primary Care Provider Unavailabl e Community, Pcp Primary Care Provider Unavailabl e Name, Lew CAMPBELL Primary Care Provider Unavailabl e Name, Lew CAMPBELL Primary Care Provider Unavailabl e Jocelyn Miller MD Unavailable [phone] Name, Lew CAMPBELL Primary Care Provider Unavailabl e Anibal Veliz PA-C Unavailable [phone] Jelly Bain PA-C Unavailable [phone] Encounter Details Date Type Department Care Team Description 09/29/2012 Business Doc Medical Records [address] [place] [id number] Abstract, Provider Social History Tobacco Use Types [...] on filedocumented in this encounter Care Teams Making Department Preparer Relationship Specialty Start Date End Date Lew Malcolm MD PCP - General 04/10/09 06/10/15 Community, Pcp PCP - General Internal Medicine 06/11/15 09/16/15 Lew Malcolm MD PCP - General Internal Medicine 09/17/15 09/28/18 Lew Malcolm MD PCP - General Internal Medicine 09/29/18 10/26/21 Lew Malcolm MD PCP - General Internal Medicine 10/27/21 Jocelyn Miller MD [address] [phone] Neurosurgery 10/27/21 Anibal Veliz PA-C [address] [address] Specialist Neurosurgery 11/19/21 Jelly Bain PA-C [address] [phone] Specialist Neurosurgery 11/19/21 documented as of this encounter
--- OUTSIDE RECORDS SUMMARY | 2025-03-19 12:32 | XMS_ITS | Encounter Summary ---
Author Organization [facility] Address [address] [place] [address] Care Team Providers Care Granulator Machine Operator Name Role Phone Name, Lew CAMPBELL Primary Care Provider Unavailabl e Community, Pcp Primary Care Provider Unavailabl e Name, Lew CAMPBELL Primary Care Provider Unavailabl e Name, Lew CAMPBELL Primary Care Provider Unavailabl e Jocelyn Miller MD Unavailable [phone] Name, Lew CAMPBELL Primary Care Provider Unavailabl e Anibal Veliz PA-C Unavailable [phone] Jelly Bain PA-C Unavailable [phone] Reason for Visit * Reason Onset Date Comments Faxed Order 12/31/2013 Encounter Details Date Type Department Care Team Description 12/31/2013 [place] [facility] [address] [address] Name, MD Lew Faxed Order Social History [...] * Telephone Encounter - Sarika Leo - 01/17/2014 3:08 PM EDT Please view, sign and fax back 60 day summary. * Telephone Encounter - Dania Malone - 12/31/2013 2:24 PM EDT Review and fax back to [place] [phone] documented in this encounter Plan of Treatment Not on file documented as of this encounter Visit Diagnoses Not on filedocumented in this encounter Care Teams Granulator Machine Operator Relationship Specialty Start Date End Date Name, MD Lew PCP - General 04/10/09 06/10/15 [facility], Pcp PCP - General Internal Medicine 06/11/15 09/16/15 NameLew MD PCP - General Internal Medicine 09/17/15 09/28/18 Name, MD Lew PCP - General Internal Medicine 09/29/18 10/26/21 Name, MD Lew PCP - General Internal Medicine 10/27/21 Jocelyn Miller MD [address] [phone] Neurosurgery 10/27/21 Anibal Veliz PA-C 175 [facility] [address] [place] [address] Specialist Neurosurgery 11/19/21 Jelly Bain PA-C [address] [address] Specialist Neurosurgery 11/19/21 documented as of this encounter
--- OUTSIDE RECORDS SUMMARY | 2025-03-19 12:32 | XMS_ITS | Encounter Summary ---
Author Organization [facility] Address [address] [place] [address] Care Team Providers Care Conductor Orchestra Name Role Phone Name, Lew CAMPBELL Primary Care Provider Unavailabl e Community, Pcp Primary Care Provider Unavailabl e Name, Lew CAMPBELL Primary Care Provider Unavailabl e Name, Lew CAMPBELL Primary Care Provider Unavailabl e Jocelyn Miller MD Unavailable [phone] Name, Lew CAMPBELL Primary Care Provider Unavailabl e Anibal Veliz PA-C Unavailable [phone] Jelly Bain PA-C Unavailable [phone] Encounter Details Date Type Department Care Team Description 12/10/2013 Home Health Certification Medical Records [address] [place] [phone] [place] [address], [facility] Social History Tobacco Use Types Packs/Day Years [...] on filedocumented in this encounter Care Teams Conductor Orchestra Relationship Specialty Start Date End Date Lew Malcolm MD PCP - General 04/10/09 06/10/15 Community, Pcp PCP - General Internal Medicine 06/11/15 09/16/15 Lew Malcolm MD PCP - General Internal Medicine 09/17/15 09/28/18 Lew Malcolm MD PCP - General Internal Medicine 09/29/18 10/26/21 Lew Malcolm MD PCP - General Internal Medicine 10/27/21 Jocelyn Miller MD [address] [phone] Neurosurgery 10/27/21 Anibal Veliz PA-C [address] [phone] Specialist Neurosurgery 11/19/21 Jelly Bain PA-C [address] [address] Specialist Neurosurgery 11/19/21 documented as of this encounter
--- OUTSIDE RECORDS SUMMARY | 2025-03-19 12:32 | XMS_ITS | Encounter Summary ---
Author Organization [facility] Address [address] [place] [address] Care Team Providers Care Composite Engineer Name Role Phone Name, Lew CAMPBELL Primary Care Provider Unavailabl e Community, Pcp Primary Care Provider Unavailabl e Name, Lew CAMPBELL Primary Care Provider Unavailabl e Name, Lew CAMPBELL Primary Care Provider Unavailabl e Jocelyn Miller MD Unavailable [phone] Name, Lew CAMPBELL Primary Care Provider Unavailabl e Anibal VelizC Unavailable [phone] Jelly Bain PA-C Unavailable [phone] Reason for Visit * Reason Onset Date Comments Faxed Order 11/19/2013 Encounter Details Date Type Department Care Team Description 11/19/2013 [place] Adult [address] [address] Name, MD Lew Faxed Order Social History [...] 11/26/2013 3:53 PM EDT Sing and fax [phone] * Telephone Encounter - Lexi Perry M.A. - 11/26/2013 1:50 PM EDT Not a pod message Wouldn't know where original orders are * Telephone Encounter - Sarika Leo - 11/26/2013 1:48 PM EDT Mila from [facility] is looking for the order and needs this to be fax [facility], . She will be faxing a new order. * Telephone Encounter - Dania Malone - 11/19/2013 2:39 PM EDT Sign face to face * Telephone Encounter - Dania Malone - 11/19/2013 2:30 PM EDT Please review and sign- [phone] documented in this encounter Plan of Treatment Not on file documented as of this encounter Visit Diagnoses Not on filedocumented in this encounter Care Teams Composite Engineer Relationship Specialty Start Date End Date Name, MD Lew PCP - General 04/10/09 06/10/15 [facility], Pcp PCP - General Internal Medicine 06/11/15 09/16/15 Lew Malcolm MD PCP - General Internal Medicine 09/17/15 09/28/18 Lew Malcolm MD PCP - General Internal Medicine 09/29/18 10/26/21 NameLew MD PCP - General Internal Medicine 10/27/21 Jocelyn Miller MD 175 [facility] [address] [place] [address] Neurosurgery 10/27/21 Anibal Veliz PA-C 175 [facility] [address] [place] [address] Specialist Neurosurgery 11/19/21 Jelly Bain PA-C [address] [place] [address] Specialist Neurosurgery 11/19/21 documented as of this encounter
--- OUTSIDE RECORDS SUMMARY | 2025-03-19 12:32 | XMS_ITS | Encounter Summary ---
Author Organization [facility] Address [address] [place] [address] Care Team Providers Care Edge Banding Machine Offbearer Name Role Phone Name, Lew CAMPBELL Primary Care Provider Unavailabl e Mindi Lamas MD Primary Care Provider [phone] [facility], Pcp Primary Care Provider Unavailabl e Name, Lew CAMPBELL Primary Care Provider Unavailabl e Name, Lew CAMPBELL Primary Care Provider Unavailabl e Jocelyn Miller MD Unavailable [phone] Name, Lew CAMPBELL Primary Care Provider Unavailabl e Anibal Veliz PA-C Unavailable [phone] Jelly Bain PA-C Unavailable [phone] Reason for Visit * Reason Comments REFERRAL [facility]AS Encounter Details Date Type Department Care Team Description 01/26/2001 Telephone Adult Medicine [address] [id number] Mindi Lamas MD [address] [place] [address] [id number] REFERRAL ([facility]) Social History Tobacco Use Types Packs/Day Years Used Date Smoking Tobacco: Never Assessed Sex Assigned at Date Recorded Not on file Job Start Date Occupation Industry Not on file Not on file Not on file documented as of this encounter Miscellaneous Notes * Telephone Encounter - 01/26/2001 9:39 AM EDTCALL RECEIVED. Contact: [phone] [employer]LEMAN ANDREW (KEKE) ADMITTED FOR CHEST PAIN WITH A 23HOUR OBSERVATION THEY NEED A PCC # documented in this encounter Plan of Treatment Not on file documented as of this encounter Visit Diagnoses Not on filedocumented in this encounter Care Teams Edge Banding Machine Offbearer Relationship Specialty Start Date End Date Name, MD Lew PCP - General 04/10/09 06/10/15 Mindi Lamas MD [address] [place] [address] PCP - General 03/08/1999 04/09/09 [facility], [address] [address] PCP - General Internal Medicine 06/11/15 09/16/15 Lew Malcolm MD [address] [place] [address] PCP - General Internal Medicine 09/17/15 09/28/18 Lew Malcolm MD [address] [place] [address] PCP - General Internal Medicine 09/29/18 10/26/21 Lew Malcolm MD [address] [place] [address] PCP - General Internal Medicine 10/27/21 Jocelyn Miller MD [address] [address] Neurosurgery 10/27/21 Anibal Veliz PA-C [address] [address] Specialist Neurosurgery 11/19/21 Jelly Bain PA-C [address] [address] Specialist Neurosurgery 11/19/21 documented as of this encounter
--- OUTSIDE RECORDS SUMMARY | 2025-03-19 12:32 | XMS_ITS | Encounter Summary ---
Author Organization [facility] Address [address] [place] [address] Care Team Providers Care Digital Campaign Specialist Name Role Phone Name, Lew CAMPBELL Primary Care Provider Unavailabl e Community, Pcp Primary Care Provider Unavailabl e Name, Lew CAMPBELL Primary Care Provider Unavailabl e Name, Lew CAMPBELL Primary Care Provider Unavailabl e Jocelyn Miller MD Unavailable [phone] Name, Lew CAMPBELL Primary Care Provider Unavailabl e Anibal Veliz PA-C Unavailable [phone] Jelly Bain PA-C Unavailable [phone] Reason for Visit * Reason Onset Date Comments Faxed Order 09/19/2013 [facility] are Encounter Details Date Type Department Care Team Description 09/19/2013 Telephone Adult Medicine [address] [address] Name, MD Lew Faxed Order ([facility]) Social History Tobacco Use Types Packs/Day Years [...] EDT Review and sign fax back to [phone] * Telephone Encounter - Radha Opal - 09/19/2013 1:11 PM EDT [facility] faxed plan of care to be reviewd and signed by Dr Name. Wynn fax back to [phone] ATTN: Delia Murry documented in this encounter Plan of Treatment Not on file documented as of this encounter Visit Diagnoses Not on filedocumented in this encounter Care Teams Digital Campaign Specialist Relationship Specialty Start Date End Date Name, MD Lew PCP - General 04/10/09 06/10/15 Community, Pcp PCP - General Internal Medicine 06/11/15 09/16/15 NameLew MD PCP - General Internal Medicine 09/17/15 09/28/18 NameLew MD PCP - General Internal Medicine 09/29/18 10/26/21 Name, MD Lew PCP - General Internal Medicine 10/27/21 Jocelyn Miller MD [address] [address] Neurosurgery 10/27/21 Anibal Veliz PA-C [address] [address] Specialist Neurosurgery 11/19/21 Jelly Bain PA-C [address] [address] Specialist Neurosurgery 11/19/21 documented as of this encounter
--- OUTSIDE RECORDS SUMMARY | 2025-03-19 12:32 | XMS_ITS | Clinical Summary ---
Author Organization [facility] Address [address] [place] [address] Care Team Providers Care Rehabilitation Services Director Name Role Phone Jocelyn Miller MD Unavailable [phone] Name, Lew CAMPBELL Primary Care Provider UnavailAnibal Palmer PA-C Unavailable [phone] Jelly Bain PA-C Unavailable [phone] Allergies No known active allergies Medications Medication Sig Dispensed Refills Start Date End Date Status AMITRIPTYLINE HCL 50 MG OR TABS 1 qd 0 Active CLONAZEPAM 0.5 MG OR TABS 1 qd 0 Active sertraline (ZOLOFT) 100 MG tablet 0 04/16/2011 Active Zolpidem Tartrate 10 MG TABS 0 02/18/2011 Active Testosterone (TESTIM) 50 MG/5GM GEL Apply 5 gm once daily to shoulder & upper arms. After application wash hands thoroughly. 150 g 1 04/12/2013 Active carbidopa-levodopa (SINEMET) 25-100 MG per tablet Take 1 tablet by mouth 4 times daily. 0 Active glucose monitoring kit (FREESTYLE) monitoring kitIndications:Typ e II or unspecified type diabetes mellitus without mention of complication, not stated as uncontrolled,Diabe tic neuropathy (HCC) 1 Each by Does not apply route as needed for Other. 1 Each 0 10/03/2013 Active FreeStyle Lancets MISCIndications:Ty pe II or unspecified type diabetes mellitus without mention of complication, not stated as uncontrolled,Arthr itis,Plantar fasciitis Use once per day 100 Each 5 12/17/2013 Active Aspirin (ASPIR-81 OR) Take 1 Tab by mouth daily. 0 Active urea (CARMOL) 40 % CREAIndications:Di abetes mellitus with neuropathy (HCC) Apply 1 Each topically daily. 50 g 7 02/06/2014 Active FREESTYLE LITE stripIndications:T ype II or unspecified type diabetes mellitus without mention of complication, not stated as uncontrolled Use once per day 50 Strip 5 05/24/2014 Active Diclofenac Sodium (VOLTAREN) 1 % GelIndications:Typ e II or unspecified type diabetes mellitus without mention of complication, not stated as uncontrolled Apply once a day to the affected skin 1 Tube 3 05/24/2014 Active Urea 20 % Ointment Apply 1 Each topically daily. 40 g 3 05/24/2014 Active metformin (GLUCOPHAGE) 500 MG tablet Take 1 Tab by mouth 2 times daily (with meals). 60 Tab 5 04/15/2015 Active pravastatin (PRAVACHOL) 40 MG tablet Take 1 Tab by mouth daily. 30 Tab 5 04/15/2015 Active naproxen (NAPROSYN) 500 MG tablet TAKE 1 TABLET BY MOUTH TWICE DAILY WITH MEALS 60 Tab 0 05/05/2015 Active Aspirin Low Dose 81 MG EC tablet Take 81 mg by mouth daily. 0 10/18/2021 Active Rexulti 2 MG Tab TAKE 1 TABLET BY MOUTH EVERY NIGHT AT BEDTIME 0 07/22/2021 Active clonazepam (KLONOPIN) 1 MG tablet TAKE 1 TABLET BY MOUTH TWICE DAILY NEEDED 0 10/02/2021 Active Trulicity 1.5 MG/0.5ML Solution Pen-injector 0 09/14/2021 Active duloxetine (CYMBALTA) 60 MG capsule TAKE 1 CAPSULE BY MOUTH EVERY MORNING 0 10/25/2021 Active gabapentin (NEURONTIN) 600 MG tablet TAKE 1 TABLET BY MOUTH THREE TIMES DAILY 0 09/30/2021 Active rivastigmine (EXELON) 4.6 MG/24HR APPLY 1 PATCH TOPICALLY TO THE SKIN EVERY MORNING 0 10/02/2021 Active ropinirole (REQUIP) 0.25 MG tablet 0 10/25/2021 Active tizanidine (ZANAFLEX) 2 MG tablet TAKE 1 TABLET BY MOUTH EVERY 8 HOURS NEEDED. NOT TO EXCEED 3 DOSES IN 24 HOURS 0 09/22/2021 Active HYDROmorphone (Dilaudid) 2 MG tablet 1-2 tabs po Q6h prn severe pain 40 Tablet 0 11/18/2021 Active mirtazapine (REMERON) 30 MG tablet TAKE 1 TABLET BY MOUTH AT BEDTIME 0 11/06/2021 Active oxycodone (ROXICODONE) 5 MG immediate release tablet 1-2 tabs PO Q6-8 hr prn severe pain 15 Tablet 0 11/20/2021 Active tadalafil (CIALIS) 20 MG tablet Take 1 tab prior to intercourse 20 Tab 5 04/12/2013 5 Discontinue d(reorder) Active Problems Patient Care Coordination No te Formatting of this note is d ifferent from the original. Checking Your Blood Sugars Please check your blood sugars every day. Please check your sugars at the following times of day: before lunch Your Blood Sugar Goals Pre Meal: 90-130 2 hours after meals: 110-160 Bedtime: 110-150 Use the Results Bring your glucometer to every appointment Write your fingerstick blood sugars down on a log sheet or record book. Bring them to your appointment Look for patterns in the numbers. The results help you and your provider make decisions about your diabetes treatment plan. Your Results and your Goals Your Result / Date of Completion Your Goal / How Often to Assess Component Value Date HGBA1C 6.7 05/19/2011 Less than 7%--- 2-4 times per year BP Readings from Last 1 Encounters: 05/24/11 128/72 Less than 130/80--- once per year Component Value Date LDL 65 10/15/2010 LDL less than 100--- once per year Component Value Date MALBUR 4.7 07/16/2010 Less than 30--- once per year Wt Readings from Last 1 Encounters: 05/24/11 199 lb 1.6 oz (90.311 kg) Your goal weight by next visit: 195 --- reassess 2-4 times a year Health Maintenance Due Topic Date Due Diabetes: Annual Care Plan 1979 Baseline Health Exam 40-64 06/17/2010 Diabetes: Annual Eye Exam 02/24/2011 Your Action Plan Check blood glucose as directed and write down all results. Check feet for sores every day Contact me if you experience any barriers to care such as inability to purchase your medication, difficulty getting to your appointments or difficulty understanding your care plan Please get your yearly flu shot When to Call your Healthcare Provider If your blood sugar falls below 70 and you do not know why or you become unconscious If you are sick and unable to take liquids because or nausea or vomiting If you have a fever over 101 If your blood sugar is 300 or higher on greater than 3 separate occasions during the same week If you are just unsure what to do Educational Resources Citizen Of The [place] Diabetes Association (www.diabetes.org) Centers for Disease Control and Prevention (www.cdc.gov/diabetes) This care plan was created in collaboration with Valentín Az on 05/24/2011 Problem Noted Date Cervical cord compression with myelopath y 10/27/2021 Last Assessment & Plan: Patient is 11 [...] drainage, fevers they will call the office. Diabetes mellitus type 2, uncontrolled 1 06/16/2014 Parkinsonism 05/24/2014 Anxiety 05/24/2014 Type II or unspecified type diabetes mellitus with ophthalmic manifestations, not stated as uncontrolled 07/19/2013 Overview: NS on eye exam 09/12/12. Abnormal brain MRI 04/30/2013 Overview: White matter disease, MS versus microvascular ischemia Neuropathy 01/17/2013 Overview: Bilat feet History of foot ulcer secondary to traum a 01/17/2013 Overview: See 06/30/11 note Erectile dysfunction 09/18/2012 DM (diabetes mellitus) with peripheral v ascular complication 09/18/2012 Duodenal ulcer disease 02/03/2012 Overview: EGD 2002, no h. Pylori. BENITO (obstructive sleep apnea) 08/27/2011 Overview: cpap 04/23 range Diabetic neuropathy 07/19/2011 Overview: ED/ Neuropathy Fatty liver 04/27/2011 Obese 10/26/2010 Hypertriglyceridemia 06/20/2009 Depression 06/20/2009 Overview: Follow with Dr Jackson Hypogonadism 07/01/2008 Resolved Problems Problem Noted Date Resolved Date Diabetes mellitus type II, controlled 01/17/2013 04/15/2015 LFTs abnormal 07/17/2008 04/27/2011 Overview: Chronic hepatitis panel negative, ultrasound showed fatty liver Immunizations Name Administration Dates Next Due COVID-19 (Moderna) 05/28/2021,08/13/2020, 021 Influenza (> 6 Months) 05/28/2021,2019,01/31/2019,02/15,02/17/2017,02/23/2016,04/15/2015 ,02/06/2014,02/01/2012,04/27/2011,0201/2009 Influenza H1N1 Pandemic Flu Vaccine 06/20/2009 PPD-RBMG 02/05/2004 Pneumoccoccal(Adult) Polysac charide PPSV23 07/17/2008 Shingrix (Recombinant zoster vaccine) 05/12/2018 Tdap 06/17/2008 Family History Medical History Relation Name Comments Blindness Brother 2 NE Brother 2 1st NE at age 4 2 Diabetes Brother 3 with foot amput ation alcoholic [Other] Father Cataract Mother Blindness Other Glaucoma Negative Hx Macular Degeneration Negative Hx Strabismus Negative Hx Relation Name Status Comments Brother 1 Alive DM and severe P VD Brother 2 Brother 3 Father not known Mother Alive diverticulitis Other Social History Tobacco Use Types Packs/Day Years Used Date Smoking Tobacco: Former Smokeless Tobacco: Never Comments:quit 2001 Alcohol Use Standard Drinks/Week Comments No 0 (1 standard drink = 0.6 oz pur e alcohol) Sex Assigned at Date Recorded Not on file Job Start Date Occupation Industry Not on file Not on file Not on file Last Filed Vital Signs Vital Sign Reading Time Taken Comments Blood Pressure 132/88 04/15/2015 8:48 AM EST Pulse 84 04/15/2015 8:48 AM EST Temperature 37 C (98.6 F) 04/15/2015 8:48 AM EST Respiratory Rate 14 04/15/2015 8:48 AM EST Oxygen Saturation 94% 02/03/2012 9:50 AM EDT Inhaled Oxygen Concentration - - Weight 73.9 kg (163 lb) 11/20/2021 1:03 PM EDT Height 165.1 cm (5' 5 ) 11/20/2021 1:03 PM EDT Body Mass Index 27.12 11/20/2021 1:03 PM EDT Plan of Treatment Health Maintenance Due Date Last Done Comments DEPRESSION SCREEN 1973 DIABETES: ANNUAL FOOT EXAM 10/25/2012 10/26/2011, BASELINE HEALTH EXAM 40-64 08/29/201408/29, 08/29/2012, 06/25/2008, Additional history exists DIABETES: ANNUAL EYE EXAM 09/17/20142013, 11/08/2012, 09/11/2012, Additional history exists DIABETES: BLOOD SUGAR CONTRO L TEST (HGBA1C) 07/11/2015 04/11/2015, 09/20/2014, 04/15/2014, Additional history exists DIABETES: ANNUAL URINE PROTE IN TEST (MICROALBUMIN) 09/21/2015 09/20/2014, 07/30/2013, 08/29/2012, Additional history exists DIABETES/HEART DISEASE: MELLY AL CHOLESTEROL (LDL) 04/11/2016 04/11/2015, 04/15/2014, 04/23/2013, Additional history exists DTAP/TDAP/TD (2 - Td or Tdap) 06/17/2018 06/17/2008 SHINGLES VACCINE (2 of 2) 07/07/2018 05/12/2018 COLON CANCER SCREENING 02/02/2022 02/03/2012, 2011 BMI CHECK/ADVISE 05/09/2024 12/06/2014, 01/30/2014 Covid-19 Vaccine (4 - 2022-2 4 season) 2025 05/28/2021, 08/13/2020, 07/16/2020 INFLUENZA (#1) 2025 05/28/2021, 02/07, 01/31/2019, Additional history exists PNEUMOCOCCAL VACCINE FOR HIG H RISK PATIENTS (#2) 2026 07/17/2008 HEPATITIS C SCREENING Completed 09/17/2008 Care Teams Rehabilitation Services Director Relationship Specialty Start Date End Date Name, MD Lew [address] [place] [address] [address] [place] [address] PCP - General Internal Medicine 10/27/21 Jocelyn Miller MD [address] [address] Neurosurgery 10/27/21 Anibal Veliz PA-C [address] [address] Specialist Neurosurgery 11/19/21 Jelly Bain PA-C [address] [address] Specialist Neurosurgery 11/19/21
--- OUTSIDE RECORDS SUMMARY | 2025-03-19 12:32 | XMS_ITS | Encounter Summary ---
Author Organization [facility] Address [address] [place] [address] Care Team Providers Care Evp Managing Director Name Role Phone Name, Lew CAMPBELL Primary Care Provider Unavailabl e Community, Pcp Primary Care Provider Unavailabl e Name, Lew CAMPBELL Primary Care Provider Unavailabl e Name, Lew CAMPBELL Primary Care Provider Unavailabl e Jocelyn Miller MD Unavailable [phone] Name, Lew CAMPBELL Primary Care Provider Unavailabl e Anibal VelizC Unavailable [phone] Jelly Bain PA-C Unavailable [phone] Encounter Details Date Type Department Care Team Description 03/21/2014 [place] Adult [address] [address] NameLew MD Social History Tobacco Use Types Packs/Day [...] on filedocumented in this encounter Care Teams Evp Managing Director Relationship Specialty Start Date End Date Lew Malcolm MD PCP - General 04/10/09 06/10/15 Community, Pcp PCP - General Internal Medicine 06/11/15 09/16/15 Lew Malcolm MD PCP - General Internal Medicine 09/17/15 09/28/18 Lew Malcolm MD PCP - General Internal Medicine 09/29/18 10/26/21 Name, MD Lew PCP - General Internal Medicine 10/27/21 Jocelyn Miller MD [address] [id number] Neurosurgery 10/27/21 Anibal Veliz PA-C [address] [id number] Specialist Neurosurgery 11/19/21 Jelly Bain PA-C [address] [address] Specialist Neurosurgery 11/19/21 documented as of this encounter
--- OUTSIDE RECORDS SUMMARY | 2025-03-19 12:32 | XMS_ITS | Encounter Summary ---
Author Organization [facility] Address [address] [place] [address] Care Team Providers Care Foundry Operator Name Role Phone Community, Pcp Primary Care Provider Unavailangy e Gold, Lew CAMPBELL Primary Care Provider Unavailabl e Name, Lew CAMPBELL Primary Care Provider Unavailabl e Jocelyn Miller MD Unavailable [phone] Name, Lew CAMPBELL Primary Care Provider Unavailabl e Anibal VelizC Unavailable [phone] Jelly Bain PA-C Unavailable [phone] Encounter Details Date Type Department Care Team Description 06/20/2015 [employer] Academic [employer] Report Medical Records [address] [place] [address] Marcelina Wilhelm MD Social History Tobacco Use [...] on filedocumented in this encounter Care Teams Foundry Operator Relationship Specialty Start Date End Date Community, Pcp PCP - General Internal Medicine 06/11/15 09/16/15 Lew Malcolm MD PCP - General Internal Medicine 09/17/15 09/28/18 Lew Malcolm MD PCP - General Internal Medicine 09/29/18 10/26/21 Lew Malcolm MD PCP - General Internal Medicine 10/27/21 Jocelyn Miller MD [address] [address] Neurosurgery 10/27/21 Anibal Veliz PA-C [address] [address] Specialist Neurosurgery 11/19/21 Jelly Bain PA-C [address] [address] Specialist Neurosurgery 11/19/21 documented as of this encounter
--- OUTSIDE RECORDS SUMMARY | 2025-03-19 12:32 | XMS_ITS | Encounter Summary ---
Author Organization [facility] Address [address] [place] [address] Care Team Providers Care University Relations Director Name Role Phone Name, Lew CAMPBELL Primary Care Provider Unavailabl e Community, Pcp Primary Care Provider Unavailabl e Name, Lew CAMPBELL Primary Care Provider Unavailabl e Name, Lew CAMPBELL Primary Care Provider Unavailabl e Jocelyn Miller MD Unavailable [phone] Name, Lew CAMPBELL Primary Care Provider Unavailabl e Anibal Veliz PA-C Unavailable [phone] Jelly Bain PA-C Unavailable [phone] Reason for Visit * Reason Onset Date Comments Orders Call 07/03/2013 [facility] are Encounter Details Date Type Department Care Team Description 07/03/2013 Telephone Adult Medicine [address] [address] Name, MD Lew Orders Call ([facility]) Social [...] 4:23 PM EST Please sign orders for half-way and home health aide. Fax back to [phone]. documented in this encounter Plan of Treatment Not on file documented as of this encounter Visit Diagnoses Not on filedocumented in this encounter Care Teams University Relations Director Relationship Specialty Start Date End Date Name, MD Lew PCP - General 04/10/09 06/10/15 Li, Pcp PCP - General Internal Medicine 06/11/15 09/16/15 Lew Malcolm MD PCP - General Internal Medicine 09/17/15 09/28/18 Lew Malcolm MD PCP - General Internal Medicine 09/29/18 10/26/21 Lwe Malcolm MD PCP - General Internal Medicine 10/27/21 Jocelyn Miller MD [address] [address] Neurosurgery 10/27/21 Anibal Veliz PA-C [address] [address] Specialist Neurosurgery 11/19/21 Jelly Bain PA-C [address] [address] Specialist Neurosurgery 11/19/21 documented as of this encounter
--- OUTSIDE RECORDS SUMMARY | 2025-03-19 12:32 | XMS_ITS | Encounter Summary ---
Author Organization [facility] Address [address] [place] [address] Care Team Providers Care Wafer Fab Operator Name Role Phone Name, Lew CAMPBELL Primary Care Provider Unavailabl e Community, Pcp Primary Care Provider Unavailabl e Name, Lew CAMPBELL Primary Care Provider Unavailabl e Name, Lew CAMPBELL Primary Care Provider Unavailabl e Jocelyn Miller MD Unavailable [phone] Name, Lew CAMPBELL Primary Care Provider Unavailabl e Anibal Veliz PA-C Unavailable [phone] Jelly Bain PA-C Unavailable [phone] Reason for Visit * Reason Onset Date Comments Testicle Pain 06/13/2013 Encounter Details Date Type Department Care Team Description 06/13/2013 Telephone Adult [address] [address] Name, MD Lew Testicle Pain Social History [...] [place] Product Type: MEDICARE [id number] documented in this encounter Plan of Treatment Not on file documented as of this encounter Visit Diagnoses Not on filedocumented in this encounter Care Teams Wafer Fab Operator Relationship Specialty Start Date End Date Name, MD Lew PCP - General 04/10/09 06/10/15 [facility] PCP - General Internal Medicine 06/11/15 09/16/15 Lew Malcolm MD PCP - General Internal Medicine 09/17/15 09/28/18 Lew Malcolm MD PCP - General Internal Medicine 09/29/18 10/26/21 Lew Malcolm MD PCP - General Internal Medicine 10/27/21 Jocelyn Miller MD [address] [address] Neurosurgery 10/27/21 Anibal Veliz PA-C [address] [address] Specialist Neurosurgery 11/19/21 Jelly Bain PA-C [address] [address] Specialist Neurosurgery 11/19/21 documented as of this encounter
--- OUTSIDE RECORDS SUMMARY | 2025-03-19 12:32 | XMS_ITS | Encounter Summary ---
Author Organization [facility] Address [address] [place] [address] Care Team Providers Care School Traffic Guard Name Role Phone Name, Lew CAMPBELL Primary Care Provider Unavailabl e Community, Pcp Primary Care Provider Unavailabl e Name, Lew CAMPBELL Primary Care Provider Unavailabl e Name, Lew CAMPBELL Primary Care Provider Unavailabl e Jocelyn Miller MD Unavailable [phone] Name, Lew CAMPBELL Primary Care Provider Unavailabl e Anibal Veliz PA-C Unavailable [phone] Jelly Bain PA-C Unavailable [phone] Encounter Details Date Type Department Care Team Description 08/31/2012 Release of Information Medical Records [address] [place] [id number] Abstract, Provider Social History Tobacco Use Types [...] on filedocumented in this encounter Care Teams School Traffic Guard Relationship Specialty Start Date End Date Lew Malcolm MD PCP - General 04/10/09 06/10/15 Community, Pcp PCP - General Internal Medicine 06/11/15 09/16/15 Lew Malcolm MD PCP - General Internal Medicine 09/17/15 09/28/18 Lew Malcolm MD PCP - General Internal Medicine 09/29/18 10/26/21 Lew Malcolm MD PCP - General Internal Medicine 10/27/21 Jocelyn Miller MD [address] [id number] Neurosurgery 10/27/21 Anibal Veliz PA-C [address] [address] Specialist Neurosurgery 11/19/21 Jelly Bain PA-C [address] [address] Specialist Neurosurgery 11/19/21 documented as of this encounter
--- OUTSIDE RECORDS SUMMARY | 2025-03-19 12:33 | XMS_ITS | Encounter Summary ---
Author Organization [facility] Address [address] [place] [address] Care Team Providers Care Plaster Form Maker Name Role Phone Name, Lew CAMPBELL Primary Care Provider Unavailabl e Community, Pcp Primary Care Provider Unavailabl e Name, Lew CAMPBELL Primary Care Provider Unavailabl e Name, Lew CMAPBELL Primary Care Provider Unavailabl e Jocelyn Miller MD Unavailable [phone] Name, Lew CAMPBELL Primary Care Provider Unavailabl e Anibal Veliz PA-C Unavailable [phone] Jelly Bain PA-C Unavailable [phone] Encounter Details Date Type Department Care Team Description 12/21/2011 Business Doc Medical Records [address] [place] [id number] Abstract, Provider Social History Tobacco Use Types [...] on filedocumented in this encounter Care Teams Plaster Form Maker Relationship Specialty Start Date End Date Lew Malcolm MD PCP - General 04/10/09 06/10/15 Community, Pcp PCP - General Internal Medicine 06/11/15 09/16/15 Lew Malcolm MD PCP - General Internal Medicine 09/17/15 09/28/18 Lew Malcolm MD PCP - General Internal Medicine 09/29/18 10/26/21 Lew Malcolm MD PCP - General Internal Medicine 10/27/21 Jocelyn Miller MD [address] [phone] Neurosurgery 10/27/21 Anibal Veliz PA-C [address] [address] Specialist Neurosurgery 11/19/21 Jelly Bain PA-C [address] [phone] Specialist Neurosurgery 11/19/21 documented as of this encounter
--- OUTSIDE RECORDS SUMMARY | 2025-03-19 12:33 | XMS_ITS | Encounter Summary ---
Author Organization [facility] Address [address] [place] [address] Care Team Providers Care Cash Application Clerk Name Role Phone Name, Lew CAMPBELL Primary Care Provider Unavailabl e Community, Pcp Primary Care Provider Unavailabl e Name, Lew CAMPBELL Primary Care Provider Unavailabl e Name, Lew CAMPBELL Primary Care Provider Unavailabl e Jocelyn Miller MD Unavailable [phone] Name, Lew CAMPBELL Primary Care Provider Unavailabl e Anibal Veliz PA-C Unavailable [phone] Jelly Bain PA-C Unavailable [phone] Encounter Details Date Type Department Care Team Description 09/15/2011 Telephone Adult Medicine [address] [address] Name, MD Lew Social History Tobacco Use [...] on filedocumented in this encounter Care Teams Cash Application Clerk Relationship Specialty Start Date End Date Name, MD Lew PCP - General 04/10/09 06/10/15 Li, Pcp PCP - General Internal Medicine 06/11/15 09/16/15 Gold, MD Lew PCP - General Internal Medicine 09/17/15 09/28/18 Gold, MD Lew PCP - General Internal Medicine 09/29/18 10/26/21 Name, MD Lew PCP - General Internal Medicine 10/27/21 Jocelyn Miller MD [address] [address] Neurosurgery 10/27/21 Anibal Veliz PA-C [address] [address] Specialist Neurosurgery 11/19/21 Jelly Bain PA-C [address] [address] Specialist Neurosurgery 11/19/21 documented as of this encounter
--- OUTSIDE RECORDS SUMMARY | 2025-03-19 12:33 | XMS_ITS | Encounter Summary ---
Author Organization [facility] Address [address] [place] [address] Care Team Providers Care Insurance Claim Approver Name Role Phone Name, Lew CAMPBELL Primary Care Provider Unavailabl e Community, Pcp Primary Care Provider Unavailabl e Name, Lew CAMPBELL Primary Care Provider Unavailabl e Name, Lew CAMPBELL Primary Care Provider Unavailabl e Jocelyn Miller MD Unavailable [phone] Name, Lew CAMPBELL Primary Care Provider Unavailabl e Anibal Veliz PA-C Unavailable [phone] Jelly Bain PA-C Unavailable [phone] Reason for Visit * Reason Onset Date Comments Faxed Order 08/23/2014 Encounter Details Date Type Department Care Team Description 08/23/2014 [place] [facility] [address] [address] Name, MD Lew Faxed Order Social History [...] 08/23/2014 4:59 PM EDT Faxed orders from [facility] [place] documented in this encounter Plan of Treatment Not on file documented as of this encounter Visit Diagnoses Not on filedocumented in this encounter Care Teams Insurance Claim Approver Relationship Specialty Start Date End Date Name, MD Lew PCP - General 04/10/09 06/10/15 [facility], Pcp PCP - General Internal Medicine 06/11/15 09/16/15 Gold, MD Lew PCP - General Internal Medicine 09/17/15 09/28/18 Name, MD Lew PCP - General Internal Medicine 09/29/18 10/26/21 Name, MD Lew PCP - General Internal Medicine 10/27/21 Jocelyn Miller MD [address] [address] Neurosurgery 10/27/21 Anibal Veliz PA-C [address] [address] Specialist Neurosurgery 11/19/21 Jelly Bani PA-C [address] [address] Specialist Neurosurgery 11/19/21 documented as of this encounter
--- OUTSIDE RECORDS SUMMARY | 2025-03-19 12:33 | XMS_ITS | Encounter Summary ---
[facility] Organization [facility] Address [address] [place] [address] Care Team Providers Care Portrait Studio Photographer Name Role Phone Name, Lwe CAMPBELL Primary Care Provider Unavailabl e Mindi Lamas MD Primary Care Provider [phone] [facility], Pcp Primary Care Provider Unavailabl e Name, Lew CAMPBELL Primary Care Provider Unavailabl e Name, Lew CAMPBELL Primary Care Provider Unavailabl e Jocelyn Miller MD Unavailable [phone] Name, Lew CAMPBELL Primary Care Provider Unavailabl e Anibal Veliz PA-C Unavailable [phone] Jelly Bain-C Unavailable [phone] Encounter Details Date Type Department Care Team Description 01/11/2002 Orders Only Medical [address] [place] [address] [phone] Mindi Lamas MD [address] [place] [address] [id number] Social History Tobacco Use Types Packs/Day Years Used Date Smoking Tobacco: Never Assessed Sex Assigned at Date Recorded Not on file Job Start Date Occupation Industry Not on file Not on file Not on file documented as of this encounter Plan of Treatment Not on file documented as of this encounter Visit Diagnoses Not on filedocumented in this encounter Care Teams Portrait Studio Photographer Relationship Specialty Start Date End Date Name, MD Lew PCP - General 04/10/09 06/10/15 Mindi Lamas MD [address] [place] [address] [phone] PCP - General 03/08/1999 04/09/09 Community, Pcp [address] [place] [address] PCP - General Internal Medicine 06/11/15 09/16/15 NameLew MD [address] [place] [address] PCP - General Internal Medicine 09/17/15 09/28/18 Lew Malcolm MD [address] [place] [address] PCP - General Internal Medicine 09/29/18 10/26/21 Lew Malcolm MD [address] [place] [address] PCP - General Internal Medicine 10/27/21 Jocelyn Miller MD [address] [address] Neurosurgery 10/27/21 Anibal Veliz PA-C [address] [address] Specialist Neurosurgery 11/19/21 Jelly Bain PA-C [address] [address] Specialist Neurosurgery 11/19/21 documented as of this encounter
--- OUTSIDE RECORDS SUMMARY | 2025-03-19 12:33 | XMS_ITS | Encounter Summary ---
Author Organization [facility] Address [address] [place] [address] Care Team Providers Care Offbearer Name Role Phone Name, Lew CAMPBELL Primary Care Provider Unavailabl e Community, Pcp Primary Care Provider Unavailabl e Name, Lew CAMPBELL Primary Care Provider Unavailabl e Name, Lew CAMPBELL Primary Care Provider Unavailabl e Jocelyn Miller MD Unavailable [phone] Name, Lew CAMPBELL Primary Care Provider Unavailabl e Anibal Veliz PA-C Unavailable [phone] Jelly Bain PA-C Unavailable [phone] Encounter Details Date Type Department Care Team Description 01/27/2015 Surveillance Systems Engineer Report Medical Records [address] [place] [address] Marcelina Wilhelm MD Social History Tobacco Use [...] on filedocumented in this encounter Care Teams Offbearer Relationship Specialty Start Date End Date Lew Malcolm MD PCP - General 04/10/09 06/10/15 Community, Pcp PCP - General Internal Medicine 06/11/15 09/16/15 Lew Malcolm MD PCP - General Internal Medicine 09/17/15 09/28/18 Lew Malcolm MD PCP - General Internal Medicine 09/29/18 10/26/21 Lew Malcolm MD PCP - General Internal Medicine 10/27/21 Jocelyn Miller MD [address] [phone] Neurosurgery 10/27/21 Anibal Veliz PA-C [address] [address] Specialist Neurosurgery 11/19/21 Jelly Bain PA-C [address] [address] Specialist Neurosurgery 11/19/21 documented as of this encounter
--- OUTSIDE RECORDS SUMMARY | 2025-03-19 12:34 | XMS_ITS | Clinical Summary ---
Author Organization [employer] Address [address] [facility] [address] [place] [address] Care Team Providers Care Sail Finisher Hand Name Role Phone Name, Lew CAMPBELL Primary Care Provider [phone] Allergies No known active allergies Medications Brexpiprazole [...] of aspirin therapy 10/03/2024 Encounter for current jail use of antiplate let drug 01/03/2023 Type 2 diabetes, controlled, with neuropathy 04/2022 Chronic neck pain with history of cervical spina l surgery 04/13/2022 Excessive sweating 04/13/2022 Spinal stenosis in cervical region 10/27/2021 Cervical cord compression with myelopathy ([facility]/ [facility]) 10/27/2021 Overview (01/03/2023): Last Assessment & [...] major depression in partial remission 02/23/2016 Parkinsonism ([facility]) 05/24/2014 Anxiety 05/24/2014 Type 2 diabetes mellitus, [...] Type Department Care Team Description 02/25/2025 Telephone [facility] [address] [place] [address] Lew Malcolm MD 02/20/2025 Refill [facility] [place] [address] Lew Malcolm MD Chronic neck pain with history of cervical spinal surgery 02/11/[address] [address] Elma Carrera [place] march recalls 01/17/2025 Refill [facility] [address] [place] [address] Lew Malcolm MD Chronic neck pain with history of cervical spinal surgery 12/27/2024 9:30 AM EDT Clinical Support [address] [address] Luna Frey RN Long-term current use of opiate analgesic (Primary Dx) 12/27/[address] [address] Luna Frey, RN RIFFLER TENDER Agreement renewed today; Forgot Tramadol 12/27/2024 Travel from Last 3 Months Immunizations Immunization Administration Dates Next Due Influenza injectable quadriv alent IIV4 with preservative 02/15/2018,02/17/2017,02/23/2016 Influenza injectable quadriv alent preservative free 04/20/2023,03/10/2022,05/28/2021,02/25,01/31/2019 Influenza, IIV3, injectable 05/28/2021,1 ,01/31/2019,02/15,02/17/2017,02/23/2016,04/15/2015 ,02/06/2014,02/01/2012,04/27/2011,01/2009 Influenza, Unspecified 02/06/2014,02/01/2012, Influenza, seasonal, injecta ble, preservative free 02/13/2024 Influenza, trivalent, adjuvanted 04/15/2015,01/2009 Moderna Covid-19 Vaccine 12+ 05/28/2021,08/14/19 21,07/16/2020 Moderna Covid-19 Vaccine 6+ Bivalent 07/14/2022 Novel [id number], preservative-free 06/20/2009 PPD Test 02/05/2004 Pneumococcal Conjugate [...] Description 03/26/2025 8:30 AM EST Clinical Support [address] [address] Luna Frey RN 04/23/2025 11:30 AM EST Office Visit [address] [address] Name, MD Lew [address] [place] [address] Health Maintenance Due Date Last Done Comments [...] series) 2021 Depression Screening 08/18/2024 08/19/2023, 08/19/19 24 Diabetes: Foot Exam 08/18/2024 08/19/2023, 08/19/2023, 08/19/2023, Additional history exists Eye Exam 11/02/2024 11/02/2022, 05/0 10/2012, 09/10/2011 COVID-19 Vaccine ( season) 2025 07/14/2022, 05/28/2021, 08/13/2020, Additional history exists Influenza Vaccine (#1) 2025 , 04/20/2023, 03/10/2022, Additional history exists Diabetes: Urine Protein Screening 02/13/2025 02/14/2024, 07/14/2022 Lipid Panel 02/13/2025 02/14/2024, 12/2022, 02/26/2020 Diabetes: Hemoglobin A1C 05/24/2025 025, [...] topic Meningococcal Vaccine Aged Out No jace égnesis eligible based on patient's age to complete this topic RSV under 20 months Aged Out No longe r eligible based on patient's age to complete this topic Rotavirus Vaccines Aged Out No longer eligible based on patient's age to complete this topic Procedures Procedure Name Priority Date/Time Associated Diagnosis Comments PSA, TOTAL Routine 03/13/2025 7:58 AM EST VITAMIN B6 Routine 03/11/2025 8:02 AM EST METHYLMALONIC ACID Routine 03/11/2025 8: 02 AM EST HOMOCYSTEINE Routine 03/11/2025 8:02 AM EST VITAMIN [...] Recently Relevant to Health Maintenance Results * PSA,Total (03/13/2025 7:58 AM EST) Prostate Specific Antigen 0.85 <0.05 - 4.0 ng/mL [facility] Comment:PSA methodology: Abb erin Alinity i ChemiluminescentMicroparticle Immunoassay (CMIA) 03/13/2025 7:58 AM EST 03/13/2025 7:58 AM EST Generic External Data Provider LAB BLOOD ORDERAB LES Final Result Performing Organization Address [facility] Co de Phone Number [facility] [address] [place] [phone] * Vitamin B12 (Cobalamin) and Folate Panel, Serum (03/11/2025 8:02 AM EST) Vitamin B12 692 200 - 900 pg/mL [facility] Comment:NORMAL 200-900 PG/ML INDETERMINATE 160-199 PG/ML DEFICIENT < 160 PG/ML Folate 12.5 > or = 4.0 ng/mL [facility] Comment:Reference Values:> o r = 4.0 ng/mL< 4.0 ng/mL suggests folate deficiency Methotrexate, aminopterin and folinic acid(leucovorin) are chemotherapeutic agents whose molecularstructures are similar to folate; therefore, the Architectfolate assay cannot be used for patients using these drugs. 03/11/2025 8:02 AM EST 03/11/2025 8:02 AM EST Generic External Data Provider LAB BLOOD ORDERAB LES Final Result Performing Organization Address [facility] de Phone Number [facility] [address] [place] [phone] * (ABNORMAL) CBC auto differential (03/11/2025 8:02 AM EST) White Blood Count 8.0 4.8 - 10.8 X10*3/uL [facility] Red Blood Count 4.29(L) 4.60 - 5.80 X10*6/uL [facility] Hemoglobin 13.2(L) 14.0 - 18.0 g/dl [facility] Hematocrit 40.6(L) 42.0 - 52.0 % [facility] Mean Corpuscular Volume 94.6 80.0 - 98.0 fL [facility] Mean Corpuscular Hemoglobin 30.8 27.0 - 33.0 pg [facility] Mean Corpuscular HGB Conc 32.5 31.0 - 36.0 g/dl [facility] Red Cell Distribution Width 13.2 11.0 - 16.0 % [facility] Platelet Count 166 160 - 400 X10*3/uL [facility] Mean Platelet Volume 10.9 9.4 - 12.4 fL [facility] Neutrophils Percent Auto 67.2 45 - 73 % [facility] Imm Gran Pct Auto 0.6(H) 0.0 - 0.4 % [facility] Lymphocytes Percent Auto 20.3 20 - 40 % [facility] Monocytes Percent Auto 8.3 2 - 11 % [facility] Eosinophils Percent Auto 3.1 0 - 4 % [facility] Basophils Percent Auto 0.5 0 - 2 % [facility] NRBC Pct Auto 0.0 0.0 - 0.2 /100WBC [facility] Neutrophils Absolute Auto 5.4 2.0 - 8.3 x10*3/uL [facility] Imm Gran Abs Auto 0.05(H) 0.00 - 0.03 X10*3/uL [facility] Lymphocytes Absolute Auto 1.6 1.2 - 4.9 X10*3/uL [facility] Monocytes Absolute Auto 0.7 0.1 - 1.2 X10*3/uL [facility] Eosinophils Absolute Auto 0.3 0.0 - 0.4 X10*3/uL [facility] Basophils Absolute Auto 0.0 0.0 - 0.2 X10*3/uL [facility] NRBC Abs Auto 0.000 0.0 - 0.012 X10*3/uL [facility] 03/11/2025 8:02 AM EST 03/11/2025 8:02 AM EST us Generic External Data Provider LAB BLOOD ORDERAB LES Final Result Performing Organization Address [facility] Co de Phone Number [facility] [address] [place] [phone] * Sed Rate by Modified Westergren (03/11/2025 8:02 AM EST) Erythrocyte Sedimentation Rate 14 0 - 15 MM/HR [facility] Comment:Patients with polycy themia and many hemoglobin abnormalitiesmay have depressed sed rates whereas patients with anemiamay have elevated sed rates. 03/11/2025 8:02 AM EST 03/11/2025 8:02 AM EST us Generic External Data Provider LAB BLOOD ORDERAB LES Final Result Performing Organization Address [facility] Phone Number [facility] [address] [place] [phone] * Homocysteine (03/11/2025 8:02 AM EST) Homocysteine 12.0 < or = 15.2 umol/L [facility] Comment:Homocysteine is incr eased by functional deficiency offolate or vitamin B12. Testing for methylmalonic aciddifferentiates between these deficiencies. Other causesof increased homocysteine include renal failure, folateantagonists such as methotrexate and phenytoin, andexposure to nitrous oxide.Urvashi Farfan, et al., Deysi [employer] Med. 1999;131(5):331-9.THIS TEST WAS PERFORMED AT:[facility] [address] [phone] ANDERSON MD 03/11/2025 8:02 AM EST 03/11/2025 8:02 AM EST Generic External Data Provider LAB BLOOD ORDERAB LES Final Result Performing Organization Address [facility] de Phone Number [facility] [address] [place] [phone] * POCT [id number] Urine Drug Screen (12/27/2024 9:46 AM EDT) Pathologist [facility] THC Positive Negative Cocaine Screen, Urine Negative [...] - 12/27/2024 9:46 AM EDT UTOX cup Lot#[id number] Exp. 02/12/26 Internal Pass Control us Lew Malcolm MD POINT OF CARE TEST ENTER/EDIT OR DERABLES Final Result * POCT HGB A1C (11/21/2024 11:51 AM EDT) Pathologist [facility] Hemoglobin A1C 5.7 4.0 - 5.7 % QC Media Lot # [id number] Lot# Expiration Date Blood 11/21/2024 11:5 1 AM EDT us Lew Malcolm MD POINT OF CARE TEST ENTER/EDIT OR DERABLES Final Result * HIV-1/2 Antigen and Antibodies, Fourth Generation, with Reflexes (08/09/2024 9:44 AM EDT) Pathologist [facility] HIV AB/AG Nonreactive Nonreactive [facility] Comment:HIV-1 p24 Ag and/or HIV-1/HIV-2 Ab not detected.A test result that is nonreactive does not exclude thepossibility of exposure to or infection with HIV-1 and/orHIV-2. Nonreactive results in this assay for individualswith prior exposure to HIV-1 and/or HIV-2 may be due toantigen and antibody levels that are below the limit ofdetection of this assay.The Formula XO HIV Ag/Ab Combo assay result andsupplemental assay results should be interpreted inconjunction with the patient's clinical presentation,history and other laboratory results. If the results areinconsistent with clinical evidence, additional testing issuggested to confirm the result. 08/09/2024 9:44 AM EDT 08/09/2024 9:45 AM EDT Generic External Data Provider LAB BLOOD ORDERAB LES Final Result Performing Organization Address [facility] de Phone Number [facility] [address] [place] [phone] * Albumin, Random Urine W/Creatinine (02/14/2024 9:45 AM EDT) Creatinine, Urine 35.56 mg/dL [facility] Microalbumin Urine 6.0 mg/L [facility] Microalbum Creatinine Ratio Ur 16.8 <30 ug/mg cr [facility] Comment:Albumin/Creatinine R atio Reference Ranges: Normal: < 30 ug/mg creatinine Microalbuminuria: 30 - 300 ug/mg creatinineClinical Albuminuria: > 300 ug/mg creatinine Urine (Urine, Random) 02/14/2024 9:45 AM EDT 02/14/2024 11:23 AM EDT Lew Malcolm MD LAB URINE ORDERABLES Final Resul t Performing Organization Address [facility] Phone Number [facility] [address] [place] [phone] * (ABNORMAL) Lipid Panel, Standard (02/14/2024 9:43 AM EDT) Triglycerides 122 <150 mg/dL [facility] Comment:Desirable Triglyceri de: less than 150 mg/dLBorderline High Triglyceride 150-199 mg/dLHigh Triglyceride: 200-499 mg/dLVery High Triglyceride: greater than or equal to 5OO mg/dL Cholesterol 93 <200 mg/dL [facility] Comment:Desirable Cholestero l: less than 200 mg/dLBorderline High Cholesterol: 200-239 mg/dLHigh Cholesterol: greater than 239 mg/dL LDL Cholesterol Calculated 41 <100 mg/dL [facility] Comment:Desirable LDL: less than 100 mg/dLNear Optimal/Above Optimal LDL: 110- 129 mg/dLBorderline High LDL: 130-159 mg/dLHigh LDL: 160-189 mg/dLVery High LDL: greater than or equal to 190 mg/dL HDL Cholesterol 28(L) >40 mg/dL [facility] Comment:Desirable HDL: great er than 40 mg/dL Note: This HDL assay may give artificially low results in patients with liver disease. Blood Venous blood specimen / Unknown 02/14/2024 9:43 AM EDT 02/14/2024 11:26 AM EDT us Lew Malcolm MD LAB BLOOD ORDERABLES Final Resul t Performing Organization Address City/State/[facility] Co de Phone Number [facility] [address] [place] [phone] * Colonoscopy (03/28/2023) Colonoscopy Normal Normal Comment:repeat in 5 years Lew Malcolm MD HEALTH MAINTENANCE Final Result from Last 3 Months or Most Recently Relevant to Health Maintenance Insurance [facility] < 65 [place] [id number] Care Teams Sail Finisher Hand Relationship Specialty Start Date End Date Name, MD Lew [address] [place] [phone] PCP - General Family Medicine 07/14/15
--- OUTSIDE RECORDS SUMMARY | 2025-03-19 12:34 | XMS_ITS | Encounter Summary ---
Author Organization [employer] Address [address] [place] [address] 7 [place] [address] Care Team Providers Care Syrup Maker Cook Name Role Phone Name, Lew CAMPBELL Primary Care Provider [phone] Encounter Details Date Type Department Care Team (Late st Contact Info) Description 10/08/2022 [facility] Information Management [address] [place] [address] [phone] Name, MD Lew [address] [place] [address] [phone] Social History Tobacco Use Types Packs/Day Years [...] Description 03/26/2025 8:30 AM EST Clinical Support [facility] [address] [place] [address] [phone] Luna Frey RN 04/23/2025 11:30 AM EST Office Visit [facility] [address] [place] [address] [phone] Name, MD Lew [address] [place] [address] [phone] documented as of this encounter Visit Diagnoses Not on filedocumented in this encounter Additional Health Concerns Assessment Noted Time PHQ-9 Depression Total Score: 18 022 10:02 AM EST documented as of this encounter Care Teams Syrup Maker Cook Relationship Specialty Start Date End Date Name, MD Lew [address] [place] [address] PCP - General Family Medicine 07/14/15 documented as of this encounter
--- OUTSIDE RECORDS SUMMARY | 2025-03-19 12:34 | XMS_ITS | Encounter Summary ---
Author Organization [employer] [facility] Address [address] [place] [address] 7 [place] [address] Care Team Providers Care Scientific Helper Name Role Phone Name, Lew CAMPBELL Primary Care Provider [phone] Encounter Details Date Type Department Care Team (Latest Contact Info) Description 03/26/2019 Abstract [facility] Dental, Provider, DDS Social History [...] Description 03/26/2025 8:30 AM EST Clinical Support [address] [address] Luna Frey RN 04/23/2025 11:30 AM EST Office Visit [facility] [address] [place] [phone] Lew Malcolm MD [address] [place] [address] documented as of this encounter Visit Diagnoses Not on filedocumented in this encounter Care Teams Scientific Helper Relationship Specialty Start Date End Date Lew Malcolm MD [address] [place] [id number] PCP - General Family Medicine 07/14/15 documented as of this encounter
--- OUTSIDE RECORDS SUMMARY | 2025-03-19 12:34 | XMS_ITS | Encounter Summary ---
Author Organization [facility] Address [address] [place] [address] Care Team Providers Care Sprayer Hand Name Role Phone Name, Lew CAMPBELL Primary Care Provider Unavailabl e Community, Pcp Primary Care Provider Unavailabl e Name, Lew CAMPBELL Primary Care Provider Unavailabl e Name, Lew CAMPBELL Primary Care Provider Unavailabl e Jocelyn Miller MD Unavailable [phone] Name, Lew CAMPBELL Primary Care Provider Unavailabl e Anibal Veliz PA-C Unavailable [phone] Jelly Bain PA-C Unavailable [phone] Encounter Details Date Type Department Care Team Description 05/01/2014 Home Health Certification Medical Records [address] [place] [phone] [place] [address], [facility] Social History Tobacco Use Types Packs/Day [...] on filedocumented in this encounter Care Teams Sprayer Hand Relationship Specialty Start Date End Date Lew Malcolm MD PCP - General 04/10/09 06/10/15 Community, Pcp PCP - General Internal Medicine 06/11/15 09/16/15 Lew Malcolm MD PCP - General Internal Medicine 09/17/15 09/28/18 Lew Malcolm MD PCP - General Internal Medicine 09/29/18 10/26/21 Lew Malcolm MD PCP - General Internal Medicine 10/27/21 Jocelyn Miller MD [address] [phone] Neurosurgery 10/27/21 Anibal Veliz PA-C [address] [phone] Specialist Neurosurgery 11/19/21 Jelly Bain PA-C [address] [address] Specialist Neurosurgery 11/19/21 documented as of this encounter
--- OUTSIDE RECORDS SUMMARY | 2025-03-19 12:34 | XMS_ITS | Encounter Summary ---
Author Organization [facility] Address [address] [place] [address] Care Team Providers Care Family Specialist Name Role Phone Name, Lew CAMPBELL Primary Care Provider Unavailabl e Community, Pcp Primary Care Provider Unavailabl e Name, Lew CAMPBELL Primary Care Provider Unavailabl e Name, Lew CAMPBELL Primary Care Provider Unavailabl e Jocelyn Miller MD Unavailable [phone] Name, Lew CAMPBELL Primary Care Provider Unavailabl e Anibal Veliz PA-C Unavailable [phone] Jelly Bain PA-C Unavailable [phone] Encounter Details Date Type Department Care Team Description 04/01/2014 Release of Information Medical Records [address] [place] [id number] Abstract, Provider Social History Tobacco Use Types [...] on filedocumented in this encounter Care Teams Family Specialist Relationship Specialty Start Date End Date Lew Malcolm MD PCP - General 04/10/09 06/10/15 Community, Pcp PCP - General Internal Medicine 06/11/15 09/16/15 Lew Malcolm MD PCP - General Internal Medicine 09/17/15 09/28/18 Lew Malcolm MD PCP - General Internal Medicine 09/29/18 10/26/21 Lew Malcolm MD PCP - General Internal Medicine 10/27/21 Jocelyn Miller MD [address] [phone] Neurosurgery 10/27/21 Anibal Veliz PA-C [address] [address] Specialist Neurosurgery 11/19/21 Jelly Bain PA-C [address] [address] Specialist Neurosurgery 11/19/21 documented as of this encounter
--- OUTSIDE RECORDS SUMMARY | 2025-03-19 12:34 | XMS_ITS | Encounter Summary ---
Author Organization [facility] Address [address] [place] [address] Care Team Providers Care Bilingual Teacher Name Role Phone Name, Lew CAMPBELL Primary Care Provider Unavailabl e Community, Pcp Primary Care Provider Unavailabl e Name, Lew CAMPBELL Primary Care Provider Unavailabl e Name, Lew CAMPBELL Primary Care Provider Unavailabl e Jocelyn Miller MD Unavailable [phone] Name, Lew CAMPBELL Primary Care Provider Unavailabl e Anibal Veliz PA-C Unavailable [phone] Jelly Bain PA-C Unavailable [phone] Encounter Details Date Type Department Care Team Description 06/13/2014 Housing Specialist Report Medical Records [address] [place] [id number] Marcelina Wilhelm MD Social History Tobacco Use [...] on filedocumented in this encounter Care Teams Bilingual Teacher Relationship Specialty Start Date End Date eLw Malcolm MD PCP - General 04/10/09 06/10/15 Community, Pcp PCP - General Internal Medicine 06/11/15 09/16/15 Lew Malcolm MD PCP - General Internal Medicine 09/17/15 09/28/18 Lew Malcolm MD PCP - General Internal Medicine 09/29/18 10/26/21 Lew Malcolm MD PCP - General Internal Medicine 10/27/21 Jocelyn Miller MD [address] [phone] Neurosurgery 10/27/21 Anibal Veliz PA-C [address] [address] Specialist Neurosurgery 11/19/21 Jelly Bain PA-C [address] [address] Specialist Neurosurgery 11/19/21 documented as of this encounter
--- OUTSIDE RECORDS SUMMARY | 2025-03-19 12:34 | XMS_ITS | Encounter Summary ---
Author Organization [facility] Address [address] [place] [address] Care Team Providers Care Internal Sales Name Role Phone Name, Lew CAMPBELL Primary Care Provider Unavailabl e Community, Pcp Primary Care Provider Unavailabl e Name, Lew CAMPBELL Primary Care Provider Unavailabl e Name, Lew CAMPBELL Primary Care Provider Unavailabl e Jocelyn Miller MD Unavailable [phone] Name, Lew CAMPBELL Primary Care Provider Unavailabl e Anibal Veliz PA-C Unavailable [phone] Jelly Bain PA-C Unavailable [phone] Encounter Details Date Type Department Care Team Description 07/12/2014 Hydro Mechanic Report Medical Records [address] [place] [phone] [place], [place] [address] Social History Tobacco Use Types Packs/Day Years [...] on filedocumented in this encounter Care Teams Internal Sales Relationship Specialty Start Date End Date Lew Malcolm MD PCP - General 04/10/09 06/10/15 Community, Pcp PCP - General Internal Medicine 06/11/15 09/16/15 Lew Malcolm MD PCP - General Internal Medicine 09/17/15 09/28/18 Lew Malcolm MD PCP - General Internal Medicine 09/29/18 10/26/21 Lew Malcolm MD PCP - General Internal Medicine 10/27/21 Jocelyn Miller MD [address] [address] Neurosurgery 10/27/21 Anibal Veliz PA-C [address] [address] Specialist Neurosurgery 11/19/21 Jelly Bain PA-C [address] [address] Specialist Neurosurgery 11/19/21 documented as of this encounter
--- OUTSIDE RECORDS SUMMARY | 2025-03-19 12:34 | XMS_ITS | Encounter Summary ---
Author Organization [employer] Address [address] [place] [address] 7 [place] [address] Care Team Providers Care Agricultural Purchasing Agent Name Role Phone Name, Lew CAMPBELL Primary Care Provider [phone] Reason for Visit * Reason Comments Med Refill Encounter Details Date Type Department Care Team (Late st Contact Info) Description 09/19/2022 Refill [facility] [address] [place] [address] [phone] NameLew MD [address] [place] [phone] History of myocardial infarction Social History Tobacco [...] Description 03/26/2025 8:30 AM EST Clinical Support [address] [phone] Luna Frey RN 04/23/2025 11:30 AM EST Office Visit [address] [phone] NameLew MD [address] [place] [address] documented as of this encounter Visit Diagnoses Diagnosis History of myocardial infarction documented in this encounter Additional Health Concerns Assessment Noted Time PHQ-9 Depression Total Score: 18 022 10:02 AM EST documented as of this encounter Care Teams Agricultural Purchasing Agent Relationship Specialty Start Date End Date Name, MD Lew [address] [facility] [place] [address] PCP - General Family Medicine 07/14/15 documented as of this encounter
--- OUTSIDE RECORDS SUMMARY | 2025-03-19 12:35 | XMS_ITS | Patient Health Record ---
Author Organization [facility] Address [address] [place] [phone] Care Team Providers Care Online Merchandising Specialist Name Role Phone Name Lew CAMPBELL Primary Care Provider Bean Restrepo Unavailable [phone] Allergies No Known Allergies Reason For Referral [...] Status Risk Notes Problem Colon cancer screening (931682873) Colon cancer screening (Z12.11) Active confirmed Problem Diverticular disease of colon (175973789) Diverticulosis of large intestine without perforation or abscess without bleeding (K57.30) Active confirmed Problem Long-term current use of antiplatelet drug (722940337100511 ) Long-term use of aspirin therapy (Z79.82) Active confirmed Plan Of Treatment Pending Test Test Name Order Date Pathology 03/14/2023 Future Test Test Name Order Date COLONOSCOPY 12/16/2022 Insurance Providers Payer Name Payer Address Payer Phone Subscriber Number Group Number Insured Name Patient Relationship to Insured Coverage Start Date Coverage End Date [facility] [address] [place] [address] [id number] KASEY REGALDAO Self - patient is the insured Medical (General) History Medical History History ICD Code Denies [place],DM,CVA,Lung disease,renal dise ase Parkinson's disease.....alth ough reports that he is now told that he does not have that as of the 12/2022 OV Anxiety Reports a negative colonoscopy at [facility] at approx. age 51 Surgical History Surgery Date(Month/Year)
== END 2025-03-19 11:42 | disposition home or self-care (01) ==
LOC: HO.HUSH 10:47
PROVIDERS: PCP Internal Medicine Geriatric Medicine; Visit Provider Nurse Practitioner Family
DX: E11.69 Type 2 diabetes mellitus with other specified complication (principal); N52.1 Erectile dysfunction due to diseases classified elsewhere; Z13.9 Encounter for screening, unspecified
CPT/HCPCS: 99213; G2211

== ENCOUNTER → 2025-03-19 10:46 | Outpatient (BNVA) | payer OTHER, SELFPAY | PROVIDERS: PCP Internal Medicine Geriatric Medicine; Visit Provider Nurse Practitioner Family | DX: E11.69 Type 2 diabetes mellitus with other specified complication (principal); N52.1 Erectile dysfunction due to diseases classified elsewhere; Z79.85 Long-term (current) use of injectable non-insulin antidiabetic drugs; Z13.9 Encounter for screening, unspecified | CPT/HCPCS: 81003; 99212 ==